=== PATIENT | female | born 1980 | race Caucasian/White ===

== ENCOUNTER 2020-04-24 09:14 | Emergency (ER) | payer BC, OTHER ==
[2020-04-24 11:13] LABS: Urine Blood 2+ (NEG); Urine Glucose NEGATIVE (NEG); Urine Protein NEGATIVE (NEG); Urine pH 5.5 (5.0-7.0)
[2020-04-24] MEDS ORDERED: METHYLPREDNISOLONE 125 MG INJ ONE (11:39)
[2020-04-24] MEDS ORDERED: MORPHINE 2 MG/ML SYR ONE (11:39)
[2020-04-24] MEDS ORDERED: ONDANSETRON 4 MG/2 ML VIAL ONE ×3 (11:40→14:52)
[2020-04-24] MEDS ORDERED: KETOROLAC 30 MG/ML INJ ONE (11:40)
[2020-04-24 11:56] LABS: C-Reactive Protein 5.59 mg/L (<3.00); Potassium 3.9 mmol/L (3.5-5.1)
[2020-04-24 12:07] LABS: Absolute Lymphocytes (CBC) 0.8 K/uL (0.7-4.9); Basophils % 0.6 % (0-1.3); Hematocrit 38.2 % (36.0-45.0); Lymphocytes % 20.3 % (15.3-44.8); MPV 9.8 fL (7.6-11.3); RBC Red Blood Cell Count 4.08 M/uL (3.86-4.86)
[2020-04-24] MEDS ORDERED: GABAPENTIN 300 MG CAP ONE (12:40)
[2020-04-24 13:14] LABS: Blood Morphology Comment NOT SEEN (NOT SEEN); Platelet Estimate ADEQ; Urine White Blood Cell Casts OK
[2020-04-24 13:44] LABS: Albumin 3.4 g/dL (3.4-5.0); Bilirubin Direct 0.1 mg/dL (0-0.2); Bilirubin Total 0.5 mg/dL (0.2-1.0); Protein, Total 8.3 g/dL (6.4-8.2)
[2020-04-24 15:11] VITALS: BP 118/77; TEMP 97.9; O2SAT 98
--- NOTE | 2020-04-26 17:58 | ER ---
Nurse's Notes [facility] Name: Ginette Guillermo Age: 39 yrs Sex: Female : 1980 Arrival Date: 04/24/2020 Time: 09:16 Bed 4 Private MD: Diagnosis: Neuralgia and neuritis, unspecified;Extremity swelling, athralgias Presentation: 04/24 09:33 Chief complaint: Patient states: swelling to arlen hands for the past week, pain to R ch side of neck when she turns head, pain in R shoulder when she lifts arm up for two days, then last night after standing on her feet all day, swelling to L foot. Coronavirus screen: Proceed with normal triage. Patient denies a cough. Patient denies shortness of breath or difficulty breathing. Patient denies measured and/or subjective temperature greater than 100.4F prior to today's visit. Patient denies travel on a cruise ship or to a country the [facility] currently lists as an affected area. Patient denies contact with known and/or suspected case of COVID-19. Ebola Screen: Patient negative for fever greater than or equal to 101.5 degrees Fahrenheit, and additional compatible Ebola Virus Disease symptoms Patient denies exposure to infectious person. Patient denies travel to an Ebola-affected area in the 21 days before illness onset. No symptoms or risks identified at this time. Initial Sepsis Screen: Does the patient meet any 2 criteria? No. Patient's initial sepsis screen is negative. Does the patient have a suspected source of infection? No. Patient's initial sepsis screen is negative. Risk Assessment: Do you want to hurt yourself or someone else? Patient reports no desire to harm self or others. Onset of symptoms was April 17, 2020. 09:33 Method Of Arrival: Ambulatory 09:33 Acuity: KAMLESH 3 Triage Assessment: 09:36 General: Appears in no apparent distress. comfortable, Behavior is calm, cooperative, appropriate for age. Pain: Complains of pain in anterior aspect of right shoulder, posterior aspect of right shoulder, back of neck, right hand, left hand and left foot Pain currently is 9 out of 10 on a pain scale. Pain began suddenly. Neuro: No deficits noted. Level of Consciousness is awake, alert, obeys commands, Oriented to person, place, time, situation, Supervisor Policy Change Clerks are equal bilaterally. Cardiovascular: Denies chest pain, palpitations, shortness of breath. Respiratory: No deficits noted. Airway is patent Respiratory effort is even, unlabored. GI: No signs and/or symptoms were reported involving the gastrointestinal system. : No signs and/or symptoms were reported regarding the genitourinary system. Derm: Skin is pink, warm \T\ dry. pt reports a numb spot on her ribs under her L breast. Musculoskeletal: Swelling present in right hand and left hand Tenderness present in right hand, left hand, right foot and left foot Reports pt states her arlen hands were super swollen yesterday, its better today. states the skin was stretched so tight the skin was white, and she still cannot move her toes very well. states her L foot was so swollen it wouldn't fit in a shoe. 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 - Social history:: Smoking status: Reported history of juuling and/or vaping. Patient uses alcohol, on a daily basis. Patient/guardian denies using street drugs. Screenin:40 Abuse screen: Denies threats or abuse. Denies injuries from another. Nutritional screening: No deficits noted. Tuberculosis screening: No symptoms or risk factors identified. Fall Risk None identified. Assessment: 09:40 Reassessment: Patient appears in no apparent distress at this time. Patient is alert, ch oriented x 3, equal unlabored respirations, skin warm/dry/pink. 10:37 Reassessment: Patient appears in no apparent distress at this time. Kat mcknight attempting IV now. 10:57 Reassessment: Patient appears in no apparent distress at this time. Kat mcknight unsucessful with IV start. Lien in room now to place US iv. 11:10 Reassessment: Patient appears in no apparent distress at this time. No changes from previously documented assessment. Lien unable to get IV access Via US. pt oob to restroom, gait steady, resps even and unlabored. pt still has swelling. 11:21 Reassessment: Kervin in room to attempt to IV patient. ch 11:47 Reassessment: Patient appears in no apparent distress at this time. Patient and/or ch family updated on plan of care and expected duration. Pain level reassessed. Patient is alert, oriented x 3, equal unlabored respirations, skin warm/dry/pink. 12:30 Reassessment: Patient appears in no apparent distress at this time. Patient and/or ch family updated on plan of care and expected duration. Pain level reassessed. Patient is alert, oriented x 3, equal unlabored respirations, skin warm/dry/pink. pt states the pain is a little better but not much. Patient states feeling better. 12:41 Reassessment: Patient appears in no apparent distress at this time. pt states her pain ch is somewhat relieved but she feels very nauseous after taking pill. pt offered crackers, states she thinks she might puke them. pt re medicated with Zofran. pt rates her pain at a 7. 14:04 Reassessment: Patient appears in no apparent distress at this time. pt reports her feet ch are numb, but her pain is improved. physician notified. 14:39 Reassessment: Patient appears in no apparent distress at this time. awaiting physician ch to speak with patient to review results. 14:57 Reassessment: Patient appears in no apparent distress at this time. Patient and/or ch family updated on plan of care and expected duration. Pain level reassessed. Patient is alert, oriented x 3, equal unlabored respirations, skin warm/dry/pink. Patient states feeling better. Patient states symptoms have improved. Vital Signs: 09:33 BP 113 / 82; Pulse 74; Resp 14; Temp 98.8; Pulse Ox 99% on R/A; Weight 78.93 kg; Height 5 ft. 5 in. (165.10 cm); Pain 9/10; 11:20 BP 128 / 82; Pulse 88; Resp 16; Temp 98.3; Pulse Ox 98% on R/A; Pain 8/10; ch 12:41 BP 138 / 84; Pulse 92; Resp 20; Pulse Ox 99% on R/A; Pain 7/10; ch 13:38 BP 138 / 90; Pulse 59; Resp 20; Pulse Ox 96% ; sv 14:57 BP 118 / 77; Pulse 73; Resp 16; Temp 97.9; Pulse Ox 98% on R/A; Pain 6/10; ch 09:33 Body Mass Index 28.95 (78.93 kg, 165.10 cm) ED Course: 09:16 Patient arrived in ED. ag5 09:31 Don Parsons MD is Attending Physician. kdr 09:33 Paris Fraser, ALISON is Primary Nurse. ch 09:35 Triage completed. ch 09:36 Arm band placed on left wrist. Patient placed in an exam room, on a stretcher. ch 09:40 No apparent distress. Resting quietly. ch 09:40 Patient has correct armband on for positive identification. Placed in gown. Bed in low ch position. Call light in reach. Side rails up X 1. 09:40 No provider procedures requiring assistance completed. ch 09:59 ED physician to see patient. sv 10:27 Missed attempt(s): 22 gauge in right forearm. antecubital area. Bleeding controlled, ch band aid applied, catheter tip intact. 10:35 Initial lab(s) drawn, by wy, sent to lab. Missed attempt(s): 20 gauge in left sv antecubital area. Bleeding controlled, band aid applied, catheter tip intact. 11:05 Missed attempt(s): 20 gauge in right antecubital area. done by Lien ROSAS using the bedside ultrasound. Bleeding controlled, band aid applied, catheter tip intact. 11:20 Pulse ox on. NIBP on. Warm blanket given. ch 11:28 Inserted saline lock: 18 gauge in left EJ, using aseptic technique. ,using aseptic ch technique. Started by Kervin Chambers 13:33 LAB Add On Sent. sv 14:57 IV discontinued, intact, bleeding controlled, No redness/swelling at site. Pressure ch dressing applied. Administered Medications: 11:30 Drug: SOLU-Medrol 125 mg Route: IVP; Site: left jugular; ch 12:29 Follow up: Response: No adverse reaction ch 11:30 Drug: morphine 1 mg Route: IVP; Site: left jugular; ch 12:29 Follow up: Response: No adverse reaction ch 11:30 Drug: Zofran (Ondansetron) 4 mg Route: IVP; Site: left jugular; ch 12:29 Follow up: Response: No adverse reaction; Pain is decreased ch 11:32 Drug: TORadol - Ketorolac 15 mg Route: IVP; Site: left jugular; ch 12:30 Follow up: Response: No adverse reaction ch 12:32 Drug: Neurontin 300 mg Route: PO; ch 12:59 Follow up: Response: No adverse reaction ch 12:40 Drug: Zofran (Ondansetron) 4 mg Route: IVP; Site: left jugular; ch 12:59 Follow up: Response: No adverse reaction ch 14:49 Drug: Zofran (Ondansetron) 4 mg Route: IVP; Site: left jugular; ss 14:58 Follow up: Response: No adverse reaction; Marked relief of symptoms ch Outcome: 14:38 Discharge ordered by . kdr 14:57 Discharged to home ambulatory, with family. 14:57 Condition: stable 14:57 Discharge instructions given to patient, Instructed on discharge instructions, follow up and referral plans. medication usage, Demonstrated understanding of instructions, follow-up care, medications, Prescriptions given X 4. 14:58 Patient left the ED. Signatures: Paris Fraser RN RN Kat Werner RN Don Galvan MD MD kdr Smirch, Shelby, RN RN Regan Holloway ag5 Corrections: (The following items were deleted from the chart) 11:12 11:05 Missed attempt(s): 20 gauge in right antecubital area. done by Lien ROSAS. sv Bleeding controlled, band aid applied, catheter tip intact. sv
--- NOTE | 2020-04-26 17:58 | EDPHYS ---
Physician Documentation [facility] Name: Ginette Guillermo Age: 39 yrs Sex: Female : 1980 Arrival Date: 04/24/2020 Time: 09:16 Bed 4 Private MD: ED Physician Don Parsons HPI: 04/24 10:10 This 39 yrs old Female presents to ER via Ambulatory with complaints of Feet kdr Swelling, Hand Pain, Arm Pain. 10:11 The patient has multiple c/o including bilateral hand pain/swelling - left worse than kdr right. She also c/o left foot pain and swelling. She has also c/o pain and swelling to the left foot for the last few days as well. She also c/o pain to the right lateral posterior neck that radiates/shoot down to her right arm. She also c/o a number area for the past 4+ months to her anterior thorax at the anterior left infrathoracic area. Severity of symptoms: At their worst the symptoms were mild moderate in the emergency department the symptoms are unchanged. The patient has not experienced similar symptoms in the past. The patient has not recently seen a physician. 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 - Social history:: Smoking status: Reported history of juuling and/or vaping. Patient uses alcohol, on a daily basis. Patient/guardian denies using street drugs. ROS: 10:11 Constitutional: Negative for fever, chills, and weight loss, Eyes: Negative for injury, kdr pain, redness, and discharge, Neck: Negative for injury, pain, and swelling, Cardiovascular: Negative for chest pain, palpitations, and edema, Respiratory: Negative for shortness of breath, cough, wheezing, and pleuritic chest pain, Abdomen/GI: Negative for abdominal pain, nausea, vomiting, diarrhea, and constipation, Back: Negative for injury and pain, : Negative for injury, bleeding, discharge, and swelling, MS/Extremity: Negative for injury and deformity, Skin: Negative for injury, rash, and discoloration, Psych: Negative for depression, anxiety, suicide ideation, homicidal ideation, and hallucinations, Allergy/Immunology: Negative for hives, rash, and allergies, Endocrine: Negative for neck swelling, polydipsia, polyuria, polyphagia, and marked weight changes, Hematologic/Lymphatic: Negative for swollen nodes, abnormal bleeding, and unusual bruising. 10:11 Neuro: Positive for Negative for dizziness, gait disturbance, loss of consciousness, seizure activity, speech changes, syncope, near syncope, tinnitus, tremor, visual changes. Exam: 10:11 Constitutional: This is a well developed, well nourished patient who is awake, alert, kdr and in no acute distress. Head/Face: Normocephalic, atraumatic. Eyes: Pupils equal round and reactive to light, extra-ocular motions intact. Lids and lashes normal. Conjunctiva and sclera are non-icteric and not injected. Cornea within normal limits. Periorbital areas with no swelling, redness, or edema. Neck: Trachea midline, no thyromegaly or masses palpated, and no cervical lymphadenopathy. Supple, full range of motion without nuchal rigidity, or vertebral point tenderness. No Meningismus. Chest/axilla: Normal chest wall appearance and motion. Nontender with no deformity. No lesions are appreciated. Cardiovascular: Regular rate and rhythm with a normal S1 and S2. No gallops, murmurs, or rubs. Normal PMI, no JVD. No pulse deficits. Respiratory: Lungs have equal breath sounds bilaterally, clear to auscultation and percussion. No rales, rhonchi or wheezes noted. No increased work of breathing, no retractions or nasal flaring. Abdomen/GI: Soft, non-tender, with normal bowel sounds. No distension or tympany. No guarding or rebound. No evidence of tenderness throughout. Back: No spinal tenderness. No costovertebral tenderness. Full range of motion. Skin: Warm, dry with normal turgor. Normal color with no rashes, no lesions, and no evidence of cellulitis. Neuro: Awake and alert, GCS 15, oriented to person, place, time, and situation. Cranial nerves II-XII grossly intact. Motor strength 5/5 in all extremities. Sensory grossly intact. Cerebellar exam normal. Normal gait. Psych: Awake, alert, with orientation to person, place and time. Behavior, mood, and affect are within normal limits. 10:11 Musculoskeletal/extremity: Extremities: grossly normal except: noted in the dorsal aspect of left forearm, left wrist, left hand and palmar aspect of left forearm: erythema, pain, swelling, tenderness, noted in the lateral aspect of left foot and dorsum of left foot: decreased ROM, pain, noted in the right arm: abrasion, pain, swelling. Vital Signs: 09:33 BP 113 / 82; Pulse 74; Resp 14; Temp 98.8; Pulse Ox 99% on R/A; Weight 78.93 kg; Height ch 5 ft. 5 in. (165.10 cm); Pain 9/10; 11:20 BP 128 / 82; Pulse 88; Resp 16; Temp 98.3; Pulse Ox 98% on R/A; Pain 8/10; ch 12:41 BP 138 / 84; Pulse 92; Resp 20; Pulse Ox 99% on R/A; Pain 7/10; ch 13:38 BP 138 / 90; Pulse 59; Resp 20; Pulse Ox 96% ; sv 14:57 BP 118 / 77; Pulse 73; Resp 16; Temp 97.9; Pulse Ox 98% on R/A; Pain 6/10; ch 09:33 Body Mass Index 28.95 (78.93 kg, 165.10 cm) ch MDM: 10:11 Data reviewed: vital signs, nurses notes, lab test result(s). Counseling: I had a kdr detailed discussion with the patient and/or guardian regarding: the historical points, exam findings, and any diagnostic results supporting the discharge/admit diagnosis. 14:38 Patient medically screened. [facility] 04/24 10:05 Order name: CBC with Diff; Complete Time: 13:29 kdr 04/24 10:05 Order name: Chem 7; Complete Time: 14:[address] [facility] 04/24 10:05 Order name: ESR; Complete Time: 13: kdr 04/24 10:05 Order name: CRP; Complete Time: 14:[address] [facility] 04/24 11:04 Order name: Urine Dipstick--Ancillary (enter results); Complete Time: 11: eb 04/24 11:04 Order name: Urine --Ancillary (enter results); Complete Time: 11: 04/24 12:56 Order name: LAB Add On eb 04/24 13:15 Order name: CBC Smear Scan; Complete Time: 13:29 EDNC 04/24 13:16 Order name: Liver (Hepatic) Function; Complete Time: 14:35 [facility] 04/24 10:05 Order name: Urine Dipstick-Ancillary (obtain specimen); Complete Time: 10:54 kdr Administered Medications: 11:30 Drug: SOLU-Medrol 125 mg Route: IVP; Site: left jugular; ch 12:29 Follow up: Response: No adverse reaction ch 11:30 Drug: morphine 1 mg Route: IVP; Site: left jugular; ch 12:29 Follow up: Response: No adverse reaction ch 11:30 Drug: Zofran (Ondansetron) 4 mg Route: IVP; Site: left jugular; ch 12:29 Follow up: Response: No adverse reaction; Pain is decreased ch 11:32 Drug: TORadol - Ketorolac 15 mg Route: IVP; Site: left jugular; ch 12:30 Follow up: Response: No adverse reaction ch 12:32 Drug: Neurontin 300 mg Route: PO; ch 12:59 Follow up: Response: No adverse reaction ch 12:40 Drug: Zofran (Ondansetron) 4 mg Route: IVP; Site: left jugular; ch 12:59 Follow up: Response: No adverse reaction ch 14:49 Drug: Zofran (Ondansetron) 4 mg Route: IVP; Site: left jugular; ss 14:58 Follow up: Response: No adverse reaction; Marked relief of symptoms ch Disposition: 04/24/20 14:38 Discharged to Home. Impression: Neuralgia and neuritis, unspecified, Extremity swelling, athralgias. - Condition is Stable. - Discharge Instructions: Pain Without a Known Cause, Neuropathic Pain. - Prescriptions for Ibuprofen 600 mg Oral Tablet - take 1 tablet by ORAL route every 6 hours As needed take with food; 30 tablet. Neurontin 300 mg Oral Capsule - take 1 capsule by ORAL route every 8 hours; 30 capsule. Tylenol- Codeine #3 300-30 mg Oral Tablet - take 2 tablets by ORAL route every 6 hours As needed; 16 tablet. Medrol (Flex) 4 mg Oral Tablets, Dose Pack - take 1 tablet by ORAL route as directed - follow package instructions; 1 packet. Zofran 4 mg Oral Tablet - take 1 tablet by ORAL route every 4-6 hours As needed; 12 tablet. - Medication Reconciliation Form, Thank You Letter, Prescription Opioid Use form. - Follow up: Private Physician; When: 2 - 3 days; Reason: If symptoms return, Further diagnostic work-up, Recheck today's complaints, Continuance of care, Re-evaluation by your physician. - Problem is new. - Symptoms have improved. Signatures: Dispatcher [employer] EDNC Paris Fraser RN RN Don Parsons MD MD [facility] Lien Church RN RN ss Corrections: (The following items were deleted from the chart) 14:58 14:38 04/24/2020 14:38 Discharged to Home. Impression: Neuralgia and neuritis, ch unspecified; Extremity swelling, athralgias. Condition is Stable. Forms are Medication Reconciliation Form, Thank You Letter, Antibiotic Education, Prescription Opioid Use. Follow up: Private Physician; When: 2 - 3 days; Reason: If symptoms return, Further diagnostic work-up, Recheck today's complaints, Continuance of care, Re-evaluation by your physician. Problem is new. Symptoms have improved. kdr
== END 2020-04-24 14:58 | disposition home or self-care (01) ==
LOC: ER 09:14
DX: M79.2 Neuralgia and neuritis, unspecified (principal)
CPT/HCPCS: 85025; 80048; 36415; 81025; 80076; 85652; 81003; 86140; 96375; 96374; 99284; J2270; J2930; J2405 ×3

== ENCOUNTER 2022-12-31 10:02 | Inpatient (IN) | payer BC ==
--- OUTSIDE RECORDS SUMMARY | 2022-12-31 10:10 | XMS REPORT | Continuity of Care Document ---
:1980 Author Organization [facility] t Address [address] [place] [address] Care Team Providers Name Role Phone Dannielle FARMER, Milla Primary Care Physician MICHAEL VANEGAS Attending Clinician Unavailable BOB MALAVE Attending Clinician Unavailable SARA CALVO Attending Clinician Unavailable Bob Malave DO Attending Clinician Tyrel Oconnor PT, Porsche Attending Clinician Unavailable Rey Foster MD Attending Clinician REY FOSTER Attending Clinician Unavailable Lab, Ang - Db Attending Clinician Unavailable [place] SYSTEM DESIGNERAaron Atreaga Attending Clinician AARON DUNCAN Attending Clinician Unavailable Doctor Unassigned, [place] Attending Clinician Unavailable MICHELLE SYLVESTER Attending Clinician Unavailable SWEETIE NEWSOME Attending Clinician Unavailable Pcp-Lab Attending Clinician Unavailable Ana Ariza RN Attending Clinician Unavailable LOULOU CEJA Attending Clinician Unavailable Loulou Ceja NP Attending Clinician JUNITO LYONS Attending Clinician Unavailable Junito Lyons DO Attending Clinician HECTOR JIMENEZ Attending Clinician Unavailable Therapy, Adc Covid Infusion Attending Clinician Unavailable Hector Jimenez MD Attending Clinician Curt Otoole MD Attending Clinician Only, Pcp Test Attending Clinician Unavailable Allen Strauss MD Attending Clinician Juan Luis FARMER, James Yip Attending Clinician Tristin FARMER, Ja Chopra Attending Clinician Sharron FARMER, Isa Torres A Attending Clinician Zeus FARMER, Kita Long Attending Clinician Dimitris FARMER, Pietro Attending Clinician MD ISA DUMAS A Attending Clinician Unavailable FINN BROOKS Attending Clinician Unavailable Po, Adc Lab Main Attending Clinician Unavailable Jeffrey Escobar MD Attending Clinician CURT OTOOLE Attending Clinician Unavailable Arnoldpaty MONTES DE OCA, Myra Attending Clinician YAS MYRA Attending Clinician Unavailable NOÉ BLANCHARD Attending Clinician Unavailable SHEA, [facility]END[facility]NY [facility] Attending Clinician Unavailable Umesh FARMER, Sara Attending Clinician Vtc-Lab Attending Clinician Unavailable Danna FARMER, [facility] Attending Clinician Elisa Drummond Attending Clinician Michael Vanegas MD Attending Clinician Only, Adc Test Attending Clinician Unavailable ELISA SEN Attending Clinician Unavailable Rose Owens PA-C Attending Clinician Jaylyn Nolasco DO Attending Clinician JAYLYN NOLASCO Attending Clinician Unavailable JAYLYN NOLASCO Attending Clinician Unavailable ROSE OWENS Attending Clinician Unavailable YELENA SARAH Attending Clinician Unavailable Amos ROSAS, Stephanie Bernabe Attending Clinician Unavailable Umm FARMER, Hilario Attending Clinician Dianne Dodd MD Attending Clinician , Adc Echo Room 1 - Attending Clinician Unavailable Shea FARMER, [facility] Attending Clinician Stella Mcmahan Attending Clinician Provider, [facility] Attending Clinician Unavailable Yelena Sarah MD Attending Clinician [facility] Attending Clinician Unavailable MICHAEL VANEGAS Admitting Clinician Unavailable JUNITO LYONS Admitting Clinician Unavailable ISA DUMAS Admitting Clinician Unavailable MD ISA DUMAS Admitting Clinician Unavailable Michael Vanegas MD Admitting Clinician Hilario Salomon MD Admitting Clinician Payers Payer Name Policy Type Policy Number Effective Date Expiration Date S diogo [facility] [id number] 2018 00:00:00 Problems Condition Condition Condition Status Onset Resolution Last Treating Co mments Source Name Details Category Date Date Treatment Clinician Date Intractabl Intractabl Disease Active M ethodi e pain e pain 07-29 00:00: Hosp[facility] 00 l Abdominal Abdominal Disease Active Overview: Univers pain, pain, 1-21 Form[place] ity of epigastric epigastric 00:00: g of this [place] 00 note Medical might be Branch different from the original. Added automatic ally from request for surgery [id number] Obesity Obesity Disease Active Univers (BMI (BMI 1-07 ity of 30-39.9) 30-39.9) 00:00: [address] Branch Pericardit Pericardit Disease Active 2019-11 U nivers is is 1-18 ity of 00:00: [place] [facility] Cigarette Cigarette Disease Active 2019-11 Uni vers smoker smoker 1-16 ity of 00:00: [address] Branch Chest pain Chest pain Disease Active 2020- U nivers 1-16 ity of 00:00: [place] [id number] Medical Branch SOB SOB Disease Active 2019-11 Univers (shortness (shortness 1-16 it y of of breath) of breath) 00:[place]: [place] [facility] [place] Fever Fever Disease Active 2019- Univers 1-16 ity of 00:00: [place] [address] Medical Branch Lymphadeno Lymphadeno Disease Active 2019- U nivers donnie donnie 1-16 ity of 00:00: [place] 00 Medical Branch Shortness Shortness Disease Active 2019-11 Uni vers of breath of breath 0-04 ity of 00:00: [place] [facility] Abnormal Abnormal Disease Active 2019-11 Unive rs EKG EKG 0-04 ity of 00:00: [place] 00 Medical Branch Raynaud's Raynaud's Disease Active Uni vers disease disease 05-04 ity of without without 00:00: [place] gangrene gangrene 00 Medica l Branch Arthralgia Arthralgia Disease Active U nivers of of 05-04 ity of multiple multiple 00:00: [place] joints joints 00 Medical Branch Neuropathy Neuropathy Disease Active U nivers 05-04 ity of 00:00: [place] 00 Medical Branch Renal Renal Disease Active Overview: Univer s lesion lesion 06-26 Formattin ity of 00:00: g of this [place] 00 note Medical might be Branch different from the original. 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 Microscopi Microscopi Disease Active U nivers c c 06-20 ity of hematuria hematuria 00:[place] B12 B12 Disease Active Univers deficiency deficiency 06-20 it y of 00:00: [place] 00 [facility] Branch Numbness Numbness Disease Active Unive rs and and 05-18 ity of tingling tingling 00:00: [place] of upper of upper 00 Medica l and lower and lower Bran ch extremitie extremitie s of both s of both sides sides Hot Hot Disease Active Univers flashes flashes 05-18 ity of 00:00: [place] 00 [facility] Branch Depression Depression Disease Active U nivers ity of [facility] Anxiety Anxiety Disease Active Univers ity of [facility] Migraines Migraines Disease Active Uni vers ity of [facility] Prediabete Prediabete Disease Active U nivers s s ity of [facility] Positive Positive Disease Active Unive rs SUSU SUSU ity of (antinucle [place]antinucle [place] Medical antibody) antibody) Bran ch Rheumatoid Rheumatoid Disease Active U nivers factor factor ity of positive positive [facility] Pain in Pain in Diagnosis Active 2021-11-23 Memoria left hand left hand 04:06:48 l Active [place] Diagnosis 11/23/2021 Milla Najam Rash Rash Diagnosis Active 2021-11-23 Mem oria Active 04:06:48 l Diagnosis [place] 11/23/2021 Milla Najam SUSU SUSU Diagnosis Active 2021-11-23 Mem oria positive positive 04:06:48 l Active [place] Diagnosis 11/23/2021 Milla Naleliam Vitamin D Vitamin D Problem Active 2021-11-23 Memoria deficiency deficiency 04:07:20 l Active [place] Problem 11/23/2021 Milla Najam 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 04:07:20 l tissue tissue [place] disease disease Active Problem 11/23/2021 Milla Najam Fibromyalg Fibromyal Problem Active 2021-11-23 Memoria ia duarte Active 04:07:20 l Problem [place] 11/23/2021 Milla Najam History of History Problem Active 2021-11-23 Memoria lupus of lupus 04:07:20 l Active [place] Problem 11/23/2021 Milla Najam Counseling Counselin Diagnosis Active 2021-11-23 Memoria NOS g NOS 04:06:48 l Active [place] Diagnosis 11/23/2021 Milla Najam Pain in Pain in Diagnosis Active 2021-11-23 Memoria right hand right hand 04:06:48 l Active [place] Diagnosis 11/23/2021 Milla Najam Pain, Pain, Diagnosis Active 2021-11-23 Me moria joint, joint, 04:06:48 l multiple multiple Rodrigo n sites sites Active Diagnosis 11/23/2021 Milla Najam Allergies, Adverse Reactions, Alerts Allergy Allergy Status Severity Reaction(s) Onset Inactive Treating Comm ents Source Name Type Date Date Clinician NO KNOWN Drug Active Univers ALLERGIE Class ity of S [facility] Social History Social Habit Start Date Stop Date Quantity Comments Source History of Cigarette Smoker Universi ty of tobacco use [facility] Exposure to 2022-12-02 2022-12-12 Not sure University of SARS-CoV-2 00:00:00 15:32:00 [facility] (event) Branch Cigarettes smoked 2022-11-14 2022-11-14 Univers ity of current (pack per 00:00:00 00:00:00 [place] ) - Reported Branch Cigarette 2022-11-14 2022-11-14 University of pack-years 00:00:00 00:00:00 [place] [facility] Tobacco use and 2022-11-14 2022-11-14 Smokeless tobacco Un iversity of exposure 00:00:00 00:00:00 non-user [facility] Alcohol intake 2021-07-29 2021-07-29 Current drinker of Me [facility] 00:00:00 00:00:00 alcohol (finding) Hospita l History [facility] 2020-12-02 2020-12-02 99 University o f Alcohol Frequency 00:00:00 00:00:00 [place] M edical Branch History [facility] 2020-12-02 2020-12-02 99 University o f Alcohol Binge 00:00:00 00:00:00 [place] [facility] Alcohol Comment 2020-12-02 2020-12-02 occassionally Univer sity of 00:00:00 00:00:00 [place] [facility] History [facility] 2019-05-13 2019-05-13 99 University o f Alcohol Std 00:00:00 00:00:00 [facility] Drinks Branch Sex [birth year] [facility] 00:00:00 00:00:00 Hospital Smoking Status Start Date Stop Date Source Occasional tobacco 2022-11-14 00:00:00 [facility] smoker Medical Branch Ex-smoker 2021-07-29 00:00:00 2021-07-29 [facility] Medications Ordered Filled Start Stop Current Ordering Indication Dosage Frequency Signature Comments Components Source Medication Medication Date Date Medication? Clinician (SIG) Name Name amLODIPine 2022- No 5mg Take 5 mg U nivers 5 mg tablet 12-12 by mouth ity of 16:41: 00:00 in the [place] 39 :00 morning. Medical Branch amLODIPine 2022- No 5mg Take 5 mg U nivers 5 mg tablet 12-12 by mouth ity of 16:41: 00:00 in the [place] 39 :00 morning. Medical Branch amLODIPine Yes [id number] 5mg Take 1 Univers 5 mg tablet 1-17 tablet by ity of 00:00: mouth in [place] 00 the Medical morning. Branch gabapentin Yes [id number] 600mg Take 2 Univers 300 mg 1-17 capsules ity of capsule 00:00: by mouth [place] 00 in the Medical morning Branch and 2 capsules at noon and 2 capsules in the evening. amLODIPine 2023-0 Yes [id number] 5mg Take 1 Univers 5 mg tablet 1-17 tablet by ity of 00:00: mouth in [place] the Medical morning. Branch gabapentin 2023-0 Yes [id number] 600mg Take 2 Univers 300 mg 1-17 capsules ity of capsule 00:00: by mouth [place] 00 in the Medical morning Branch and 2 capsules at noon and 2 capsules in the evening. amLODIPine 2023-0 Yes [id number] 5mg Take 1 Univers 5 mg tablet 1-17 tablet by ity of 00:00: mouth in [place] the Medical morning. Branch gabapentin 2023-0 Yes [id number] 600mg Take 2 Univers 300 mg 1-17 capsules ity of capsule 00:00: by mouth 00 in the Medical morning Branch and 2 capsules at noon and 2 capsules in the evening. amLODIPine 2023-0 Yes [id number] 5mg Take 1 Univers 5 mg tablet 1-17 tablet by ity of 00:00: mouth in [place] the Medical morning. Branch gabapentin 2023-0 Yes [id number] 600mg Take 2 Univers 300 mg 1-17 capsules ity of capsule 00:00: by mouth [place] 00 in the Medical morning Branch and 2 capsules at noon and 2 capsules in the evening. amLODIPine 2023-0 Yes [id number] 5mg Take 1 Univers 5 mg tablet 1-17 tablet by ity of 00:00: mouth in [place] the Medical morning. Branch gabapentin 2023-0 Yes [id number] 600mg Take 2 Univers 300 mg 1-17 capsules ity of capsule 00:00: by mouth [place] 00 in the Medical morning Branch and 2 capsules at noon and 2 capsules in the evening. amLODIPine 2023-0 Yes [id number] 5mg Take 1 Univers 5 mg tablet 1-17 tablet by ity of 00:00: mouth in [place] the Medical morning. Branch gabapentin 2023-0 Yes [id number] 600mg Take 2 Univers 300 mg 1-17 capsules ity of capsule 00:00: by mouth [place] 00 in the Medical morning Branch and 2 capsules at noon and 2 capsules in the evening. amLODIPine 2023-0 Yes [id number] 5mg Take 1 Univers 5 mg tablet 1-17 tablet by ity of 00:00: mouth in [place] 00 the Medical morning. Branch gabapentin 2022- Yes [id number] 600mg Take 2 Univers 300 mg 1-17 capsules ity of capsule 00:00: by mouth [place] 00 in the Medical morning Branch and 2 capsules at noon and 2 capsules in the evening. amLODIPine 2021-11 Yes 5mg Take 5 mg Un alecia 5 mg tablet 2-20 by mouth ity of 09:46: in the [place] [address] morning. Medical Branch amLODIPine 2021-11 Yes 5mg Take 5 mg Un alecia 5 mg tablet 2-20 by mouth ity of 09:46: in the [place] [address] morning. Medical Branch amLODIPine 2021-11 Yes 5mg Take 5 mg Un alecia 5 mg tablet 2-20 by mouth ity of 09:46: in the [place] [address] morning. Medical Branch amLODIPine 2021-11 Yes 5mg Take 5 mg Un alecia 5 mg tablet 2-20 by mouth ity of 09:46: in the [place] [address] morning. Medical Branch multivit-mi 2021-11- No Take by Un alecia n/ferrous 2-20 12-20 mouth. ity of fumarate 09:45: 00:00 [place] ([facility] 27 :00 Medical VITAMIN Branch ORAL) multivit-mi 2021-11- No Take by Un alecia n/ferrous 2-20 12-20 mouth. ity of fumarate 09:45: 00:00 [place] ([facility] 27 :00 Medical VITAMIN Branch ORAL) multivit-mi 2021-11- No Take by Un alecia n/ferrous 2-20 12-20 mouth. ity of fumarate 09:45: 00:00 [place] ([facility] 27 :00 Medical VITAMIN Branch ORAL) TAKE 1 2021-0 No 100 CAPSULE 9-07 ONCE A DAY 00:00: 00 TAKE 1 2-0 No CAPSULE 9-07 ONCE A DAY 00:00: 00 Dose 2-0 No 200 Unknown 7-24 00:00: 00 TAKE ONE 2021-0 No 500 (1) TABLET 7-24 (500 MG 00:00: TOTAL) BY 00 MOUTH 4 (FOUR) TIMES A DAY NEEDED FOR MUSCLE SPASMS. TAKE ONE 2021-0 No 100 (1) 7-24 CAPSULE(S) 00:00: BY MOUTH 00 TWICE A DAY. Dose 2022-0 No 200 Unknown 06-18 00:00: 00 TAKE ONE 2-0 No 500 (1) TABLET 06-18 (500 MG 00:00: TOTAL) BY 00 MOUTH 4 (FOUR) TIMES A DAY NEEDED FOR MUSCLE SPASMS. TAKE ONE 2-0 No 100 (1) 06-18 CAPSULE(S) 00:00: BY MOUTH 00 TWICE A DAY. TAKE 2 2022-0 No 300 CAPSULES 3 06-15 TIMES 00:00: DAILY. 00 Dose 2022-0 No 250 Unknown 06-15 00:00: 00 pregabalin 2022-0 No 1mg 100 mg - capsule 00:00: 00 TAKE ONE 2-0 No 100 (1) 06-15 CAPSULE(S) 00:00: BY MOUTH 00 TWICE A DAY. TAKE ONE 2-0 No 500 (1) TABLET 06-15 (500 MG 00:00: TOTAL) BY 00 MOUTH 4 (FOUR) TIMES A DAY NEEDED FOR MUSCLE SPASMS. TAKE 1 2-0 No CAPSULE 06-15 ONCE A DAY 00:00: 00 TAKE ONE 2-0 No 100 (1) 06-15 CAPSULE(S) 00:00: BY MOUTH 00 TWICE A DAY. TAKE ONE 2-0 No 500 (1) TABLET 06-15 (500 MG 00:00: TOTAL) BY 00 MOUTH 4 (FOUR) TIMES A DAY NEEDED FOR MUSCLE SPASMS. &lt 2022-0 No 250 06-15 00:00: 00 TAKE 1 2022-0 No 200 TABLET BY 7- MOUTH TWICE 00:00: DAILY AFTER 00 A MEAL TAKE 1 2022-0 No 50 TABLET BY 7- MOUTH DAILY 00:00: 00 TAKE 2 2022-0 No 300 CAPSULES 3 06-15 TIMES 00:00: DAILY. 00 &lt 2022-0 No 250 06-15 00:00: 00 TAKE 1 2022-0 No TABLET 3 - TIMES 00:00: DAILY. 00 Dose 2022-0 No 250 Unknown 06-15 00:00: 00 TAKE 1 2022-0 No 200 TABLET BY 7- MOUTH TWICE 00:00: DAILY AFTER 00 A MEAL TAKE 1 2022-0 No 50 TABLET BY 7-21 MOUTH DAILY 00:00: 00 TAKE 2 2022-0 No 300 CAPSULES 3 - TIMES 00:00: DAILY. 00 NaCl 0.9% 2021- No 1000mL at 999 Uni vers (NS) bolus 05-04 mL/hr, ity of infusion 21:15: 09:14 1,000 mL, [place] as 1,000 mL 00 :00 IV Medical Infusion, Branch ONCE, 1 dose, On [place] 05/04/22 at 1615, BOB magnesium 2021- No 1g 1 g, IV Univ ers sulfate in 05-04 Piggyback, it y of D5W 1 21:15: 09:14 ONCE, 1 [place] gram/100 mL 00 :00 dose, On [facility] RTU IV [place] 05/04/22 Branch Piggyback 1 at 1615, g Administer over 60 Minutes, 100 mL ketorolac 2021- No 30mg 30 mg, Unive rs (TORADOL) 05-04 Slow IV ity of injection 21:15: 09:14 Push, [place] 30 mg 00 :00 ONCE, 1 Medical dose, On Branch [facility] 05/04/22 at 1615, Routine butalbital- 2021- No 1{tbl} 1 tablet, Univers acetaminoph 05-04 Oral, ity of en-caff 21:15: 09:14 ONCE, 1 [place] (ESGIC) 00 :00 dose, On Medical 50-325-40 [facility] 05/04/22 Bran ch mg tablet 1 at 1615, tablet BOB dexamethaso 2021- No 10mg 10 mg, Uni vers ne sod phos 05-01 Slow IV ity of PF 21:15: 20:16 Push, [place] injection 00 :00 ONCE, 1 Medical 10 mg dose, On Branch [facility] 05/01/22 at 1615, 1 mL ketorolac 2021- No 15mg 15 mg, Unive rs (TORADOL) 05-01 Slow IV ity of injection 21:15: 20:16 Push, [place] 15 mg 00 :00 ONCE, 1 Medical dose, On Branch [facility] 05/01/22 at 1615, BOB diphenhydrA 2021- No 25mg 25 mg, Uni vers MINE 05-01 Slow IV ity of (BENADRYL) 20:45: 19:47 [place], [place] injection 00 :00 ONCE, 1 Medical 25 mg dose, On Branch 05/01/22 at 1545, STAT metoclopram 2021- No 10mg 10 mg, Uni vers vikki HCl 05-01 Slow IV ity of (REGLAN) 20:45: 19:41 [place], [place] injection 00 :00 ONCE, 1 Medical 10 mg dose, On Branch 05/01/22 at 1545, BOB iopamidol 2021- No [id number] 64mL 64 mL, U nivers (ISOVUE 05-01 Intravenou ity o f 370-500 mL) 19:56: 19:56 s, ONCE, 1 [place] injection 00 :00 dose, On Medica l 64 mL 05/01/22 Branch at 1500, Routine Ergocalcife 2020-11 Yes Milla 1 capsule Memoria rol 2-29 Najam l 04:06: [place] Pregabalin 2020-11 Yes Milla 1 capsule Memoria 2-29 Najam l 04:06: [place] Gabapentin 2020-11 Yes Milla 1 capsule Memoria 2-29 Najam l 04:06: [place] Hydroxychlo 2020-11 Yes Milla as Ritesh lilian roquine 2-29 Najam directed l Sulfate 04:06: [place] Ergocalcife 2020-11 Yes Milla 1 capsule Memoria rol 2-29 Najam l 04:06: [place] Pregabalin 2020-11 Yes Milla 1 capsule Memoria 2-29 Najam l 04:06: [place] Azathioprin 2020-11 Yes Milla as Ritesh lilian e 2-29 Najam directed l 04:06: [place] Duloxetine 2020-11 Yes Milla 1 capsule Memoria HCl 2-29 Najam l 04:06: [place] 48 Azathioprin 2020-11 Yes Milla as Ritesh lilian e 2-29 Najam directed l 04:06: [place] Duloxetine 2020-11 Yes Milla 1 capsule Memoria HCl 2-29 Najam l 04:06: [place] Gabapentin 2020-11 Yes Milla 1 capsule Memoria 2-29 Najam l 04:06: [place] 48 Hydroxychlo 2020-11 Yes Milla as Ritseh lilian roquine 2-29 Najam directed l Sulfate 04:06: [place] 48 Ergocalcife 2020-11 Yes Milla 1 capsule Memoria rol 2-29 Najam l 04:06: [place] 48 Pregabalin 2020-11 Yes Milla 1 capsule Memoria 2-29 Najam l 04:06: [place] 48 Azathioprin 2020-11 Yes Milla as Ritesh lilian e 2-29 Najam directed l 04:06: [place] 48 Duloxetine 2020-11 Yes Milla 1 capsule Memoria HCl 2-29 Najam l 04:06: [place] 48 Gabapentin 2020-11 Yes Milla 1 capsule Memoria 2-29 Najam l 04:06: [place] 48 Hydroxychlo 2020-11 Yes Milla as Ritesh lilian roquine 2-29 Najam directed l Sulfate 04:06: [place] 48 Ergocalcife 2020-11 Yes Milla 1 capsule Memoria rol 2-29 Najam l 04:06: [place] 48 Pregabalin 2020-11 Yes Mil[place] 1 capsule Memoria 2-29 Najam l 04:06: [place] 48 Azathioprin 2020-11 Yes Milla as Ritesh lilian e 2-29 Najam directed l 04:06: [place] 48 Duloxetine 2020-11 Yes Milla 1 capsule Memoria HCl 2-29 Najam l 04:06: [place] Gabapentin 2020-11 Yes Milla 1 capsule Memoria 2-29 Najam l 04:06: [place] 48 Hydroxychlo 2020-11 Yes Milla as Ritesh lilian roquine 2-29 Najam directed l Sulfate 04:06: [place] 48 Zithromax 2020-11 Yes Milla 2 tablet Me moria Z-Flex 0-11 Najam on the l 00:00: first day, [place] 00 then 1 tablet daily for 4 days Zithromax 2020-11 Yes Milla 2 tablet Me moria Z-Flex 0-11 Najam on the l 00:00: first day, [place] then 1 tablet daily for 4 days Zithromax 2020-11 Yes Milla 2 tablet Me moria Z-Flex 0-11 Najam on the l 00:00: first day, [place] 00 then 1 tablet daily for 4 days Zithromax 1 Yes Milla 2 tablet Me moria Z-Flex 0-11 Najam on the l 00:00: first day, [place] 00 then 1 tablet daily for 4 days DULOXETINE 2020-0 Yes [id number] 30mg TAKE 1 Univers 30 mg 9-28 CAPSULE BY ity of capsule 00:00: MOUTH [place] DAILY Medical Branch DULOXETINE 2020-0 Yes [id number] 30mg TAKE 1 Univers 30 mg 9-28 CAPSULE BY ity of capsule 00:00: MOUTH [place] DAILY Medical Branch DULOXETINE 2020-0 Yes [id number] 30mg TAKE 1 Univers 30 mg 9-28 CAPSULE BY ity of capsule 00:00: MOUTH [place] DAILY Medical Branch DULOXETINE 2020-0 Yes [id number] 30mg TAKE 1 Univers 30 mg 9-28 CAPSULE BY ity of capsule 00:00: MOUTH [place] DAILY Medical Branch DULOXETINE 2020-0 Yes [id number] 30mg TAKE 1 Univers 30 mg 9-28 CAPSULE BY ity of capsule 00:00: MOUTH DAILY Medical Branch DULOXETINE 2020-0 Yes [id number] 30mg TAKE 1 Univers 30 mg 9-28 CAPSULE BY ity of capsule 00:00: MOUTH [place] DAILY Medical Branch DULOXETINE 2020-0 Yes [id number] 30mg TAKE 1 Univers 30 mg 9-28 CAPSULE BY ity of capsule 00:00: MOUTH [place] 00 DAILY Medical Branch DULOXETINE 2020-0 2- No [id number] 30mg TAKE 1 Univers 30 mg 9-28 12-20 CAPSULE BY ity of capsule 00:00: 00:00 MOUTH [place] 00 :00 DAILY Medical Branch DULOXETINE 2020-0 2021- No [id number] 30mg TAKE 1 Univers 30 mg 9-28 12-20 CAPSULE BY ity of capsule 00:00: 00:00 MOUTH [place] 00 :00 DAILY Medical Branch DULOXETINE 2020-0 2021- No [id number] 30mg TAKE 1 Univers 30 mg 9-28 12-20 CAPSULE BY ity of capsule 00:00: 00:00 MOUTH [place] 00 :00 DAILY Medical Branch casirivimab 2020-0 1- No [id number] 1200mg 1,200 mg, Univers -imdevimab 08-18 Subcutaneo it y of (REGEN-COV 21:30: 20:15 us, ONCE, [place] (EUA[place] 00 :00 1 dose, On Medical injection [place] Branch 1,200 mg 08/18/21 at 1630, Routine hydrOXYchlo 2020-0 Yes [id number] One BID PC Univers roQUINE 200 9-21 ity of mg tablet 00:00: [place] 00 Medical Branch azaTHIOprin 2020-0 Yes [id number] 50mg Take 1 Univers e 50 mg 9-21 tablet by ity of tablet 00:00: mouth [place] 00 daily. Medical Branch hydrOXYchlo 2020-0 Yes [id number] One BID PC Univers roQUINE 200 9-21 ity of mg tablet 00:00: [place] 00 Medical Branch azaTHIOprin 2020-0 Yes [id number] 50mg Take 1 Univers e 50 mg 9-21 tablet by ity of tablet 00:00: mouth [place] 00 daily. Medical Branch hydrOXYchlo 2020-0 Yes [id number] One BID PC Univers roQUINE 200 9-21 ity of mg tablet 00:00: [place] 00 Medical Branch azaTHIOprin 2020-0 Yes [id number] 50mg Take 1 Univers e 50 mg 9-21 tablet by ity of tablet 00:00: mouth [place] 00 daily. Medical Branch hydrOXYchlo 2020-0 Yes [id number] One BID PC Univers roQUINE 200 9-21 ity of mg tablet 00:00: [place] 00 Medical Branch azaTHIOprin 1-0 Yes [id number] 50mg Take 1 Univers e 50 mg 9-21 tablet by ity of tablet 00:00: mouth [place] 00 daily. Medical Branch hydrOXYchlo 2020-0 Yes [id number] One BID PC Univers roQUINE 200 9-21 ity of mg tablet 00:00: [place] 00 Medical Branch azaTHIOprin 1-0 Yes [id number] 50mg Take 1 Univers e 50 mg 9-21 tablet by ity of tablet 00:00: mouth [place] 00 daily. Medical Branch hydrOXYchlo 2020-0 Yes [id number] One BID PC Univers roQUINE 200 9-21 ity of mg tablet 00:00: [place] 00 Medical Branch azaTHIOprin 1-0 Yes [id number] 50mg Take 1 Univers e 50 mg 9-21 tablet by ity of tablet 00:00: mouth [place] 00 daily. Medical Branch hydrOXYchlo 2020-0 Yes [id number] One BID PC Univers roQUINE 200 9-21 ity of mg tablet 00:00: [place] 00 Medical Branch azaTHIOprin 2020-0 Yes [id number] 50mg Take 1 Univers e 50 mg 9-21 tablet by ity of tablet 00:00: mouth [place] 00 daily. Medical Branch hydrOXYchlo 2020-0 Yes [id number] One BID PC Univers roQUINE 200 9-21 ity of mg tablet 00:00: [place] 00 Medical Branch azaTHIOprin 2020-0 Yes [id number] 50mg Take 1 Univers e 50 mg 9-21 tablet by ity of tablet 00:00: mouth [place] 00 daily. [facility] Branch hydrOXYchlo 2020-0 Yes [id number] One BID PC Univers roQUINE 200 9-21 ity of mg tablet 00:00: [place] 00 Medical Branch azaTHIOprin 2020-0 Yes [id number] 50mg Take 1 Univers e 50 mg 9-21 tablet by ity of tablet 00:00: mouth [place] 00 daily. [facility] Branch hydrOXYchlo 2020-0 2021- No [id number] One BID PC Univers roQUINE 200 9-21 12-20 ity of mg tablet 00:00: 00:00 [place] 00 :00 Medical Branch azaTHIOprin 1-0 2021- No [id number] 50mg Take 1 Univers e 50 mg 9-21 12-20 tablet by ity of tablet 00:00: 00:00 mouth [place] 00 :00 daily. [facility] Branch hydrOXYchlo 2020-0 2021- No [id number] One BID PC Univers roQUINE 200 9-21 12-20 ity of mg tablet 00:00: 00:00 [place] 00 :00 Medical Branch azaTHIOprin 1-0 2021- No [id number] 50mg Take 1 Univers e 50 mg 9-21 12-20 tablet by ity of tablet 00:00: 00:00 mouth [place] 00 :00 daily. [facility] Branch hydrOXYchlo 2020-0 2021- No [id number] One BID PC Univers roQUINE 200 9-21 12-20 ity of mg tablet 00:00: 00:00 [place] 00 :00 Medical Branch azaTHIOprin 1-0 2021- No [id number] 50mg Take 1 Univers e 50 mg 9-21 12-20 tablet by ity of tablet 00:00: 00:00 mouth [place] 00 :00 daily. Medical Branch Pregabalin 1-0 Yes Milla 1 capsule Memoria 9-08 Najam l 00:00: Ergocalcife 2021-0 Yes Milla 1 capsule Memoria rol 9-08 [place] l 00:00: Pregabalin 2021-0 Yes Milla 1 capsule Memoria 9-08 [place] 00:00: Ergocalcife 2021-0 Yes Milla 1 capsule Memoria rol 9-08 [place] l 00:00: Pregabalin 2021-0 Yes Milla 1 capsule Memoria 9-08 [place] 00:00: Ergocalcife 2021-0 Yes Milla 1 capsule Memoria rol 9-08 [place] l 00:00: Pregabalin 2021-0 Yes Milla 1 capsule Memoria 9-08 [place] l 00:00: Ergocalcife 2021-0 Yes Milla 1 capsule Memoria rol 9-08 Najam l 00:00: hydrOXYchlo 2020-0 Yes 200mg Q.5D Take 200 M ethodi roQUINE 9-[address] (PLAQUENIL) 19:22: mouth 2 Hos daren 200 mg 58 (two) l tablet times a day. azaTHIOprin 2020-0 Yes 50mg QD Take 50 mg Methodi e (IMURAN) 9-[address] 50 mg 19:22: daily. Hospita tablet 58 l DULoxetine 2020-0 Yes 60mg QD Take 60 mg M ethodi (CYMBALTA) 9-[address] 60 MG 19:22: daily. Hospita capsule 58 l gabapentin 2020-0 Yes 600mg Q.[id number] Take 600 Methodi (NEURONTIN) 9-05 [id number] mg by s t 300 mg 19:22: 3D mouth 3 Hospita capsule 58 (three) l times a day. gabapentin 2021-0 Yes 600mg Q.[id number] Take 600 Methodi (NEURONTIN) 9-05 [id number] mg by s t 300 mg 19:22: 3D mouth 3 Hospita capsule 58 (three) l times a day. hydrOXYchlo 2021-0 Yes 200mg Q.5D Take 200 M ethodi roQUINE 9-[address] (PLAQUENIL) 19:22: mouth 2 Hos daren 200 mg 58 (two) l tablet times a day. azaTHIOprin 2021-0 Yes 50mg QD Take 50 mg Methodi e (IMURAN) 9-[address] 50 mg 19:22: daily. Hospita tablet 58 l DULoxetine 202-0 Yes 60mg QD Take 60 mg M ethodi (CYMBALTA) 9-[address] 60 MG 19:22: daily. Hospita capsule 58 l gabapentin 2021-0 Yes 600mg Q.[id number] Take 600 Methodi (NEURONTIN) 9-05 [id number] mg by s t 300 mg 19:22: 3D mouth 3 Hospita capsule 58 (three) l times a day. hydrOXYchlo 2020-0 Yes 200mg Q.5D Take 200 M ethodi roQUINE 9-[address] (PLAQUENIL) 19:22: mouth 2 Hos daren 200 mg 58 (two) l tablet times a day. azaTHIOprin 2020-0 Yes 50mg QD Take 50 mg Methodi e (IMURAN) 9-[address] 50 mg 19:22: daily. Hospita tablet 58 l DULoxetine 2020-0 Yes 60mg QD Take 60 mg M ethodi (CYMBALTA) 9-[address] 60 MG 19:22: daily. Hospita capsule 58 l methocarbam 2021-0 Yes 500mg Q.25D Take 1 Me thodi oL 9-[address] (ROBAXIN) 00:00: (500 mg Hospi ta 500 MG 00 total) by l tablet mouth 4 (four) times a day as needed for muscle spasms. ramelteon 2021-0 Yes 8mg QD Take 1 Method i (ROZEREM) 8 9-05 tablet (8 st mg tablet 00:00: mg total) Hos daren 00 by mouth l nightly as needed for sleep. methocarbam 2021-0 Yes 500mg Q.25D Take 1 Me thodi oL 9-[address] (ROBAXIN) 00:00: (500 mg Hospi ta 500 MG 00 total) by l tablet mouth 4 (four) times a day as needed for muscle spasms. ramelteon 2021-0 Yes 8mg QD Take 1 Method i (ROZEREM) 8 9-05 tablet (8 st mg tablet 00:00: mg total) Hos daren 00 by mouth l nightly as needed for sleep. methocarbam 0 Yes 500mg Q.25D Take 1 Me thodi oL 9-[address] (ROBAXIN) 00:00: (500 mg Hospi ta 500 MG 00 total) by l tablet mouth 4 (four) times a day as needed for muscle spasms. ramelteon 0 Yes 8mg QD Take 1 Method i (ROZEREM) 8 9-05 tablet (8 st mg tablet 00:00: mg total) Hos daren 00 by mouth l nightly as needed for sleep. DULoxetine 0 Yes [id number] 30mg Take 1 Univers 30 mg 6-16 capsule by ity of capsule 00:00: mouth [place] 00 daily. Medical Branch DULoxetine 0 Yes [id number] 30mg Take 1 Univers 30 mg 6-16 capsule by ity of capsule 00:00: mouth [place] 00 daily. Medical Branch DULoxetine 0 2020- No [id number] 30mg Take 1 Univers 30 mg 6-16 09-28 capsule by ity of capsule 00:00: 00:00 mouth [place] 00 :00 daily. Medical Branch gabapentin 2020-0 Yes [id number] 600mg Take 2 Univers 300 mg 5-12 capsules ity [place] capsule 00:00: [place] (three[place] Medical times Branch daily. gabapentin 2020-0 Yes [id number] 600mg Take 2 Univers 300 mg 5-12 capsules ity of capsule 00:00: [place] 3 [place] (three[place] Medical times Branch daily. gabapentin 2020-0 Yes [id number] 600mg Take 2 Univers 300 mg 5-12 capsules ity of capsule 00:00: [place] (three[place] Medical times Branch daily. gabapentin 2020-0 Yes [id number] 600mg Take 2 Univers 300 mg 5-12 capsules ity of capsule 00:00: [place] (three[place] Medical times Branch daily. gabapentin 2020-0 Yes [id number] 600mg Take 2 Univers 300 mg 5-12 capsules ity of capsule 00:00: [place] 3 [place] (three[place] Medical times Branch daily. gabapentin 2021-0 Yes [id number] 600mg Take 2 Univers 300 mg 5-12 capsules ity of capsule 00:00: [place] (three[place] Medical times Branch daily. gabapentin 2021-0 Yes [id number] 600mg Take 2 Univers 300 mg 5-12 capsules ity of capsule 00:00: [place] mouth [place] (three[place] Medical times Branch daily. gabapentin 2021-0 Yes [id number] 600mg Take 2 Univers 300 mg 5-12 capsules ity of capsule 00:00: [place] (three[place] Medical times Branch daily. gabapentin 2021-0 Yes [id number] 600mg Take 2 Univers 300 mg 5-12 capsules ity of capsule 00:00: [place] (three[place] Medical times Branch daily. gabapentin 2021-0 Yes [id number] 600mg Take 2 Univers 300 mg 5-12 capsules ity of capsule 00:00: [place] mouth [place] (three[place] Medical times Branch daily. gabapentin 2021-0 Yes [id number] 600mg Take 2 Univers 300 mg 5-12 capsules ity of capsule 00:00: [place] mouth 3 [place] (three[place] Medical times Branch daily. gabapentin 2021-0 Yes [id number] 600mg Take 2 Univers 300 mg 5-12 capsules ity of capsule 00:00: [place] mouth 3 [place] (three[place] Medical times Branch daily. gabapentin 2021-0 Yes [id number] 600mg Take 2 Univers 300 mg 5-12 capsules ity of capsule 00:00: [place] mouth [place] (three[place] Medical times Branch daily. gabapentin 2021-0 3- No [id number] 600mg Take 2 Univers 300 mg 5-12 -17 capsules ity of capsule 00:00: 00:00 by mouth 3 [place] 00 :00 (three) Medical times Branch daily. gabapentin 2021-0 2023- No [id number] 600mg Take 2 Univers 300 mg 5-12 01-17 capsules ity of capsule 00:00: 00:00 by mouth 3 [place] 00 :00 (three) Medical times Branch daily. DULoxetine 2021-0 Yes [id number] 60mg Take 1 Univers 60 mg 4-26 capsule by ity of capsule 00:00: mouth [place] 00 daily. Medical Branch DULoxetine 2021-0 Yes [id number] 60mg Take 1 Univers 60 mg 4-26 capsule by ity of capsule 00:00: mouth [place] 00 daily. Medical Branch DULoxetine Yes [id number] 60mg Take 1 Univers 60 mg 4-26 capsule by ity of capsule 00:00: mouth [place] 00 daily. Medical Branch DULoxetine Yes [id number] 60mg Take 1 Univers 60 mg 4-26 capsule by ity of capsule 00:00: mouth [place] 00 daily. Medical Branch DULoxetine Yes [id number] 60mg Take 1 Univers 60 mg 4-26 capsule by ity of capsule 00:00: mouth [place] 00 daily. Medical Branch DULoxetine Yes [id number] 60mg Take 1 Univers 60 mg 4-26 capsule by ity of capsule 00:00: mouth [place] 00 daily. Medical Branch DULoxetine Yes [id number] 60mg Take 1 Univers 60 mg 4-26 capsule by ity of capsule 00:00: mouth [place] 00 daily. Medical Branch DULoxetine Yes [id number] 60mg Take 1 Univers 60 mg 4-26 capsule by ity of capsule 00:00: mouth [place] 00 daily. Medical Branch DULoxetine Yes [id number] 60mg Take 1 Univers 60 mg 4-26 capsule by ity of capsule 00:00: mouth [place] 00 daily. Medical Branch DULoxetine 2021- No [id number] 60mg Take 1 Univers 60 mg 4-26 12-20 capsule by ity of capsule 00:00: 00:00 mouth [place] 00 :00 daily. Medical Branch DULoxetine 2021- No [id number] 60mg Take 1 Univers 60 mg 4-26 12-20 capsule by ity of capsule 00:00: 00:00 mouth [place] 00 :00 daily. Medical Branch DULoxetine 2021- No [id number] 60mg Take 1 Univers 60 mg 4-26 12-20 capsule by ity of capsule 00:00: 00:00 mouth [place] 00 :00 daily. Medical Branch multivit-mi Yes Take by Uni vers n/ferrous 2-22 mouth. ity of fumarate 10:01: [place] (MULTI 19 Medical VITAMIN Branch ORAL) multivit-mi Yes Take by Uni vers n/ferrous 2-22 mouth. ity of fumarate 10:01: [place] ([facility] 19 Medical VITAMIN Branch ORAL) multivit-mi Yes Take by Uni vers n/ferrous 2-22 mouth. ity of fumarate 10:01: [place] ([facility] 19 Medical VITAMIN Branch ORAL) multivit-mi Yes Take by Uni vers n/ferrous 2-22 mouth. ity of fumarate 10:01: [place] ([place] [address] Medical VITAMIN Branch ORAL) multivit-mi Yes Take by Uni vers n/ferrous 2-22 mouth. ity of fumarate 10:01: [place] ([place] [address] Medical VITAMIN Branch ORAL) multivit-mi Yes Take by Uni vers n/ferrous 2-22 mouth. ity of fumarate 10:01: [place] ([facility] 19 Medical VITAMIN Branch ORAL) multivit-mi Yes Take by Uni vers n/ferrous 2-22 mouth. ity of fumarate 10:01: [place] ([place] [address] Medical VITAMIN Branch ORAL) multivit-mi Yes Take by Uni vers n/ferrous 2-22 mouth. ity of fumarate 10:01: [place] ([place] [address] Medical VITAMIN Branch ORAL) multivit-mi Yes Take by Uni vers n/ferrous 2-22 mouth. ity of fumarate 10:01: [place] ([facility] 19 Medical VITAMIN Branch ORAL) Immunizations Ordered Filled Immunization Date Status Comments [facility] Immunization Name Name TDAP (ADACEL) 2019-07-18 Completed University of VACCINE 00:00:00 [facility] Pneumococcal 2019-07-18 Completed [place] o f Polysaccharide, 00:00:00 [place] Med ical PPSV23 (PNEUMOVAX) Branch TDAP (ADACEL) 2019-07-18 Completed University of VACCINE 00:00:00 [facility] Pneumococcal 2019-07-18 Completed [place] o f Polysaccharide, 00:00:00 [place] Med ical PPSV23 (PNEUMOVAX) Branch TDAP (ADACEL) 2019-07-18 Completed University of VACCINE 00:00:00 [facility] Pneumococcal 2019-07-18 Completed University o f Polysaccharide, 00:00:00 [place] Med ical PPSV23 (PNEUMOVAX) Branch TDAP (ADACEL) 2019-07-18 Completed University of VACCINE 00:00:00 [facility] Pneumococcal 2019-07-18 Completed [place] o f Polysaccharide, 00:00:00 [place] Med ical PPSV23 (PNEUMOVAX) Branch TDAP (ADACEL) 2019-07-18 Completed University of VACCINE 00:00:00 [facility] Pneumococcal 2019-07-18 Completed University o f Polysaccharide, 00:00:00 [place] Med ical PPSV23 (PNEUMOVAX) Branch TDAP (ADACEL) 2019-07-18 Completed University of VACCINE 00:00:00 [facility] Pneumococcal 2019-07-18 Completed University o f Polysaccharide, 00:00:00 [place] Med ical PPSV23 (PNEUMOVAX) Branch TDAP (ADACEL) 2019-07-18 Completed University of VACCINE 00:00:00 [facility] Pneumococcal 2019-07-18 Completed University o f Polysaccharide, 00:00:00 [place] Med ical PPSV23 (PNEUMOVAX) Branch TDAP (ADACEL) 2019-07-18 Completed University of VACCINE 00:00:00 [facility] Pneumococcal 2019-07-18 Completed University o f Polysaccharide, 00:00:00 [place] Med ical PPSV23 (PNEUMOVAX) Branch TDAP (ADACEL) 2019-07-18 Completed University of VACCINE 00:00:00 [facility] Pneumococcal 2019-07-18 Completed University o f Polysaccharide, 00:00:00 [place] Med ical PPSV23 (PNEUMOVAX) Branch TDAP (ADACEL) 2019-07-18 Completed University of VACCINE 00:00:00 [facility] Pneumococcal 2019-07-18 Completed University o f Polysaccharide, 00:00:00 [place] Med ical PPSV23 (PNEUMOVAX) Branch TDAP (ADACEL) 2019-07-18 Completed University of VACCINE 00:00:00 [facility] Pneumococcal 2019-07-18 Completed University o f Polysaccharide, 00:00:00 [place] Med ical PPSV23 (PNEUMOVAX) Branch TDAP (ADACEL) 2019-07-18 Completed University of VACCINE 00:00:00 [facility] Pneumococcal 2019-07-18 Completed University o f Polysaccharide, 00:00:00 [place] Med ical PPSV23 (PNEUMOVAX) Branch TDAP (ADACEL) 2019-07-18 Completed University of VACCINE 00:00:00 [facility] Pneumococcal 2019-07-18 Completed University o f Polysaccharide, 00:00:00 [place] Med ical PPSV23 (PNEUMOVAX) Branch TDAP (ADACEL) 2019-07-18 Completed University of VACCINE 00:00:00 [facility] Pneumococcal 2019-07-18 Completed University o f Polysaccharide, 00:00:00 [place] Med ical PPSV23 (PNEUMOVAX) Branch TDAP (ADACEL) 2019-07-18 Completed University of VACCINE 00:00:00 [facility] Pneumococcal 2019-07-18 Completed University o f Polysaccharide, 00:00:00 [place] Med ical PPSV23 (PNEUMOVAX) Branch TDAP (ADACEL) 2019-07-18 Completed University of VACCINE 00:00:00 [facility] Pneumococcal 2019-07-18 Completed University o f Polysaccharide, 00:00:00 [place] Med ical PPSV23 (PNEUMOVAX) Branch TDAP (ADACEL) 2019-07-18 Completed University of VACCINE 00:00:00 [facility] Pneumococcal 2019-07-18 Completed University o f Polysaccharide, 00:00:00 [place] Med ical PPSV23 (PNEUMOVAX) Branch TDAP (ADACEL) 2019-07-18 Completed University of VACCINE 00:00:00 [facility] Pneumococcal 2019-07-18 Completed University o f Polysaccharide, 00:00:00 [place] Med ical PPSV23 (PNEUMOVAX) Branch TDAP (ADACEL) 2019-07-18 Completed University of VACCINE 00:00:00 [facility] Pneumococcal 2019-07-18 Completed University o f Polysaccharide, 00:00:00 [place] Med ical PPSV23 (PNEUMOVAX) Branch TDAP (ADACEL) 2019-07-18 Completed University of VACCINE 00:00:00 [facility] Pneumococcal 2019-07-18 Completed University o f Polysaccharide, 00:00:00 [place] [facility] ical PPSV23 (PNEUMOVAX) Branch TDAP (ADACEL) 2019-07-18 Completed University of VACCINE 00:00:00 [facility] Pneumococcal 2019-07-18 Completed University o f Polysaccharide, 00:00:00 [place] Med ical PPSV23 (PNEUMOVAX) Branch TDAP (ADACEL) 2019-07-18 Completed University of VACCINE 00:00:00 [facility] Pneumococcal 2019-07-18 Completed University o f Polysaccharide, 00:00:00 [place] [facility] ical PPSV23 (PNEUMOVAX) Branch TDAP (ADACEL) 2019-07-18 Completed University of VACCINE 00:00:00 [facility] Pneumococcal 2019-07-18 Completed University o f Polysaccharide, 00:00:00 [facility] ical PPSV23 (PNEUMOVAX) Branch TDAP (ADACEL) 2019-07-18 Completed University of VACCINE 00:00:00 [facility] Pneumococcal 2019-07-18 Completed [place] o f Polysaccharide, 00:00:00 [facility] ical PPSV23 (PNEUMOVAX) Branch Vital Signs Vital Name Observation Time Observation Value Comments Source Systolic blood 2022-12-12 22:08:00 123 mm[Hg] Univer sity of pressure [facility] Diastolic blood 2022-12-12 22:08:00 76 mm[Hg] Unive rsity of pressure [facility] Heart rate 2022-12-12 22:08:00 70 /min Universi ty of [facility] Body height 2022-12-12 22:08:00 165.1 cm Universi ty of [facility] Body weight 2022-12-12 22:08:00 88.451 kg Universi ty [facility] BMI 2022-12-12 22:08:00 32.45 kg/m2 Universi ty [facility] Oxygen saturation in 2022-12-12 22:08:00 100 /min University of Arterial blood by [place] W-21 Pulse oximetry Branch Systolic blood 2022-11-14 15:09:00 118 mm[Hg] Univer sity of pressure [facility] Diastolic blood 2022-11-14 15:09:00 79 mm[Hg] Unive rsity of pressure [facility] Heart rate 2022-11-14 15:09:00 78 /min Universi ty of [facility] Body temperature 2022-11-14 15:09:00 36.33 Lizeth [facility] ersity [facility] Respiratory rate 2022-11-14 15:09:00 16 /min Univ ersity [facility] Body height 2022-11-14 15:09:00 167.6 cm Universi ty of [place] [facility] Body weight 2022-11-14 15:09:00 86.909 kg Universi ty of [place] [facility] BMI 2022-11-14 15:09:00 30.93 kg/m2 Universi ty [facility] Oxygen saturation in 2022-11-14 15:09:00 99 /min room air University of Arterial blood by [employer] Pulse oximetry Branch Systolic blood 2022-05-04 20:00:00 136 mm[Hg] Univer sity of pressure [place] [facility] Diastolic blood 2022-05-04 20:00:00 100 mm[Hg] Unive rsity of pressure [place] [facility] Heart rate 2022-05-04 20:00:00 68 /min Universi ty of [place] [facility] Respiratory rate 2022-05-04 20:00:00 20 /min Univ ersity of [place] [facility] Oxygen saturation in 2022-05-04 20:00:00 99 /min University of Arterial blood by [facility] Pulse oximetry Branch Body temperature 2022-05-04 17:31:00 36.17 Lizeth Univ ersity of [place] [facility] Body height 2022-05-04 17:31:00 165.1 cm Universi ty of [place] [facility] Body weight 2022-05-04 17:31:00 83.915 kg Universi ty of [place] [facility] BMI 2022-05-04 17:31:00 30.79 kg/m2 Universi ty of [place] [facility] Systolic blood 2022-05-01 20:19:10 130 mm[Hg] Univer sity of pressure [place] [facility] Diastolic blood 2022-05-01 20:19:10 82 mm[Hg] Unive rsity of pressure [place] [facility] Heart rate 2022-05-01 20:19:10 54 /min Universi ty of [place] [facility] Respiratory rate 2022-05-01 20:19:10 18 /min Univ ersity of [place] [facility] Oxygen saturation in 2022-05-01 20:19:10 98 /min University of Arterial blood by [facility] Pulse oximetry Branch Body temperature 2022-05-01 18:22:00 37.17 Lizeth Univ ersity of [place] [facility] Body height 2022-05-01 18:22:00 165.1 cm Universi ty of [place] [facility] Body weight 2022-05-01 18:22:00 83.915 kg Universi ty of [place] [facility] BMI 2022-05-01 18:22:00 30.79 kg/m2 Universi ty of [place] [facility] Systolic blood 2021-08-18 20:09:00 114 mm[Hg] Univer sity of pressure [place] [facility] Diastolic blood 2021-08-18 20:09:00 78 mm[Hg] Unive rsity of pressure [place] [facility] Heart rate 2021-08-18 20:09:00 81 /min Universi ty of [facility] Body temperature 2021-08-18 20:09:00 36.44 Lizeth Univ ersity of [facility] Respiratory rate 2021-08-18 20:09:00 20 /min [facility] Body height 2021-08-18 20:09:00 165.1 cm Universi ty of [facility] Body weight 2021-08-18 20:09:00 87.544 kg Universi ty [facility] BMI 2021-08-18 20:09:00 32.12 kg/m2 Universi ty [facility] Oxygen saturation in 2021-08-18 20:09:00 95 /min [facility] blood by [facility] Pulse oximetry Branch BP Systolic 2022-10-30 09:50:00 111 mm[Hg] BP Diastolic 2022-10-30 09:50:00 73 mm[Hg] Weight Measured 2022-10-30 09:50:00 186.60 pounds Height Measured 2022-10-30 09:50:00 65.00 inches Body Temperature 2022-10-30 09:50:00 97.00 degrees Heart Rate 2022-10-30 09:50:00 76.00 /min Respiratory Rate 2022-10-30 09:50:00 BP Systolic 2022-08-02 14:23:00 124 mm[Hg] BP Diastolic 2022-08-02 14:23:00 88 mm[Hg] Weight Measured 2022-08-02 14:23:00 174.60 pounds Height Measured 2022-08-02 14:23:00 65.00 inches Body Temperature 2022-08-02 14:23:00 97.80 degrees Heart Rate 2022-08-02 14:23:00 76.00 /min Respiratory Rate 2022-08-02 14:23:00 BP Systolic 2022-06-15 10:11:00 108 mm[Hg] BP Diastolic 2022-06-15 10:11:00 73 mm[Hg] Weight Measured 2022-06-15 10:11:00 166.00 pounds Height Measured 2022-06-15 10:11:00 65.00 inches Body Temperature 2022-06-15 10:11:00 97.50 degrees Heart Rate 2022-06-15 10:11:00 84.00 /min Respiratory Rate 2022-06-15 10:11:00 21.00 /min Diastolic (mm Hg) 2021-09-29 20:30:00 [facility] [place] Systolic (mm Hg) 2021-09-29 20:30:00 Ritesh [facility] [place] Temperature Oral (F) 2021-09-29 20:30:00 97.2 F [facility] [place] Weight 2021-09-29 20:30:00 [facility] [place] Diastolic (mm Hg) 2021-09-01 20:45:00 [facility] [place] Systolic (mm Hg) 2021-09-01 20:45:00 Ritesh [facility] [place] Temperature Oral (F) 2021-09-01 20:45:00 95.7 F [facility] [place] Weight 2021-09-01 20:45:00 [facility] Systolic blood 2021-08-11 23:02:22 110 mm[Hg] [facility] pressure Diastolic blood 2021-08-11 23:02:22 62 mm[Hg] [facility] pressure Heart rate 2021-08-11 23:02:22 102 /min [facility] Body temperature 2021-08-11 23:02:22 39 Lizeth [facility] Respiratory rate 2021-08-11 23:02:22 20 /min [facility] Oxygen saturation in 2021-08-11 23:02:22 96 /min [facility] Arterial blood by Pulse oximetry Body height 2021-07-29 19:00:00 165.1 cm [facility] Body weight 2021-07-29 12:56:00 90.266 kg [facility] BMI 2021-07-29 12:56:00 33.12 kg/m2 [facility] Procedures Procedure Date / Time Performing Clinician Source Performed INSURANCE CORRESPONDENCE 2022-12-13 06:01:00 Doctor Unassigned, [facility] [place] [facility] URINALYSIS 2022-11-14 16:43:00 Bob Malave [facility] Medical Branch COMP. METABOLIC PANEL 2022-11-14 16:17:00 Bob Malave [facility] ([id number]) Medical Branch SEDIMENTATION RATE 2022-11-14 16:17:[address] [facility] CBC WITH DIFF 2022-11-14 16:17:00 Bob Malave [facility] URINALYSIS 2022-05-04 18:36:00 Loulou Ceja [facility] POCT TEST 2022-05-04 18:36:[address] [facility] COVID-19 (ID NOW RAPID 2022-05-04 18:36:00 Loulou Ceja [facility] TESTING) Medical Branch CONSENT/REFUSAL FOR 2022-05-04 17:21:59 Doctor Mark [facility] DIAGNOSIS AND TREATMENT [facility] [place] [facility] ANGIOGRAM HEAD 2022-05-01 19:58:00 Singer [facility] CT ANGIOGRAM NECK 2022-05-01 19:58:00 Singer [facility] CT HEAD WO CONTRAST 2022-05-01 19:55:00 [facility] COMP. METABOLIC PANEL 2022-05-01 19:00:00 Junito Lyons [facility] ([id number]) Medical Branch CBC WITH DIFF 2022-05-01 19:00:00 Singer Junito [facility] NOTICE OF PRIVACY 2022-05-01 18:02:43 Doctor Mark, [facility] PRACTICES [place] [facility] CONSENT/REFUSAL FOR 2022-05-01 18:01:06 Doctor Mark [facility] DIAGNOSIS AND TREATMENT [place] [facility] CONSENT/REFUSAL FOR 2021-08-18 05:01:00 Doctor Unasssherry, [facility] DIAGNOSIS AND TREATMENT [place] [facility] TROPONIN 2021-08-11 23:57:00 Brooke Lora [facility] COMPREHENSIVE METABOLIC 2021-08-11 21:36:00 Brooke Lora [facility] PANEL [facility] HC COMPLETE BLD COUNT 2021-08-11 21:36:00 Brooke Lora [facility] W/AUTO DIFF [facility] TROPONIN 2021-08-11 21:36:00 Brooke Lora [facility] [place] ESTIMATED GFR 2021-08-11 21:36:00 Brooke Lora [facility] [place] ECG 12-LEAD 2021-08-11 20:11:24 Brooke Lora [facility] [place] XR CHEST 2 VW 2021-08-11 19:59:02 Brooke Lora spital [place] RESPIRATORY PATHOGEN 2021-08-11 19:31:[address] [facility] PANEL WITH COVID-19 RT-PCR US DUPLEX VENOUS LOWER 2021-07-31 23:19:18 [facility] EXTREMITY BILATERAL THYROID STIMULATING 2021-07-30 16:28:00 [facility] HORMONE PHOSPHORUS LEVEL 2021-07-30 16:28:00 [facility] ospital BASIC METABOLIC PANEL 2021-07-30 10:19:[address] [facility] [place] HC COMPLETE BLD COUNT 2021-07-30 10:19:[address] [facility] W/AUTO DIFF [place] ESTIMATED GFR 2021-07-30 10:19:00 [facility] ospital [place] COVID-19 ANTI-SPIKE IGG 2021-07-29 23:30:00 [facility] ANTIBODY TITER [place] HEMOGLOBIN A1C 2021-07-29 23:30:00 [facility] ospital [place] LIPID PANEL 2021-07-29 23:30:00 [facility] SEROLOGY PATIENT 2021-07-29 23:30:00 [facility] SURVEILLANCE [place] TROPONIN 2021-07-29 20:22:00 Ja Crow ospital COVID-19 QUALITATIVE 2021-07-29 19:09:00 Ja Crow [facility] RT-PCR HC COMPLETE BLD COUNT 2021-07-29 15:35:00 Crow, Ja [facility] W/AUTO DIFF B NATRIURETIC PEPTIDE 2021-07-29 15:35:00 Ja Crow [facility] XR CHEST 1 VW PORTABLE 2021-07-29 14:26:49 Ja Crow [facility] ECG 12-LEAD 2021-07-29 14:02[facility] METABOLIC 2021-07-29 13:41:[address] [facility] PANEL CREATINE KINASE, TOTAL 2021-07-29 13:41:00 Ja Crow [facility] (CPK) TROPONIN 2021-07-29 13:41[facility]00 [facility]FR 2021-07-29 13:41:00 [facility] ED PRELIMINARY 2021-07-29 13:19:12 [facility] Plan of Care Planned Activity Planned Date Details Comments Source Future Scheduled 2022-12-19 COVID-[address] [facility] Test 13:26:53 (#1) [code = COVID-19 VACCINE (#1)] Future Scheduled 2022-12-19 [facility] 13:26:53 screening (procedure) [code = 761142424] Future Scheduled 2022-12-19 Screening for [facility] Test 13:26:53 malignant neoplasm of cervix (procedure) [code = 439816166] Future Scheduled 2022-12-19 BREAST CANCER [facility] Test 13:26:53 SCREENING [code = BREAST CANCER SCREENING] Future Scheduled 2022-12-19 INFLUENZA VACCINE [facility] Test 13:26:53 [code = INFLUENZA VACCINE] Future Scheduled 2022-07-29 [facility] Test 03:56:12 screening (procedure) [code = 992841875] Future Scheduled 2022-07-29 Screening for [facility] Test 03:56:12 malignant neoplasm of cervix (procedure) [code = 463332778] Future Scheduled 2022-07-29 BREAST CANCER [facility] Test 03:56:12 SCREENING [code = BREAST CANCER SCREENING] Future Scheduled 2022-07-29 [facility] 03:56:12 [code = INFLUENZA VACCINE] Future Scheduled 2022-07-29 [facility]IS B [facility] 03:56:12 VACCINES (1 of 3 - 3-dose series) [code = HEPATITIS B VACCINES (1 of 3 - 3-dose series)] Future Scheduled 2022-07-29 [facility] 03:56:12 (#1) [code = COVID-19 VACCINE (#1)] Future Scheduled 2021-12-28 [facility] 00:25:46 (1) [code = COVID-19 VACCINE (1)] Future Scheduled 2021-12-28 [facility] 00:25:46 screening (procedure) [code = 026459259] Future Scheduled 2021-12-28 [facility] Test 00:25:46 malignant neoplasm of cervix (procedure) [code = 709557849] Future Scheduled 2021-12-28 [facility]INE [facility] 00:25:46 [code = INFLUENZA VACCINE] Goal Plan of Care Note [code = 67811-0] Goal Plan of Care Note [code = 97788-0] Goal Plan of Care Note [code = 78559-0] Goal Plan of Care Note [code = 67944-2] Goal Plan of Care Note [code = 06006-4] Goal Plan of Care Note [code = 99373-3] Goal Plan of Care Note [code = 29614-6] Goal Plan of Care Note [code = 93433-5] Goal Plan of Care Note [code = 23765-4] Goal Plan of Care Note [code = 56162-3] Goal Plan of Care Note [code = 37933-4] Goal Plan of Care Note [code = 06484-0] Goal Plan of Care Note [code = 44711-6] Goal Plan of Care Note [code = 32030-7] Goal Plan of Care Note [code = 31749-0] Goal Plan of Care Note [code = 99126-9] Goal Plan of Care Note [code = 68339-1] Goal Plan of Care Note [code = 03429-7] Goal Plan of Care Note [code = 66659-2] Goal Plan of Care Note [code = 98335-1] Goal Plan of Care Note [code = 10574-8] Goal Plan of Care Note [code = 77148-1] Encounters Start End Encounter Admission Attending Care Care Encounter Source Date/Time Date/Time Type Type Clinicians Facility Department ID 2022-12-31 Outpatient [id number] Memoria 10:05:39 [id number] 31-4044-BE4 W22-4879- B l -EV73-46S [id number] [id number] T[place] [id number] 1B0 F541B0 2022-12-12 Outpatient [id number] A8EB F405-8 Memoria 15:39:31 86FA-4910 FA-4910-8FE 6FA-4910- 8 l -3II5-S73 [id number] FE4-P01893 Trem[place]ne [id number] [id number] 2022-11-14 Outpatient [id number] C763-A Memoria 09:07:55 Z624-201M 80-482A-87A 980-482A- 8 l -34O8-C86 2-S67D16QM9 4D0-G04H17 T[place]ne [id number] 74B YZ333M 2022-08-02 Outpatient [id number] D224-E Memoria 14:52:24 X2UF-2016 EC-4510-942 0EC-4510- 9 l -942B-891 B-3179O6K7X 42B-8916A6 [place] 4W3Y2M9H9 1D4 B7B1D4 2021-12-27 Outpatient [id number] E4CA 35D9-5 Memoria 22:08:10 33C5-88V8 F9-88N8-4Y0 1Q3-77R2- 9 l -6R1F-3GO B-5GW3DL3Q0 R8W-1NH1MY [place] 0AQ6F0BT3 FE8 3C4FE8 2021-09-25 Emergency [facility] [id number] Univers 16:53:51 [facility] 2021-09-24 Outpatient R GUILHERME [facility] CINDI [id number] Univers 18:42:24 [facility]-09-24 Emergency [facility] [id number] Univers 05:40:28 ity [facility] 2022-12-21 2022-12-21 Telephone RICKY Malave 1.2.840.114 [id number] Univers 00:00:00 00:00:00 Bob SHARMA 350.1.13.10 ity [facility] 4.2.7.2.686 [place] [phone] [address] 2022-12-20 2022-12-20 Ancillary Tyrel Oconnor Porsche [facility] 1 .2.840.114 [id number] Univers 08:00:00 08:45:00 Visit Rey Foster 350.1.13.10 ity [facility] [place].2.[place] [phone] Sc nicky CONRTERAS [address] [facility] 2022-12-20 2022-12-20 [facility] [id number] Univers 08:00:00 08:00:00 REY [facility] 2022-12-19 2022-12-19 [facility] [id number] Univers 13:45:00 13:45:00 REY [facility] 2022-12-13 2022-12-13 Veterinary Livestock Inspector Lab, Ang - [facility] 1.2.840.1 14 [id number] Univers 07:30:00 07:45:00 Visit Aaron Duncan 350.1.13.[address] [facility] 4.2.7.2.686 [place] KARAN?BLEA [phone] Sc dicdillon KNEY [address] MEDICAL OFFICE BUILDING 2022-12-13 2022-12-13 [facility] [id number] Univers 07:30:00 07:30:00 AARON ity [facility] 2022-12-13 2022-12-13 Orders Doctor GARCÍA 1.2.840.114 [id number] Univers 00:00:00 00:00:00 Only Unassigned, ZACHARY 350.1.13.10 ity of [place] [facility] 4.2.7.2.686 [place] [phone] [address] 2022-12-12 2022-12-12 Office [place] [facility] 1.2.840.114 [id number] Univers 16:00:00 16:30:00 Visit Aaron HOOPER 350.1.13.10 it y of [place] 4.2.7.2.686 [place] KARAN?BLEA [phone] Sc nicky [address] MEDICAL OFFICE BUILDING 2022-12-12 2022-12-12 Outpatient R DAKOTA [facility] [id number] Univers 16:00:00 16:00:00 AARON marcelino [facility] 2022-12-06 2022-12-06 Outpatient R HIGINIO [facility] [id number] Univers 15:45:00 15:45:00 , MICHELLE kayode mayo [facility] 2022-12-05 2022-12-05 Outpatient R JEROD [facility] [id number] Univers 09:15:00 09:15:00 SWEETIE chari [facility] 2022-12-04 2022-12-04 Outpatient R KRISTIN [facility] [id number] Univers 08:45:00 08:45:00 REY [facility] 2022-11-14 2022-11-14 Veterinary Livestock Inspector Pcp-Lab [facility] 1.2.840.114 [id number] Univers 10:00:00 10:15:00 Visit Bob Malave PRIMARY 350.1.13.10 ity of C[place].7.2.[place] [phone] Sc bharathdillon [address] [place] [address] 2022-11-14 2022-11-14 Outpatient R FRIEDA [facility] [id number] Univers 09:30:00 10:00:46 BOB marcelino [facility] 2022-11-14 2022-11-14 Office Frieda [facility] 1.2.840.114 [id number] Univers 09:30:00 10:00:46 Visit Bob Go PRIMARY 350.1.13.10 ity of [place] 4.2.7.2.[place] [phone] Sc dicdillon Cardona[address] 2022-10-30 2022-10-30 Outpatient [facility] [id number] Tutu 09:00:46 09:00:46 87799 F Dwight 2022-10-30 2022-10-30 Outpatient [id number] b2 w155x6-6 00:00:00 00:00:00 Visit 3b10-3172 f24-2018-o -x1p1-5y6 0p5-1m4253 3006314wk 7510bb 2022-08-17 2022-08-17 Telephone [facility] 1.2.840.114 [id number] Univers 00:00:00 00:00:00 Bob Go PRIMARY 350.1.13.10 ity [place]2.7.2.[place] [phone] Sc bharath[address] 2022-08-17 2022-08-17 Telephone [facility] 1.2.840.114 [id number] Univers 00:00:00 00:00:00 Ana PRIMARY 350.1.13.10 it y of C[place] 4[place]2.7.2.[place] [phone] Sc bharath[address] 2022-08-17 2022-08-17 Telephone [facility] 1.2.840.114 [id number] Univers 00:00:00 00:00:00 Bob Go PRIMARY 350.1.13.10 ity of [place]2.7.2.[place] [id number] Sc dicdillon [address] [place] [address] 2022-08-02 2022-08-02 Outpatient [id number] a291c2-2 00:00:00 00:00:00 Visit 235b-4ef7 35b-4ef7-b -ls49-288 e41-853021 [id number] gjo172 2022-05-04 2022-05-04 Emergency X [facility] ERT [id number] Univers 12:32:00 15:11:00 LOULOU marcelino [facility] 2022-05-04 2022-05-04 Emergency Drever, [facility] 1.2.154.978 [id number] Univers 12:32:00 15:11:00 Loulou Foreman ANTONIA 350.1.13.10 ity [facility] 4.2.7.2.686 [facility] [phone] [facility] [address] 2022-05-01 2022-05-01 Emergency X LYONS, [facility] ERT [id number] Univers 13:24:00 15:41:00 JUNITO itgael [facility] 2022-05-01 2022-05-01 Emergency [facility] 1.2.109.916 [id number] Univers 13:24:00 15:41:00 Junitoconor SOLISERIC 350.1.13.10 i ty of [facility] 4.2.7.2.686 [facility] [phone] [facility] [address] 2022-05-01 2022-05-01 Orders Doctor GARCÍA 1.2.840.114 [id number] Univers 00:00:00 00:00:00 Only Unassigned, ZACHARY 350.1.13.10 [facility] 4.2.7.2.686 [facility] [phone] [facility] [address] 2021-11-15 2021-11-15 Outpatient Amirah MALAVE, [facility] [id number] Univers 09:20:00 09:20:00 BOB chari [facility] 2021-09-30 2021-09-30 Outpatient [facility] [id number] Memoria 10:08:00 10:08:00 Rheumatol Rheumatolog l ogy y [facility] 2021-09-29 2021-09-29 Outpatient [facility] [id number] Memoria 14:30:00 14:30:00 Rheumatol Rheumatolog l ogy y [facility] 2021-09-14 2021-09-14 Outpatient [facility] [id number] Memoria 10:00:00 10:00:00 Rheumatol Rheumatolog l ogy y [facility] 2021-09-05 2021-09-05 Outpatient [facility] [id number] Memoria 10:27:00 10:27:00 Rheumatol Rheumatolog l ogy y [facility] 2021-09-05 2021-09-05 Outpatient [facility] PENFHMS CXK COH 00:00:00 00:00:00 BGDPW-2 0103 2021-09-01 2021-09-01 Outpatient [facility] [id number] Memoria 14:45:00 14:45:00 Rheumatol Rheumatolog l ogy y [facility] 2021-08-18 2021-08-18 [facility] [id number] Univers 16:00:00 16:00:00 HECTOR marcelino [facility] 2021-08-18 2021-08-18 Nurse Therapy, Adc Covid Infusion [facility] 1.2.840.114 [id number] Univers 13:26:02 14:26:02 Visit Hector Jimenez 350.1.13.10 ity of [place].2.[place] [phone] [facility] [address] 2021-08-18 2021-08-18 Orders Doctor RICKY 1.2.840.114 [id number] Univers 00:00:00 00:00:00 Only Unassigned, ZACHARY 350.1.13.10 ity of [place] [facility] 4.2.7.2.686 [place] [id number] [facility] [address] 2021-08-17 2021-08-17 [facility] 1.2.840.114 [id number] Univers 00:00:00 00:00:00 Bob PALACIO 350.1.13.10 ity of CARE 4.2.7.2.686 [place] 259.1253358 Sc dical [address] 2021-08-16 2021-08-16 Office [facility] 1.2.840.114 [id number] Univers 14:25:25 15:10:31 Visit Curt [facility] 350.1.13.10 ity of [place] 4.2.7.2.686 [place] Karan?Blea [phone] Sc dicdillon [address] Medical Office Building 2021-08-16 2021-08-16 Laboratory Only, Pcp Test [facility] 1.2.840. 114 [id number] Univers 10:01:15 10:16:15 Only Allen Strauss PRIMARY 350.1.13.10 ity of CARE 4.2.7.2.686 [place] [phone] Sc dical [address] 2021-08-16 2021-08-16 Laboratory Only, Pcp Test [facility] 1.2.840. 114 [id number] Univers 10:01:15 10:16:15 Only Allen Strauss PRIMARY 350.1.13.10 ity of CARE 4.2.7.2.686 [place] [phone] Sc dicdillon [address] [place] [address] 2021-08-16 2021-08-16 Veterinary Livestock Inspector Pcp-Lab [facility] 1.2.840.114 [id number] Univers 09:49:39 10:04:39 Visit Bob Malave PRIMARY 350.1.13.10 ity of CARE 4.2.7.2.686 [place] [phone] Sc dic[address] 2021-08-16 2021-08-16 Veterinary Livestock Inspector Pcp-Lab [facility] 1.2.840.114 [id number] Univers 09:49:39 10:04:39 Visit Bob Malave PRIMARY 350.1.13.10 ity of CARE 4.2.7.2.686 [place] [phone] Sc dicvt [address] 2021-08-16 2021-08-16 Office Frieda [facility] 1.2.840.114 [id number] Univers 09:12:20 09:49:47 Visit Bob Go PRIMARY 350.1.13.10 ity of CARE 4.2.7.2.686 [place] 272.0553527 Sc dic[address] 2021-08-16 2021-08-16 Outpatient R FRIEDA [facility] [id number] Univers 09:20:00 09:20:00 BOB marcelino [facility] 2021-08-11 2021-08-11 Emergency James Mcknight 1.2.840.1 [id number] Methodi 14:48:00 18:10:[address] 3.430.2.7 Hospit a .3.900434 l .8 2021-07-29 2021-07-31 Hospital Ja Crow 1.2.840.1 [id number] Methodi 07:58:00 19:05:00 Encounter Isa Dumas A 57845.1.[address] [facility], Alonsoa Amod 3.430.2.7 [facility] .3.010204 l .8 2021-07-13 2021-07-13 Outpatient R FINN BROOKS [facility] [id number] Univers 15:30:00 15:30:00 ity [facility] 2021-07-04 2021-07-04 Outpatient R FRIEDA [facility] [id number] Univers 13:30:00 13:30:00 BOB [facility] 2021-07-04 2021-07-04 Veterinary Livestock Inspector Maribel, 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 [facility] 1.2.8 40.114 [id number] Univers 13:13:33 13:28:33 Visit Bob Malave 350.1.13.1 0 it[place] of [place].2.[place] Profess[place] [phone] Sc dical nal 353 [facility] 2021-07-04 2021-07-04 Orders Doctor RICKY 1.2.840.114 [id number] Univers 00:00:00 00:00:00 Only Unassigned, ZACHARY 350.1.13.10 ity of [place] [facility] 4.2.7.2.686 [place] [phone] [address] 2021-07-04 2021-07-04 Patient Doctor [facility] 1.2.840.114 [id number] Univers 00:00:00 00:00:00 Secure Msg Unassigned, PRIMARY 350.1.13.10 ity of [place] CARE 4.2.7.2.686 [place] [id number] Me dical [address] 2021-06-22 2021-06-22 Patient IRCKY Malave 1.2.840.114 [id number] Univers 00:00:00 00:00:00 Secure Msg Bob AGUIARY 350.1.13.10 ity of HOSPITAL 4.2.7.2.686 [place] as [id number] [facility] [address] 2021-06-21 2021-06-21 Patient RICKY Malave 1.2.840.114 [id number] Univers 00:00:00 00:00:00 Secure Msg Bob AGUIARY 350.1.13.10 ity of HOSPITAL 4.2.7.2.686 [place] as [phone] [facility] [address] 2021-06-20 2021-06-20 Veterinary Livestock Inspector Maribel, Adc Lab Main [facility] 1.2.8 40.114 [id number] Univers 13:47:20 14:02:20 Visit Bob Malaveton 350.1.13.1 0 it[place] of [place].2.[place] [facility] [phone] Sc dical nal [address] Building 2021-06-20 2021-06-20 Outpatient R FRIEDA [facility] [id number] Univers 13:45:00 13:45:00 BOB ity of [facility] 2021-06-20 2021-06-20 Telephone [facility] 1.2.840.114 [id number] Univers 00:00:00 00:00:00 Bob Go PRIMARY 350.1.13.10 ity of CARE 4.2.7.2.686 [place] [phone] Sc dical [address] 2021-06-17 2021-06-17 Patient Frieda [facility] 1.2.840.114 [id number] Univers 00:00:00 00:00:00 Secure Msg Bob Go MULTISPEC 350.1.13.10 ity of [facility] 4.2.7.2.[place] CENTER [phone] [facility] AND ANGELO [address] [facility] 2021-06-16 2021-06-16 Outpatient R FINN [facility] [id number] Univers 09:45:00 09:45:00 ity of [facility] 2021-06-15 2021-06-15 Orders Doctor RICKY 1.2.840.114 [id number] Univers 00:00:00 00:00:00 Only Unassigned, ZACHARY 350.1.13.10 ity of [place] [facility]OS[facility]ITAL 4.2.7.2.686 [place] as [phone] [facility] [address] 2021-05-24 2021-05-24 Telephone Frieda [facility] 1.2.840.114 [id number] Univers 00:00:00 00:00:00 Bob Go MULTISPEC 350.1.13.10 ity of [place] 4.2.7.2.686 [place] C[place] [phone] [facility] AND ANGELO [address] [place] [address] [facility] 2021-05-24 2021-05-24 Patient Doctor [facility] 1.2.840.114 [id number] Univers 00:00:00 00:00:00 Secure Msg Unassigned, MULTISPEC 350.1.13.10 ity of [place]TY 4.2.7.2.686 [place] CENTER [id number] [facility] AND STEPHENS [address] [facility] 2021-05-11 2021-05-11 Veterinary Livestock Inspector Pcp-Lab [facility] 1.2.840.114 [id number] Univers 10:41:48 10:56:48 Visit Bob Malave PRIMARY 350.1.13.10 ity of CARE 4.2.7.2.686 [place] [phone] Sc dical [address] 2021-05-11 2021-05-11 Office Frieda [facility] 1.2.840.114 [id number] Univers 09:29:38 10:38:59 Visit Bob Go PRIMARY 350.1.13.10 ity of CARE 4.2.7.2.[place] 280.5213265 Sc dical [address] 2021-05-11 2021-05-11 Outpatient R FRIEDA [facility] [id number] Univers 09:40:00 09:40:00 BOB chari [facility] 2021-05-05 2021-05-05 Office [place] [facility] 1.2.840.114 [id number] Univers 14:39:52 15:52:13 Visit Aaron Health 350.1.13.10 it y of [place] 4.2.7.2.686 [place] Professio [phone] [address] Office [facility] 2021-05-05 2021-05-05 Outpatient R DAKOTA [facility] [id number] Univers 15:00:00 15:00:00 AARON marcelino [facility] 2021-04-18 2021-04-18 Outpatient R UMESH [facility] [id number] Univers 10:40:00 10:40:00 TRINICANDACE chari o f [facility] 2021-04-05 2021-04-05 Patient [facility] 1.2.840.114 [id number] Univers 00:00:00 00:00:00 Secure Msg Wondiful A Health 350.1.13.10 ity of [place] 4.2.7.2.686 [place] Professio [phone] [address] One 2021-03-30 2021-03-30 Case [facility] 1.2.840.114 [id number] Univers 00:00:00 00:00:00 Management Wondiful A Health 350.1.13.10 ity of [place] 4.2.7.2.686 [place] Professio [phone] [address] Office [facility] 2021-03-29 2021-03-29 Hospital [facility] 1.2.502.655 [id number] Univers 17:24:09 23:59:00 Encounter Wondiful A [place] 350.1.13.10 ity of [place].2.686 [place] [id number] [facility] [address] 2021-03-29 2021-03-29 Emergency [facility] 1.2.588.944 [id number] Univers 07:38:00 11:58:00 Jeffrey [place] 350.1.13.10 i ty of [place] 4[place]2.7.2.686 [place] [phone] [facility] [address] 2021-03-29 2021-03-29 Outpatient R XIANG [facility] [id number] Univers 00:00:00 00:00:00 WONDIFUL ity o f [facility] 2021-03-29 2021-03-29 Orders Doctor RICKY 1.2.840.114 [id number] Univers 00:00:00 00:00:00 Only Unassigned, ZACHARY 350.1.13.10 ity of [place] [facility] 4.2.7.2.686 [place] as [id number] [facility] [address] 2021-03-23 2021-03-23 Patient Xiang [facility] 1.2.840.114 [id number] Univers 00:00:00 00:00:00 Secure Msg Wondiful A Health 350.1.13.10 ity of [place] 4.2.7.2.686 [place] Professio [phone] [facility] [address] Office [facility] 2021-03-21 2021-03-21 Veterinary Livestock Inspector Maribel, Adc Lab Main [facility] 1.2.8 40.114 [id number] Univers 17:03:07 17:18:07 Visit XaingCurt [place] 350.1.13. 10 ity of [place].7.2.[place] 803.8193050 [facility] 353 [facility] 2021-03-21 2021-03-21 Office Xiang [facility] 1.2.840.114 [id number] Univers 16:09:05 17:07:10 Visit Wonmarthaful A Health 350.1.13.10 ity of [place] 4.2.7.2.686 [place] Professio [phone] [facility] [address] Office [facility] 2021-03-21 2021-03-21 Outpatient R XIANG [facility] [id number] Univers 16:15:00 16:15:00 WONDIFUL ity o f [facility] 2021-03-09 2021-03-09 Office LILI Arnold 1.2.060.528 [id number] Univers 10:10:25 11:31:17 Visit Myra Y 350.1.13.10 i ty of [place] 4.2.7.2.686 [place] as BANK [phone] [facility] BLDG. [address] 2021-03-09 2021-03-09 Outpatient R YAS [facility] [id number] Univers 10:15:00 10:15:00 MYRA ity o f [facility] 2021-03-09 2021-03-09 Veterinary Livestock Inspector Pcp-Lab [facility] 1.2.840.114 [id number] Univers 09:42:13 09:57:13 Visit FriedaBob PRIMARY 350.1.13.10 ity of C[place].2.[place] 529.8590291 Sc dical [address] 2021-03-09 2021-03-09 Office Friead [facility] 1.2.840.114 [id number] Univers 08:42:13 09:45:23 Visit Bob Abbi PRIMARY 350.1.13.10 it[place] [phone] Sc dical [address] 2021-03-09 2021-03-09 Letter Frieda [facility] 1.2.840.114 [id number] Univers 00:00:00 00:00:00 (Out) Bob Go PRIMARY 350.1.13.10 it[place] [phone] Sc dical [address] [place] 2021-03-09 2021-03-09 Orders Doctor RICKY 1.2.840.114 [id number] Univers 00:00:00 00:00:00 Only Unassigned, ZACHARY 350.1.13.10 ity of [facility] 4.2.7.2.686 [place] as [phone] [facility] [address] 2021-03-09 2021-03-09 Patient [place] [facility] 1.2.840.114 [id number] Univers 00:00:00 00:00:00 Secure Msg [facility] 350.1.13.10 ity of [place] 4.2.7.2.686 [place] as Professio [phone] [facility] nal [address] 2021-03-03 2021-03-03 Patient Frieda [facility] 1.2.840.114 [id number] Univers 00:00:00 00:00:00 Secure Msg Bob Go PRIMARY 350.1.13.10 [place] [phone] Sc dical [address] [place] 2021-03-03 2021-03-03 Patient Frieda [facility] 1.2.840.114 [id number] Univers 00:00:00 00:00:00 Secure Msg Bob Go PRIMARY 350.1.13.10 [place] [phone] Sc dical [address] [place] [address] 2021-02-23 2021-02-23 [facility].840.114 [id number] Univers 00:00:00 00:00:00 Bob Go MULTISPEC 350.1.13.10 [place] [phone] Alissa rios AND ANGELO [address] [place] [address] [facility] 2021-02-22 2021-02-22 Outpatient R LO [facility] [id number] Univers 10:40:00 10:40:00 [facility] 2021-02-10 Outpatient R [facility] [id number] Univers 09:00:00 09:00:00 ity [facility] 2021-02-10 2021-02-10 Outpatient R SHEA [facility] [id number] Univers 09:00:00 09:00:00 SENDIL [facility] 2021-02-10 2021-02-10 Bobby [facility] 1.2.840.114 [id number] Univers 00:00:00 00:00:00 (Out) Sara [place] 350.1.13.10 it[place] [phone] Me dical nal 059 [facility] 2021-02-04 2021-02-04 Veterinary Livestock Inspector Maribel, 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 [facility] 1.2.8 40.114 [id number] Univers 12:28:31 12:43:31 Visit Bob [place] 350.1.13.1 0 it[place] of [place] [phone] Sc dical nal 353 [facility] 2021-02-04 2021-02-04 Outpatient R FRIEDA, [facility] [id number] Univers 07:45:00 07:45:00 BOB ity of [facility] 2021-02-03 2021-02-03 Patient Frieda [facility] 1.2.840.114 [id number] Univers 00:00:00 00:00:00 Secure Msg Bob Go PRIMARY 350.1.13.10 ity of C[place].2.[place] [phone] Sc dical [address] [place] 2021-02-03 2021-02-03 Patient Frieda [facility] 1.2.840.114 [id number] Univers 00:00:00 00:00:00 Secure Msg Bob Go PRIMARY 350.1.13.10 ity of C[place] 4.2.[place].2.[place] [phone] Sc dical [address] [place] 2021-02-03 2021-02-03 Patient Frieda [facility] 1.2.840.114 [id number] Univers 00:00:00 00:00:00 Secure Msg Bob Go PRIMARY 350.1.13.10 ity of C[place].2.[place] [phone] Sc dical [address] [place] 2021-02-03 2021-02-03 Patient Xiang [facility] 1.2.840.114 [id number] Univers 00:00:00 00:00:00 Secure Msg Wondiful A Health 350.1.13.10 ity of [place] 4.2.7.2.686 [place] Professio [phone] Sc dical nal [address] [place] Office [address] One 2021-02-03 2021-02-03 Telephone Frieda [facility] 1.2.840.114 [id number] Univers 00:00:00 00:00:00 Bob Go MULTISPEC 350.1.13.10 it[place] of [place] [phone] [facility] AND ANGELO [address] [place] [facility] 2021-02-02 2021-02-02 Telephone [facility] 1.2.840.114 [id number] Univers 00:00:00 00:00:00 Bob Go PRIMARY 350.1.13.10 ity of C[place].2.[place] [phone] Sc dic[address] 2021-01-26 2021-01-26 Patient Frieda [facility] 1.2.840.114 [id number] Univers 00:00:00 00:00:00 Secure Msg oBb Go PRIMARY 350.1.13.10 ity of C[place].2.[place].2.[place] [phone] Sc dic[address] 2021-01-25 2021-01-25 Patient Frieda, [facility] 1.2.840.114 [id number] Univers 00:00:00 00:00:00 Secure Msg Bob Go PRIMARY 350.1.13.10 ity of C[place] 4.2.[place] [phone] [address] 2021-01-20 2021-01-20 Veterinary Livestock Inspector Vt-Lab [facility] 1.2.840.114 [id number] Univers 16:30:48 16:45:48 Visit Bob Malave MULTISPEC 350.1.13. 10 it[place] of [place] [phone] [facility] AND STEPHENS [address] [place] [facility] 2021-01-20 2021-01-20 Office Frieda [facility] 1.2.840.114 [id number] Univers 15:29:54 16:33:42 Visit Bob Go MULTISPEC 350.1.13.10 ity of [place] 4.2.7.2.[place] [phone] [facility] AND ANGELO [address] [place] [facility] 2021-01-20 2021-01-20 Outpatient R FRIEDA [facility] [id number] Univers 15:40:00 15:40:00 BOB marcelino of [facility] 2021-01-17 2021-01-17 Veterinary Livestock Inspector Maribel, 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 [facility] 1.2.8 40.114 [id number] Univers 10:30:27 10:45:27 Visit Sara Calvo 350.1.13.10 ity of [place] [phone] Sc dical nal 353 [facility] 2021-01-17 2021-01-17 Office [facility] 1.2.840.114 [id number] Univers 09:45:59 10:17:51 Visit Sara Menjivar 350.1.13.10 ity [facility] 4.2.7.2.[place] [phone] Sc dical nal 059 [facility] 2021-01-17 2021-01-17 Outpatient R UMESH [facility] [id number] Univers 09:40:00 09:40:00 SARA marcelino o f [facility] 2021-01-17 2021-01-17 Orders Doctor RICKY 1.2.840.114 [id number] Univers 00:00:00 00:00:00 Only Unassigned, ZACHARY 350.1.13.10 ity of [place] [facility] 4.2.7.2.686 [place] as [phone] [facility] [address] 2021-01-17 2021-01-17 Refill [facility] 1.2.840.114 [id number] Univers 00:00:00 00:00:00 Bob PALACIO 350.1.13.10 ity of CARE 4.2.[place].2.[place] [phone] Sc dicdillon [address] [place] 2021-01-15 2021-01-15 [facility] 1.2.840.114 [id number] Univers 00:00:00 00:00:00 Secure Msg Bob M PRIMARY 350.1.13.10 ity of CARE 4.2.7.2.[place] [phone] Sc dical [address] [place] 2020-12-31 2020-12-31 Patient Umesh, [facility] 1.2.840.114 [id number] Univers 00:00:00 00:00:00 Secure Msg Sara Menjivar 350.1.13.10 ity of [place].2.[place] [phone] Sc dical nal 059 [facility] 2020-12-27 2020-12-27 Telephone Xiang, [facility] 1.2.840.114 [id number] Univers 00:00:00 00:00:00 Wondiful A Health 350.1.13.10 ity of [place] 4.2.7.2.686 [place] Professio [phone] Sc dicvt nal [address] [place] Office [facility] One 2020-12-27 2020-12-27 Telephone [facility] 1.2.390.281 [id number] Univers 00:00:00 00:00:00 Hamzah-Mariza SPECIALTY 350.1.13.10 ity of Th[place] CARE 4.2.7.2.[place] C[place] AT [phone] Sc bharathdillon MANCINIY [address] [place] [address] 2020-12-27 2020-12-27 Patient Sen, [facility] 1.2.575.974 [id number] Univers 00:00:00 00:00:00 Secure Msg Elisa Y HEALTH 350.1.13.10 ity of CLINICS 4.2.7.2.[place] [phone] [facility] blanca [address] [place] 2020-12-26 2020-12-26 Case Danna, [facility] 1.2.840.114 [id number] Univers 00:00:00 00:00:00 Management Hamzah-Mariza SPECIALTY 350.1.13.10 ity of [place] CARE 4.2.7.2.[place] C[place] AT [phone] Sc dicdillon VICTORY 2 [facility] 2020-12-24 2020-12-24 Patient Frieda, [facility] 1.2.840.114 [id number] Univers 00:00:00 00:00:00 Secure Msg Bob Go MULTISPEC 350.1.13.10 ity of IALTY 4.2.7.2.[address] [facility] [phone] [address] [facility] 2020-12-24 2020-12-24 Patient Frieda [facility] 1.2.840.114 [id number] Univers 00:00:00 00:00:00 Secure Msg Bob Go MULTISPEC 350.1.13.10 ity of IALTY 4.2.7.2.[address] [facility] [phone] [address] [facility] 2020-12-23 2020-12-23 Hospital Guilherme [facility] 1.2.840.114 [id number] Univers 11:03:00 12:50:00 Encounter Michael YING 350.1.13.10 ity of SCIENCES 4.2.7.2.686 [place] BLDG [phone] [facility] [address] 2020-12-20 2020-12-20 Laboratory Only, Adc Test [facility] 1.2.840. 114 [id number] Univers 14:57:33 15:12:33 Only Michael Vanegas 350.1.13.10 ity of [place] 4.2.7.2.686 [facility] [phone] [facility] [address] 2020-12-20 2020-12-20 Outpatient R GUILHERME [facility] [id number] Univers 15:00:00 15:00:00 MICHAEL marcelino of [facility] 2020-12-19 2020-12-19 [facility] 1.2.840.114 [id number] Univers 00:00:00 00:00:00 Wondiful A Health 350.1.13.10 ity of [place] 4.2.7.2.686 [place] Professio [phone] [facility] [address] [place] [address] One 2020-12-17 2020-12-17 Patient Frieda [facility] 1.2.840.114 [id number] Univers 00:00:00 00:00:00 Secure Msg Bob Go PRIMARY 350.1.13.10 ity of CARE 4.2.[place].2.[place] [id number] [facility] [place] 2020-12-17 2020-12-17 Patient [facility] 1.2.840.114 [id number] Univers 00:00:00 00:00:00 Secure g Bob Go PRIMARY 350.1.13.10 ity of C[place]2.[place].2.[place] [phone] [address] 2020-12-17 2020-12-17 Patient [facility] 1.2.840.114 [id number] Univers 00:00:00 00:00:00 Secure Msg Bob Go PRIMARY 350.1.13.10 ity of CARE [place].2.7.2.[place] [phone] [address] 2020-12-17 2020-12-17 Telephone [facility] 1.2.840.114 [id number] Univers 00:00:00 00:00:00 Bob Go MULTISPEC 350.1.13.10 ity of [place] 4.2.7.2.[place] [phone] [facility] AND ANGELO [address] [place] [address] [facility] 2020-12-16 2020-12-16 Office LILI Sen 1.2.134.422 [id number] Univers 07:58:05 08:37:56 Visit [facility] 350.1.13.10 i ty of CLINICS 4.2.7.2.[place] [id number] [place] [id number] [place] 2020-12-16 2020-12-16 Outpatient R ELDON [facility] [id number] Univers 08:00:00 08:00:00 ELISA ity of [facility] 2020-12-16 2020-12-16 Refill [facility] 1.2.840.114 [id number] Univers 00:00:00 00:00:00 Bob Go PRIMARY 350.1.13.10 ity of CARE 4.2.7.2.[place] [phone] [address] 2020-12-06 2020-12-06 Case Roman, [facility] 1.2.185.984 [id number] Univers 00:00:00 00:00:00 Management Rose Antonia 350.1.13.10 it[place] of [place]2.7.2.[place] [phone] Sc dical nal 134 [facility] 2020-12-03 2020-12-03 Office Elif [facility] 1.2.840.114 [id number] Univers 11:12:04 11:49:39 Visit Jaylyn Menjivar 350.1.13.10 i ty of [place] 4.2.7.2.[place] [phone] [facility] 085 [facility] 2020-12-03 2020-12-03 Outpatient R JAYLYN NOLASCO [facility] [id number] Univers 11:20:00 11:20:00 JAYLYN NOLASCO i ty of [facility] 2020-12-03 2020-12-03 Patient [facility] 1.2.840.114 [id number] Univers 00:00:00 00:00:00 Secure Msg Bob MANEPEC 350.1.13.10 ity of [place].2.[place].2.[place] [phone] [facility] AND [address] [facility] 2020-12-03 2020-12-03 Patient [facility] 1.2.840.114 [id number] Univers 00:00:00 00:00:00 Secure Msg Bobtony MANEPEC 350.1.13.10 ity of [place] 4.2.7.2.[place] [phone] [facility] AND [address] [facility] 2020-12-02 2020-12-02 Hospital [facility] 1.2.783.053 [id number] Univers 14:03:55 23:59:00 Encounter Bob Menjivar 350.1.13.10 ity of [place].2.7.2.686 [place] [phone] [facility] [address] 2020-12-02 2020-12-02 Office Roman [facility] 1.2.364.288 [id number] Univers 14:37:27 15:52:34 Visit Rose Antonia 350.1.13.10 i ty of [place] 4.2.7.2.[place] [phone] Sc dical nal 134 [facility] 2020-12-02 2020-12-02 [facility] [id number] Univers 15:00:00 15:00:00 ROSE ity of [facility] 2020-12-02 2020-12-02 Veterinary Livestock Inspector Maribel, 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 [facility] 1.2.8 40.114 [id number] Univers 14:22:52 14:37:52 Visit Bob Malave 350.1.13.1 0 it[place] of [place].2.[place] [phone] Sc dical nal 353 [facility] 2020-12-01 2020-12-01 [facility] 1.2.840.114 [id number] Univers 00:00:00 00:00:00 Wondiful A Health 350.1.13.10 ity of [place] 4.2.7.2.686 [place] Professio [phone] Sc dical nal [address] [place] Office [facility] One 2020-11-30 2020-11-30 Patient Frieda [facility] 1.2.840.114 [id number] Univers 00:00:00 00:00:00 Secure Msg Bob Go PRIMARY 350.1.13.10 ity of CARE 4.2.7.2.[place] 539.1686484 Sc dical [address] [place] 2020-11-30 2020-11-30 Patient Frieda [facility] 1.2.840.114 [id number] Univers 00:00:00 00:00:00 Secure g Bob Go PRIMARY 350.1.13.10 ity of CARE 4.2.7.2.686 [place] 646.2970864 Sc dical [address] [place] 2020-11-30 2020-11-30 Patient Frieda [facility] 1.2.840.114 [id number] Univers 00:00:00 00:00:00 Secure Msg Bob Go PRIMARY 350.1.13.10 ity of CARE 4.2.7.2.686 [place] [phone] Sc dical [address] [place] 2020-11-30 2020-11-30 Patient Frieda [facility] 1.2.840.114 [id number] Univers 00:00:00 00:00:00 Secure Msg Bob Go PRIMARY 350.1.13.10 ity of CARE 4.2.7.2.686 [place] 716.9403945 Sc dic[address] 2020-11-25 2020-11-25 Telephone Frieda [facility] 1.2.840.114 [id number] Univers 00:00:00 00:00:00 Bob Go PRIMARY 350.1.13.10 ity of CARE 4.2.7.2.[place] [phone] [address] 2020-11-24 2020-11-24 Veterinary Livestock Inspector Pcp-Lab [facility] 1.2.840.114 [id number] Univers 09:42:50 09:49:23 Visit Bob Malave PRIMARY 350.1.13.10 ity of CARE 4.2.7.2.[place] [phone] [address] 2020-11-24 2020-11-24 Out[facility] [id number] Univers 09:40:00 09:40:00 BOB ity of [facility] 2020-11-24 2020-11-24 Office Frieda [facility] 1.2.840.114 [id number] Univers 08:32:07 09:36:52 Visit Bob Go PRIMARY 350.1.13.10 ity of CARE 4.2.7.2.[place] [id number] [address] 2020-11-23 2020-11-23 Outpatient R XIANG [facility] [id number] Univers 16:30:00 16:30:00 WONDIFUL ity o f [facility] 2020-11-23 2020-11-23 Telemedici Xiang [facility] 1.2.840.114 [id number] Univers 06:50:15 07:05:15 ne Visit Wondiful A Health 350.1.13.10 ity of [place] 4.2.7.2.686 [place] Professio [phone] [facility] [address] [facility] 2020-11-16 2020-11-16 Patient Xiang [facility] 1.2.840.114 [id number] Univers 00:00:00 00:00:00 Secure Msg Wondiful A [place] 350.1.13.10 ity of [place] 4.2.7.2.686 [place] [phone] Sc dicvt nal 059 [facility] 2020-11-16 2020-11-16 [facility] 1.2.840.114 [id number] Univers 00:00:00 00:00:00 Secure Msg Wondiful A Health 350.1.13.10 ity of [place] 4.2.7.2.686 [place] as Professio 268.8264151 [facility] nal [address] [place] [address] 2020-11-15 2020-11-15 Office [facility] 1..840.114 [id number] Univers 08:58:13 09:34:23 Visit Lyssajaylincandace [place] 350.1.13.10 ity of [place] 4.2.7.2.[place] [phone] [address] 2020-11-15 2020-11-15 Outpatient R UMESH [facility] [id number] Univers 09:20:00 09:20:00 SARA marcelino o f [facility] 2020-11-02 2020-11-02 Outpatient R TYREL [facility] [id number] Univers 10:00:00 10:00:00 YELENA marcelino [facility] 2020-10-19 2020-10-19 Office [facility] 1.2.840.114 [id number] Univers 12:51:34 13:49:32 Visit Wondiful A Health 350.1.13.10 ity of [place] 4.2.7.2.686 [place] as Professio 509.4012383 Me dical nal [address] Building One 2020-10-19 2020-10-19 Outpatient R XIANG, [facility] [id number] Univers 13:00:00 13:00:00 WONDIFUL ity o f [facility] 2020-10-15 2020-10-15 Outpatient R YAS, [facility] [id number] Univers 14:30:00 14:30:00 MYRA ity o f [facility] 2020-10-15 2020-10-15 Transition Gisela Trinidad 1.2.840.114 [id number] Univers 00:00:00 00:00:00 of Care Stephanie L Escobar 350.1.13.10 i ty of [place].7.2.[place] [phone] [facility] [address] [place] 2020-10-11 2020-10-14 Hospital Jeffrey Escobar 1.2.840.1 14 [id number] Univers 08:34:00 17:50:00 Encounter Hilario Salomon 350.1.13.10 ity of Dianne Dodd [facility] pital 4.2.7.2.686 [place] [phone] [facility] [address] [place] 2020-10-11 2020-10-11 Laboratory Pc, Adc Echo Room 1 - [facility] 1 .2.840.114 [id number] Univers 07:58:07 08:22:33 Only Param Rowland 350.1.13. 10 ity of [place].7.2.[place] 274.4624649 Sc dical nal 059 [facility] 2020-10-11 2020-10-11 Outpatient R [facility] [id number] Univers 08:00:00 08:00:00 ity of [facility] 2020-09-29 2020-09-29 Office [facility] 1.2.840.114 [id number] Univers 13:37:45 13:59:17 Visit Sara Menjivar 350.1.13.10 ity of [place] 4.2.7.2.[place] [phone] Sc dical nal 059 [facility] 2020-09-29 2020-09-29 Outpatient R UMESH [facility] [id number] Univers 13:40:00 13:40:00 SARA marcelino o f [facility] 2020-09-15 2020-09-15 Office PATRICK ArnoldKAYODE 1.2.708.951 [id number] Univers 14:31:56 15:46:35 Visit Myra Y 350.1.13.10 i ty of NATIONAL 4.2.7.2.686 [place] as BANK [phone] [facility] BLDG. [address] [place] 2020-09-15 2020-09-15 Outpatient R YAS [facility] [id number] Univers 14:45:00 14:45:00 MYRAABUNDIO marcelino o f [facility] 2020-09-15 2020-09-15 Orders Doctor RICKY 1.2.840.114 [id number] Univers 00:00:00 00:00:00 Only Unassigned, ZACHARY 350.1.13.10 ity of [place] [facility] 4.2.7.2.686 [place] as [phone] [facility] [address] [place] 2020-09-09 2020-09-09 Telephone [facility] 1.2.840.114 [id number] Univers 00:00:00 00:00:00 Bob Go PRIMARY 350.1.13.10 ity of CARE 4.2.7.2.686 [place] [phone] Sc dical [address] [place] 2020-09-08 2020-09-08 Veterinary Livestock Inspector Pcp-Lab [facility] 1.2.840.114 [id number] Univers 11:25:30 11:40:30 Visit Bob Malave PRIMARY 350.1.13.10 ity of CARE 4.2.7.2.686 [place] [phone] Sc dical [address] [place] 2020-09-08 2020-09-08 Office [facility] 1.2.840.114 [id number] Univers 10:04:37 11:31:11 Visit Bob Go PRIMARY 350.1.13.10 ity of CARE 4.2.7.2.686 [place] 186.7652330 Sc dical [address] [place] 2020-09-08 2020-09-08 Outpatient R SKYLARASAD [facility] [id number] Univers 10:20:00 10:20:00 BOB marcelino [facility] 2020-09-01 2020-09-01 Hospital [facility] 1.2.840.114 [id number] Univers 15:24:29 23:59:00 Encounter Stella Menjivar 350.1.13.10 ity of [place] [phone] [facility] [address] [place] 2020-09-01 2020-09-01 Urgent Provider, [facility] Urgent Care [facility] 1.2.840.114 [id number] Univers 14:11:29 15:14:07 Care Kailabritney Aaron [facility] 350.1.13.10 ity of [place] 4.2.7.2.686 [place] Professio [phone] [facility] [address] [place] [address] One 2020-09-01 2020-09-01 Outpatient R DAKOTA [facility] [id number] Univers 14:20:00 14:20:00 AARON [facility] 2020-08-24 2020-08-24 Office Tyrel, [facility] 1.2.267.096 [id number] Univers 11:52:24 23:39:11 Visit Yelena Mayo [facility] 350.1.13.10 ity of CLINICS 4.2.7.2.[place] [id number] [facility] [address] [place] 2020-08-24 2020-08-24 Veterinary Livestock Inspector [facility] UNIVERSIT 1.2.840.114 [id number] Univers 12:38:34 13:07:43 Visit Bob Malave Y HEALTH 350.1.13.1 0 ity of CLINICS 4.2.7.2.[place] [id number] [facility] [address] 2020-08-24 2020-08-24 Outpatient R SKYLARASAD [facility] [id number] Univers 09:40:00 09:40:00 BOB marcelino [facility] 2020-08-24 2020-08-24 Telemedici Skylarasad [facility] 1.2.840.114 [id number] Univers 07:47:14 08:07:14 ne Visit Bob Go PRIMARY 350.1.13.10 ity of CARE 4.2.7.2.686 [place] [phone] Sc dicvt [address] [place] 2020-08-24 2020-08-24 Telephone Frieda [facility] 1.2.840.114 [id number] Univers 00:00:00 00:00:00 Bob Go PRIMARY 350.1.13.10 ity of CARE 4.2.7.2.686 [place] [phone] Sc dicvt [address] [place] [address] 2020-08-19 2020-08-19 Telemedici [place] [facility] 1.2.840.114 [id number] Univers 08:12:29 17:57:05 ne Visit [facility] 350.1.13.10 ity of [place] 4.2.7.2.686 [place] Professio [phone] [facility] nal [address] [place] [address] Building One 2020-08-19 2020-08-19 Outpatient R XIANG [facility] [id number] Univers 16:45:00 16:45:00 WONDIFUL ity o f [facility] 2020-08-17 2020-08-17 Emergency [facility] 1.2.997.522 [id number] Univers 11:50:00 18:13:00 Junito Menjivar 350.1.13.10 i ty of [place].2.[place] [phone] [address] 2020-08-17 2020-08-17 Emergency X [facility] ERT [id number] Univers 11:41:00 11:41:00 ity [facility] 2020-08-16 2020-08-16 Outpatient R FRIEDA [facility] [id number] Univers 09:15:00 09:15:00 BOB marcelino [facility] 2020-08-16 2020-08-16 Outpatient R FRIEDA [facility] [id number] Univers 09:15:00 09:15:00 BOB marcelino [facility] 2020-07-14 2020-07-14 Outpatient R FRIEDA [facility] [id number] Univers 11:20:36 23:59:00 BOB marcelino [facility] 2020-07-14 2020-07-14 Outpatient R FRIEDA, [facility] [id number] Univers 09:20:00 09:20:00 BOB marcelino of [facility] 2020-06-02 2020-06-02 Outpatient Amirah OTOOLE [facility] [id number] Univers 09:00:00 09:00:00 WONDIFUL ity o f [facility] 2020-05-03 2020-05-03 Outpatient Amirah OTOOLE [facility] [id number] Univers 13:45:00 13:45:00 WONDIFUL ity o f [facility] 2020-03-16 2020-03-16 Outpatient Amirah [facility] [id number] [employer] 09:45:00 09:45:00 WONDIFUL ity o f [facility] Results Test Description Test Time Test Comments Results Result Comments Source CBC WITH DIFF 2022-11-14 20:20:06 Test Item Value Reference Range Interpretation Comme nts WBC (test code = 6690-2) See_Comment L [A utomated message] The system which ge nerated this result transmit fernando reference range: 4.30 - 1 1.10 10*3/?L. The reference r wade was not used to interpr et this result as normal/abnor mal. RBC (test code = 789-8) See_Comment [Au tomated message] The system which ge nerated this result transmit fernando reference range: 3.93 - 5 .25 10*6/?L. The reference r wade was not used to interpr et this result as normal/abnor mal. HGB (test code = 718-7) 12.6 g/dL 11.6-15.0 HCT (test code = 4544-3) 38.6 % 35.7-45.2 MCV (test code = 787-2) 96.0 fL 80.6-95.5 H MCH (test code = 785-6) 31.3 pg 25.9-32.8 MCHC (test code = 786-4) 32.6 g/dL 31.6-35.1 RDW-SD (test code = 66661-1) 43.4 fL 39.0-49.9 RDW-CV (test code = 788-0) 12.5 % 12.0-15.5 PLT (test code = 777-3) See_Comment [Au tomated message] The system which ge nerated this result transmit fernando reference range: 166 - 35 8 10*3/?L. The reference range was not used to interpret th is result as normal/abnormal . MPV (test code = 80071-9) 10.9 fL 9.5-12.9 NRBC/100 WBC (test code = See_Comment [ Automated message] The [id number]) system which ge nerated this result transmit fernando reference range: 0.0 - 10 .0 /100 WBCs. The reference r wade was not used to interpr et this result as normal/abnor mal. NRBC x10^3 (test code = See_Comment [Au tomated message] The [id number]) system which ge nerated this result transmit fernando reference range: 10*3/?L. The reference range was not u sed to interpret this result as normal/abnormal . GRAN MAT (NEUT) % (test code 65.5 % = 770-8) IMM GRAN % (test code = 0.30 % [id number]) LYMPH % (test code = 736-9) 19.7 % MONO % (test code = 5905-5) 12.8 % EOS % (test code = 713-8) 1.1 % BASO % (test code = 706-2) 0.6 % GRAN MAT x10^3(ANC) (test 2.36 10*3/uL 1.88-7.09 code = [id number]) IMM GRAN x10^3 (test code = 0.00-0.06 [id number]) LYMPH x10^3 (test code = 0.71 10*3/uL 1.32-3.29 L 731-0) MONO x10^3 (test code = 0.46 10*3/uL 0.33-0.92 742-7) EOS x10^3 (test code = 0.04 10*3/uL 0.03-0.39 711-2) BASO x10^3 (test code = 0.01-0.07 704-7) Lab Interpretation (test Abnormal code = 63267-9) [facility] ([id number])2022-11-14 20:17:03 Test Item Value Reference Range Interpretation Comments NA (test code = 143 mmol/L 135-145 [id number]) K (test code = 4.4 mmol/L 3.5-5.0 3631668921) CL (test code = 102 mmol/L 98-108 6426765760) CO2 TOTAL (test code = 30 mmol/L 23-31 5983613565) AGAP (test code = 2-16 2034780907) BUN (test code = 13 mg/dL 7-23 6566661939) GLUCOSE (test code = 82 mg/dL 70-110 2018501666) CREATININE (test code = 0.74 mg/dL 0.50-1.04 5522034872) TOTAL BILI (test code = 0.6 mg/dL 0.1-1.7 6906281054) CALCIUM (test code = 9.1 mg/dL 8.6-10.6 6349994019) T PROTEIN (test code = 8.3 g/dL 6.3-8.2 H 2478065286) ALBUMIN (test code = 4.6 g/dL 3.5-5.0 4301801336) ALK PHOS (test code = 114 U/L 34-122 7280036427) ALTv (test code = 53 U/L 5-35 H 1742-6) AST(SGOT) (test code = 45 U/L 13-40 H 4355152968) eGFR (test code = mL/min/1.73m2 0277907455) KAREN (test code = KAREN) Association of Glomerular Filtration Rate (GFR) and Staging of Kidney Disease* + --+ --+ ------+| GFR (mL/min/1.73 m2) ?| With Kidney Damage ?| ?Without Kidney Damage+ --------+ --------+ +| ?>90 ?| ?Stage one ?| ? Normal ?+ ---+ ---+ -------+| ?60-89 ?| ?Stage two ?| ? Decreased GFR ? + --+ --+ ------+| ?30-59 ?| ?Stage three ?| ? Stage three ? + --+ --+ ------+| ?15-29 ?| ?Stage four ? | ? Stage four ?+ ---+ ---+ -------+| ?<15 (or dialysis) ? ?| ?Stage five ? | ? Stage five ?+ ---+ ---+ -------+ *Each stage assumes the associated GFR level has been in effect for at least three months. ?Stages 1 to 5, with or without kidney disease, indicate chronic kidney disease. Notes: Determination of stages one and two (with eGFR >59mL/min/1.73 m2) requires estimation of kidney damage for at least three months as defined by structural or functional abnormalities of the kidney, manifested by either:Pathological abnormalities or Markers of kidney damage (including abnormalities in the composition of the blood or urine or abnormalities in imaging tests). Lab Interpretation Abnormal (test code = 31944-0) [facility] [id number] 19:51:38 Test Item Value Reference Range Interpretation Comments ESR (test code = 20440-1) See_Comment [ Automated message] The system [employer] generated this result transmitted ref erence range: 2 - 30 m m/HR. The reference r wade was not used to interpret this result as normal/abnor mal. Lab Interpretation (test Normal code = 19911-8) [facility] [id number] 05:28:48 Test Item Value Reference Range Interpretation Comments HEMOGLOBIN A1c (test 5.9 % 4.2-5.6 H UNLESS OTHERWISE code = 24112) INDICATED, ALL TESTING PERFORMED ATCLI NICAL PATHOLOGY [facility]ITALR[facility], [facility] [address] [place] [address] DIRECTOR: AVELINA LYON M.D. CLIA NUMBER [id number] CAP ACCREDITATION N O. [id number] CBC W/AUTO DIFF WITH [id number] 04:52:57 Test Item Value Reference Range Interpretation Comments WBC (test code = 3.1 K/UL 3.5-11.0 L 1001) RBC (test code = 4.21 M/UL 3.80-5.40 1002) HEMOGLOBIN (test code 13.0 G/DL 11.5-15.5 = 1003) HEMATOCRIT (test code 39.5 % 34.0-45.0 = 1004) MCV (test code = 93.8 fL 80.0-99.0 1005) MCH (test code = 30.9 PG 25.0-33.0 1006) MCHC (test code = 32.9 G/DL 31.0-36.0 1007) RDW (test code = 14.5 % 11.5-15.0 1038) NEUTROPHILS (test 64.7 % code = 1008) LYMPHOCYTES (test 19.9 % code = 1010) MONOCYTES (test code 14.1 % = 1011) EOSINOPHILS (test 0.7 % code = 1012) BASOPHILS (test code 0.3 % = 1013) IMMATURE GRANULOCYTES 0.3 % (test code = 1036) NUCLEATED RBCS (test 0.0 /100 WBC'S See_Comment [Aut omated code = 1065) message] The sy stem which generated this result transmitted reference range : 0.0. The refere nce range was not u sed to interpret th is result as normal/abnormal . PLATELET COUNT (test 291 K/UL 130-400 code = 1015) ABSOLUTE NEUTROPHILS 1.98 K/UL 1.50-7.50 (test code = 1066) ABSOLUTE LYMPHOCYTES 0.61 K/UL 1.00-4.00 L (test code = 1067) ABSOLUTE MONOCYTES 0.43 K/UL 0.20-1.00 (test code = 1068) ABSOLUTE EOSINOPHILS 0.02 K/UL 0.00-0.50 (test code = 1040) ABSOLUTE BASOPHILS 0.01 K/UL 0.00-0.20 (test code = 1069) ABS IMMATURE 0.01 K/UL 0.00-0.10 GRANULOCYTES (test code = 1020) ABS NUCLEATED RBCS 0.00 K/UL 0.00-0.11 (test code = 25728) COMPREHENSIVE METABOLIC [id number] 04:31:14 Test Item Value Reference Range Interpretation Comments GLUCOSE (test code = 99 MG/DL 70-99 2216) BUN (test code = 10 MG/DL 6-20 2207) CREATININE (test 0.66 MG/DL 0.60-1.30 code = 2214) eGFR (2020 CKD-EPI) 114 >60 (test code = 68602) ML/MIN/1.73 CALC BUN/CREAT (test 15 RATIO 6-28 code = 2235) SODIUM (test code = 143 MEQ/L 638-144 1873) POTASSIUM (test code 3.8 MEQ/L 3.5-5.4 = 2228) CHLORIDE (test code 105 MEQ/L 95-107 = 2215) CARBON DIOXIDE (test 24 MEQ/L 19-31 code = 2206) CALCIUM (test code = 9.8 MG/DL 8.5-10.5 2208) PROTEIN, TOTAL (test 7.7 G/DL 6.1-8.3 code = 2229) ALBUMIN (test code = 4.8 G/DL 3.5-5.2 2200) CALC GLOBULIN (test 2.9 G/DL 1.9-3.7 code = 2240) CALC A/G RATIO (test 1.7 RATIO 1.0-2.6 code = 2234) BILIRUBIN, TOTAL 0.7 MG/DL See_Comment [Automated message] (test code = 220) The syste m which generated this result transmit fernando reference range : <=1.2. The refe rence range was not u sed to interpret th is result as normal/abnormal . ALKALINE PHOSPHATASE 113 U/L 40-112 H (test code = 2203) AST (test code = 31 U/L 9-40 2217) ALT (test code = 34 U/L 5-40 2218) LIPID [id number] 04:31:14 Test Item Value Reference Range Interpretation Comments CHOLESTEROL (test 197 MG/DL <200 code = 2210) TRIGLYCERIDES (test 163 MG/DL <150 H code = 2232) HDL CHOLESTEROL (test 39 MG/DL >39 L code = 2220) CALC LDL CHOL (test 130 MG/DL <100 H NOTE: C ALCULATED LDL code = 2237) IS BASED ON ADY-CASILLAS METHOD WHICHINCLUDES ADJUSTABLE TRIGLYCERIDE:VL DL CHOLESTEROL RAT IO.THIS FACTOR VARIES B Y MEASURED TRIGLY CERIDE AND NON-HDLCHOL ESTEROL CONCENTRATIONS WITH INCREASED CALCU LATED LDL SEENIN HIGH ER TRIGLYCERIDE OR LOWER NON-HDL SPECIME NS. FOR MOREINFORMATION , SEE CLIENT ANNOUNCE MENT AT [email or web address] RISK RATIO LDL/HDL 3.33 RATIO <3.22 H (test code = 2238) COMPREHENSIVE METABOLIC [id number] 00:00:00 Test Item Value Reference Range Interpretation Comments GLUCOSE (test code = 2217) 99 MG/DL BUN (test code = 2208) 10 MG/DL CREATININE (test code = 2214) 0.66 MG/DL eGFR (2020 CKD-EPI) (test 114 ML/MIN/1.73 code = 36042) CALC BUN/CREAT (test code = 15 RATIO 2235) SODIUM (test code = 2231) 143 MEQ/L POTASSIUM (test code = 2228) 3.8 MEQ/L CHLORIDE (test code = 2215) 105 MEQ/L CARBON DIOXIDE (test code = 24 MEQ/L 2205) CALCIUM (test code = 2209) 9.8 MG/DL PROTEIN, TOTAL (test code = 7.7 G/DL 2228) ALBUMIN (test code = 2201) 4.8 G/DL CALC GLOBULIN (test code = 2.9 G/DL 2240) CALC A/G RATIO (test code = 1.7 RATIO 2234) BILIRUBIN, TOTAL (test code = 0.7 MG/DL 2206) ALKALINE PHOSPHATASE (test 113 U/L code = 2204) AST (test code = 2218) 31 U/L ALT (test code = 2219) 34 U/L COMPREHENSIVE METABOLIC [id number] 00:00:00 Test Item Value Reference Range Interpretation Comments GLUCOSE (test code = 2217) 99 MG/DL BUN (test code = 2208) 10 MG/DL CREATININE (test code = 2214) 0.66 MG/DL eGFR (2020 CKD-EPI) (test 114 ML/MIN/1.73 code = 33441) CALC BUN/CREAT (test code = 15 RATIO 2235) SODIUM (test code = 2231) 143 MEQ/L POTASSIUM (test code = 2228) 3.8 MEQ/L CHLORIDE (test code = 2215) 105 MEQ/L CARBON DIOXIDE (test code = 24 MEQ/L 2205) CALCIUM (test code = 2209) 9.8 MG/DL PROTEIN, TOTAL (test code = 7.7 G/DL 2228) ALBUMIN (test code = 2201) 4.8 G/DL CALC GLOBULIN (test code = 2.9 G/DL 2240) CALC A/G RATIO (test code = 1.7 RATIO 2234) BILIRUBIN, TOTAL (test code = 0.7 MG/DL 2206) ALKALINE PHOSPHATASE (test 113 U/L code = 2204) AST (test code = 2218) 31 U/L ALT (test code = 2219) 34 U/L LIPID [id number] 00:00:00 Test Item Value Reference Range Interpretation Comments CHOLESTEROL (test code = 2210) 197 MG/DL TRIGLYCERIDES (test code = 2232) 163 MG/DL HDL CHOLESTEROL (test code = 2220) 39 MG/DL CALC LDL CHOL (test code = 2237) 130 MG/DL RISK RATIO LDL/HDL (test code = 3.33 RATIO 2238) LIPID [id number] 00:00:00 Test Item Value Reference Range Interpretation Comments CHOLESTEROL (test code = 2210) 197 MG/DL TRIGLYCERIDES (test code = 2232) 163 MG/DL HDL CHOLESTEROL (test code = 2220) 39 MG/DL CALC LDL CHOL (test code = 2237) 130 MG/DL RISK RATIO LDL/HDL (test code = 3.33 RATIO 2238) CBC W/AUTO [id number] 00:00:00 Test Item Value Reference Range Interpretation Comments WBC (test code = 1001) 3.1 K/UL RBC (test code = 1002) 4.21 M/UL HEMOGLOBIN (test code = 1003) 13.0 G/DL HEMATOCRIT (test code = 1004) 39.5 % MCV (test code = 1005) 93.8 fL MCH (test code = 1006) 30.9 PG MCHC (test code = 1007) 32.9 G/DL RDW (test code = 1038) 14.5 % NEUTROPHILS (test code = 1008) 64.7 % LYMPHOCYTES (test code = 1010) 19.9 % MONOCYTES (test code = 1011) 14.1 % EOSINOPHILS (test code = 1012) 0.7 % BASOPHILS (test code = 1013) 0.3 % IMMATURE GRANULOCYTES (test 0.3 % code = 1036) NUCLEATED RBCS (test code = 0.0 /100WBC'S 1065) PLATELET COUNT (test code = 291 K/UL 1015) ABSOLUTE NEUTROPHILS (test code 1.98 K/UL = 1066) ABSOLUTE LYMPHOCYTES (test code 0.61 K/UL = 1067) ABSOLUTE MONOCYTES (test code = 0.43 K/UL 1068) ABSOLUTE EOSINOPHILS (test code 0.02 K/UL = 1040) ABSOLUTE BASOPHILS (test code = 0.01 K/UL 1069) ABS IMMATURE GRANULOCYTES (test 0.01 K/UL code = 1020) ABS NUCLEATED RBCS (test code = 0.00 K/UL 01210) CBC W/AUTO [id number] 00:00:00 Test Item Value Reference Range Interpretation Comments WBC (test code = 1001) 3.1 K/UL RBC (test code = 1002) 4.21 M/UL HEMOGLOBIN (test code = 1003) 13.0 G/DL HEMATOCRIT (test code = 1004) 39.5 % MCV (test code = 1005) 93.8 fL MCH (test code = 1006) 30.9 PG MCHC (test code = 1007) 32.9 G/DL RDW (test code = 1038) 14.5 % NEUTROPHILS (test code = 1008) 64.7 % LYMPHOCYTES (test code = 1010) 19.9 % MONOCYTES (test code = 1011) 14.1 % EOSINOPHILS (test code = 1012) 0.7 % BASOPHILS (test code = 1013) 0.3 % IMMATURE GRANULOCYTES (test 0.3 % code = 1036) NUCLEATED RBCS (test code = 0.0 /100WBC'S 1065) PLATELET COUNT (test code = 291 K/UL 1015) ABSOLUTE NEUTROPHILS (test code 1.98 K/UL = 1066) ABSOLUTE LYMPHOCYTES (test code 0.61 K/UL = 1067) ABSOLUTE MONOCYTES (test code = 0.43 K/UL 1068) ABSOLUTE EOSINOPHILS (test code 0.02 K/UL = 1040) ABSOLUTE BASOPHILS (test code = 0.01 K/UL 1069) ABS IMMATURE GRANULOCYTES (test 0.01 K/UL code = 1020) ABS NUCLEATED RBCS (test code = 0.00 K/UL 23482) CBC W/AUTO [id number] 00:00:00 Test Item Value Reference Range Interpretation Comments WBC (test code = 1001) 3.1 K/UL RBC (test code = 1002) 4.21 M/UL HEMOGLOBIN (test code = 1003) 13.0 G/DL HEMATOCRIT (test code = 1004) 39.5 % MCV (test code = 1005) 93.8 fL MCH (test code = 1006) 30.9 PG MCHC (test code = 1007) 32.9 G/DL RDW (test code = 1038) 14.5 % NEUTROPHILS (test code = 1008) 64.7 % LYMPHOCYTES (test code = 1010) 19.9 % MONOCYTES (test code = 1011) 14.1 % EOSINOPHILS (test code = 1012) 0.7 % BASOPHILS (test code = 1013) 0.3 % IMMATURE GRANULOCYTES (test 0.3 % code = 1036) NUCLEATED RBCS (test code = 0.0 /100WBC'S 1065) PLATELET COUNT (test code = 291 K/UL 1015) ABSOLUTE NEUTROPHILS (test code 1.98 K/UL = 1066) ABSOLUTE LYMPHOCYTES (test code 0.61 K/UL = 1067) ABSOLUTE MONOCYTES (test code = 0.43 K/UL 1068) ABSOLUTE EOSINOPHILS (test code 0.02 K/UL = 1040) ABSOLUTE BASOPHILS (test code = 0.01 K/UL 1069) ABS IMMATURE GRANULOCYTES (test 0.01 K/UL code = 1020) ABS NUCLEATED RBCS (test code = 0.00 K/UL 81565) HEMOGLOBIN [id number] 00:00:00 Test Item Value Reference Range Interpretation Comments HEMOGLOBIN A1c (test code = 40192) 5.9 % HEMOGLOBIN [id number] 00:00:00 Test Item Value Reference Range Interpretation Comments HEMOGLOBIN A1c (test code = 16301) 5.9 % HEMOGLOBIN [id number] 00:00:00 Test Item Value Reference Range Interpretation Comments HEMOGLOBIN A1c (test code = 37590) 5.9 % COMPREHENSIVE METABOLIC [id number] 00:00:00 Test Item Value Reference Range Interpretation Comments GLUCOSE (test code = 2217) 99 MG/DL BUN (test code = 2208) 10 MG/DL CREATININE (test code = 2214) 0.66 MG/DL eGFR (2020 CKD-EPI) (test 114 ML/MIN/1.73 code = 61853) CALC BUN/CREAT (test code = 15 RATIO 2235) SODIUM (test code = 2231) 143 MEQ/L POTASSIUM (test code = 2228) 3.8 MEQ/L CHLORIDE (test code = 2215) 105 MEQ/L CARBON DIOXIDE (test code = 24 MEQ/L 2205) CALCIUM (test code = 2209) 9.8 MG/DL PROTEIN, TOTAL (test code = 7.7 G/DL 2228) ALBUMIN (test code = 2201) 4.8 G/DL CALC GLOBULIN (test code = 2.9 G/DL 2239) CALC A/G RATIO (test code = 1.7 RATIO 2234) BILIRUBIN, TOTAL (test code = 0.7 MG/DL 2206) ALKALINE PHOSPHATASE (test 113 U/L code = 2204) AST (test code = 2218) 31 U/L ALT (test code = 2219) 34 U/L COMPREHENSIVE METABOLIC [id number] 00:00:00 Test Item Value Reference Range Interpretation Comments GLUCOSE (test code = 2217) 99 MG/DL BUN (test code = 2208) 10 MG/DL CREATININE (test code = 2214) 0.66 MG/DL eGFR (2020 CKD-EPI) (test 114 ML/MIN/1.73 code = 76809) CALC BUN/CREAT (test code = 15 RATIO 2235) SODIUM (test code = 2231) 143 MEQ/L POTASSIUM (test code = 2228) 3.8 MEQ/L CHLORIDE (test code = 2215) 105 MEQ/L CARBON DIOXIDE (test code = 24 MEQ/L 2205) CALCIUM (test code = 2209) 9.8 MG/DL PROTEIN, TOTAL (test code = 7.7 G/DL 2228) ALBUMIN (test code = 2201) 4.8 G/DL CALC GLOBULIN (test code = 2.9 G/DL 0) CALC A/G RATIO (test code = 1.7 RATIO 2234) BILIRUBIN, TOTAL (test code = 0.7 MG/DL 2206) ALKALINE PHOSPHATASE (test 113 U/L code = 2204) AST (test code = 2218) 31 U/L ALT (test code = 2219) 34 U/L LIPID [id number] 00:00:00 Test Item Value Reference Range Interpretation Comments CHOLESTEROL (test code = 2210) 197 MG/DL TRIGLYCERIDES (test code = 2232) 163 MG/DL HDL CHOLESTEROL (test code = 2220) 39 MG/DL CALC LDL CHOL (test code = 2237) 130 MG/DL RISK RATIO LDL/HDL (test code = 3.33 RATIO 2238) LIPID [id number] 00:00:00 Test Item Value Reference Range Interpretation Comments CHOLESTEROL (test code = 2210) 197 MG/DL TRIGLYCERIDES (test code = 2232) 163 MG/DL HDL CHOLESTEROL (test code = 2220) 39 MG/DL CALC LDL CHOL (test code = 2237) 130 MG/DL RISK RATIO LDL/HDL (test code = 3.33 RATIO 2238) CBC W/AUTO [id number] 00:00:00 Test Item Value Reference Range Interpretation Comments WBC (test code = 1001) 3.1 K/UL RBC (test code = 1002) 4.21 M/UL HEMOGLOBIN (test code = 1003) 13.0 G/DL HEMATOCRIT (test code = 1004) 39.5 % MCV (test code = 1005) 93.8 fL MCH (test code = 1006) 30.9 PG MCHC (test code = 1007) 32.9 G/DL RDW (test code = 1038) 14.5 % NEUTROPHILS (test code = 1008) 64.7 % LYMPHOCYTES (test code = 1010) 19.9 % MONOCYTES (test code = 1011) 14.1 % EOSINOPHILS (test code = 1012) 0.7 % BASOPHILS (test code = 1013) 0.3 % IMMATURE GRANULOCYTES (test 0.3 % code = 1036) NUCLEATED RBCS (test code = 0.0 /100WBC'S 1065) PLATELET COUNT (test code = 291 K/UL 1015) ABSOLUTE NEUTROPHILS (test code 1.98 K/UL = 1066) ABSOLUTE LYMPHOCYTES (test code 0.61 K/UL = 1067) ABSOLUTE MONOCYTES (test code = 0.43 K/UL 1068) ABSOLUTE EOSINOPHILS (test code 0.02 K/UL = 1040) ABSOLUTE BASOPHILS (test code = 0.01 K/UL 1069) ABS IMMATURE GRANULOCYTES (test 0.01 K/UL code = 1020) ABS NUCLEATED RBCS (test code = 0.00 K/UL 01821) CBC W/AUTO [id number] 00:00:00 Test Item Value Reference Range Interpretation Comments WBC (test code = 1001) 3.1 K/UL RBC (test code = 1002) 4.21 M/UL HEMOGLOBIN (test code = 1003) 13.0 G/DL HEMATOCRIT (test code = 1004) 39.5 % MCV (test code = 1005) 93.8 fL MCH (test code = 1006) 30.9 PG MCHC (test code = 1007) 32.9 G/DL RDW (test code = 1038) 14.5 % NEUTROPHILS (test code = 1008) 64.7 % LYMPHOCYTES (test code = 1010) 19.9 % MONOCYTES (test code = 1011) 14.1 % EOSINOPHILS (test code = 1012) 0.7 % BASOPHILS (test code = 1013) 0.3 % IMMATURE GRANULOCYTES (test 0.3 % code = 1036) NUCLEATED RBCS (test code = 0.0 /100WBC'S 1065) PLATELET COUNT (test code = 291 K/UL 1015) ABSOLUTE NEUTROPHILS (test code 1.98 K/UL = 1066) ABSOLUTE LYMPHOCYTES (test code 0.61 K/UL = 1067) ABSOLUTE MONOCYTES (test code = 0.43 K/UL 1068) ABSOLUTE EOSINOPHILS (test code 0.02 K/UL = 1040) ABSOLUTE BASOPHILS (test code = 0.01 K/UL 1069) ABS IMMATURE GRANULOCYTES (test 0.01 K/UL code = 1020) ABS NUCLEATED RBCS (test code = 0.00 K/UL 24571) CBC W/AUTO [id number] 00:00:00 Test Item Value Reference Range Interpretation Comments WBC (test code = 1001) 3.1 K/UL RBC (test code = 1002) 4.21 M/UL HEMOGLOBIN (test code = 1003) 13.0 G/DL HEMATOCRIT (test code = 1004) 39.5 % MCV (test code = 1005) 93.8 fL MCH (test code = 1006) 30.9 PG MCHC (test code = 1007) 32.9 G/DL RDW (test code = 1038) 14.5 % NEUTROPHILS (test code = 1008) 64.7 % LYMPHOCYTES (test code = 1010) 19.9 % MONOCYTES (test code = 1011) 14.1 % EOSINOPHILS (test code = 1012) 0.7 % BASOPHILS (test code = 1013) 0.3 % IMMATURE GRANULOCYTES (test 0.3 % code = 1036) NUCLEATED RBCS (test code = 0.0 /100WBC'S 1065) PLATELET COUNT (test code = 291 K/UL 1015) ABSOLUTE NEUTROPHILS (test code 1.98 K/UL = 1066) ABSOLUTE LYMPHOCYTES (test code 0.61 K/UL = 1067) ABSOLUTE MONOCYTES (test code = 0.43 K/UL 1068) ABSOLUTE EOSINOPHILS (test code 0.02 K/UL = 1040) ABSOLUTE BASOPHILS (test code = 0.01 K/UL 1069) ABS IMMATURE GRANULOCYTES (test 0.01 K/UL code = 1020) ABS NUCLEATED RBCS (test code = 0.00 K/UL 21925) HEMOGLOBIN [id number] 00:00:00 Test Item Value Reference Range Interpretation Comments HEMOGLOBIN A1c (test code = 49290) 5.9 % HEMOGLOBIN [id number] 00:00:00 Test Item Value Reference Range Interpretation Comments HEMOGLOBIN A1c (test code = 06988) 5.9 % HEMOGLOBIN [id number] 00:00:00 Test Item Value Reference Range Interpretation Comments HEMOGLOBIN A1c (test code = 82562) 5.9 % POCT [id number] 18:36:00 Test Item Value Reference Range Interpretation Comments POCT PREG (test code = 1605) Negative On board controls acceptable with Present C Line (test code = 3574) POCT PREG LOT # (test code = 3575) [id number] POCT PREG TEST DATE (test 09/25/2023 code = 3576) Lab Interpretation (test code = Normal 72874-6) [facility]. METABOLIC PANEL ([id number])[id number] 19:32:50 Test Item Value Reference Range Interpretation Comments NA (test code = 140 mmol/L 135-145 8054275322) K (test code = 3.4 mmol/L 3.5-5.0 L 6661640045) CL (test code = 104 mmol/L 98-108 3991099650) CO2 TOTAL (test code = 18 mmol/L 23-31 L 9286854014) AGAP (test code = 2-16 H 6342019925) BUN (test code = 10 mg/dL 7-23 8314241594) GLUCOSE (test code = 81 mg/dL 70-110 2905737589) CREATININE (test code = 0.57 mg/dL 0.50-1.04 4995111188) TOTAL BILI (test code = 1.0 mg/dL 0.1-1.9 5939924879) CALCIUM (test code = 9.3 mg/dL 8.6-10.6 8531382340) T PROTEIN (test code = 8.1 g/dL 6.3-8.2 5676429900) ALBUMIN (test code = 4.9 g/dL 3.5-5.0 1229646351) ALK PHOS (test code = 119 U/L 34-122 5806733838) ALTv (test code = 78 U/L 5-35 H 1742-6) AST(SGOT) (test code = 74 U/L 13-40 H 0084252530) eGFR (test code = mL/min/1.73m2 9502424200) KAREN (test code = KAREN) Association of Glomerular Filtration Rate (GFR) and Staging of Kidney Disease* + --+ --+ ------+| GFR (mL/min/1.73 m2) ?| With Kidney Damage ?| ?Without Kidney Damage+ --------+ --------+ +| ?>90 ?| ?Stage one ?| ? Normal ?+ ---+ ---+ -------+| ?60-89 ?| ?Stage two ?| ? Decreased GFR ? + --+ --+ ------+| ?30-59 ?| ?Stage three ?| ? Stage three ? + --+ --+ ------+| ?15-29 ?| ?Stage four ? | ? Stage four ?+ ---+ ---+ -------+| ?<15 (or dialysis) ? ?| ?Stage five ? | ? Stage five ?+ ---+ ---+ -------+ *Each stage assumes the associated GFR level has been in effect for at least three months. ?Stages 1 to 5, with or without kidney disease, indicate chronic kidney disease. Notes: Determination of stages one and two (with eGFR >59mL/min/1.73 m2) requires estimation of kidney damage for at least three months as defined by structural or functional abnormalities of the kidney, manifested by either:Pathological abnormalities or Markers of kidney damage (including abnormalities in the composition of the blood or urine or abnormalities in imaging tests). Lab Interpretation Abnormal (test code = 43469-6) [facility] WITH [id number] 19:23:45 Test Item Value Reference Range Interpretation Comments WBC (test code = See_Comment [Automated 1734-2) message] The sy stem which generated this result transmitted reference range : 4.30 - 11.10 10*3/?L. The reference range was not used to interpret this result as normal/abnormal . RBC (test code = See_Comment [Automated 476-) message] The sy stem which generated this result transmitted reference range : 3.93 - 5.25 10*6/?L. The reference range was not used to interpret this result as normal/abnormal . HGB (test code = 13.8 g/dL 11.6-15.0 718-7) HCT (test code = 42.4 % 35.7-45.2 4544-3) MCV (test code = 95.5 fL 80.6-95.5 787-2) MCH (test code = 31.1 pg 25.9-32.8 785-6) MCHC (test code = 32.5 g/dL 31.6-35.1 786-4) RDW-SD (test code = 44.3 fL 39.0-49.9 95919-1) RDW-CV (test code = 12.7 % 12.0-15.5 788-0) PLT (test code = See_Comment [Automated 777-3) message] The sy stem which generated this result transmitted reference range : 166 - 358 10*3/ ?L. The reference r wade was not used to interpret this result as normal/abnormal . MPV (test code = 11.6 fL 9.5-12.9 30643-3) NRBC/100 WBC (test See_Comment [Automat ed code = [id number]) message] The system which generated this result transmitted reference range : 0.0 - 10.0 /100 WBCs. The refer ence range was not u sed to interpret th is result as normal/abnormal . NRBC x10^3 (test code <0.01 See_Comment [Auto mated = [id number]) message] The s ystem which generated this result transmitted reference range : 10*3/?L. The reference range was not used to interpret this result as normal/abnormal . GRAN MAT (NEUT) % 68.3 % (test code = 770-8) IMM GRAN % (test code 0.20 % = [id number]) LYMPH % (test code = 18.0 % 736-9) MONO % (test code = 12.9 % 5905-5) EOS % (test code = 0.2 % 713-8) BASO % (test code = 0.4 % 706-2) GRAN MAT x10^3(ANC) 3.38 10*3/uL 1.88-7.09 (test code = [id number]) IMM GRAN x10^3 (test <0.03 0.00-0.06 code = [id number]) LYMPH x10^3 (test code 0.89 10*3/uL 1.32-3.29 L = 731-0) MONO x10^3 (test code 0.64 10*3/uL 0.33-0.92 = 742-7) EOS x10^3 (test code = <0.03 0.03-0.39 L 711-2) BASO x10^3 (test code <0.03 0.01-0.07 = 704-7) Lab Interpretation Abnormal (test code = 01698-6) [address]2021-09-18 21:36:22 Test Item Value Reference Range Interpretation Comments Ventricular rate (test code = 253) Atrial rate (test code = 255) AZ interval (test code = 266) QRSD interval (test code = 260) QT interval (test code = 264) QTC interval (test code = 265) P axis 1 (test code = 267) QRS axis 1 (test code = 268) T wave axis (test code = 270) EKG impression (test code Sinus = 273) tachycardia-Incomple te right bundle branch block-Nonspecific ST and T wave abnormality-Abnormal ECG- [address]2021-09-18 21:36:22 Test Item Value Reference Range Interpretation Comments Ventricular rate (test code = 253) Atrial rate (test code = 255) AZ interval (test code = 266) QRSD interval (test code = 260) QT interval (test code = 264) QTC interval (test code = 265) P axis 1 (test code = 267) QRS axis 1 (test code = 268) T wave axis (test code = 270) EKG impression (test code Sinus = 273) tachycardia-Incomple te right bundle branch block-Nonspecific ST and T wave abnormality-Abnormal ECG- [facility]-CoV-2 (COVID-19) RNA [Presence] in Respiratory specimen by [facility] with probe [id number] 01:58:52 Test Item Value Reference Range Interpretation Comments SARS-CoV-2 (COVID-19) RNA Not detected Not-Detected [Presence] in Respiratory specimen by [facility] with probe detection (test code = 53209-7) Whether patient is employed in a healthcare setting (test code = 86981-4) Whether the patient has symptoms related to condition of interest (test code = 39953-3) Patient was hospitalized because of this condition (test code = 00288-1) Whether the patient was admitted to intensive care unit (ICU) for condition of interest (test code = 54253-6) Whether patient resides in a congregate care setting (test code = 78501-9) [facility] Preliminary Interpretation - Not an [id number] 13:19:12 Test Item Value Reference Range Interpretation Comments KAREN (test code = KAREN) Ja Crow MD 07/29/2021 1:58 [facility] ED Preliminary Interpretation - Not an OrderPerformed by: Ja Crow MDAuthorized by: Ja Crow MD ECG reviewed by ED Physician in the absence of a national dedicated truck driver: yes Interpretation: Interpretation: abnormal Quality: Tracing quality: Limited by artifactRate: ECG rate: 66 ECG rate assessment: normal Rhythm: Rhythm: sinus rhythm Ectopy: Ectopy: none QRS: QRS axis: Normal QRS intervals: NormalConduction: Conduction: normal ST segments: ST segments: NormalT waves: T waves: inverted Inverted: V1, V2 and V3 Lab Interpretation Abnormal (test code = 78058-9) [facility]"
[2022-12-31] MEDS ORDERED: ASPIRIN 81 MG CHEWABLE TABLET ONE (10:30)
[2022-12-31 11:00] LABS: Absolute Lymphocytes (CBC) 0.8 K/uL (0.7-4.9); Hematocrit 36.6 % (36.0-45.0); Lymphocytes % 31.3 % (15.3-44.8); MCV 94.4 fL (80-100); MPV 8.6 fL (7.6-11.3); RBC Red Blood Cell Count 3.88 M/uL (3.86-4.86)
[2022-12-31 11:17] LABS: Albumin 3.8 g/dL (3.4-5.0); Bilirubin Direct 0.1 mg/dL (0-0.2); Bilirubin Total 0.4 mg/dL (0.2-1.0); Magnesium 2.1 mg/dL (1.6-2.4); Protein, Total 8.3 g/dL (6.4-8.2)
[2022-12-31 11:22] LABS: Troponin High Sensitivity 332.8 pg/mL (<58.9)
--- NOTE | 2022-12-31 11:22 | RAD REPORT ---
EXAM DESCRIPTION: RAD - Chest Single View - 12/31/2022 10:39 am CLINICAL HISTORY: CHEST PAIN COMPARISON: None TECHNIQUE: AP portable chest image was obtained 12/31/2022 10:39 am . FINDINGS: Low lung volumes, body habitus and under penetrated portable technique cause accentuation of the interstitial pattern. No peripheral mass or consolidation. No failure or volume overload seen. Heart and vasculature are normal. No measurable pleural effusion and no pneumothorax. No acute bony abnormality seen. No acute aortic findings suspected. IMPRESSION: No acute cardiopulmonary process.
[2022-12-31 11:26] LABS: Protime INR 0.95
--- NOTE | 2022-12-31 12:00 | EDPHYS ---
Physician Documentation [facility] Name: Ginette Guillermo Age: 42 yrs Sex: Female : 1980 Arrival Date: 12/31/2022 Time: 10:05 Bed 17 Private MD: ED Physician Don Parsons HPI: 12/31 10:20 This 42 yrs old Female presents to ER via Ambulatory with complaints of Feet Swelling, jh7 Shortness Of Breath, Headache. 10:20 The patient has shortness of breath with light activity, while laying flat. Onset: The jh7 symptoms/episode began/occurred yesterday. Associated signs and symptoms: Pertinent positives: chest pain, swelling of feet. 42-year-old female presents with swelling of the feet and shortness of breath since yesterday today. The patient has a history of lupus, Raynaud's, and fibromyalgia. Reports pain over her right shoulder with inspiration, orthopnea, and chest pain. Reports that she has an appointment with Dr. Khan for cardiology. Her PCP is at [facility].. Historical: - Allergies: 10:18 No Known Allergies; iw - PMHx: 10:18 hypotension; Lupus erythematosus; yasmeen's; RA/fibromyalgia; iw - PSHx: 10:18 Appendectomy; Cholecystectomy; hysterectomy; iw - Immunization history:: Adult Immunizations up to date, Client reports receiving the 2nd dose of the Covid vaccine. - Social history:: Smoking status: Patient denies any tobacco usage or history of. ROS: 10:20 Constitutional: Negative for fever, chills, and weight loss, Eyes: Negative for injury, jh7 pain, redness, and discharge, ENT: Negative for injury, pain, and discharge, Abdomen/GI: Negative for abdominal pain, nausea, vomiting, diarrhea, and constipation, Back: Negative for injury and pain, MS/Extremity: Negative for injury and deformity, Skin: Negative for injury, rash, and discoloration, Neuro: Negative for headache, weakness, numbness, tingling, and seizure. 10:20 Cardiovascular: Positive for chest pain, edema, orthopnea. 10:20 Respiratory: Positive for orthopnea, shortness of breath, Negative for cough, wheezing. 10:20 All other systems are negative. Exam: 10:20 Constitutional: This is a well developed, well nourished patient who is awake, alert, jh7 and in no acute distress. Head/Face: Normocephalic, atraumatic. Neck: Trachea midline, no thyromegaly or masses palpated, and no cervical lymphadenopathy. Supple, full range of motion without nuchal rigidity, or vertebral point tenderness. No Meningismus. Cardiovascular: Regular rate and rhythm with a normal S1 and S2. No gallops, murmurs, or rubs. Normal PMI, no JVD. No pulse deficits. Respiratory: Lungs have equal breath sounds bilaterally, clear to auscultation and percussion. No rales, rhonchi or wheezes noted. No increased work of breathing, no retractions or nasal flaring. Abdomen/GI: Soft, non-tender, with normal bowel sounds. No distension or tympany. No guarding or rebound. No evidence of tenderness throughout. Skin: Warm, dry with normal turgor. Normal color with no rashes, no lesions, and no evidence of cellulitis. Neuro: Awake and alert, GCS 15, oriented to person, place, time, and situation. Motor strength 5/5 in all extremities. Sensory grossly intact. Normal gait. 10:20 Musculoskeletal/extremity: ROM: intact in all extremities, Circulation is intact in all extremities. Pulses: are normal with no appreciated deficits, Sensation intact. Toes have a slight cyanotic appearance consistent with Raynaud's. Vital Signs: 10:19 BP 124 / 82; Pulse 70; Resp 21; Temp 98.0; Pulse Ox 100% ; Weight 86.18 kg; Height 5 iw ft. 6 in. (167.64 cm); Pain 8/10; 11:59 BP 136 / 85; Pulse 75; Resp 19; Pulse Ox 100% on R/A; ld1 10:19 Body Mass Index 30.67 (86.18 kg, 167.64 cm) iw MDM: 10:06 Patient medically screened. [facility] 11:55 Differential diagnosis: Bronchitis CHF exacerbation, Myocardial Infarction pneumonia, jh7 pulmonary edema, Pulmonary Embolism. Data interpreted: secured entrance monitor: Interpretation: normal rate, normal rhythm. The patient's pulmonary embolism risk score was calculated as follows: No Risks (0 Pts). Data reviewed: vital signs, nurses notes, lab test result(s), EKG, radiologic studies, CT scan, plain films. Consideration of Admission/Observation Patient was admitted/placed on observation. Management of patient was discussed with the following: Hospitalist: Dr. Taylor and Dr. Dietz. Airline Radio Operator: Dr. Moreno, application integration engineer. I considered the following discharge prescriptions or medication management in the emergency department Medications were administered in the Emergency Department. See MAR. Independent interpretation of the following test(s) in the Emergency Department EKG: See my EKG interpretation above. Historians other than the Patient: Parent: mom. Counseling: I had a detailed discussion with the patient and/or guardian regarding: the historical points, exam findings, and any diagnostic results supporting the discharge/admit diagnosis, the need for further work-up and treatment in the hospital. Response to treatment: the patient's symptoms have markedly improved after treatment. 12/31 10:24 Order name: Basic Metabolic Panel; Complete Time: 11: [facility] 12/31 10:24 Order name: CBC with Diff; Complete Time: : [facility] 12/31 10:24 Order name: D-Dimer; Complete Time: 11: [facility] 12/31 10:24 Order name: LFT's; Complete Time: 11: [facility] 12/31 10:24 Order name: Magnesium; Complete Time: 11: [facility] 12/31 10:24 Order name: NT PRO-BNP; Complete Time: 11: [facility] 12/31 10:24 Order name: PT-INR; Complete Time: 11:49 [facility] 12/31 10:24 Order name: Troponin HS; Complete Time: 11: [facility] 12/31 11:38 Order name: SARS RAPID; Complete Time: 12:27 [facility] 12/31 15:13 Order name: CBC with Automated Diff [facility] 12/31 15:13 Order name: CBC with Automated Diff [facility] 12/31 15:13 Order name: Comprehensive Metabolic Panel [facility] 12/31 15:13 Order name: Comprehensive Metabolic Panel [facility] 12/31 15:13 Order name: Lipid Profile [facility] 12/31 10:24 Order name: XRAY Chest (1 view); Complete Time: 11:27 [facility] 12/31 10:24 Order name: EKG; Complete Time: 10:25 [facility] 12/31 10:24 Order name: Cardiac monitoring; Complete Time: 10:50 [facility] 12/31 10:24 Order name: EKG - Nurse/Tech; Complete Time: 10:50 [facility] 12/31 10:24 Order name: IV Saline Lock; Complete Time: 10:50 [facility] 12/31 13:14 Order name: CT Chest For PE Angio [facility] 12/31 15:13 Order name: CONS Physician Consult [facility] 12/31 15:13 Order name: Heart Healthy [facility] 12/31 15:13 Order name: Echo with Doppler [facility] 12/31 15:13 Order name: Lipid Profile [facility] 12/31 15:13 Order name: Magnesium [facility] 12/31 15:13 Order name: Magnesium [facility] 12/31 15:13 Order name: Troponin High Sensitivity [facility] 12/31 15:13 Order name: Troponin High Sensitivity [facility] 12/31 15:13 Order name: Troponin High Sensitivity [facility] 12/31 10:24 Order name: Labs collected and sent; Complete Time: 10:50 [facility] 12/31 10:24 Order name: O2 Per Protocol; Complete Time: 10:25 [facility] 12/31 10:24 Order name: O2 Sat Monitoring; Complete Time: 10:25 [facility] EC:52 Rate is 65 beats/min. Rhythm is regular. QRS [place] is Normal. NH interval is normal at [facility] 138 msec. QRS interval is normal at 102 msec. QT interval is normal at 434 msec. No Q waves. T waves are Normal. Clinical impression: Normal sinus rhythm with possible right ventricular conduction delay. Administered Medications: 10:30 Drug: Aspirin Chewable Tablet 324 mg Route: PO; ld1 Disposition: 17:17 Co-signature as Attending Physician, Don Parsons MD I agree with the assessment and kdr plan of care. Disposition Summary: 12/31/22 11:59 Hospitalization Ordered Hospitalization Status: Inpatient Admission [facility] Provider: Amber Dietz Bull Location: Telemetry/MedSurg (Inpatient) [facility] Condition: Stable [facility] Problem: new [facility] Symptoms: are unchanged [facility] Bed/Room Type: Standard [facility] Room Assignment: 428(12/31/22 16:31) [facility] Diagnosis - NSTEMI [facility] - Dyspnea [facility] Discharge Instructions: - Discharge Summary Sheet iw Forms: - Work release form iw - Medication Reconciliation Form [facility] - SBAR form [facility] Signatures: Dispatcher [employer] Don Carreon MD MD kdr Williams, Irene, RN RN iw Driss Astorga, RN RN ja1 Teri Dunbar, RN RN ally1 Liliane Stout, DRESSING ROOM ATTENDANT DRESSING ROOM ATTENDANT 7 Corrections: (The following items were deleted from the chart) 10:19 10:18 PSHx: Appendectomy; [facility] 16:31 11:59 yovani sutton
--- NOTE | 2022-12-31 12:00 | ER ---
Nurse's Notes [facility] Name: Ginette Guillermo Age: 42 yrs Sex: Female : 1980 Arrival Date: 12/31/2022 Time: 10:05 Bed 17 Private MD: Diagnosis: NSTEMI;Dyspnea Presentation: 12/31 10:19 Chief complaint: Patient states: B leg swelling/feet pains getting worse for 2 weeks. + iw NIÑO and SOB. Coronavirus screen: Vaccine status: Patient reports receiving the 2nd dose of the covid vaccine. Client denies travel out of the [place] in the last 14 days. At this time, the client does not indicate any symptoms associated with coronavirus-19. Ebola Screen: Patient denies travel to an Ebola-affected area in the 21 days before illness onset. Initial Sepsis Screen: Does the patient meet any 2 criteria? No. Patient's initial sepsis screen is negative. Does the patient have a suspected source of infection? Yes: Skin breakdown/wound. Risk Assessment: Do you want to hurt yourself or someone else? Patient reports no desire to harm self or others. Onset of symptoms was December 16, 2022. 10:19 Method Of Arrival: Ambulatory iw 10:19 Acuity: KAMLESH 3 iw Historical: - Allergies: 10:18 No Known Allergies; iw - PMHx: 10:18 hypotension; Lupus erythematosus; yasmeen's; RA/fibromyalgia; iw - PSHx: 10:18 Appendectomy; Cholecystectomy; hysterectomy; iw - Immunization history:: Adult Immunizations up to date, Client reports receiving the 2nd dose of the Covid vaccine. - Social history:: Smoking status: Patient denies any tobacco usage or history of. Screenin:51 [facility] ED Fall Risk Assessment (Adult) History of falling in the last 3 months, ld1 including since admission No falls in past 3 months (0 pts). Abuse screen: Denies threats or abuse. Denies injuries from another. Nutritional screening: No deficits noted. Tuberculosis screening: No symptoms or risk factors identified. Assessment: 10:51 General: Appears in no apparent distress. comfortable, Behavior is cooperative, ld1 appropriate for age, anxious. Pain: Complains of pain in scalp Pain does not radiate. Pain currently is 8 out of 10 on a pain scale. Quality of pain is described as throbbing. Neuro: Level of Consciousness is awake, alert, obeys commands, Oriented to person, place, time, situation. Cardiovascular: Capillary refill < 3 seconds Patient's skin is warm and dry. Rhythm is sinus rhythm. Respiratory: Airway is patent Respiratory effort is even, unlabored, Breath sounds are clear bilaterally. GI: Abdomen is round non-distended. : No signs and/or symptoms were reported regarding the genitourinary system. EENT: No signs and/or symptoms were reported regarding the EENT system. Derm: No signs and/or symptoms reported regarding the dermatologic system. Musculoskeletal: No signs and/or symptoms reported regarding the musculoskeletal system. Vital Signs: 10:19 BP 124 / 82; Pulse 70; Resp 21; Temp 98.0; Pulse Ox 100% ; Weight 86.18 kg; Height 5 iw ft. 6 in. (167.64 cm); Pain 8/10; 11:59 BP 136 / 85; Pulse 75; Resp 19; Pulse Ox 100% on R/A; ld1 10:19 Body Mass Index 30.67 (86.18 kg, 167.64 cm) iw ED Course: 10:05 Patient arrived in ED. as 10:06 [facility] jh7 10:06 Don Parsons MD is Attending Physician. jh7 10:18 Arm band placed on Patient placed in an exam room, on a stretcher. iw 10:20 Triage completed. iw 10:23 Teri Dunbar, RN is Primary Nurse. ld1 10:41 XRAY Chest (1 view) In Process Unspecified. EDMS 10:50 No provider procedures requiring assistance completed. Inserted saline lock: 20 gauge ld1 in right forearm, using aseptic technique. Blood collected. 10:51 Patient has correct armband on for positive identification. Placed in gown. Bed in low ld1 position. Call light in reach. Side rails up X2. cafeteria monitor on. Pulse ox on. NIBP on. Door closed. Noise minimized. Warm blanket given. 11:55 SARS RAPID Sent. mm9 11:55 COVID swab sent to lab. mm9 11:58 Amber Dietz MD is Hospitalizing Provider. jh7 14:02 CT Chest For PE Angio In Process Unspecified. EDMS 17:01 Patient admitted, IV remains in place. ld1 Administered Medications: 10:30 Drug: Aspirin Chewable Tablet 324 mg Route: PO; ld1 Medication: 10:51 VIS not applicable for this client. ld1 Outcome: 11:59 Decision to Hospitalize by Provider. yovani 17:01 Admitted to Med/surg accompanied by tech, via wheelchair, room 428, with chart, Report ld1 called to ALISON Dailey 17:01 Condition: stable 17:01 Instructed on the need for admit. 17:01 Patient left the ED. ld1 Signatures: Dispatcher [employer] Tangela Oshea Irene, RN RN iw Teri Dunbar RN RN ld1 Liliane Stout FNP Lakesha Smith mm9 Corrections: (The following items were deleted from the chart) 10:19 10:18 PSHx: Appendectomy; [facility]
[2022-12-31 12:20] LABS: SARS-CoV-2 Antigen Rapid Res Negative (Negative)
--- NOTE | 2022-12-31 14:09 | RAD REPORT ---
EXAM DESCRIPTION: CT - Chest For Pe Angio - 12/31/2022 2:00 pm CLINICAL HISTORY: r/o PE, leg pain and swelling, shortness of breath, history of lupus, hypertensio n COMPARISON: No comparisons TECHNIQUE: Dynamically enhanced 3 mm thick images of the chest were obtained during administration o f approximately 150mL Isovue 370 IV contrast. Coronal and oblique MIP reconstruction images were gene rated and reviewed. Exam utilizes a protocol to evaluate the pulmonary arterial tree. All CT scans are performed using dose optimization technique as appropriate and may include automated exposure control or mA/KV adjustment according to patient size. FINDINGS: No pulmonary emboli are identified. The aorta as imaged shows no acute or suspicious finding. No pericardial thickening or effusion. No infiltrate or mass in the lung parenchyma. No pleural effusion or pleural thickening. No mediastinal or hilar suspicious masses. No chest wall mass. Small bilateral axillary lymph nodes a re present. These are more likely to be reactive than pathologic. IMPRESSION: No pulmonary emboli identified. Small nonspecific bilateral axillary lymph nodes.
[2022-12-31] MEDS ORDERED: ACETAMINOPHEN 500 MG TAB PO PRN (15:05)
[2022-12-31 17:21] VITALS: BMI 31.6
[2022-12-31] MEDS: MORPHINE 2 MG/ML SYR IV PRN ×2 (17:43→21:50)
--- NOTE | 2022-12-31 18:39 | P.HP ---
Certification for Inpatient Patient admitted to: Inpatient With expected LOS: >2 Midnights Patient will require the following post-hospital care: None Practitioner: I am a practitioner with admitting privileges, knowledge of patient current condition, hospital course, and medical plan of care. Services: Services provided to patient in accordance with Admission requirements found in Title 42 Section 412.3 of the Code of Federal Regulations Patient History Date of Service: 01/01/23 Reason for admission: CHEST PRESSURE History of Present Illness: patient is a 42-year-old female with history of systemic lupus erythematosus, rheumatoid arthritis, and prior admission for myocarditis who presents to the emergency room with chest pressure. Patient is feels very uncomfortable and she becomes tearful. She states that she uses pain medication but it does not help her. Her troponins were mildly elevated. She follows with Dr. Rico brown [place]. She will be admitted to the hospital for further evaluation. Allergies No Known Allergies Allergy (Unverified 12/31/22 14:09) Home Medications: Amlodipine [Norvasc*] 1 tab PO DAILY 12/31/22 Gabapentin 1 tab PO TID 12/31/22 Ibuprofen 600 mg PO TID 12/31/22 Pregabalin [Lyrica] 1 cap PO DAILY 12/31/22 - Past Medical/Surgical History Has patient received pneumonia vaccine in the past: No Diabetic: No -: Raynaulds -: Lupus -: Fibromyalgia -: rheumatoid Arthritis -: Hysterectomy -: Appy -: Chela - Family History Father Medical History: Diabetes Mother Medical History: Liver disease, Other (see notes) - Social History Smoking Status: Current every day smoker Alcohol use: Yes CD- Drugs: No Caffeine use: Yes Place of Residence: Home Review of Systems 10-point ROS is otherwise unremarkable Physical Examination - Vital Signs Temperature: 98.0 F Blood Pressure: 130/77 Pulse: 68 Respirations: 18 Pulse Ox (%): 100 - Physical Exam General: Alert, In no apparent distress, Oriented x3 HEENT: Atraumatic, PERRLA, Mucous membr. moist/pink, EOMI, Sclerae nonicteric Neck: Supple, 2+ carotid pulse no bruit, No LAD, Without JVD or thyroid abnormality Respiratory: Clear to auscultation bilaterally, Normal air movement Cardiovascular: Regular rate/rhythm, Normal S1 S2, No murmurs Gastrointestinal: Normal bowel sounds, Soft and benign, Non-distended, No tenderness Musculoskeletal: No clubbing, No swelling, No tenderness Integumentary: No rashes Neurological: Normal gait, Normal speech, Normal strength at 5/5 x4 extr, Normal tone, Normal affect Lymphatics: No axilla or inguinal lymphadenopathy - Studies Laboratory Data (last 24 hrs) 12/31/22 10:47: PT 10.4, INR 0.95 12/31/22 10:47: WBC 2.50 L, Hgb 12.1, Hct 36.6, Plt Count 360 12/31/22 10:47: Sodium 141, Potassium 4.0, BUN 14, Creatinine 0.73, Glucose 94, Magnesium 2.1, Total Bilirubin 0.4, AST 28, ALT 46, Alkaline Phosphatase 114 Assessment & Plan - Problems (Diagnosis) (1) NSTEMI (non-ST elevated myocardial infarction) Current Visit: Yes Status: Acute (2) SLE (systemic lupus erythematosus) Current Visit: Yes Status: Acute (3) Rheumatoid arthritis Current Visit: Yes Status: Acute - Plan 1. Serial troponins and EKG 2. Appreciate Cardiology consultation 3. Echocardiogram and possible cardiac intervention 4. Anti-platelet therapy, anti coagulation, beta-mando, statin, and O2 as needed 5. IV morphine for pain 6. Nitro p.r.n. Discharge Plan: Home Plan to discharge in: Greater than 2 days - Advance Directives Does patient have a Living Will: No Does patient have a Durable POA for Healthcare: No - Code Status/Comfort Care Code Status Assessed: Yes Code Status: Full Code Critical Care: No Time Spent Managing PTS Care (In Minutes): 45
[2022-12-31] MEDS ORDERED: METHYLPREDNISOLONE 125 MG INJ IV ONE (18:59)
[2022-12-31] MEDS: ALPRAZOLAM 0.25 MG TABLET PO PRN (21:51)
[2022-12-31] MEDS: ATORVASTATIN 40 MG TAB PO SCH (21:51)
[2022-12-31] MEDS: METOPROLOL TAR 50 MG TAB PO SCH (21:51)
[2022-12-31] MEDS: HEPARIN/D5W 25,000 UNIT/500 ML BAG IV SCH (21:52)
[2023-01-01] MEDS: GABAPENTIN 300 MG CAP PO PRN ×3 (02:13→19:44)
[2023-01-01] MEDS: MORPHINE 2 MG/ML SYR IV PRN ×3 (02:17→11:45)
[2023-01-01 02:42] LABS: Absolute Lymphocytes (CBC) 0.5 K/uL (0.7-4.9); Hematocrit 36.5 % (36.0-45.0); Lymphocytes % 16.2 % (15.3-44.8); MCV 94.2 fL (80-100); MPV 8.6 fL (7.6-11.3); RBC Red Blood Cell Count 3.88 M/uL (3.86-4.86)
[2023-01-01 02:53] LABS: Albumin 3.8 g/dL (3.4-5.0); Bilirubin Total 0.3 mg/dL (0.2-1.0); Magnesium 2.2 mg/dL (1.6-2.4); Potassium 3.7 mmol/L (3.5-5.1); Protein, Total 8.2 g/dL (6.4-8.2)
[2023-01-01] MEDS ORDERED: POTASSIUM CL SA 10 MEQ TAB PO ONE (06:00)
[2023-01-01] MEDS: ALPRAZOLAM 0.25 MG TABLET PO PRN ×3 (06:44→23:50)
[2023-01-01] MEDS: CLOPIDOGREL 75 MG TABLET PO SCH (09:12)
[2023-01-01] MEDS: METOPROLOL TAR 50 MG TAB PO SCH ×2 (09:12→20:48)
[2023-01-01] MEDS: ASPIRIN EC 81 MG TAB PO SCH (09:12)
[2023-01-01] MEDS ORDERED: METHYLPREDNISOLONE 125 MG INJ IV ONE (15:55)
[2023-01-01] MEDS: MORPHINE 4 MG/ML SYR IV PRN ×2 (19:45→23:51)
[2023-01-01] MEDS: ATORVASTATIN 40 MG TAB PO SCH (20:48)
[2023-01-01] MEDS: HEPARIN/D5W 25,000 UNIT/500 ML BAG IV SCH (22:07)
--- NOTE | 2023-01-02 03:10 | P.PN ---
Subjective Date of Service: 01/01/23 Subjective: No new changes, No C/O voiced, Improving Review of Systems 10-point ROS is otherwise unremarkable Physical Examination - Vital Signs Temperature: 98.0 F Blood Pressure: 130/77 Pulse: 68 Respirations: 18 Pulse Ox (%): 100 - Physical Exam General: Alert, In no apparent distress HEENT: Atraumatic, PERRLA, EOMI Neck: Supple, JVD not distended Respiratory: Clear to auscultation bilaterally, Normal air movement Cardiovascular: Regular rate/rhythm, Normal S1 S2 Gastrointestinal: Normal bowel sounds, No tenderness Musculoskeletal: No tenderness Integumentary: No rashes Neurological: Normal speech, Normal tone, Normal affect Lymphatics: No axilla or inguinal lymphadenopathy - Studies Medications List Reviewed: Yes Assessment & Plan - Problems (Diagnosis) (1) NSTEMI (non-ST elevated myocardial infarction) Current Visit: Yes Status: Acute (2) SLE (systemic lupus erythematosus) Current Visit: Yes Status: Acute (3) Rheumatoid arthritis Current Visit: Yes Status: Acute - Plan 1. Proceed with cardiac catheterization today 2. Appreciate Cardiology consultation 3. Echocardiogram pending 4. Anti-platelet therapy, anti coagulation, beta-mando, statin, and O2 as needed 5. IV morphine for pain 6. GI/DVT prophyalxis Discharge Plan: Home Plan to discharge in: Greater than 2 days - Advance Directives Does patient have a Living Will: No Does patient have a Durable POA for Healthcare: No - Code Status/Comfort Care Code Status: Full Code Critical Care: No Time Spent Managing PTS Care (In Minutes): 35
[2023-01-02] MEDS: MORPHINE 4 MG/ML SYR IV PRN ×2 (04:03→09:03)
[2023-01-02 04:47] LABS: Absolute Lymphocytes (CBC) 1.2 K/uL (0.7-4.9); Lymphocytes % 9.3 % (15.3-44.8); MPV 8.2 fL (7.6-11.3); RBC Red Blood Cell Count 3.82 M/uL (3.86-4.86)
[2023-01-02 05:05] LABS: Albumin 2.7 g/dL (3.4-5.0); Bilirubin Total 0.3 mg/dL (0.2-1.0); C-Reactive Protein 67.5 mg/L (<3.00); Protein, Total 6.2 g/dL (6.4-8.2)
[2023-01-02] MEDS: ASPIRIN EC 81 MG TAB PO SCH (05:05)
[2023-01-02] MEDS ORDERED: LIDOCAINE 1% 20 ML MDV ONE (06:36)
[2023-01-02] MEDS ORDERED: HEPA 1000U/500MLS 2,000 UNIT/1,000 ML BAG IV ONE (06:36)
[2023-01-02] MEDS ORDERED: NA CHLORIDE 0.9% 500 ML ONE (06:48)
--- NOTE | 2023-01-02 06:56 | ECHO ---
HEIGHT: 5 ft 5 in WEIGHT: 189 lb 15.91 oz DATE OF STUDY: 01/01/[address]: Amber Dietz MD 2-DIMENSIONAL: YES M.MODE: YES DOPPLER: YES COLOR FLOW: YES TDS: PORTABLE: YES DEFINITY: BUBBLE STUDY: DIAGNOSIS: NON ST ELEVATION MYOCARDIAL INFARCTION CARDIAC HISTORY: CATHERIZATION: NO SURGERY: NO PROSTHETIC VALVE: NO PACEMAKER: NO MEASUREMENTS (cm) DIASTOLIC (NORMALS) SYSTOLIC (NORMALS) IVSd 1.1 (0.6-1.2) LA Diam 2.9 (1.9-4.0) LVEF 56% LVIDd 3.7 (3.5-5.7) LVIDs 2.6 (2.0-3.5) %FS 28% LVPWd 1.0 (0.6-1.2) Ao Diam 2.6 (2.0-3.7) 2 DIMENSIONAL ASSESSMENT: RIGHT ATRIUM: NORMAL LEFT ATRIUM: NORMAL RIGHT VENTRICLE: NORMAL LEFT VENTRICLE: NORMAL TRICUSPID VALVE: MILD TRICUSPID REGURGITATION MITRAL VALVE: MILD MITRAL REGURGITATION PULMONIC VALVE: NORMAL AORTIC VALVE: NORMAL PERICARDIAL EFFUSION: NONE AORTIC ROOT: NORMAL LEFT VENTRICULAR WALL MOTION: NORMAL DOPPLER/COLOR FLOW: SEE BELOW COMMENTS: 1. NORMAL LEFT VENTRICULAR EJECTION FRACTION 55-60% 2. NORMAL WALL MOTION 3. MILD MITRAL REGURGITATION/ MILD TRICUSPID REGURGITATION 4. NORMAL DIASTOLIC FUNCTION TECHNOLOGIST: MARIPOSA AMBRIZ
[2023-01-02] MEDS ORDERED: HEPARIN 5000 UNIT/ML 1 ML VIAL ONE (07:00)
[2023-01-02] MEDS ORDERED: FENTANYL CITR 100 MCG/2 ML ONE (07:00)
[2023-01-02] MEDS ORDERED: VERAPAMIL HCL 10 MG/4 ML VIAL IV ONE (07:00)
[2023-01-02] MEDS ORDERED: ASPIRIN 325 MG TAB ONE (07:00)
[2023-01-02] MEDS ORDERED: CLOPIDOGREL 75 MG TABLET ONE (07:00)
[2023-01-02] MEDS ORDERED: MIDAZOLAM HCL 2 MG/2 ML INJ ONE (07:00)
[2023-01-02] MEDS ORDERED: ATROPINE SULF 1 MG/10 ML SYR IV ONE (07:01)
[2023-01-02] MEDS ORDERED: NITROGLYCERIN/D5W 25 MG/250 ML BTL IV ONE (07:01)
[2023-01-02] MEDS ORDERED: HEPARIN 10,000 UNIT/10 ML VIAL IV ONE (07:01)
[2023-01-02] MEDS ORDERED: TICAGRELOR 90 MG TABLET PO ONE (07:01)
[2023-01-02] MEDS ORDERED: NITROGLYCERIN 100 MCG/ML SYR (for cath lab use only) IV ONE (07:01)
[2023-01-02 07:36] LABS: Rheumatoid Factor NEG (NEG)
[2023-01-02] MEDS: METOPROLOL TAR 50 MG TAB PO SCH ×2 (09:00→21:00)
[2023-01-02] MEDS: CLOPIDOGREL 75 MG TABLET PO SCH (09:00)
[2023-01-02] MEDS ORDERED: MORPHINE 4 MG/ML SYR ONE (09:01)
[2023-01-02] MEDS ORDERED: HYDROMORPHONE HCL 1 MG/ML INJ IV PRN (10:09)
[2023-01-02] MEDS ORDERED: GABAPENTIN 300 MG CAP PO ONE (10:10)
[2023-01-02] MEDS: HYDROMORPHONE HCL 0.5 MG/0.5 ML INJ IV PRN ×2 (10:36→18:09)
--- NOTE | 2023-01-02 11:56 | PN ---
Date of Progress Note: 01/02/2023 Subjective: Seen by bedside. Doing clinically well. No further chest pain. She is having generali zed body aches, status post coronary angiogram with normal coronary arteries. Review of Systems: No chest pain, shortness of breath, orthopnea, cough. No nausea, vomiting, diarrhea. All other syst ems reviewed and they were negative. Physical Examination: Vital Signs: Reviewed. Head and Neck: Pupils are equal, reactive to light. Intact eye movements. No JVD. No cervical lym phadenopathy. Neck is supple. Thyroid is not enlarged. Lungs: Clear to auscultation bilaterally. No rhonchi, wheezing, or crackles. No accessory muscle u se. Heart: Regular rate and rhythm. No extra sounds. Abdomen: Soft, nontender. Bowel sounds positive. No organomegaly. No masses or hernia. No rigidi ty or rebound. Extremities: No edema, clubbing, or cyanosis. Intact pulses. Skin: No rash. Neurologic: Alert, awake, oriented x3. No acute focal deficits appreciated. Investigations: Labs were reviewed. Assessment And Recommendations: 1.Elevated troponin, status post coronary angiogram. She has normal coronary arteries. This is dem and ischemia. I will continue to monitor. 2.Fibromyalgia and rheumatoid arthritis, likely responsible for all her pain. From a Cardiology standpoint, the patient can be released and follow up as an outpatient. /DESTINEYL Voice ID: [id number] Report ID: [id number]
[2023-01-02] MEDS: ONDANSETRON 4 MG/2 ML VIAL IV PRN (13:59)
[2023-01-02] MEDS: HYDROCODONE/APAP 10/325 TAB PO PRN ×2 (14:31→20:16)
[2023-01-02 15:53] LABS: Troponin High Sensitivity 140.1 pg/mL (<58.9)
--- NOTE | 2023-01-02 16:17 | OP ---
Date of Procedure: 01/02/2023 Surgeon: ALF FERMIN Procedures Performed: 1.Selective coronary angiogram. 2.Left heart catheterization. Indication: Non-ST elevation myocardial infarction. Access: Right radial artery 6-Indonesian closed with TR band. Complications: None. Bleeding: Less than 10 mL. Anesthesia: Total sedation time is none. She was not given sedation. Description Of Procedure: After risks, benefits, alternatives were explained, the patient agreed to procedure and signed informed consent. The patient was brought into the cardiac catheterization labo [facility], prepped and draped in the usual sterile fashion. Then, I accessed right radial artery using pediatric micropuncture kit and placed a 6-Indonesian Slender sheath, took a 5-Indonesian Steele 4.0 catheter into the aortic root over a J-wire and engaged left main and then right coronary artery, took standar d views and the catheter was pushed over the wire into the LV, measured the LVEDP and pullback did no t record any gradient. Then, catheter was removed, sheath was removed and placed TR band with good h emostasis. Findings: 1.Left main; normal. 2.LAD; moderate-sized and normal and normal diagonal branches. 3.Left circumflex; moderate-sized and normal and it is nondominant. 4.RCA; very large and dominant and normal. 5.Elevated LVEDP around 50 mmHg. Conclusion: 1.Normal coronary arteries. 2.Mildly elevated LVEDP. Recommendation: Medical management. SR/MODL Voice ID: [id number] Report ID: [id number]
--- NOTE | 2023-01-02 18:20 | CON ---
Date of Consultation: 01/01/2023 Reason For Consultation: Chest pain. History Of Present Illness: A 42-year-old female with past medical history of rheumatoid arthritis, lupus, fibromyalgia, presented with chest pain, pressure-like, retrosternal, radiates to left upper e xtremity and left neck and it is worsening with activities. She is following up with a patch press operator in [place]. She denies having any shortness of breath or diaphoresis or vomiting. Past Medical History: As outlined above in the HPI. Medications: Refer to reconciliation sheet for detailed list. Allergies: NO KNOWN DRUG ALLERGIES. Family History: No premature coronary artery disease or cancer. Social History: She is an active smoker, about half to 1 pack per day. Does not drink, use any drug s. Review of Systems: All systems reviewed and they were negative except what mentioned in HPI. Physical Examination: Vital Signs: Reviewed. Head and Neck: Pupils are equal, reactive to light. Intact eye movements. No JVD. No cervical lym phadenopathy. Neck is supple. Thyroid is not enlarged. Lungs: Clear to auscultation bilaterally. No rhonchi, wheezing, or crackles. No accessory muscle u se. Heart: Regular rate and rhythm. No extra sounds. Abdomen: Soft, nontender. Bowel sounds positive. No organomegaly. No masses or hernia. No rigidi ty or rebound. Extremities: No edema, clubbing, or cyanosis. Intact pulses. Skin: No rash. Neurologic: Alert, awake, oriented x3. No acute focal deficits appreciated. Investigations: BUN 18, creatinine 0.84. Troponin peaked at 313 and trending down. Assessment And Recommendations: 1.Chest pain with positive troponin suggestive of possible non-ST elevation myocardial infarction. Continue aspirin. Agree with IV heparin. Keep n.p.o. past midnight. We will plan for coronary jason ogram tomorrow morning. 2.Dyslipidemia. Continue statin. SR/MODL Voice ID: [id number] Report ID: [id number]
[2023-01-02] MEDS: GABAPENTIN 300 MG CAP PO PRN (20:16)
[2023-01-02] MEDS: ATORVASTATIN 40 MG TAB PO SCH (20:16)
[2023-01-02] MEDS: ALPRAZOLAM 0.25 MG TABLET PO PRN (20:27)
[2023-01-03] MEDS: HYDROMORPHONE HCL 0.5 MG/0.5 ML INJ IV PRN ×2 (00:15→06:30)
[2023-01-03] MEDS: ONDANSETRON 4 MG/2 ML VIAL IV PRN ×2 (00:29→06:30)
[2023-01-03] MEDS: GABAPENTIN 300 MG CAP PO PRN (06:39)
[2023-01-03] MEDS: METOPROLOL TAR 50 MG TAB PO SCH (08:22)
[2023-01-03] MEDS: ASPIRIN EC 81 MG TAB PO SCH (08:22)
[2023-01-03] MEDS: ALPRAZOLAM 0.25 MG TABLET PO PRN (08:22)
[2023-01-03] MEDS: CLOPIDOGREL 75 MG TABLET PO SCH (08:22)
[2023-01-03] MEDS: HYDROCODONE/APAP 10/325 TAB PO PRN (08:26)
[2023-01-03 09:17] VITALS: O2SAT 94
--- NOTE | 2023-01-03 10:39 | P.PN ---
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; will see her next week after DC Review of Systems 10-point ROS is otherwise unremarkable Physical Examination - Vital Signs reviewed - Physical Exam General: Alert, In no apparent distress Respiratory: Clear to auscultation bilaterally, Normal air movement Cardiovascular: Regular rate/rhythm, Normal S1 S2 Gastrointestinal: Normal bowel sounds, No tenderness Neurological: Normal speech, Normal tone, Normal affect Assessment & Plan - Problems (Diagnosis) (1) NSTEMI (non-ST elevated myocardial infarction) Current Visit: Yes Status: Acute (2) SLE (systemic lupus erythematosus) Current Visit: Yes Status: Acute (3) Rheumatoid arthritis Current Visit: Yes Status: Acute - Plan Continue with POC as mentioned below: 1. proceed with cardiac catheterization in the morning 2. Appreciate Cardiology consultation 3. Echocardiogram and possible cardiac intervention 4. Anti-platelet therapy, anti coagulation, beta-mando, statin, and O2 as needed 5. IV morphine for pain 6. Nitro p.r.n.
[2023-01-03 10:43] VITALS: BP 130/77; TEMP 98
--- NOTE | 2023-01-03 10:44 | P.DS ---
Discharge Date: 01/03/23 Disposition: ROUTINE DISCHARGE Discharge Condition: GOOD Reason for Admission: CHEST PRESSURE - Problems (1) NSTEMI (non-ST elevated myocardial infarction) Current Visit: Yes Status: Acute (2) SLE (systemic lupus erythematosus) Current Visit: Yes Status: Acute (3) Rheumatoid arthritis Current Visit: Yes Status: Acute Brief History of Present Illness: Patient is a 42-year-old female with history of systemic lupus erythematosus, rheumatoid arthritis, and prior admission for myocarditis who presents to the emergency room with chest pressure. Patient is feels very uncomfortable and she becomes tearful. She states that she uses pain medication but it does not help her. Her troponins were mildly elevated. She follows with Dr. Rico brown [place]. She will be admitted to the hospital for further evaluation. Hospital Course: Pt doing well with no new complaints Vital Signs/Physical Exam: Temp Pulse Resp BP Pulse Ox 98.0 F 68 18 130/77 100 01/03/23 10:40 01/03/23 10:40 01/03/23 10:40 01/03/23 10:40 01/03/23 10:40 Laboratory Data at Discharge: WBC 12.50 K/uL (4.3-10.9) H 01/02/23 04:17 Hgb 11.4 g/dL (12.0-15.0) L 01/02/23 04:17 Hct 34.0 % (36.0-45.0) L 01/02/23 04:17 Plt Count 238 K/uL (152-406) D 01/02/23 04:17 PT 10.4 SECONDS (9.5-12.5) 12/31/22 10:47 INR 0.95 12/31/22 10:47 APTT 27.2 SECONDS (24.3-36.9) 01/02/23 04:17 Sodium Cancelled 01/02/23 05:00 Potassium Cancelled 01/02/23 05:00 BUN Cancelled 01/02/23 05:00 Creatinine Cancelled 01/02/23 05:00 Glucose Cancelled 01/02/23 05:00 Magnesium 2.2 mg/dL (1.6-2.4) 01/01/23 02:17 Total Bilirubin 0.3 mg/dL (0.2-1.0) 01/02/23 04:17 AST 5 U/L (15-37) L 01/02/23 04:17 ALT 11 U/L (13-56) L 01/02/23 04:17 Alkaline Phosphatase 62 U/L (45-117) D 01/02/23 04:17 Triglycerides 45 mg/dL (<150) 01/01/23 02:17 Cholesterol 209 mg/dL (<200) H 01/01/23 02:17 HDL Cholesterol 61 mg/dL (40-60) H 01/01/23 02:17 Cholesterol/HDL Ratio 3.43 01/01/23 02:17 Home Medications: Amlodipine [Norvasc*] 1 tab PO DAILY 12/31/22 Gabapentin 1 tab PO TID 12/31/22 Ibuprofen 600 mg PO TID 12/31/22 Pregabalin [Lyrica] 1 cap PO DAILY 12/31/22 Hydrocodone 10/APAP 325 [[place] 10/325*] 1 tab PO Q6H PRN #30 tab 01/03/23 New Medications: Hydrocodone 10/APAP 325 [[place] 10/325*] 1 tab PO Q6H PRN #30 tab PRN Reason: Pain Scale 5-7 (Moderate) Physician Discharge Instructions: OK TO DC IV AND DC HOME FOLLOW-UP WITH PRIMARY CARE PROVIDER IN 1-2 WEEKS FOLLOW-UP WITH RHEUMATOLOGY IN 1-2 WEEKS RETURN TO THE ER IF SYMPTOMS WORSEN CALL DR. BOURGEOIS AT [phone] IF ANY QUESTIONS REGARDING HOSPITAL STAY. PLEASE CALL THE FLOOR AT [phone] IF ANY MEDICATION OR NURSING QUESTIONS. Diet: AHA Activity: Fall precautions Followup: [facility] [Primary Care Provider] - Cyrus Moreno MD [ACTIVE - CAN ADMIT] -
--- NOTE | 2023-01-09 17:39 | EKG ---
Test Date: 2022-12-31 Test Time: 10:52:02 [employer] Building Supervisor: KEYSHA MEASUREMENT RESULTS: Intervals: Rate: 65 OH: 138 QRSD: 102 QT: 434 QTc: 451 [place]: P: -24 OH: 138 QRS: 30 T: 15 INTERPRETIVE STATEMENTS: Normal sinus rhythm RSR' or QR pattern in V1 suggests right ventricular conduction delay Borderline ECG No previous ECG available for comparison Electronically Signed On 01-09-23 17:24:13 GUARD RANGE by Cyrus Moreno
== END 2023-01-03 10:35 | disposition home or self-care (01) | DRG 282 ==
LOC: ER 10:02 → ERHOLD 15:06 → 4TH 16:45
PROVIDERS: ADMIT Hospitalist; ATTEND Hospitalist
PROC: 4A023N7 Measurement of Cardiac Sampling and Pressure, Left Heart, Percutaneous Approach (ICD-10-PCS; principal; 2023-01-02)
PROC: B2111ZZ Fluoroscopy of Multiple Coronary Arteries using Low Osmolar Contrast (ICD-10-PCS; 2023-01-02)
DX: I21.4 Non-ST elevation (NSTEMI) myocardial infarction (principal); M79.7 Fibromyalgia; M06.9 Rheumatoid arthritis, unspecified; E78.5 Hyperlipidemia, unspecified; M32.9 Systemic lupus erythematosus, unspecified; F17.200 Nicotine dependence, unspecified, uncomplicated; Z90.49 Acquired absence of other specified parts of digestive tract; Z90.710 Acquired absence of both cervix and uterus; Z79.899 Other long term (current) drug therapy; Z20.822 Contact with and (suspected) exposure to COVID-19
CPT/HCPCS: 36415; 71045; 71275; 76937; 80048; 80053; 80061; 80076; 82550; 83735; 83880; 84484; 85025; 85379; 85610; 85730; 86038; 86140; 86200; 86225; 86430; 87811; 93005; 93306; 93458; 99285; C1893; J0461; J1170; J1644; J2001; J2250; J2270; J2405; J2930; J3010; J7040; Q9966; Q9967

== ENCOUNTER 2023-05-05 10:42 | Emergency (ER) | payer BC ==
--- OUTSIDE RECORDS SUMMARY | 2023-05-05 11:30 | XMS REPORT | Continuity of Care Document ---
:1980 Author Organization [facility] t Address [address] [place] [address] Care Team Providers Name Role Phone Dannielle FARMER, Milla Primary Care Physician MICHAEL VANEGAS Attending Clinician Unavailable HARITHA SIEGEL Attending Clinician Unavailable JAYLYN NOLASCO Attending Clinician Unavailable JAYLYN NOLASCO Attending Clinician Unavailable SARA CALVO Attending Clinician Unavailable Aaron Nagy Attending Clinician Sara Calvo MD Attending Clinician Pob, Adc Lab Main Attending Clinician Unavailable BOB MALAVE Attending Clinician Unavailable LAURA AGUIRRE Attending Clinician Unavailable Laura Michelle Attending Clinician LOULOU CEJA Attending Clinician Unavailable Loulou Ceja NP Attending Clinician Bob Malave DO Attending Clinician 2, Adc Lab Attending Clinician Unavailable CATALINA SUAREZ Attending Clinician Unavailable Catalina Suarez MD Attending Clinician SWEETIE NEWSOME Attending Clinician Unavailable Porsche Asencio PT Attending Clinician Unavailable Rey Foster MD Attending Clinician REY FOSTER Attending Clinician Unavailable Lab, Ang - Db Attending Clinician Unavailable AARON DUNCAN Attending Clinician Unavailable Doctor Unassigned, [place] Attending Clinician Unavailable MICHELLE SYLVESTER Attending Clinician Unavailable Pcp-Lab Attending Clinician Unavailable Ana Ariza RN Attending Clinician Unavailable JUNITO LYONS Attending Clinician Unavailable Junito Lyons DO Attending Clinician HECTOR JIMENEZ Attending Clinician Unavailable Therapy, Adc Covid Infusion Attending Clinician Unavailable Hector Jimenez MD Attending Clinician Curt Otoole MD Attending Clinician Only, Pcp Test Attending Clinician Unavailable Allen Strauss MD Attending Clinician Juan Luis FARMER, James Yip Attending Clinician Tristin FARMER, Ja Chopra Attending Clinician Sharron FARMER, Isa Leyva Attending Clinician Zeus FARMER, Kita Long Attending Clinician Pietro Shanks MD Attending Clinician MD ISA DUMAS Attending Clinician Unavailable TODD, FINN VIOLETTA Attending Clinician Unavailable Jeffrey Escobar MD Attending Clinician CURT OTOOLE Attending Clinician Unavailable Myra Sorenson OD Attending Clinician MYRA SORENSON Attending Clinician Unavailable NOÉ BLANCHARD Attending Clinician Unavailable PARAM VALDIVIA [facility] Attending Clinician Unavailable Vtc-Lab Attending Clinician Unavailable Danna FARMER, [facility] Nieves Attending Clinician Elisa Drummond Attending Clinician Michael Vanegas MD Attending Clinician Only, Adc Test Attending Clinician Unavailable ELISA SEN Attending Clinician Unavailable Rose Owens PA-C Attending Clinician Jaylyn Nolasco DO Attending Clinician ROSE OWENS Attending Clinician Unavailable YELENA SARAH Attending Clinician Unavailable Amos ROSAS, Stephanie Bernabe Attending Clinician Unavailable Hilario Salomon MD Attending Clinician Dianne Dodd MD Attending Clinician Pc, Adc Echo Room 1 - Attending Clinician Unavailable Shea FARMER, Param Saucedo Attending Clinician Stella Mcmahan Attending Clinician Provider, [facility] Attending Clinician Unavailable Yelena Sarah MD Attending Clinician [facility] Attending Clinician Unavailable MICHAEL VANEGAS Admitting Clinician Unavailable CATALINA SUAREZ Admitting Clinician Unavailable JUNITO LYONS Admitting Clinician Unavailable ISA DUMAS Admitting Clinician Unavailable MD ISA DUMAS Admitting Clinician Unavailable Michael Vanegas MD Admitting Clinician Hilario Salomon MD Admitting Clinician Payers Payer Name Policy Type Policy Number Effective Date Expiration Date S [facility] [id number] 2018 00:00:00 Problems Condition Condition Condition Status Onset Resolution Last Treating Co mments Source Name Details Category Date Date Treatment Clinician Date Leg edema Leg edema Disease Active Uni vers 5-04 ity of 00:00: [place] [facility] Snores Snores Disease Active Univers 5-04 ity of 00:00: [place] 00 Medical Branch Lupus Lupus Disease Active Univers 3-06 ity of 00:00: [place] [facility] Constipati Constipati Disease Active U nivers on, on, 3-06 ity of unspecifie [place] constipati constipati Br anch on type on type Intractabl Intractabl Disease Active M ethodi e pain e pain 07-29 st 00:00: [facility]osp[facility] 00 l Abdominal Abdominal Disease Active Overview: Univers pain, pain, 1-21 Formattin ity of epigastric epigastric 00:00: g of this [place] 00 note Medical might be Branch different from the original. Added automatic ally from request for surgery [id number] Obesity Obesity Disease Active Univers (BMI (BMI 1-07 ity of 30-39.9) 30-39.9) 00:00: [place] 00 Medical Branch Pericardit Pericardit Disease Active 2020- U nivers is is 1-18 ity of 00:00: [place] [facility] Chest pain Chest pain Disease Active 2020- U nivers 1-16 ity of 00:00: [place] [address] Medical Branch SOB SOB Disease Active 2020- Univers (shortness (shortness 1-16 it y of of breath) of breath) [place] [facility] [place] Fever Fever Disease Active 2020- Univers 1-16 ity of 00:00: [place] [address] Medical Branch Lymphadeno Lymphadeno Disease Active 2020- U nivers donnie donnie 1-16 ity of 00:00: [place] [facility] Cigarette Cigarette Disease Active 2020- Uni vers smoker smoker 1-16 ity of 00:00: [place] [facility] Shortness Shortness Disease Active 2020- Uni vers of breath of breath 0-04 ity of 00:00: [place] [facility] Abnormal Abnormal Disease Active 2019-11 Unive rs EKG EKG 0-04 ity of 00:00: [place] [facility] Raynaud's Raynaud's Disease Active 2020- Uni vers disease disease 609 ity of without without 00:00: [place] gangrene gangrene 00 Medica l Branch Arthralgia Arthralgia Disease Active 2020- U nivers of of 6 ity of multiple multiple 00:00: [place] joints joints 00 Medical Branch Neuropathy Neuropathy Disease Active 2020-0 U nivers 6- ity of 00:00: [place] [facility] Renal Renal Disease Active 2019 Overview: Univgabriella s lesion lesion 06-26 Formattin ity of 00:00: g of this 00 note Medical might be Branch different from the original. 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 Microscopi Microscopi Disease Active 2019- U nivers c c 06-20 ity of hematuria hematuria 00:00: [facility] B12 B12 Disease Active 2019- Univers deficiency deficiency 06-20 it y of 00:00: [place] [address] Medical Branch Numbness Numbness Disease Active 2019- Unive rs and and 05-18 ity of tingling tingling 00:00: [place] of upper of upper 00 Medica l and lower and lower Bran ch extremitie extremitie s of both s of both sides sides Hot Hot Disease Active 2019-0 Univers flashes flashes 6-23 ity of 00:00: [place] 00 Medical Branch Pain in Pain in Diagnosis Active 2021-11-23 Memoria left hand left hand 04:06:48 l Active [place] Diagnosis 11/23/2021 Milla Naleliam Rash Rash Diagnosis Active 2021-11-23 Mem oria Active 04:06:48 l Diagnosis [place] 11/23/2021 Milla Najam SUSU SUSU Diagnosis Active 2021-11-23 Mem oria positive positive 04:06:48 l Active [place] Diagnosis 11/23/2021 Milla Naleliam Vitamin D Vitamin D Problem Active 2021-11-23 Memoria deficiency deficiency 04:07:20 l Active [place] Problem 11/23/2021 Milla Najam 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 04:07:20 l tissue tissue [place] disease disease Active Problem 11/23/2021 Milla Naleliam Fibromyalg Fibromyal Problem Active 2021-11-23 Memoria ia duarte 04:07:20 l Active [place] Problem 11/23/2021 Milla Naleliam Depression Depression Disease Active U nivers ity of [facility] Anxiety Anxiety Disease Active Univers ity of [facility] Migraines Migraines Disease Active Uni vers ity of [facility] History of History Problem Active 2021-11-23 Memoria lupus of lupus 04:07:20 l Active [place] Problem 11/23/2021 [place] Saenzm Prediabete Prediabete Disease Active U nivers s s ity of [facility] Positive Positive Disease Active Unive rs SUSU SUSU ity of (antinucle (antinucle [place] [facility] antibody) antibody) Bran ch Rheumatoid Rheumatoid Disease Active U [facility] factor factor ity of positive positive [facility] Counseling Counselin Diagnosis Active 2021-11-23 Memoria NOS g NOS 04:06:48 l Active [place] Diagnosis 11/23/2021 Milla Najam Pain in Pain in Diagnosis Active 2021-11-23 Memoria right hand right hand 04:06:48 l Active [place] Diagnosis 11/23/2021 Milla Najam Pain, Pain, Diagnosis Active 2021-11-23 Mem oria joint, joint, 04:06:48 l multiple multiple Rodrigo n sites sites Active Diagnosis 11/23/2021 Milla Spicer Allergies, Adverse Reactions, Alerts Allergy Allergy Status Severity Reaction(s) Onset Inactive Treating Comm ents Source Name Type Date Date Clinician Peg Ruvalcaba Active Info Not 2020-11 Ritesh lilian Available 0-20 l 00:00: [place] 00 NO KNOWN Drug Active Univers ALLERGIE Class ity of S [facility] Social History Social Habit Start Date Stop Date Quantity Comments Source History of tobacco Cigarette Smoker University of use [facility] Gender identity [facility] Sexual orientation [facility] Exposure to 2023-03-19 2023-03-29 Not sure [facility] SARS-CoV-2 (event) 00:00:00 15:35:00 [facility] Cigarettes smoked 2022-11-14 2022-11-14 Univers ity of current (pack per 00:00:00 00:00:00 [facility] ) - Reported Branch Cigarette 2022-11-14 2022-11-14 University of pack-years 00:00:00 00:00:00 [facility] Tobacco use and 2022-11-14 2022-11-14 Smokeless tobacco Un iversity of exposure 00:00:00 00:00:00 non-user [facility] History of Social 2021-08-11 2021-08-[address] function 00:00:00 00:00:00 Hospital Alcohol intake 2021-07-29 2021-07-29 Current drinker of De thodist 00:00:00 00:00:00 alcohol (finding) Hospita l History [facility] 2020-12-02 2020-12-02 99 University o f Alcohol Frequency 00:00:00 00:00:00 [facility] edical Branch History SDSC 2020-12-02 2020-12-02 99 University o f Alcohol Binge 00:00:00 00:00:00 [facility] al Branch Alcohol Comment 2020-12-02 2020-12-02 occassionally Univer sity of 00:00:00 00:00:00 [facility] History SDSC 2019-05-13 2019-05-13 99 University o f Alcohol Std Drinks 00:00:00 00:00:00 [facility] Sex [birth year] At [birth year] [facility] 00:00:[facility] 00:00:00 Hospital Smoking Status Start Date Stop Date Source Tobacco smoking [facility] xa consumption unknown Medical Bran Occasional tobacco smoker 2022-11-14 [facility]:00[facility] 2021-07-29 00:00:00 2021-07-29 [facility] 00[facility] Medications Ordered Filled Start Stop Current Ordering Indication Dosage Frequency Signature Comments Components Source Medication Medication Date Date Medication? Clinician (SIG) Name Name spironolact 2022-0 Yes [id number] 25mg Take 1 Univers one 25 mg 5-08 tablet by ity o f tablet 00:00: mouth in [place] the Medical morning. Branch spironolact 2022-0 Yes [id number] 25mg Take 1 Univers one 25 mg 5-08 tablet by ity o f tablet 00:00: mouth in [place] the Medical morning. Branch spironolact 2022-0 Yes [id number] 25mg Take 1 Univers one 25 mg 5-08 tablet by ity o f tablet 00:00: mouth in [place] the Medical morning. Branch spironolact 2022-0 Yes [id number] 25mg Take 1 Univers one 25 mg 5-04 tablet by ity o f tablet 00:00: mouth in [place] the Medical morning. Branch furosemide 2022-0 Yes [id number] 40mg Take 1 Univers 40 mg 5-04 tablet by ity of tablet 00:00: mouth in [place] the Medical morning. Branch spironolact 2022-0 Yes [id number] 25mg Take 1 Univers one 25 mg 5-04 tablet by ity o f tablet 00:00: mouth in [place] the Medical morning. Branch furosemide 2022-0 Yes [id number] 40mg Take 1 Univers 40 mg 5-04 tablet by ity of tablet 00:00: mouth in [place] the Medical morning. Branch spironolact 2022-0 Yes [id number] 25mg Take 1 Univers one 25 mg 5-04 tablet by ity o f tablet 00:00: mouth in [place] the Medical morning. Branch furosemide 3-0 Yes [id number] 40mg Take 1 Univers 40 mg 5-04 tablet by ity of tablet 00:00: mouth in [place] 00 the Medical morning. Branch spironolact 2023-0 Yes [id number] 25mg Take 1 Univers one 25 mg 5-04 tablet by ity o f tablet 00:00: mouth in [place] 00 the Medical morning. Branch furosemide 2023-0 Yes [id number] 40mg Take 1 Univers 40 mg 5-04 tablet by ity of tablet 00:00: mouth in [place] 00 the Medical morning. Branch furosemide 2023-0 Yes [id number] 40mg Take 1 Univers 40 mg 5-04 tablet by ity of tablet 00:00: mouth in [place] 00 the Medical morning. Branch furosemide 2023-0 Yes [id number] 40mg Take 1 Univers 40 mg 5-04 tablet by ity of tablet 00:00: mouth in [place] 00 the Medical morning. Branch furosemide 2023-0 Yes [id number] 40mg Take 1 Univers 40 mg 5-04 tablet by ity of tablet 00:00: mouth in [place] 00 the Medical morning. Branch spironolact 2023-0 2023- No [id number] 25mg Take 1 Univers one 25 mg 5-04 05-08 tablet by ity of tablet 00:00: 00:00 mouth in [place] 00 :00 the Medical morning. Branch aspirin 81 2023-0 2023- No 81mg Take 1 Univ ers mg EC 3-06 03-06 tablet by ity of tablet 10:01: 00:00 mouth in [place] 40 :00 the Medical morning. Branch aspirin 81 2023-0 2023- No 81mg Take 1 Univ ers mg EC 3-06 03-06 tablet by ity of tablet 10:01: 00:00 mouth in [place] 40 :00 the Medical morning. Branch aspirin 81 2023-0 2023- No 81mg Take 1 Univ ers mg EC 3-06 03-06 tablet by ity of tablet 10:01: 00:00 mouth in [place] 40 :00 the Medical morning. Branch gabapentin 2023-0 Yes 600mg Take 1 Univ ers 600 mg 3-06 tablet by ity of tablet 09:00: mouth in [place] [address] the Medical morning Branch and 1 tablet at noon and 1 tablet in the evening. gabapentin 2023-0 Yes 600mg Take 1 Univ ers 600 mg 3-06 tablet by ity of tablet 09:00: mouth in [place] [address] the Medical morning Branch and 1 tablet at noon and 1 tablet in the evening. gabapentin 2023-0 Yes 600mg Take 1 Univ ers 600 mg 3-06 tablet by ity of tablet 09:00: mouth in [address] and 1 tablet at noon and 1 tablet in the evening. gabapentin 2023-0 Yes 600mg Take 1 Univ ers 600 mg 3-06 tablet by ity of tablet 09:00: mouth in [address] and 1 tablet at noon and 1 tablet in the evening. gabapentin 2023-0 Yes 600mg Take 1 Univ ers 600 mg 3-06 tablet by ity of tablet 09:00: mouth in [address] and 1 tablet at noon and 1 tablet in the evening. gabapentin 2023-0 Yes 600mg Take 1 Univ ers 600 mg 3-06 tablet by ity of tablet 09:00: mouth in [address] and 1 tablet at noon and 1 tablet in the evening. gabapentin 2023-0 Yes 600mg Take 1 Univ ers 600 mg 3-06 tablet by ity of tablet 09:00: mouth in [address] and 1 tablet at noon and 1 tablet in the evening. gabapentin 2023-0 Yes 600mg Take 1 Univ ers 600 mg 3-06 tablet by ity of tablet 09:00: mouth in [address] and 1 tablet at noon and 1 tablet in the evening. gabapentin 2023-0 Yes 600mg Take 1 Univ ers 600 mg 3-06 tablet by ity of tablet 09:00: mouth in [address] and 1 tablet at noon and 1 tablet in the evening. gabapentin 2023-0 Yes 600mg Take 1 Univ ers 600 mg 3-06 tablet by ity of tablet 09:00: mouth in [address] and 1 tablet at noon and 1 tablet in the evening. gabapentin 2023-0 Yes 600mg Take 1 Univ ers 600 mg 3-06 tablet by ity of tablet 09:00: mouth in [address] and 1 tablet at noon and 1 tablet in the evening. gabapentin 2023-0 Yes 600mg Take 1 Univ ers 600 mg 3-06 tablet by ity of tablet 09:00: mouth in [address] and 1 tablet at noon and 1 tablet in the evening. ketorolac 2023-0 Yes [id number] 10mg Take 1 Un alecia 10 mg 3-06 tablet by ity of tablet 00:00: mouth [place] 00 every 6 Medical (six) Branch hours as needed for Pain (scale 4-6) or Pain (scale 7-10). escitalopra 2023-0 Yes [id number] 10mg Take 1 Univers m oxalate 3-06 tablet by ity o f (LEXAPRO) 00:00: [place] the Medical tablet morning. Branch ketorolac 2023-0 Yes [id number] 10mg Take 1 Un alecia 10 mg 3-06 tablet by ity of tablet 00:00: mouth [place] 00 every 6 Medical (six) Branch hours as needed for Pain (scale 4-6) or Pain (scale 7-10). escitalopra 2023-0 Yes [id number] 10mg Take 1 Univers m oxalate 3-06 tablet by ity o f (LEXAPRO) 00:00: [place] 00 the Medical tablet morning. Branch ketorolac 2023-0 Yes [id number] 10mg Take 1 Un alecia 10 mg 3-06 tablet by ity of tablet 00:00: mouth [place] 00 every 6 Medical (six) Branch hours as needed for Pain (scale 4-6) or Pain (scale 7-10). escitalopra 2023-0 Yes [id number] 10mg Take 1 Univers m oxalate 3-06 tablet by ity o f (LEXAPRO) 00:00: [place] 00 the Medical tablet morning. Branch ketorolac 2023-0 Yes [id number] 10mg Take 1 Un alecia 10 mg 3-06 tablet by ity of tablet 00:00: mouth [place] 00 every 6 Medical (six) Branch hours as needed for Pain (scale 4-6) or Pain (scale 7-10). escitalopra 2023-0 Yes [id number] 10mg Take 1 Univers m oxalate 3-06 tablet by ity o f (LEXAPRO) 00:00: [place] 00 the Medical tablet morning. Branch ketorolac 2023-0 Yes [id number] 10mg Take 1 Un alecia 10 mg 3-06 tablet by ity of tablet 00:00: mouth [place] 00 every 6 Medical (six) Branch hours as needed for Pain (scale 4-6) or Pain (scale 7-10). escitalopra 2023-0 Yes [id number] 10mg Take 1 Univers m oxalate 3-06 tablet by ity o f (LEXAPRO) 00:00: [place] 00 the Medical tablet morning. Branch ketorolac 2023-0 Yes [id number] 10mg Take 1 Un alecia 10 mg 3-06 tablet by ity of tablet 00:00: mouth [place] 00 every 6 Medical (six) Branch hours as needed for Pain (scale 4-6) or Pain (scale 7-10). escitalopra 2023-0 Yes [id number] 10mg Take 1 Univers m oxalate 3-06 tablet by ity o f (LEXAPRO) 00:00: [place] the Medical tablet morning. Branch ketorolac 2023-0 Yes [id number] 10mg Take 1 Un alecia 10 mg 3-06 tablet by ity of tablet 00:00: mouth [place] 00 every 6 Medical (six) Branch hours as needed for Pain (scale 4-6) or Pain (scale 7-10). escitalopra 2023-0 Yes [id number] 10mg Take 1 Univers m oxalate 3-06 tablet by ity o f (LEXAPRO) 00:00: [place] 00 the Medical tablet morning. Branch ketorolac 2023-0 Yes [id number] 10mg Take 1 Un alecia 10 mg 3-06 tablet by ity of tablet 00:00: mouth [place] 00 every 6 Medical (six) Branch hours as needed for Pain (scale 4-6) or Pain (scale 7-10). escitalopra 2023-0 Yes [id number] 10mg Take 1 Univers m oxalate 3-06 tablet by ity o f (LEXAPRO) 00:00: [place] 00 the Medical tablet morning. Branch ketorolac 2023-0 Yes [id number] 10mg Take 1 Un alecia 10 mg 3-06 tablet by ity of tablet 00:00: mouth [place] 00 every 6 Medical (six) Branch hours as needed for Pain (scale 4-6) or Pain (scale 7-10). escitalopra 2023-0 Yes [id number] 10mg Take 1 Univers m oxalate 3-06 tablet by ity o f (LEXAPRO) 00:00: [place] 00 the Medical tablet morning. Branch ketorolac 3-0 Yes [id number] 10mg Take 1 Un ale[place] 10 mg 3-06 tablet by ity of tablet 00:00: mouth [place] 00 every 6 Medical (six) Branch hours as needed for Pain (scale 4-6) or Pain (scale 7-10). escitalopra 2022-0 Yes [id number] 10mg Take 1 Univers m oxalate 3-06 tablet by ity o f (LEXAPRO) 00:00: [place] 00 the Medical tablet morning. Branch ketorolac 2022-0 Yes [id number] 10mg Take 1 Un alecia 10 mg 3-06 tablet by ity of tablet 00:00: mouth [place] 00 every 6 Medical (six) Branch hours as needed for Pain (scale 4-6) or Pain (scale 7-10). escitalopra 2022-0 Yes [id number] 10mg Take 1 Univers m oxalate 3-06 tablet by ity o f (LEXAPRO) 00:00: [place] 00 the Medical tablet morning. Branch ketorolac 2022-0 Yes [id number] 10mg Take 1 Un alecia 10 mg 3-06 tablet by ity of tablet 00:00: mouth [place] 00 every 6 Medical (six) Branch hours as needed for Pain (scale 4-6) or Pain (scale 7-10). escitalopra 3-0 Yes [id number] 10mg Take 1 Univers m oxalate 3-06 tablet by ity o f (LEXAPRO) 00:00: [place] 00 the Medical tablet morning. Branch busPIRone 3-0 3- No [id number] 10mg Take 1 Univers 10 mg 3-06 04-06 tablet by ity of tablet 00:00: 04:59 mouth 2 [place] 00 :00 (two) Medical times Branch daily as needed (anxiety) for up to 30 days. busPIRone 2023-0 2023- No [id number] 10mg Take 1 Univers 10 mg 3-06 04-06 tablet by ity of tablet 00:00: 04:59 mouth 2 [place] 00 :00 (two) Medical times Branch daily as needed (anxiety) for up to 30 days. busPIRone 2022-0 2022- No [id number] 10mg Take 1 Univers 10 mg 01-29-06 tablet by ity of tablet 00:00: 04:59 mouth 2 [place] 00 :00 (two) Medical times Branch daily as needed (anxiety) for up to 30 days. busPIRone 0 2022- No [id number] 10mg Take 1 Univers 10 mg 01-29-06 tablet by ity of tablet 00:00: 04:59 mouth 2 [place] 00 :00 (two) Medical times Branch daily as needed (anxiety) for up to 30 days. ketorolac 0 2022- No 30mg 30 mg, Unive rs (TORADOL) 01-27- Intramuscu ity of injection 18:30: 17:58 [place], [place]CE, [place] 30 mg 00 :00 1 dose, On Medical 01/27/23 Branch at 1230, Routine dexamethaso 2022- No 10mg 10 mg, Uni vers ne 01-27 Intramuscu ity of (DECADRON 18:30: 18:03 [place], ONCE, [place] PHOSPHATE) 00 :00 1 dose, On Med ical injection 01/27/23 Bran ch 10 mg at 1230, Routine gabapentin 0 Yes 600mg Take 1 Univ ers 600 mg 3-04 tablet by ity of tablet 12:55: mouth in [place] 04 the Medical morning Branch and 1 tablet at noon and 1 tablet in the evening. predniSONE 2022-0 2022- No 20mg Take 1 Univ ers 20 mg 01-27-04 tablet by ity of tablet 12:55: 00:00 mouth in [place] 04 :00 the Medical morning. Branch LORazepam 0 Yes [id number] 1mg Take 1 Un alecia (ATIVAN) 1 3-04 tablet by ity of mg tablet 00:00: mouth 2 [place] 00 (two) Medical times Branch daily as needed for Anxiety. ketorolac 2022-0 Yes [id number] 10mg Take 1 Un alecia 10 mg 3-04 tablet by ity of tablet 00:00: mouth [place] 00 every 6 Medical (six) Branch hours as needed for Pain (scale 4-6) or Pain (scale 7-10). LORazepam 2022-0 Yes [id number] 1mg Take 1 Un alecia (ATIVAN) 1 3-04 tablet by ity of mg tablet 00:00: mouth 2 (two) Medical times Branch daily as needed for Anxiety. LORazepam 2023-0 Yes [id number] 1mg Take 1 Un alecia (ATIVAN) 1 3-04 tablet by ity of mg tablet 00:00: mouth 2 (two) Medical times Branch daily as needed for Anxiety. LORazepam 2023-0 Yes [id number] 1mg Take 1 Un alecia (ATIVAN) 1 3-04 tablet by ity of mg tablet 00:00: mouth 2 (two) Medical times Branch daily as needed for Anxiety. LORazepam 2023-0 Yes [id number] 1mg Take 1 Un alecia (ATIVAN) 1 3-04 tablet by ity of mg tablet 00:00: mouth 2 (two) Medical times Branch daily as needed for Anxiety. LORazepam 2023-0 Yes [id number] 1mg Take 1 Un [place] (ATIVAN) 1 3-04 tablet by ity of mg tablet 00:00: mouth 2 (two) Medical times Branch daily as needed for Anxiety. LORazepam 2023-0 Yes [id number] 1mg Take 1 Un [place] (ATIVAN) 1 3-04 tablet by ity of mg tablet 00:00: mouth 2 (two) Medical times Branch daily as needed for Anxiety. LORazepam 2023-0 Yes [id number] 1mg Take 1 Un [place] (ATIVAN) 1 3-04 tablet by ity of mg tablet 00:00: mouth (two) Medical times Branch daily as needed for Anxiety. LORazepam 2023-0 Yes [id number] 1mg Take 1 Un [place] (ATIVAN) 1 3-04 tablet by ity of mg tablet 00:00: mouth 2 (two) Medical times Branch daily as needed for Anxiety. LORazepam 2023-0 Yes [id number] 1mg Take 1 Un [place] (ATIVAN) 1 3-04 tablet by ity of mg tablet 00:00: mouth 2 (two) Medical times Branch daily as needed for Anxiety. LORazepam 2023-0 Yes [id number] 1mg Take 1 Un [place] (ATIVAN) 1 3-04 tablet by ity of mg tablet 00:00: mouth 2 (two) Medical times Branch daily as needed for Anxiety. LORazepam 3-0 Yes [id number] 1mg Take 1 Un [place] (ATIVAN) 1 3-04 tablet by ity of mg tablet 00:00: mouth 2 00 (two) Medical times Branch daily as needed for Anxiety. LORazepam 2023-0 Yes [id number] 1mg Take 1 Un [place] (ATIVAN) 1 3-04 tablet by ity of mg tablet 00:00: mouth 2 (two) Medical times Branch daily as needed for Anxiety. methylPREDN 3-0 2023- No [id number] 6mg Take 3 [facility] ISolone 2 3-04 03-12 tablets by ity of mg tablet 00:00: 05:59 mouth in [place] 00 :00 the Medical morning Branch for 7 days. methylPREDN 3-0 2023- No [id number] 6mg Take 3 [facility] ISolone 2 3-04 03-12 tablets by ity of mg tablet 00:00: 05:59 mouth in [place] 00 :00 the Medical morning Branch for 7 days. methylPREDN 3-0 2023- No [id number] 6mg Take 3 [facility] ISolone 2 3-04 03-12 tablets by ity of mg tablet 00:00: 05:59 mouth in [place] 00 :00 the Medical morning Branch for 7 days. methylPREDN 3-0 3- No [id number] 6mg Take 3 [facility] ISolone 2 3-04 03-12 tablets by ity of mg tablet 00:00: 05:59 mouth in [place] 00 :00 the Medical morning Branch for 7 days. methylPREDN 2023-0 3- No [id number] 6mg Take 3 [facility] ISolone 2 3-04 03-12 tablets by ity of mg tablet 00:00: 05:59 mouth in [place] 00 :00 the Medical morning Branch for 7 days. ketorolac 3-0 3- No [id number] 10mg Take 1 [facility] 10 mg -02 26-06 tablet by ity of tablet 00:00: 00:00 mouth [place] 00 :00 every 6 Medical (six) Branch hours as needed for Pain (scale 4-6) or Pain (scale 7-10). ketorolac 2023-0 2023- No [id number] 10mg Take 1 [facility] 10 mg -02 26- tablet by ity of tablet 00:00: 00:00 mouth [place] 00 :00 every 6 Medical (six) Branch hours as needed for Pain (scale 4-6) or Pain (scale 7-10). aspirin 2022-0 Yes 81mg Take 81 mg [facility] ers (ASPIR-81) 2-16 by mouth ity o f 81 mg EC 14:58: in the [place] tablet 07 morning. Medical Branch aspirin 2022-0 Yes 81mg Take 81 mg [facility] ers (ASPIR-81) 2-16 by mouth ity o f 81 mg EC 14:58: in the [place] tablet 07 morning. Medical Branch aspirin 2022-0 Yes 81mg Take 81 mg [facility] ers (ASPIR-81) 2-16 by mouth ity o f 81 mg EC 14:58: in the [place] tablet 07 morning. Medical Branch aspirin 2022-0 Yes 81mg Take 81 mg [facility] ers (ASPIR-81) 2-16 by mouth ity o f 81 mg EC 14:58: in the [place] tablet 07 morning. Medical Branch aspirin 2022-0 Yes 81mg Take 81 mg [facility] ers (ASPIR-81) 2-16 by mouth ity o f 81 mg EC 14:58: in the [place] tablet 07 morning. Medical Branch aspirin 2022-0 Yes 81mg Take 81 mg [facility] ers (ASPIR-81) 2-16 by mouth ity o f 81 mg EC 14:58: in the [place] tablet 07 morning. Medical Branch aspirin 2022-0 Yes 81mg Take 81 mg [facility] ers (ASPIR-81) 2-16 by mouth ity o f 81 mg EC 14:58: in the [place] tablet 07 morning. Medical Branch aspirin 3-0 Yes 81mg Take 81 mg [facility] (ASPIR-81) 2-16 by mouth ity o f 81 mg EC 14:58: in the [place] tablet 07 morning. Medical Branch aspirin 2023-0 Yes 81mg Take 81 mg [facility] ers (ASPIR-81) 2-16 by mouth ity o f 81 mg EC 14:58: in the [place] tablet 07 morning. Medical Branch aspirin 2023-0 Yes 81mg Take 81 mg [facility] ers (ASPIR-81) 2-16 by mouth ity o f 81 mg EC 14:58: in the [place] tablet 07 morning. Medical Branch furosemide 2023-0 Yes [id number] 40mg Take 1 [facility] 40 mg 2-16 tablet by it[facility] of tablet 00:00: mouth in [place] 00 the Medical morning. Branch KCL 20 mEq 2023-0 Yes [id number] 20meq Take 1 [facility] tablet 2-16 tablet by ity of 00:00: mouth in [place] 00 the Medical morning. Branch furosemide 2023-0 Yes [id number] 40mg Take 1 [facility] 40 mg 2-16 tablet by ity of tablet 00:00: mouth in [place] 00 the Medical morning. Branch KCL 20 mEq 2023-0 Yes [id number] 20meq Take 1 [facility] tablet 2-16 tablet by ity of 00:00: mouth in [place] the Medical morning. Branch furosemide 2023-0 Yes [id number] 40mg Take 1 [facility] 40 mg 2-16 tablet by ity of tablet 00:00: mouth in [place] the Medical morning. Branch KCL 20 mEq 2023-0 Yes [id number] 20meq Take 1 [facility] tablet 2-16 tablet by ity of 00:00: mouth in [place] the Medical morning. Branch furosemide 2023-0 Yes [id number] 40mg Take 1 [facility] 40 mg 2-16 tablet by ity of tablet 00:00: mouth in [place] the Medical morning. Branch KCL 20 mEq 2023-0 Yes [id number] 20meq Take 1 [facility] tablet 2-16 tablet by ity of 00:00: mouth in [place] the Medical morning. Branch furosemide 2023-0 Yes [id number] 40mg Take 1 [facility] 40 mg 2-16 tablet by ity of tablet 00:00: mouth in [place] the Medical morning. Branch KCL 20 mEq 2023-0 Yes [id number] 20meq Take 1 [facility] tablet 2-16 tablet by ity of 00:00: mouth in [place] the Medical morning. Branch furosemide 2023-0 Yes [id number] 40mg Take 1 [facility] 40 mg 2-16 tablet by ity of tablet 00:00: mouth in [place] 00 the Medical morning. Branch KCL 20 mEq 2023-0 Yes [id number] 20meq Take 1 [facility] tablet 2-16 tablet by ity of 00:00: mouth in [place] 00 the Medical morning. Branch furosemide 2023-0 Yes [id number] 40mg Take 1 [facility] 40 mg 2-16 tablet by ity of tablet 00:00: mouth in [place] the Medical morning. Branch KCL 20 mEq 2023-0 Yes [id number] 20meq Take 1 [facility] tablet 2-16 tablet by ity of 00:00: mouth in [place] the Medical morning. Branch furosemide 2023-0 Yes [id number] 40mg Take 1 [facility] 40 mg 2-16 tablet by ity of tablet 00:00: mouth in [place] the Medical morning. Branch KCL 20 mEq 2023-0 Yes [id number] 20meq Take 1 [facility] tablet 2-16 tablet by ity of 00:00: mouth in [place] the Medical morning. Branch furosemide 2023-0 Yes [id number] 40mg Take 1 [facility] 40 mg 2-16 tablet by ity of tablet 00:00: mouth in [place] the Medical morning. Branch KCL 20 mEq 2023-0 Yes [id number] 20meq Take 1 [facility] tablet 2-16 tablet by ity of 00:00: mouth in [place] the Medical morning. Branch furosemide 2023-0 Yes [id number] 40mg Take 1 [facility] 40 mg 2-16 tablet by ity of tablet 00:00: mouth in [place] the Medical morning. Branch KCL 20 mEq 3-0 Yes [id number] 20meq Take 1 [facility] tablet 2-16 tablet by ity of 00:00: mouth in [place] the Medical morning. Branch furosemide 2023-0 Yes [id number] 40mg Take 1 [facility] 40 mg 2-16 tablet by ity of tablet 00:00: mouth in [place] the Medical morning. Branch KCL 20 mEq 2023-0 Yes [id number] 20meq Take 1 [facility] tablet 2-16 tablet by ity of 00:00: mouth in [place] the Medical morning. Branch furosemide 2023-0 Yes [id number] 40mg Take 1 [facility] 40 mg 2-16 tablet by ity of tablet 00:00: mouth in [place] the Medical morning. Branch KCL 20 mEq 2023-0 Yes [id number] 20meq Take 1 [facility] tablet 2-16 tablet by ity of 00:00: mouth in [place] the Medical morning. Branch furosemide 2023-0 Yes [id number] 40mg Take 1 [facility] 40 mg 2-16 tablet by ity of tablet 00:00: mouth in [place] the Medical morning. Branch KCL 20 mEq 2023-0 Yes [id number] 20meq Take 1 [facility] tablet 2-16 tablet by ity of 00:00: mouth in [place] 00 the Medical morning. Branch furosemide 3-0 Yes [id number] 40mg Take 1 [facility] 40 mg 2-16 tablet by ity of tablet 00:00: mouth in [place] 00 the Medical morning. Branch KCL 20 mEq 3-0 Yes [id number] 20meq Take 1 [facility] tablet 2-16 tablet by ity of 00:00: mouth in [place] 00 the Medical morning. Branch furosemide 2022-0 Yes [id number] 40mg Take 1 [facility] 40 mg 2-16 tablet by ity of tablet 00:00: mouth in [place] 00 the Medical morning. Branch KCL 20 mEq 3-0 Yes [id number] 20meq Take 1 [facility] tablet 2-16 tablet by ity of 00:00: mouth in [place] 00 the Medical morning. Branch furosemide 2022-0 Yes [id number] 40mg Take 1 [facility] 40 mg 2-16 tablet by ity of tablet 00:00: mouth in [place] 00 the Medical morning. Branch KCL 20 mEq 2022-0 Yes [id number] 20meq Take 1 [facility] tablet 2-16 tablet by ity of 00:00: mouth in [place] 00 the Medical morning. Branch furosemide 2022-0 3- No [id number] 40mg Take 1 [facility] 40 mg 2-16 05-04 tablet by ity of tablet 00:00: 00:00 mouth in [place] 00 :00 the Medical morning. Branch KCL 20 mEq 3-0 3- No [id number] 20meq Take 1 [facility] tablet 2-16 05-04 tablet by ity of 00:00: 00:00 mouth in [place] 00 :00 the Medical morning. Branch furosemide 2022-0 2022- No [id number] 40mg Take 1 [facility] 40 mg 2-16 05-04 tablet by ity of tablet 00:00: 00:00 mouth in [place] 00 :00 the Medical morning. Branch KCL 20 mEq 2022-0 2022- No [id number] 20meq Take 1 [facility] tablet 2-16 05-04 tablet by ity of 00:00: 00:00 mouth in [place] 00 :00 the Medical morning. Branch iopamidol 2022-0 2022- No [id number] 80mL 80 mL, U nivers (ISOVUE 2-15 02-15 Intravenou ity o f 370-500 mL) 18:00: 16:58 s, ONCE, 1 [place] injection 00 :00 dose, On Medica l 80 mL Wed Branch 01/10/23 at 1200, Routine HYDROcodone 2022-0 Yes TAKE 1 [facility] ers -acetaminop 2-08 TABLET BY ity of hen 10-325 00:00: MOUTH [place] mg tablet 00 EVERY 6 Medical HOURS Branch NEEDED FOR PAIN SCALE 5-7 HYDROcodone 3-0 Yes TAKE 1 [facility] ers -acetaminop 2-08 TABLET BY ity of hen 10-325 00:00: MOUTH [place] mg tablet 00 EVERY 6 Medical HOURS Branch NEEDED FOR PAIN SCALE 5-7 HYDROcodone 3-0 Yes TAKE 1 [facility] ers -acetaminop 2-08 TABLET BY ity of hen 10-325 00:00: MOUTH [place] mg tablet 00 EVERY 6 Medical HOURS Branch NEEDED FOR PAIN SCALE 5-7 HYDROcodone 3-0 Yes TAKE 1 [facility] ers -acetaminop 2-08 TABLET BY ity of hen 10-325 00:00: MOUTH [place] mg tablet 00 EVERY 6 Medical HOURS Branch NEEDED FOR PAIN SCALE 5-7 HYDROcodone 3-0 Yes TAKE 1 [facility] ers -acetaminop 2-08 TABLET BY ity of hen 10-325 00:00: MOUTH [place] mg tablet 00 EVERY 6 Medical HOURS Branch NEEDED FOR PAIN SCALE 5-7 HYDROcodone 3-0 Yes TAKE 1 [facility] ers -acetaminop 2-08 TABLET BY ity of hen 10-325 00:00: MOUTH [place] mg tablet 00 EVERY 6 Medical HOURS Branch NEEDED FOR PAIN SCALE 5-7 HYDROcodone 3-0 Yes TAKE 1 [facility] ers -acetaminop 2-08 TABLET BY ity of hen 10-325 00:00: MOUTH [place] mg tablet 00 EVERY 6 Medical HOURS Branch NEEDED FOR PAIN SCALE 5-7 HYDROcodone 3-0 Yes TAKE 1 [facility] ers -acetaminop 2-08 TABLET BY ity of hen 10-325 00:00: MOUTH [place] mg tablet 00 EVERY 6 Medical HOURS Branch NEEDED FOR PAIN SCALE 5-7 HYDROcodone 3-0 Yes TAKE 1 [facility] ers -acetaminop 2-08 TABLET BY ity of hen 10-325 00:00: MOUTH [place] mg tablet 00 EVERY 6 Medical HOURS Branch NEEDED FOR PAIN SCALE 5-7 HYDROcodone 3-0 Yes TAKE 1 [facility] ers -acetaminop 2-08 TABLET BY ity of hen 10-325 00:00: MOUTH [place] mg tablet 00 EVERY 6 Medical HOURS Branch NEEDED FOR PAIN SCALE 5-7 HYDROcodone 2022-0 Yes TAKE 1 [facility] ers -acetaminop 2-08 TABLET BY ity of hen 10-325 00:00: MOUTH [place] mg tablet 00 EVERY 6 Medical HOURS Branch NEEDED FOR PAIN SCALE 5-7 HYDROcodone 3-0 Yes TAKE 1 [facility] ers -acetaminop 2-08 TABLET BY ity of hen 10-325 00:00: MOUTH [place] mg tablet 00 EVERY 6 Medical HOURS Branch NEEDED FOR PAIN SCALE 5-7 HYDROcodone 3-0 Yes TAKE 1 [facility] ers -acetaminop 2-08 TABLET BY ity of hen 10-325 00:00: MOUTH [place] mg tablet 00 EVERY 6 Medical HOURS Branch NEEDED FOR PAIN SCALE 5-7 pregabalin 2022-0 3- No Univer s 100 mg 12-21- ity of capsule 00:00: 00:00 [place] 00 :00 Medical Branch amLODIPine 3-0 2023- No 5mg Take 5 mg [facility] nivers 5 mg tablet 12-12 by mouth ity of 16:41: 00:00 in the [place] 39 :00 morning. Medical Branch amLODIPine 3-0 2023- No 5mg Take 5 mg [facility] n[facility] 5 mg tablet 12-12 by mouth ity of 16:41: 00:00 in the [place] 39 :00 morning. Medical Branch amLODIPine 2023-0 Yes [id number] 5mg Take 1 [facility] 5 mg tablet 1-17 tablet by ity of 00:00: mouth in [place] 00 the Medical morning. Branch gabapentin 2023-0 Yes [id number] 600mg Take 2 [facility] 300 mg 1-17 capsules ity of capsule 00:00: by mouth [place] 00 in the Medical morning Branch and 2 capsules at noon and 2 capsules in the evening. amLODIPine 2023-0 Yes [id number] 5mg Take 1 [facility] 5 mg tablet 1-17 tablet by ity of 00:00: mouth in [place] 00 the Medical morning. Branch gabapentin 2023-0 Yes [id number] 600mg Take 2 [facility] 300 mg 1-17 capsules ity of capsule 00:00: by mouth [place] 00 in the Medical morning Branch and 2 capsules at noon and 2 capsules in the evening. amLODIPine 2023-0 Yes [id number] 5mg Take 1 [facility] 5 mg tablet 1-17 tablet by ity of 00:00: mouth in [place] the Medical morning. Branch gabapentin 2023-0 Yes [id number] 600mg Take 2 [facility] 300 mg 1-17 capsules ity of capsule 00:00: by mouth [place] 00 in the Medical morning Branch and 2 capsules at noon and 2 capsules in the evening. amLODIPine 2023-0 Yes [id number] 5mg Take 1 [facility] 5 mg tablet 1-17 tablet by ity of 00:00: mouth in [place] the Medical morning. Branch gabapentin 2023-0 Yes [id number] 600mg Take 2 [facility] 300 mg 1-17 capsules ity of capsule 00:00: by mouth [place] 00 in the Medical morning Branch and 2 capsules at noon and 2 capsules in the evening. amLODIPine 2023-0 Yes [id number] 5mg Take 1 [facility] 5 mg tablet 1-17 tablet by ity of 00:00: mouth in [place] the Medical morning. Branch gabapentin 2023-0 Yes [id number] 600mg Take 2 [facility] 300 mg 1-17 capsules ity of capsule 00:00: by mouth in the Medical morning Branch and 2 capsules at noon and 2 capsules in the evening. amLODIPine 2023-0 Yes [id number] 5mg Take 1 [facility] 5 mg tablet 1-17 tablet by ity of 00:00: mouth in [place] the morning. Branch gabapentin 2023-0 Yes [id number] 600mg Take 2 [facility] 300 mg 1-17 capsules ity of capsule 00:00: by mouth [place] 00 in the Medical morning Branch and 2 capsules at noon and 2 capsules in the evening. amLODIPine 2023-0 Yes [id number] 5mg Take 1 [facility] 5 mg tablet 1-17 tablet by ity of 00:00: mouth in [place] the Medical morning. Branch gabapentin 2023-0 Yes [id number] 600mg Take 2 [facility] 300 mg 1-17 capsules ity of capsule 00:00: by mouth [place] 00 in the Medical morning Branch and 2 capsules at noon and 2 capsules in the evening. amLODIPine 2023-0 Yes [id number] 5mg Take 1 [facility] 5 mg tablet 1-17 tablet by ity of 00:00: mouth in [place] the Medical morning. Branch gabapentin 2023-0 Yes [id number] 600mg Take 2 [facility] 300 mg 1-17 capsules ity of capsule 00:00: by mouth [place] 00 in the Medical morning Branch and 2 capsules at noon and 2 capsules in the evening. amLODIPine 2023-0 Yes [id number] 5mg Take 1 [facility] 5 mg tablet 1-17 tablet by ity of 00:00: mouth in [place] the Medical morning. Branch gabapentin 2023-0 Yes [id number] 600mg Take 2 [facility] 300 mg 1-17 capsules ity of capsule 00:00: by mouth [place] 00 in the Medical morning Branch and 2 capsules at noon and 2 capsules in the evening. amLODIPine 2023-0 Yes [id number] 5mg Take 1 [facility] 5 mg tablet 1-17 tablet by ity of 00:00: mouth in [place] the Medical morning. Branch gabapentin 2023-0 Yes [id number] 600mg Take 2 [facility] 300 mg 1-17 capsules ity of capsule 00:00: by mouth [place] 00 in the Medical morning Branch and 2 capsules at noon and 2 capsules in the evening. amLODIPine 2023-0 Yes [id number] 5mg Take 1 [facility] 5 mg tablet 1-17 tablet by ity of 00:00: mouth in [place] the Medical morning. Branch gabapentin 2023-0 Yes [id number] 600mg Take 2 [facility] 300 mg 1-17 capsules ity of capsule 00:00: by mouth [place] 00 in the Medical morning Branch and 2 capsules at noon and 2 capsules in the evening. amLODIPine 2023-0 Yes [id number] 5mg Take 1 [facility] 5 mg tablet 1-17 tablet by ity of 00:00: mouth in [place] the Medical morning. Branch gabapentin 2023-0 Yes [id number] 600mg Take 2 [facility] 300 mg 1-17 capsules ity of capsule 00:00: by mouth [place] 00 in the Medical morning Branch and 2 capsules at noon and 2 capsules in the evening. amLODIPine 2023-0 Yes [id number] 5mg Take 1 [facility] 5 mg tablet 1-17 tablet by ity of 00:00: mouth in [place] the Medical morning. Branch gabapentin 2023-0 Yes [id number] 600mg Take 2 [facility] 300 mg 1-17 capsules ity of capsule 00:00: by mouth [place] 00 in the Medical morning Branch and 2 capsules at noon and 2 capsules in the evening. amLODIPine 2023-0 Yes [id number] 5mg Take 1 [facility] 5 mg tablet 1-17 tablet by ity of 00:00: mouth in [place] the Medical morning. Branch gabapentin 2023-0 Yes [id number] 600mg Take 2 [facility] 300 mg 1-17 capsules ity of capsule 00:00: by mouth [place] 00 in the Medical morning Branch and 2 capsules at noon and 2 capsules in the evening. amLODIPine 2023-0 Yes [id number] 5mg Take 1 [facility] 5 mg tablet 1-17 tablet by ity of 00:00: mouth in [place] the Medical morning. Branch gabapentin 2023-0 Yes [id number] 600mg Take 2 [facility] 300 mg 1-17 capsules ity of capsule 00:00: by mouth [place] 00 in the Medical morning Branch and 2 capsules at noon and 2 capsules in the evening. amLODIPine 2023-0 Yes [id number] 5mg Take 1 [facility] 5 mg tablet 1-17 tablet by ity of 00:00: mouth in [place] the Medical morning. Branch gabapentin 2023-0 Yes [id number] 600mg Take 2 [facility] 300 mg 1-17 capsules ity of capsule 00:00: by mouth [place] in the Medical morning Branch and 2 capsules at noon and 2 capsules in the evening. amLODIPine 2023-0 Yes [id number] 5mg Take 1 [facility] 5 mg tablet 1-17 tablet by ity of 00:00: mouth in [place] the Medical morning. Branch gabapentin 2023-0 Yes [id number] 600mg Take 2 [facility] 300 mg 1-17 capsules ity of capsule 00:00: by mouth [place] in the Medical morning Branch and 2 capsules at noon and 2 capsules in the evening. amLODIPine 2023-0 Yes [id number] 5mg Take 1 [facility] 5 mg tablet 1-17 tablet by ity of 00:00: mouth in [place] the Medical morning. Branch gabapentin 2023-0 Yes [id number] 600mg Take 2 [facility] 300 mg 1-17 capsules ity of capsule 00:00: by mouth [place] 00 in the Medical morning Branch and 2 capsules at noon and 2 capsules in the evening. amLODIPine 2023-0 Yes [id number] 5mg Take 1 [facility] 5 mg tablet 1-17 tablet by ity of 00:00: mouth in [place] the Medical morning. Branch gabapentin 2023-0 Yes [id number] 600mg Take 2 [facility] 300 mg 1-17 capsules ity of capsule 00:00: by mouth [place] 00 in the Medical morning Branch and 2 capsules at noon and 2 capsules in the evening. amLODIPine 2023-0 Yes [id number] 5mg Take 1 [facility] 5 mg tablet 1-17 tablet by ity of 00:00: mouth in [place] the morning. Branch gabapentin 2023-0 Yes [id number] 600mg Take 2 [facility] 300 mg 1-17 capsules ity of capsule 00:00: by mouth [place] 00 in the Medical morning Branch and 2 capsules at noon and 2 capsules in the evening. amLODIPine 2023-0 Yes [id number] 5mg Take 1 [facility] 5 mg tablet 1-17 tablet by ity of 00:00: mouth in [place] the Medical morning. Branch gabapentin 2023-0 Yes [id number] 600mg Take 2 [facility] 300 mg 1-17 capsules ity of capsule 00:00: by mouth 00 in the Medical morning Branch and 2 capsules at noon and 2 capsules in the evening. amLODIPine 2023-0 Yes [id number] 5mg Take 1 [facility] 5 mg tablet 1-17 tablet by ity of 00:00: mouth in [place] the morning. Branch gabapentin 2023-0 Yes [id number] 600mg Take 2 [facility] 300 mg 1-17 capsules ity of capsule 00:00: by mouth in the Medical morning Branch and 2 capsules at noon and 2 capsules in the evening. amLODIPine 2023-0 Yes [id number] 5mg Take 1 [facility] 5 mg tablet 1-17 tablet by ity of 00:00: mouth in [place] the morning. Branch gabapentin 2023-0 Yes [id number] 600mg Take 2 [facility] 300 mg 1-17 capsules ity of capsule 00:00: by mouth in the Medical morning Branch and 2 capsules at noon and 2 capsules in the evening. amLODIPine 2023-0 Yes [id number] 5mg Take 1 [facility] 5 mg tablet 1-17 tablet by ity of 00:00: mouth in [place] the morning. Branch gabapentin 2023-0 Yes [id number] 600mg Take 2 [facility] 300 mg 1-17 capsules ity of capsule 00:00: by mouth in the Medical morning Branch and 2 capsules at noon and 2 capsules in the evening. amLODIPine 2023-0 Yes [id number] 5mg Take 1 [facility] 5 mg tablet 1-17 tablet by ity of 00:00: mouth in [place] 00 the Medical morning. Branch amLODIPine 2023-0 Yes [id number] 5mg Take 1 [facility] 5 mg tablet 1-17 tablet by ity of 00:00: mouth in [place] the Medical morning. Branch amLODIPine 2023-0 Yes [id number] 5mg Take 1 [facility] 5 mg tablet 1-17 tablet by ity of 00:00: mouth in [place] the Medical morning. Branch amLODIPine 2023-0 Yes [id number] 5mg Take 1 [facility] 5 mg tablet 1-17 tablet by ity of 00:00: mouth in [place] the Medical morning. Branch amLODIPine 2023-0 Yes [id number] 5mg Take 1 [facility] 5 mg tablet 1-17 tablet by ity of 00:00: mouth in [place] the Medical morning. Branch amLODIPine 2023-0 Yes [id number] 5mg Take 1 [facility] 5 mg tablet 1-17 tablet by ity of 00:00: mouth in [place] the Medical morning. Branch amLODIPine 2023-0 Yes [id number] 5mg Take 1 [facility] 5 mg tablet 1-17 tablet by ity of 00:00: mouth in [place] the Medical morning. Branch amLODIPine 2023-0 Yes [id number] 5mg Take 1 [facility] 5 mg tablet 1-17 tablet by ity of 00:00: mouth in [place] the Medical morning. Branch amLODIPine 2023-0 Yes [id number] 5mg Take 1 [facility] 5 mg tablet 1-17 tablet by ity of 00:00: mouth in [place] the Medical morning. Branch amLODIPine 2023-0 Yes [id number] 5mg Take 1 [facility] 5 mg tablet 1-17 tablet by ity of 00:00: mouth in [place] the Medical morning. Branch amLODIPine 2023-0 Yes [id number] 5mg Take 1 [facility] 5 mg tablet 1-17 tablet by ity of 00:00: mouth in [place] the Medical morning. Branch amLODIPine 2023-0 Yes [id number] 5mg Take 1 [facility] 5 mg tablet 1-17 tablet by ity of 00:00: mouth in [place] the Medical morning. Branch amLODIPine 2023-0 Yes [id number] 5mg Take 1 [facility] 5 mg tablet 1-17 tablet by ity of 00:00: mouth in [place] the Medical morning. Branch amLODIPine 2023-0 Yes [id number] 5mg Take 1 [facility] 5 mg tablet 1-17 tablet by ity of 00:00: mouth in [place] 00 the Medical morning. Branch gabapentin 2022-2022- No [id number] 600mg Take 2 [facility] 300 mg -17 03-04 capsules ity of capsule 00:00: 00:00 by mouth [place] 00 :00 in the Medical morning Branch and 2 capsules at noon and 2 capsules in the evening. gabapentin 2022- No [id number] 600mg Take 2 [facility] 300 mg 17 03-04 capsules ity of capsule 00:00: 00:00 by mouth [place] 00 :00 in the Medical morning Branch and 2 capsules at noon and 2 capsules in the evening. amLODIPine 2021-11 Yes 5mg Take 5 mg [facility] 5 mg tablet 2-20 by mouth ity of 09:46: in the [place] [address] morning. Medical Branch amLODIPine 2021-11 Yes 5mg Take 5 mg [facility] 5 mg tablet 2-20 by mouth ity of 09:46: in the [place] [address] morning. Medical Branch amLODIPine 2021-11 Yes 5mg Take 5 mg [facility] 5 mg tablet 2-20 by mouth ity of 09:46: in the [place] [address] morning. Medical Branch amLODIPine 2021-11 Yes 5mg Take 5 mg [facility] 5 mg tablet 2-20 by mouth ity of 09:46: in the [place] [address] morning. Medical Branch multivit-mi 2021-11- No Take by [facility] n/ferrous 2-20 12-20 mouth. ity of fumarate 09:45: 00:00 [place] ([facility] 27 :00 Medical VITAMIN Branch ORAL) multivit-mi 2021-11- No Take by Un [facility] n/ferrous 2-20 12-20 mouth. ity of fumarate 09:45: 00:00 [place] ([facility] 27 :00 Medical VITAMIN Branch ORAL) multivit-mi 2021-11- No Take by Un [facility] n/ferrous 2-20 12-20 mouth. ity of fumarate 09:45: 00:00 [place] ([facility] 27 :00 Medical VITAMIN Branch ORAL) TAKE 1 2021-0 No 100 CAPSULE 9-07 ONCE A DAY 00:00: 00 TAKE 1 2021-0 No CAPSULE 9-07 ONCE A DAY 00:00: 00 Dose 2022-0 No 200 Unknown 7-24 00:00: 00 TAKE ONE 2022-0 No 500 (1) TABLET -24 (500 MG 00:00: TOTAL) BY 00 MOUTH 4 (FOUR) TIMES A DAY NEEDED FOR MUSCLE SPASMS. TAKE ONE 2-0 No 100 (1) -24 CAPSULE(S) 00:00: BY MOUTH 00 TWICE A DAY. Dose 2022-0 No 200 Unknown 06-18 00:00: 00 TAKE ONE 2-0 No 500 (1) TABLET 06-18 (500 MG 00:00: TOTAL) BY 00 MOUTH 4 (FOUR) TIMES A DAY NEEDED FOR MUSCLE SPASMS. TAKE ONE 2022-0 No 100 (1) -24 CAPSULE(S) 00:00: BY MOUTH 00 TWICE A DAY. TAKE 2 2022-0 No 300 CAPSULES 3 7- TIMES 00:00: DAILY. 00 Dose 2022-0 No 250 Unknown 06-15 00:00: 00 pregabalin 2022-0 No 1mg 100 mg 7- capsule 00:00: 00 TAKE ONE 2-0 No 100 (1) - CAPSULE(S) 00:00: BY MOUTH 00 TWICE A DAY. TAKE ONE 2-0 No 500 (1) TABLET - (500 MG 00:00: TOTAL) BY 00 MOUTH 4 (FOUR) TIMES A DAY NEEDED FOR MUSCLE SPASMS. TAKE 1 2-0 No CAPSULE - ONCE A DAY 00:00: 00 TAKE ONE 2022-0 No 100 (1) 7-21 CAPSULE(S) 00:00: BY MOUTH 00 TWICE A DAY. TAKE ONE 2-0 No 500 (1) TABLET 06-15 (500 MG 00:00: TOTAL) BY 00 MOUTH 4 (FOUR) TIMES A DAY NEEDED FOR MUSCLE SPASMS. &lt 2022-0 No 250 7- 00:00: 00 TAKE 1 2022-0 No 200 TABLET BY 7- MOUTH TWICE 00:00: DAILY AFTER 00 A MEAL TAKE 1 2022-0 No 50 TABLET BY 7-21 MOUTH DAILY 00:00: 00 TAKE 2 2022-0 No 300 CAPSULES 3 7-21 TIMES 00:00: DAILY. 00 &lt 2022-0 No 250 7-21 00:00: 00 TAKE 1 2022-0 No TABLET 3 7-21 TIMES 00:00: DAILY. 00 Dose 2022-0 No 250 Unknown 06-15 00:00: 00 TAKE 1 2021-0 No 200 TABLET BY 7- MOUTH TWICE 00:00: DAILY AFTER 00 A MEAL TAKE 1 2021-0 No 50 TABLET BY 7- MOUTH DAILY 00:00: 00 TAKE 2 2021-0 No 300 CAPSULES 3 - TIMES 00:00: DAILY. 00 NaCl 0.9% 2021- No 1000mL at 999 Uni vers (NS) bolus 05-04 mL/hr, ity of infusion 21:15: 09:14 1,000 mL, [place] as 1,000 mL 00 :00 IV Medical Infusion, Branch ONCE, 1 dose, On [place] 05/04/22 at 1615, BOB magnesium No 1g 1 g, IV Univ ers sulfate in 05-04 Piggyback, it y of D5W 1 21:15: 09:14 ONCE, 1 [place] gram/100 mL 00 :00 dose, On [facility] RTU IV [place] 05/04/22 Branch Piggyback 1 at 1615, g Administer over 60 Minutes, 100 mL ketorolac 2021- No 30mg 30 mg, Unive rs (TORADOL) 05-04 Slow IV ity of injection 21:15: 09:14 Push, [place] 30 mg 00 :00 ONCE, 1 Medical dose, On Branch Greta 05/04/22 at 1615, Routine butalbital- 2021- No 1{tbl} 1 tablet, Univers acetaminoph 05-04 Oral, ity of en-caff 21:15: 09:14 ONCE, 1 [place] (ESGIC) 00 :00 dose, On Medical 50-325-40 Greta 05/04/22 Bran ch mg tablet 1 at 1615, tablet BOB dexamethaso 2021- No 10mg 10 mg, Uni vers ne sod phos 05-01 Slow IV ity of PF 21:15: 20:16 Push, [place] injection 00 :00 ONCE, 1 Medical 10 mg dose, On Branch [facility] 05/01/22 at 1615, 1 mL ketorolac 2021- No 15mg 15 mg, Unive rs (TORADOL) 05-01 Slow IV ity of injection 21:15: 20:16 Push, [place] 15 mg 00 :00 ONCE, 1 Medical dose, On Branch Sun05/01/22 at 1615, BOB diphenhydrA 2021- No 25mg 25 mg, Uni vers MINE 05-01 Slow IV ity of (BENADRYL) 20:45: 19:47 Push, [place] injection 00 :00 ONCE, 1 Medical 25 mg dose, On Branch Sun05/01/22 at 1545, STAT metoclopram 2021- No 10mg 10 mg, Uni vers vikki HCl 05-01 Slow IV ity of (REGLAN) 20:45: 19:41 Push, [place] injection 00 :00 ONCE, 1 Medical 10 mg dose, On Branch Sun05/01/22 at 1545, BOB iopamidol 2021- No [id number] 64mL 64 mL, U nivers (ISOVUE 05-01 Intravenou ity o f 370-500 mL) 19:56: 19:56 s, ONCE, 1 [place] injection 00 :00 dose, On Medica l 64 mL Sun05/01/22 Branch at 1500, Routine Gabapentin 2020-11 Yes Milla 1 capsule Memoria [...] HCl 2-29 Najam l 04:06: [place] 48 Duloxetine 2020-11 Yes [...] roquine 2-29 Najam directed l Sulfate 04:06: [place] 48 Ergocalcife 2020-11 Yes Milla 1 capsule [...] 1 capsule Memoria 2-29 Najam l 04:06: [place] 48 Hydroxychlo 2020-11 Yes Milla as Ritesh lilian roquine 2-29 Najam directed l Sulfate 04:06: [place] 48 Ergocalcife 2020-11 Yes Milla 1 capsule [...] lilian e 2-29 Najam directed l 04:06: [place] 48 Zithromax 2020-11 Yes [place]illa 2 tablet [...] Najam on the l 00:00: first day, [place] 00 then 1 tablet daily for 4 days Zithromax 2020-11 Yes [place] 2 tablet Me moria Z-Flex 0-11 Najam on the l 00:00: first day, [place] 00 then 1 tablet daily for 4 days Zithromax 2020-11 Yes [place] 2 tablet Me moria Z-Flex 0-11 Najam on the l 00:00: first day, [place] 00 then 1 tablet daily for 4 days Zithromax 2020-11 Yes [place] 2 tablet Me moria Z-Flex 0-11 Najam on the l 00:00: first day, [place] 00 then 1 tablet daily for 4 days Zithromax 2020-11 Yes [place] 2 tablet Me moria Z-Flex 0-11 Najam on the l 00:00: first day, [place] 00 then 1 tablet daily for 4 days Zithromax 2020-11 Yes [place] 2 tablet Me moria Z-Flex 0-11 Najam on the l 00:00: first day, [place] 00 then 1 tablet daily for 4 days Zithromax 2020-11 Yes [place] 2 tablet Me moria Z-Flex 0-11 Najam on the l 00:00: first day, [place] 00 then 1 tablet daily for 4 days DULOXETINE Yes [id number] 30mg TAKE 1 Univers 30 mg 9-28 CAPSULE BY ity of capsule 00:00: [address] DULOXETINE Yes [id number] 30mg TAKE 1 Univers 30 mg 9-28 CAPSULE BY ity of capsule 00:00: MOUTH [place] 00 DAILY Medical Branch DULOXETINE 2020-0 Yes [id number] 30mg TAKE 1 [facility] 30 mg 9-28 CAPSULE BY ity of capsule 00:00: MOUTH [place] DAILY Medical Branch DULOXETINE 2020-0 Yes [id number] 30mg TAKE 1 Univers 30 mg 9-28 CAPSULE BY ity of capsule 00:00: [facility] DAILY Medical Branch DULOXETINE 2020-0 Yes [id number] 30mg TAKE 1 Univers 30 mg 9-28 CAPSULE BY ity of capsule 00:00: MOUTH [place] DAILY Medical Branch DULOXETINE 2020-0 Yes [id number] 30mg TAKE 1 Univers 30 mg 9-28 CAPSULE BY ity of capsule 00:00: [facility] DAILY Medical Branch DULOXETINE 2020-0 Yes [id number] 30mg TAKE 1 Univers 30 mg 9-28 CAPSULE BY ity of capsule 00:00: [facility] DAILY Medical Branch DULOXETINE 2020-0 2021- No [id number] 30mg TAKE 1 Univers 30 mg 9-28 12-20 CAPSULE BY ity of capsule 00:00: 00:00 [facility] 00 :00 DAILY Medical Branch DULOXETINE 2020-0 2021- No [id number] 30mg TAKE 1 Univers 30 mg 9-28 12-20 CAPSULE BY ity of capsule 00:00: 00:00 [facility] 00 :00 DAILY Medical Branch DULOXETINE 2020-0 2021- No [id number] 30mg TAKE 1 Univers 30 mg 9-28 12-20 CAPSULE BY ity of capsule 00:00: 00:00 [facility] 00 :00 DAILY Medical Branch casirivimab 2020-0 1- No [id number] 1200mg 1,200 mg, Univers -imdevimab 08-18 Subcutaneo it y of (REGEN-COV 21:30: 20:15 [place], ONCE, [place] (EUA[place] 00 :00 1 dose, On Medical injection [place]ta Branch 1,200 mg 08/18/21 at 1630, Routine hydrOXYchlo 2020-0 Yes [id number] One BID PC Univers roQUINE 200 - ity of mg tablet 00:00: [place] 00 Medical Branch azaTHIOprin 2020-0 Yes [id number] 50mg Take 1 Univers e 50 mg 9-21 tablet by ity of tablet 00:00: mouth [place] 00 daily. Medical Branch hydrOXYchlo 1-0 Yes [id number] One BID PC Univers roQUINE 200 9-21 ity of mg tablet 00:00: [place] 00 Medical Branch azaTHIOprin 1-0 Yes [id number] 50mg Take 1 Univers e 50 mg 9-21 tablet by ity of tablet 00:00: mouth [place] 00 daily. Medical Branch hydrOXYchlo 1-0 Yes [id number] One BID PC Univers roQUINE 200 9-21 ity of mg tablet 00:00: [place] 00 Medical Branch azaTHIOprin 1-0 Yes [id number] 50mg Take 1 Univers e 50 mg 9-21 tablet by ity of tablet 00:00: mouth [place] 00 daily. Medical Branch hydrOXYchlo 2020-0 Yes [id number] One BID PC Univers roQUINE 200 9-21 ity of mg tablet 00:00: [place] 00 Medical Branch azaTHIOprin 1-0 Yes [id number] 50mg Take 1 Univers e 50 mg 9-21 tablet by ity of tablet 00:00: mouth [place] 00 daily. Medical Branch hydrOXYchlo 2020-0 Yes [id number] One BID PC Univers roQUINE 200 9-21 ity of mg tablet 00:00: [place] 00 Medical Branch azaTHIOprin 1-0 Yes [id number] 50mg Take 1 Univers e 50 mg 9-21 tablet by ity of tablet 00:00: mouth [place] 00 daily. Medical Branch hydrOXYchlo 1-0 Yes [id number] One BID PC Univers roQUINE 200 9-21 ity of mg tablet 00:00: [place] 00 Medical Branch azaTHIOprin 1-0 Yes [id number] 50mg Take 1 Univers e 50 mg 9-21 tablet by ity of tablet 00:00: mouth [place] 00 daily. Medical Branch hydrOXYchlo 1-0 Yes [id number] One BID PC Univers roQUINE 200 9-21 ity of mg tablet 00:00: [place] 00 Medical Branch azaTHIOprin 1-0 Yes [id number] 50mg Take 1 Univers e 50 mg 9-21 tablet by ity of tablet 00:00: mouth [place] 00 daily. Medical Branch hydrOXYchlo 1-0 Yes [id number] One BID PC Univers roQUINE 200 9-21 ity of mg tablet 00:00: [place] 00 Medical Branch azaTHIOprin 2021-0 Yes [id number] 50mg Take 1 Univers e 50 mg 9-21 tablet by ity of tablet 00:00: mouth [place] 00 daily. Medical Branch hydrOXYchlo 2020-0 Yes [id number] One BID PC Univers roQUINE 200 9-21 ity of mg tablet 00:00: [place] 00 Medical Branch azaTHIOprin 2020-0 Yes [id number] 50mg Take 1 Univers e 50 mg 9-21 tablet by ity of tablet 00:00: mouth [place] 00 daily. Medical Branch hydrOXYchlo 2020-0 2021- No [id number] One BID PC Univers roQUINE 200 9-21 12-20 ity of mg tablet 00:00: 00:00 [place] 00 :00 Medical Branch azaTHIOprin 2020-0 2021- No [id number] 50mg Take 1 Univers e 50 mg 9-21 12-20 tablet by ity of tablet 00:00: 00:00 mouth [place] 00 :00 daily. Medical Branch hydrOXYchlo 2020-0 2021- No [id number] One BID PC Univers roQUINE 200 9-21 12-20 ity of mg tablet 00:00: 00:00 [place] 00 :00 Medical Branch azaTHIOprin 2020-0 2- No [id number] 50mg Take 1 Univers e 50 mg 9-21 12-20 tablet by ity of tablet 00:00: 00:00 mouth [place] 00 :00 daily. Medical Branch hydrOXYchlo 2020-0 2021- No [id number] One BID PC Univers roQUINE 200 9-21 12-20 ity of mg tablet 00:00: 00:00 [place] 00 :00 Medical Branch azaTHIOprin 2020-0 2- No [id number] 50mg Take 1 Univers e 50 mg 9-21 12-20 tablet by ity of tablet 00:00: 00:00 mouth [place] 00 :00 daily. Medical Branch Pregabalin 2020-0 Yes Milla 1 capsule Memoria 08-03 Najam l 00:00: Ergocalcife 2020-0 Yes [place]illa 1 capsule Memoria rol 08-03 Najam l 00:00: Pregabalin 2020-0 Yes Milla 1 capsule Memoria 08-03 Najam l 00:00: Pregabalin 2020-0 Yes [place]illa 1 capsule Memoria 08-03 Najam l 00:00: Ergocalcife 2021-0 Yes [place]illa 1 capsule Memoria rol 9-08 Najam l 00:00: Ergocalcife 2021-0 Yes [...] capsule Memoria rol 9-08 Najam l 00:00: azaTHIOprin 1-0 Yes 50mg QD Take 50 mg [facility]i [facility] (IMURAN) 9-[address] 50 mg 19:22: [facility] tablet 58 l DULoxetine 2021-0 Yes 60mg QD Take 60 mg M ethodi (CYMBALTA) -[address] 60 MG 19:22: daily. [facility]osp[facility] capsule 58 l gabapentin 2021-0 Yes 600mg Q.[id number] Take 600 [facility] (NEURONTIN) 9-05 [id number] mg by s t 300 mg 19:22: [...] 19:22: daily. Hospita tablet 58 l DULoxetine 2021-0 Yes 60mg QD Take 60 mg M ethodi (CYMBALTA) -[address] 60 MG 19:22: daily. [facility]osp[facility] capsule 58 l gabapentin 2021-0 Yes 600mg Q.[id number] Take 600 [facility] (NEURONTIN) 9-05 [id number] mg by s t 300 mg 19:22: [...] 19:22: daily. Hospita tablet 58 l DULoxetine 2021-0 Yes 60mg QD Take 60 mg M ethodi (CYMBALTA) 9-[address] 60 MG 19:22: daily. [facility]ospita capsule 58 l gabapentin 2021-0 Yes 600mg Q.[id number] Take 600 [facility] (NEURONTIN) 9-05 [id number] mg by s t 300 mg 19:22: 3D mouth 3 Hospita capsule 58 (three) l times a day. hydrOXYchlo 2021-0 Yes 200mg Q.5D Take 200 M ethodi roQUINE 9-[address] (PLAQUENIL) 19:22: mouth 2 [facility] daren 200 mg 58 (two) l tablet times a day. gabapentin 2021-0 Yes 600mg Q.[id number] Take 600 [facility] (NEURONTIN) 9-05 [id number] mg by s t 300 mg 19:22: [...] MG 19:22: daily. Hospita capsule 58 l azaTHIOprin 2021-0 Yes 50mg QD Take 50 mg Methodi e (IMURAN) 9-[address] 50 mg 19:22: daily. Hospita tablet 58 l DULoxetine 2021-0 Yes 60mg QD Take 60 mg M ethodi (CYMBALTA) 9-[address] 60 MG 19:22: daily. Hospita capsule 58 l gabapentin 2021-0 Yes 600mg Q.[id number] Take 600 [facility] (NEURONTIN) 9-05 [id number] mg by s t 300 mg 19:22: 3D mouth 3 [facility]ospita capsule 58 (three) l times a day. hydrOXYchlo 2021-0 Yes 200mg Q.5D Take 200 M ethodi roQUINE 9-[address] (PLAQUENIL) 19:22: mouth 2 [facility] 200 mg 58 (two) l tablet times a day. methocarbam 2021-0 Yes 500mg Q.25D Take 1 [...] l nightly as needed for sleep. DULoxetine 202-0 Yes [id number] 30mg Take 1 [facility] 30 mg 6-16 capsule by ity of capsule 00:00: mouth [place] 00 daily. Medical Branch DULoxetine 2020-0 Yes [id number] 30mg Take 1 [facility] 30 mg 6-16 capsule by ity of capsule 00:00: mouth [place] 00 daily. Medical Branch DULoxetine 2020-0 2021- No [id number] 30mg Take 1 [facility] 30 mg 6-16 09-28 capsule by ity of capsule 00:00: 00:00 mouth [place] 00 :00 daily. Medical Branch gabapentin 1-0 Yes [id number] 600mg Take 2 [facility] 300 mg 5-12 capsules ity of capsule 00:00: [place] mouth 3 [place] (three) Medical times Branch daily. gabapentin 2021-0 Yes [id number] 600mg Take 2 [facility] 300 mg 5-12 capsules ity of capsule 00:00: by mouth 3 [place] (three) Medical times Branch daily. gabapentin 2020-0 Yes [id number] 600mg Take 2 [facility] 300 mg 5-12 capsules ity of capsule 00:00: by mouth 3 [place] (three) Medical times Branch daily. gabapentin 202-0 Yes [id number] 600mg Take 2 [facility] 300 mg 5-12 capsules ity of capsule 00:00: by mouth 3 [place] (three) Medical times Branch daily. gabapentin 2021-0 Yes [id number] 600mg Take 2 [facility] 300 mg 5-12 capsules ity of capsule 00:00: by mouth 3 [place] (three) Medical times Branch daily. gabapentin 2021-0 Yes [id number] 600mg Take 2 [facility] 300 mg 5-12 capsules ity of capsule 00:00: by mouth 3 [place] (three) Medical times Branch daily. gabapentin 2021-0 Yes [id number] 600mg Take 2 [facility] 300 mg 5-12 capsules ity of capsule 00:00: by mouth 3 [place] (three) Medical times Branch daily. gabapentin 2021-0 Yes [id number] 600mg Take 2 [facility] 300 mg 5-12 capsules ity of capsule 00:00: by mouth 3 [place] (three) Medical times Branch daily. gabapentin 2021-0 Yes [id number] 600mg Take 2 [facility] 300 mg 5-12 capsules ity of capsule 00:00: by mouth 3 [place] (three) Medical times Branch daily. gabapentin 2021-0 Yes [id number] 600mg Take 2 [facility] 300 mg 5-12 capsules ity of capsule 00:00: by mouth 3 [place] (three) Medical times Branch daily. gabapentin 2020-0 Yes [id number] 600mg Take 2 [facility] 300 mg 5-12 capsules ity of capsule 00:00: by mouth 3 [place] (three) Medical times Branch daily. gabapentin 2020-0 Yes [id number] 600mg Take 2 [facility] 300 mg 5-12 capsules ity of capsule 00:00: by mouth 3 [place] (three) Medical times Branch daily. gabapentin 2020-0 Yes [id number] 600mg Take 2 [facility] 300 mg 5-12 capsules ity of capsule 00:00: by mouth 3 [place] (three) Medical times Branch daily. gabapentin 2020-0 2023- No [id number] 600mg Take 2 [facility] 300 mg 5-12 01-17 capsules ity of capsule 00:00: 00:00 by mouth 3 [place] 00 :00 (three) Medical times Branch daily. gabapentin 2020-0 2023- No [id number] 600mg Take 2 [facility] 300 mg 5-12 01-17 capsules ity of capsule 00:00: 00:00 by mouth 3 [place] 00 :00 (three) Medical times Branch daily. DULoxetine 2020-0 Yes [id number] 60mg Take 1 [facility] 60 mg 4-26 capsule by ity of capsule 00:00: mouth [place] 00 daily. Medical Branch DULoxetine 2020-0 Yes [id number] 60mg Take 1 [facility] 60 mg 4-26 capsule by ity of capsule 00:00: mouth [place] 00 daily. Medical Branch DULoxetine 2020-0 Yes [id number] 60mg Take 1 [facility] 60 mg 4-26 capsule by ity of capsule 00:00: mouth [place] 00 daily. Medical Branch DULoxetine 2020-0 Yes [id number] 60mg Take 1 [facility] 60 mg 4-26 capsule by ity of capsule 00:00: mouth [place] 00 daily. Medical Branch DULoxetine 2020-0 Yes [id number] 60mg Take 1 [facility] 60 mg 4-26 capsule by ity of capsule 00:00: mouth [place] 00 daily. Medical Branch DULoxetine 2020-0 Yes [id number] 60mg Take 1 [facility] 60 mg 4-26 capsule by ity of capsule 00:00: mouth [place] 00 daily. Medical Branch DULoxetine 0 Yes [id number] 60mg Take 1 [facility] 60 mg 4-26 capsule by ity of capsule 00:00: mouth [place] 00 daily. Medical Branch DULoxetine 0 Yes [id number] 60mg Take 1 [facility] 60 mg 4-26 capsule by ity of capsule 00:00: mouth [place] 00 daily. Medical Branch DULoxetine 0 Yes [id number] 60mg Take 1 [facility] 60 mg 4-26 capsule by ity of capsule 00:00: mouth [place] 00 daily. Medical Branch DULoxetine 2021- No [id number] 60mg Take 1 [facility] 60 mg 4-26 12-20 capsule by ity of capsule 00:00: 00:00 mouth [place] 00 :00 daily. Medical Branch DULoxetine 2021- No [id number] 60mg Take 1 [facility] 60 mg 4-26 12-20 capsule by ity of capsule 00:00: 00:00 mouth [place] 00 :00 daily. Medical Branch DULoxetine 2021- No [id number] 60mg Take 1 [facility] 60 mg 4-26 12-20 capsule by ity of capsule 00:00: 00:00 mouth [place] 00 :00 daily. Medical Branch multivit-mi Yes Take by Uni vers n/ferrous 2-22 mouth. ity of fumarate 10:01: [place] ([place] [address] Medical VITAMIN Branch ORAL) multivit-mi Yes Take by Uni vers n/ferrous 2-22 mouth. ity of fumarate 10:01: [place] ([place] [address] Medical VITAMIN Branch ORAL) multivit-mi Yes Take by Uni vers n/ferrous 2-22 mouth. ity of fumarate 10:01: [place] ([place] [address] Medical VITAMIN Branch ORAL) multivit-mi Yes Take by Uni vers n/ferrous 2-22 mouth. ity of fumarate 10:01: [place] ([place] [address] Medical VITAMIN Branch ORAL) multivit-mi Yes Take by Uni vers n/ferrous 2-22 mouth. ity of fumarate 10:01: [place] ([place] [address] Medical VITAMIN Branch ORAL) multivit-mi Yes Take by Uni vers n/ferrous 2-22 mouth. ity of fumarate 10:01: [place] (MULTI 19 Medical VITAMIN Branch ORAL) multivit-mi Yes Take by Uni vers n/ferrous 2-22 mouth. ity of fumarate 10:01: [place] (MULTI 19 Medical VITAMIN Branch ORAL) multivit-mi Yes Take by Uni vers n/ferrous 2-22 mouth. ity of fumarate 10:01: [place] ([facility] 19 Medical VITAMIN Branch ORAL) multivit-mi Yes Take by Uni vers n/ferrous 2-22 mouth. ity of fumarate 10:01: [place] ([facility] 19 Medical VITAMIN Branch ORAL) Immunizations Ordered Filled Immunization Date Status Comments [facility] e Immunization Name Name TDAP (ADACEL) 2019-07-18 Completed University of VACCINE 00:00:00 [place] [facility] Pneumococcal 2019-07-18 Completed University o f Polysaccharide, 00:00:00 [place] Med ical PPSV23 (PNEUMOVAX) Branch TDAP (ADACEL) 2019-07-18 Completed University of VACCINE 00:00:00 [place] [facility] Pneumococcal 2019-07-18 Completed University o f Polysaccharide, 00:00:00 [place] Med ical PPSV23 (PNEUMOVAX) Branch TDAP (ADACEL) 2019-07-18 Completed University of VACCINE 00:00:00 [place] [facility] Pneumococcal 2019-07-18 Completed University o f Polysaccharide, 00:00:00 [place] Med ical PPSV23 (PNEUMOVAX) Branch TDAP (ADACEL) 2019-07-18 Completed University of VACCINE 00:00:00 [place] [facility] Pneumococcal 2019-07-18 Completed University o f Polysaccharide, 00:00:00 [place] Med ical PPSV23 (PNEUMOVAX) Branch TDAP (ADACEL) 2019-07-18 Completed University of VACCINE 00:00:00 [place] [facility] Pneumococcal 2019-07-18 Completed University o f Polysaccharide, 00:00:00 [place] Med ical PPSV23 (PNEUMOVAX) Branch TDAP (ADACEL) 2019-07-18 Completed University of VACCINE 00:00:00 [place] [facility] Pneumococcal 2019-07-18 Completed University o f Polysaccharide, 00:00:00 [place] Med ical PPSV23 (PNEUMOVAX) Branch TDAP (ADACEL) 2019-07-18 Completed University of VACCINE 00:00:00 [place] [facility] Pneumococcal 2019-07-18 Completed University o f Polysaccharide, 00:00:00 [place] Med ical PPSV23 (PNEUMOVAX) Branch TDAP (ADACEL) 2019-07-18 Completed University of VACCINE 00:00:00 [place] [facility] Pneumococcal 2019-07-18 Completed University o f Polysaccharide, 00:00:00 [place] Med ical PPSV23 (PNEUMOVAX) Branch TDAP (ADACEL) 2019-07-18 Completed University of VACCINE 00:00:00 [place] [facility] Pneumococcal 2019-07-18 Completed University o f Polysaccharide, 00:00:00 [place] Med ical PPSV23 (PNEUMOVAX) Branch TDAP (ADACEL) 2019-07-18 Completed University of VACCINE 00:00:00 [place] [facility] Pneumococcal 2019-07-18 Completed University o f Polysaccharide, 00:00:00 [place] Med ical PPSV23 (PNEUMOVAX) Branch TDAP (ADACEL) 2019-07-18 Completed University of VACCINE 00:00:00 [place] [facility] Pneumococcal 2019-07-18 Completed University o f Polysaccharide, 00:00:00 [place] Med ical PPSV23 (PNEUMOVAX) Branch TDAP (ADACEL) 2019-07-18 Completed University of VACCINE 00:00:00 [place] [facility] Pneumococcal 2019-07-18 Completed University o f Polysaccharide, 00:00:00 [place] Med ical PPSV23 (PNEUMOVAX) Branch TDAP (ADACEL) 2019-07-18 Completed University of VACCINE 00:00:00 [place] [facility] Pneumococcal 2019-07-18 Completed University o f Polysaccharide, 00:00:00 [place] Med ical PPSV23 (PNEUMOVAX) Branch TDAP (ADACEL) 2019-07-18 Completed University of VACCINE 00:00:00 [place] [facility] Pneumococcal 2019-07-18 Completed University o f Polysaccharide, 00:00:00 [place] Med ical PPSV23 (PNEUMOVAX) Branch TDAP (ADACEL) 2019-07-18 Completed University of VACCINE 00:00:00 [place] [facility] Pneumococcal 2019-07-18 Completed University o f Polysaccharide, 00:00:00 [place] Med ical PPSV23 (PNEUMOVAX) Branch TDAP (ADACEL) 2019-07-18 Completed University of VACCINE 00:00:00 [place] [facility] Pneumococcal 2019-07-18 Completed University o f Polysaccharide, 00:00:00 [place] Med ical PPSV23 (PNEUMOVAX) Branch TDAP (ADACEL) 2019-07-18 Completed University of VACCINE 00:00:00 [place] [facility] Pneumococcal 2019-07-18 Completed University o f Polysaccharide, 00:00:00 [place] Med ical PPSV23 (PNEUMOVAX) Branch TDAP (ADACEL) 2019-07-18 Completed University of VACCINE 00:00:00 [place] [facility] Pneumococcal 2019-07-18 Completed University o f Polysaccharide, 00:00:00 [place] Med ical PPSV23 (PNEUMOVAX) Branch TDAP (ADACEL) 2019-07-18 Completed University of VACCINE 00:00:00 [place] [facility] Pneumococcal 2019-07-18 Completed University o f Polysaccharide, 00:00:00 [place] Med ical PPSV23 (PNEUMOVAX) Branch TDAP (ADACEL) 2019-07-18 Completed University of VACCINE 00:00:00 [place] [facility] Pneumococcal 2019-07-18 Completed University o f Polysaccharide, 00:00:00 [place] Med ical PPSV23 (PNEUMOVAX) Branch TDAP (ADACEL) 2019-07-18 Completed University of VACCINE 00:00:00 [place] [facility] Pneumococcal 2019-07-18 Completed University o f Polysaccharide, 00:00:00 [place] Med ical PPSV23 (PNEUMOVAX) Branch TDAP (ADACEL) 2019-07-18 Completed University of VACCINE 00:00:00 [place] [facility] Pneumococcal 2019-07-18 Completed University o f Polysaccharide, 00:00:00 [place] Med ical PPSV23 (PNEUMOVAX) Branch TDAP (ADACEL) 2019-07-18 Completed University of VACCINE 00:00:00 [place] [facility] Pneumococcal 2019-07-18 Completed University o f Polysaccharide, 00:00:00 [place] Med ical PPSV23 (PNEUMOVAX) Branch TDAP (ADACEL) 2019-07-18 Completed University of VACCINE 00:00:00 [place] [facility] Pneumococcal 2019-07-18 Completed University o f Polysaccharide, 00:00:00 [place] Med ical PPSV23 (PNEUMOVAX) Branch TDAP (ADACEL) 2019-07-18 Completed University of VACCINE 00:00:00 [place] [facility] Pneumococcal 2019-07-18 Completed University o f Polysaccharide, 00:00:00 [place] Med ical PPSV23 (PNEUMOVAX) Branch TDAP (ADACEL) 2019-07-18 Completed University of VACCINE 00:00:00 [place] [facility] Pneumococcal 2019-07-18 Completed University o f Polysaccharide, 00:00:00 [place] Med ical PPSV23 (PNEUMOVAX) Branch TDAP (ADACEL) 2019-07-18 Completed University of VACCINE 00:00:00 [place] [facility] Pneumococcal 2019-07-18 Completed University o f Polysaccharide, 00:00:00 [place] Med ical PPSV23 (PNEUMOVAX) Branch TDAP (ADACEL) 2019-07-18 Completed University of VACCINE 00:00:00 [place] [facility] Pneumococcal 2019-07-18 Completed University o f Polysaccharide, 00:00:00 [place] Med ical PPSV23 (PNEUMOVAX) Branch TDAP (ADACEL) 2019-07-18 Completed University of VACCINE 00:00:00 [place] [facility] Pneumococcal 2019-07-18 Completed University o f Polysaccharide, 00:00:00 [place] Med ical PPSV23 (PNEUMOVAX) Branch TDAP (ADACEL) 2019-07-18 Completed University of VACCINE 00:00:00 [place] [facility] Pneumococcal 2019-07-18 Completed University o f Polysaccharide, 00:00:00 [place] Med ical PPSV23 (PNEUMOVAX) Branch TDAP (ADACEL) 2019-07-18 Completed University of VACCINE 00:00:00 [place] [facility] Pneumococcal 2019-07-18 Completed University o f Polysaccharide, 00:00:00 [place] Med ical PPSV23 (PNEUMOVAX) Branch TDAP (ADACEL) 2019-07-18 Completed University of VACCINE 00:00:00 [place] [facility] Pneumococcal 2019-07-18 Completed University o f Polysaccharide, 00:00:00 [place] Med ical PPSV23 (PNEUMOVAX) Branch TDAP (ADACEL) 2019-07-18 Completed University of VACCINE 00:00:00 [place] [facility] Pneumococcal 2019-07-18 Completed University o f Polysaccharide, 00:00:00 [place] Med ical PPSV23 (PNEUMOVAX) Branch TDAP (ADACEL) 2019-07-18 Completed University of VACCINE 00:00:00 [place] [facility] Pneumococcal 2019-07-18 Completed University o f Polysaccharide, 00:00:00 [place] Med ical PPSV23 (PNEUMOVAX) Branch TDAP (ADACEL) 2019-07-18 Completed University of VACCINE 00:00:00 [facility] Pneumococcal 2019-07-18 Completed University o f Polysaccharide, 00:00:00 [place] Med ical PPSV23 (PNEUMOVAX) Branch TDAP (ADACEL) 2019-07-18 Completed University of VACCINE 00:00:00 [facility] Pneumococcal 2019-07-18 Completed University o f Polysaccharide, 00:00:00 [place] Med ical PPSV23 (PNEUMOVAX) Branch TDAP (ADACEL) 2019-07-18 Completed University of VACCINE 00:00:00 [place] [facility] Pneumococcal 2019-07-18 Completed University o f Polysaccharide, 00:00:00 [place] [facility] PPSV23 (PNEUMOVAX) Branch TDAP (ADACEL) 2019-07-18 Completed University of VACCINE 00:00:00 [facility] Pneumococcal 2019-07-18 Completed University o f Polysaccharide, 00:00:00 [place] [facility] PPSV23 (PNEUMOVAX) Branch TDAP (ADACEL) 2019-07-18 Completed University of VACCINE 00:00:00 [facility] Pneumococcal 2019-07-18 Completed University o f Polysaccharide, 00:00:00 [place] [facility] PPSV23 (PNEUMOVAX) Branch TDAP (ADACEL) 2019-07-18 Completed University of VACCINE 00:00:00 [facility] Pneumococcal 2019-07-18 Completed University o f Polysaccharide, 00:00:00 [place] [facility] PPSV23 (PNEUMOVAX) Branch TDAP (ADACEL) 2019-07-18 Completed University of VACCINE 00:00:00 [facility] Pneumococcal 2019-07-18 Completed University o f Polysaccharide, 00:00:00 [place] [facility] PPSV23 (PNEUMOVAX) Branch TDAP (ADACEL) 2019-07-18 Completed University of VACCINE 00:00:00 [facility] Pneumococcal 2019-07-18 Completed University o f Polysaccharide, 00:00:00 [place] [facility] PPSV23 (PNEUMOVAX) Branch TDAP (ADACEL) 2019-07-18 Completed University of VACCINE 00:00:00 [facility] Pneumococcal 2019-07-18 Completed University o f Polysaccharide, 00:00:00 [place] [facility] PPSV23 (PNEUMOVAX) Branch TDAP (ADACEL) 2019-07-18 Completed University of VACCINE 00:00:00 [facility] Pneumococcal 2019-07-18 Completed University o f Polysaccharide, 00:00:00 [place] [facility] PPSV23 (PNEUMOVAX) Branch TDAP (ADACEL) 2019-07-18 Completed University of VACCINE 00:00:00 [facility] Pneumococcal 2019-07-18 Completed University o f Polysaccharide, 00:00:00 [place] [facility] PPSV23 (PNEUMOVAX) Branch TDAP (ADACEL) 2019-07-18 Completed University of VACCINE 00:00:00 [facility] Pneumococcal 2019-07-18 Completed University o f Polysaccharide, 00:00:00 [place] [facility] PPSV23 (PNEUMOVAX) Branch TDAP (ADACEL) 2019-07-18 Completed University of VACCINE 00:00:00 [facility] Pneumococcal 2019-07-18 Completed University o f Polysaccharide, 00:00:00 [place] [facility] PPSV23 (PNEUMOVAX) Branch TDAP (ADACEL) 2019-07-18 Completed University of VACCINE 00:00:00 [facility] Pneumococcal 2019-07-18 Completed University o f Polysaccharide, 00:00:00 [place] [facility] PPSV23 (PNEUMOVAX) Branch TDAP (ADACEL) 2019-07-18 Completed University of VACCINE 00:00:00 [facility] Pneumococcal 2019-07-18 Completed University o f Polysaccharide, 00:00:00 [place] [facility] PPSV23 (PNEUMOVAX) Branch TDAP (ADACEL) 2019-07-18 Completed University of VACCINE 00:00:00 [facility] Pneumococcal 2019-07-18 Completed University o f Polysaccharide, 00:00:00 [place] [facility] PPSV23 (PNEUMOVAX) Branch TDAP (ADACEL) 2019-07-18 Completed University of VACCINE 00:00:00 [facility] Pneumococcal 2019-07-18 Completed University o f Polysaccharide, 00:00:00 [place] [facility] PPSV23 (PNEUMOVAX) Branch TDAP (ADACEL) 2019-07-18 Completed University of VACCINE 00:00:00 [facility] Pneumococcal 2019-07-18 Completed University o f Polysaccharide, 00:00:00 [place] [facility] PPSV23 (PNEUMOVAX) Branch TDAP (ADACEL) 2019-07-18 Completed University of VACCINE 00:00:00 [facility] Pneumococcal 2019-07-18 Completed University o f Polysaccharide, 00:00:00 [place] [facility] PPSV23 (PNEUMOVAX) Branch TDAP (ADACEL) 2019-07-18 Completed University of VACCINE 00:00:00 [facility] Pneumococcal 2019-07-18 Completed University o f Polysaccharide, 00:00:00 [place] [facility] PPSV23 (PNEUMOVAX) Branch TDAP (ADACEL) 2019-07-18 Completed University of VACCINE 00:00:00 [facility] Pneumococcal 2019-07-18 Completed University o f Polysaccharide, 00:00:00 [facility] ical PPSV23 (PNEUMOVAX) [place] Vital Signs Vital Name Observation Time Observation Value Comments Source Systolic blood 2023-03-29 20:59:00 115 mm[Hg] Univer sity of pressure [facility] Diastolic blood 2023-03-29 20:59:00 74 mm[Hg] Unive rsity of [facility] Heart rate 2023-03-29 20:59:00 65 /min Universi ty of [facility] Body height 2023-03-29 20:59:00 167.6 cm Universi ty of [facility] Body weight 2023-03-29 20:59:00 95.981 kg Universi ty of [facility] BMI 2023-03-29 20:59:00 34.15 kg/m2 Universi ty of [facility] Oxygen saturation in 2023-03-29 20:59:00 100 /min University of Arterial blood by [place] [employer] [facility]xim[facility] Branch Systolic blood 2023-01-29 14:25:00 109 mm[Hg] Univer sity of [facility] Diastolic blood 2023-01-29 14:25:00 76 mm[Hg] Unive rsity of [facility] Heart rate 2023-01-29 14:25:00 80 /min Universi ty of [place] [facility] [place] Body temperature 2023-01-29 14:25:00 36.78 Lizeth Univ ersity of [facility] Body height 2023-01-29 14:25:00 165.1 cm Universi ty of [facility] Body weight 2023-01-29 14:25:00 90.583 kg Universi ty of [facility] BMI 2023-01-29 14:25:00 33.23 kg/m2 Universi ty of [facility] Oxygen saturation in 2023-01-29 14:25:00 99 /min University of Arterial blood by [place] [employer] [facility]xim[facility] Branch Systolic blood 2023-01-27 15:55:00 123 mm[Hg] Univer sity of pressure [facility] Diastolic blood 2023-01-27 15:55:00 81 mm[Hg] Unive rsity of pressure [facility] Heart rate 2023-01-27 15:55:00 71 /min [facility] Body temperature 2023-01-27 15:55:00 36.78 Lizeth Univ ersity of [place] [facility] Respiratory rate 2023-01-27 15:55:00 20 /min Univ ersity of [facility] Body weight 2023-01-27 15:55:00 86.183 kg Universi ty of [place] [facility] BMI 2023-01-27 15:55:00 31.62 kg/m2 Universi ty of [place] [facility] Oxygen saturation in 2023-01-27 15:55:00 100 /min University of Arterial blood by [place] [facility] Systolic blood 2023-01-11 20:59:00 131 mm[Hg] Univer sity of pressure [facility] Diastolic blood 2023-01-11 20:59:00 72 mm[Hg] Unive rsity of pressure [facility] Heart rate 2023-01-11 20:59:00 66 /min Universi ty of [place] [facility] Body temperature 2023-01-11 20:59:00 36.94 Lizeth Univ ersity of [place] [facility] Body height 2023-01-11 20:59:00 165.1 cm [facility] Body weight 2023-01-11 20:59:00 90.493 kg Universi ty of [place] [facility] BMI 2023-01-11 20:59:00 33.20 kg/m2 Universi ty [facility] [place] [facility] Oxygen saturation in 2023-01-11 20:59:00 100 /min University of Arterial blood by [place] [employer] [facility] Branch Systolic blood 2023-01-10 19:00:00 120 mm[Hg] Univer sity of pressure [facility] Diastolic blood 2023-01-10 19:00:00 76 mm[Hg] Unive rsity of pressure [facility] Heart rate 2023-01-10 19:00:00 66 /min Universi ty of [place] [facility] Respiratory rate 2023-01-10 19:00:00 20 /min Univ ersity of [place] [facility] Oxygen saturation in 2023-01-10 19:00:00 98 /min University of Arterial blood by [place] [employer] [facility] Branch Body temperature 2023-01-10 17:15:00 36 Lizeth Univ ersity of [place] [facility] Body weight 2023-01-10 15:08:00 89.359 kg Universi ty of [place] [facility] BMI 2023-01-10 15:08:00 31.80 kg/m2 Universi ty [facility] [place] [facility] Systolic blood 2023-01-10 14:01:00 110 mm[Hg] Univer sity of pressure [place] [facility] Diastolic blood 2023-01-10 14:01:00 74 mm[Hg] Unive rsity of pressure [facility] Heart rate 2023-01-10 14:01:00 66 /min Universi ty [facility] [place] [facility] Body temperature 2023-01-10 14:01:00 35.94 Lizeth Univ ersity of [place] [facility] Respiratory rate 2023-01-10 14:01:00 16 /min Univ ersity of [place] [facility] Body height 2023-01-10 14:01:00 167.6 cm Universi ty of [place] [facility] Body weight 2023-01-10 14:01:00 89.404 kg [facility]i ty [facility] [place] [facility] BMI 2023-01-10 14:01:00 31.81 kg/m2 [facility] Oxygen saturation in 2023-01-10 14:01:00 97 /min ra University of Arterial blood by [place] [employer] P[facility]xim[facility] Branch Systolic blood 2022-12-12 22:08:00 123 mm[Hg] Univer sity of pressure [facility] Diastolic blood 2022-12-12 22:08:00 76 mm[Hg] Unive rsity of pressure [facility] Heart rate 2022-12-12 22:08:00 70 /min Universi ty of [place] [facility] Body height 2022-12-12 22:08:00 165.1 cm Universi ty of [facility] Body weight 2022-12-12 22:08:00 88.451 kg Universi ty of [place] [facility] BMI 2022-12-12 22:08:00 32.45 kg/m2 Universi ty of [place] [facility] Oxygen saturation in 2022-12-12 22:08:00 100 /min University of Arterial blood by [employer] Pulse oximetry Branch Systolic blood 2022-11-14 15:09:00 118 mm[Hg] Univer sity of pressure [facility] Diastolic blood 2022-11-14 15:09:00 79 mm[Hg] Unive rsity of pressure [facility] Heart rate 2022-11-14 15:09:00 78 /min Universi ty of [place] [facility] Body temperature 2022-11-14 15:09:00 36.33 Lizeth Univ ersity of [place] [facility] Respiratory rate 2022-11-14 15:09:00 16 /min Univ ersity of [place] [facility] Body height 2022-11-14 15:09:00 167.6 cm Universi ty of [place] [facility] Body weight 2022-11-14 15:09:00 86.909 kg [facility] BMI 2022-11-14 15:09:00 30.93 kg/m2 Universi ty of [place] [facility] Oxygen saturation in 2022-11-14 15:09:00 99 /min room air University of Arterial blood by [place] [employer] Pulse oximetry Branch Systolic blood 2022-05-04 20:00:00 136 mm[Hg] Univer sity of pressure [facility] Diastolic blood 2022-05-04 20:00:00 100 mm[Hg] Unive rsity of pressure [facility] Heart rate 2022-05-04 20:00:00 68 /min Universi ty of [place] [facility] Respiratory rate 2022-05-04 20:00:00 20 /min Univ ersity of [place] [facility] Oxygen saturation in 2022-05-04 20:00:00 99 /min University of Arterial blood by [place] [employer] P[facility] oxim[facility] Branch Body temperature 2022-05-04 17:31:00 36.17 Lizeth Univ ersity of [place] [facility] Body height 2022-05-04 17:31:00 165.1 cm [facility]i ty [facility] [place] [facility] Body weight 2022-05-04 17:31:00 83.915 kg Universi ty [facility] [place] [facility] BMI 2022-05-04 17:31:00 30.79 kg/m2 [facility]i ty [facility] [place] [facility] Systolic blood 2022-05-01 20:19:10 130 mm[Hg] Univer sity of pressure [place] [facility] Diastolic blood 2022-05-01 20:19:10 82 mm[Hg] Unive rsity of pressure [facility] Heart rate 2022-05-01 20:19:10 54 /min Universi ty of [place] [facility] Respiratory rate 2022-05-01 20:19:10 18 /min Univ ersity of [place] [facility] Oxygen saturation in 2022-05-01 20:19:10 98 /min University of Arterial blood by [facility] Pulse oximetry Branch Body temperature 2022-05-01 18:22:00 37.17 Lizeth [facility] ersity of [place] [facility] Body height 2022-05-01 18:22:00 165.1 cm Universi ty of [place] [facility] Body weight 2022-05-01 18:22:00 83.915 kg Universi ty [facility] [place] [facility] BMI 2022-05-01 18:22:00 30.79 kg/m2 [facility]i ty [facility] [place] [facility] Systolic blood 2021-08-18 20:09:00 114 mm[Hg] Univer sity of pressure [facility] Diastolic blood 2021-08-18 20:09:00 78 mm[Hg] Unive rsity of pressure [facility] Heart rate 2021-08-18 20:09:00 81 /min Universi ty of [place] [facility] Body temperature 2021-08-18 20:09:00 36.44 Lizeth [facility] ersity of [place] [facility] Respiratory rate 2021-08-18 20:09:00 20 /min [facility] ersity of [place] [facility] Body height 2021-08-18 20:09:00 165.1 cm Universi ty of [place] [facility] Body weight 2021-08-18 20:09:00 87.544 kg Universi ty [facility] [place] [facility] BMI 2021-08-18 20:09:00 32.12 kg/m2 [facility]i ty [facility] [place] [facility] Oxygen saturation in 2021-08-18 20:09:00 95 /min University of Arterial blood by [facility] Pulse oximetry Branch BP Systolic 2022-10-30 09:50:00 [...] Diastolic (mm Hg) 2021-09-29 20:30:00 Mem orial [place] Systolic (mm Hg) 2021-09-29 20:30:00 Ritesh rial [place] Temperature Oral (F) 2021-09-29 20:30:00 97.2 F [facility] Weight 2021-09-29 20:30:00 [facility] Diastolic (mm Hg) 2021-09-01 20:45:00 [facility] [place] Systolic (mm Hg) 2021-09-01 20:45:00 [facility] [place] Temperature Oral (F) 2021-09-01 20:45:00 95.7 F [facility] Weight 2021-09-01 20:45:00 [facility] [place] Systolic blood 2021-08-11 23:02:22 110 mm[Hg] [facility] pressure Diastolic blood 2021-08-11 23:02:22 62 mm[facility]Hg[facility] Heart rate 2021-08-11 23:02:22 102 /min [facility] Body temperature 2021-08-11 23:02:22 39 Lizeth [facility] Respiratory rate 2021-08-11 23:02:22 20 /min [facility] Oxygen saturation in 2021-08-11 23:02:22 96 /min [facility] Arterial blood by Pulse oximetry Body height 2021-07-29 19:00:00 165.1 cm [facility] Body weight 2021-07-29 12:56:00 90.266 kg [facility] BMI 2021-07-29 12:56:00 33.12 kg/m2 [facility] Procedures Procedure Date / Time Performing Clinician Source Performed XR CHEST 2 VW 2023-03-29 22:28:00 [facility] POCT TEST 2023-01-27 16:46:00 Loulou Ceja [facility] URINALYSIS 2023-01-27 16:44:00 Loulou Ceja [facility] CONSENT/REFUSAL FOR 2023-01-27 15:47:33 Doctor Unassigned, [facility] DIAGNOSIS AND TREATMENT [facility] [facility] LACTATE DEHYDROGENASE 2023-01-11 21:42:00 Bob Malave [facility] URINALYSIS 2023-01-11 21:42:[address] [facility] PROTHROMBIN TIME / INR 2023-01-10 16:17:00 Catalina Suarez [facility] LIPASE 2023-01-10 15:31:00 Catalina Suarez [facility] TEST, SERUM 2023-01-10 15:31:00 Catalina Suarez [facility] C-REACTIVE PROTEIN 2023-01-10 15:31:00 Catalina Suarez [facility] TROPONIN I 2023-01-10 15:31:00 Catalina Suarez [facility] COMP. METABOLIC PANEL 2023-01-10 15:31:00 Catalina Suarez [facility] ([id number]) [facility] SEDIMENTATION RATE 2023-01-10 15:31:00 Catalina Suarez [facility] CBC WITH DIFF 2023-01-10 15:31:00 Catalina Suarez [facility] N-TERMINAL PRO-BNP 2023-01-10 15:31:00 Catalina Suarez [facility] CONSENT/REFUSAL FOR 2023-01-10 15:05:29 Doctor [facility] DIAGNOSIS AND TREATMENT [place] [facility] INSURANCE CORRESPONDENCE 2022-12-13 06:01:00 Doctor Flores [facility] [place] URINALYSIS 2022-11-14 16:43:[address] [facility] COMP. METABOLIC PANEL 2022-11-14 16:17:00 Bob Malave [facility] ([id number]) Medical Branch SEDIMENTATION RATE 2022-11-14 16:17:00 Bob Malave [facility] CBC WITH DIFF 2022-11-14 16:17:[address] [facility] URINALYSIS 2022-05-04 18:36:00 Loulou Ceja [facility] POCT TEST 2022-05-04 18:36:00 Loulou Ceja [facility] COVID-19 (ID NOW RAPID 2022-05-04 18:36:00 Loulou Ceja [facility] TESTING) Medical Branch CONSENT/REFUSAL FOR 2022-05-04 17:21:59 Doctor Flores [facility] DIAGNOSIS AND TREATMENT [facility] [place] CT ANGIOGRAM HEAD 2022-05-01 19:58:00 Junito Lyons [facility] CT ANGIOGRAM NECK 2022-05-01 19:58[facility]AST 2022-05-01 19:55:00 Junito Lyons [facility] COMP. METABOLIC PANEL 2022-05-01 19:00:00 Junito Lyons [facility] ([id number]) Medical [place] CBC WITH DIFF 2022-05-01 19:00:00 Junito Lyons [facility] NOTICE OF PRIVACY 2022-05-01 18:02:43 Doctor Flores [facility] PRACTICES [facility] [place] CONSENT/REFUSAL FOR 2022-05-01 18:01:06 Doctor Flores [facility] DIAGNOSIS AND TREATMENT [facility] [place] CONSENT/REFUSAL FOR 2021-08-18 05:01:00 Doctor Mark [facility] DIAGNOSIS AND TREATMENT [place] [facility] TROPONIN 2021-08-11 23:57:00 Brooke Lora [facility] COMPREHENSIVE METABOLIC 2021-08-11 21:36:00 Brooke Lora [facility] PANEL [facility] HC COMPLETE BLD COUNT 2021-08-11 21:36:00 Brooke Lora [facility] W/AUTO DIFF [facility] TROPONIN 2021-08-11 21:36:00 [facility] 2021-08-11 21:36:00 Brooke Lora [facility] ECG 12-LEAD 2021-08-11 20:11:24 Brooke Lora [facility] XR CHEST 2 VW 2021-08-11 19:59:02 Brooke Lora [facility] RESPIRATORY PATHOGEN 2021-08-11 19:31:00 Lilli Sena [facility] PANEL WITH COVID-19 RT-PCR US DUPLEX VENOUS LOWER 2021-07-31 23:19:18 [facility] EXTREMITY BILATERAL THYROID STIMULATING 2021-07-30 16:28:00 [facility] HORMONE PHOSPHORUS LEVEL 2021-07-30 16:28:00 [facility] ospital BASIC METABOLIC PANEL 2021-07-30 10:19:00 [facility] HC COMPLETE BLD COUNT 2021-07-30 10:19:00 [facility] W/AUTO DIFF [facility] ESTIMATED GFR 2021-07-30 10:19:00 Joie Cano ospital [facility] COVID-19 ANTI-SPIKE IGG 2021-07-29 23:30:00 Joie Cano [facility] ANTIBODY TITER [facility] HEMOGLOBIN A1C 2021-07-29 23:30:00 Joie Cano [facility]ital [facility] LIPID PANEL 2021-07-29 23:30:00 Joie Cano [facility]ital [facility] COVID-19 SEROLOGY PATIENT 2021-07-29 23:30:00 Joie Cano [facility] SURVEILLANCE [facility] TROPONIN 2021-07-29 20:22:00 [facility] COVID-19 QUALITATIVE 2021-07-29 19:09:[address] [facility] RT-PCR HC COMPLETE BLD COUNT 2021-07-29 15:35:00 Ja Crow Rosmery [facility] W/AUTO DIFF B NATRIURETIC PEPTIDE 2021-07-29 15:35:00 Ja Crow [facility] XR CHEST 1 VW PORTABLE 2021-07-29 14:26:49 Ja Crow [facility] ECG 12-LEAD 2021-07-29 14:02:10 [facility] COMPREHENSIVE METABOLIC 2021-07-29 13:41:00 Ja Crow [facility] PANEL CREATINE KINASE, TOTAL 2021-07-29 13:41:00 Ja Crow [facility] ([facility]) TROPONIN 2021-07-29 13:41:00 Ja Crow ospital ESTIMATED GFR 2021-07-29 13:41:00 [facility] ED PRELIMINARY 2021-07-29 13:19[facility]12 [facility] Plan of Care Planned Activity Planned Date Details Comments Source Future Scheduled 2023-02-26 COVID-19 VACCINE [facility] Test 20:55:06 (#1) [code = COVID-19 VACCINE (#1)] Future Scheduled 2023-02-26 Hepatitis C [facility] ospital Test 20:55:06 screening (procedure) [code = 219465624] Future Scheduled 2023-02-26 Screening for [facility] Test 20:55:06 malignant neoplasm of cervix (procedure) [code = 124134506] Future Scheduled 2023-02-26 BREAST CANCER [facility] Test 20:55:06 SCREENING [code = BREAST CANCER SCREENING] Future Scheduled 2023-02-26 INFLUENZA VACCINE [facility] Test 20:55:06 [code = INFLUENZA VACCINE] Future Scheduled 2023-02-26 [facility] Test 20:55:06 (#1) [code = COVID-19 VACCINE (#1)] Future Scheduled 2023-02-26 [facility] 20:55:06 screening (procedure) [code = 119764005] Future Scheduled 2023-02-26 [facility] Test 20:55:06 malignant neoplasm of cervix (procedure) [code = 932184496] Future Scheduled 2023-02-26 BREAST CANCER [facility] Test 20:55:06 SCREENING [code = BREAST CANCER SCREENING] Future Scheduled 2023-02-26 INFLUENZA VACCINE [facility] Test 20:55:06 [code = INFLUENZA VACCINE] Future Scheduled 2022-12-19 [facility] 13:26[facility]53 (#1) [code = COVID-19 VACCINE (#1)] Future Scheduled 2022-12-19 [facility] Test 13:26:53 screening (procedure) [code = 547247741] Future Scheduled 2022-12-19 [facility] Test 13:26:53 malignant neoplasm of cervix (procedure) [code = 472993473] Future Scheduled 2022-12-19 BREAST CANCER [facility] Test 13:26:53 SCREENING [code = BREAST CANCER SCREENING] Future Scheduled 2022-12-19 IN[facility]ZA VACCINE [facility] Test 13:26:53 [code = INFLUENZA VACCINE] Future Scheduled 2022-07-29 [facility] B [facility] Test 03:56:12 VACCINES (1 of 3 - 3-dose series) [code = HEPATITIS B VACCINES (1 of 3 - 3-dose series)] Future Scheduled 2022-07-29 COVID-19 VACCINE [facility] Test 03:56:12 (#1) [code = COVID-19 VACCINE (#1)] Future Scheduled 2022-07-29 [facility] Test 03:56:12 screening (procedure) [code = 202539148] Future Scheduled 2022-07-29 [facility] Test 03:56:12 malignant neoplasm of cervix (procedure) [code = 451643742] Future Scheduled 2022-07-29 BREAST CANCER [facility] Test 03:56:12 SCREENING [code = BREAST CANCER SCREENING] Future Scheduled 2022-07-29 [facility]ZA VACCINE [facility] Test 03:56:12 [code = INFLUENZA VACCINE] Future Scheduled 2021-12-28 COVID-[address] [facility] Test 00:25:46 (1) [code = COVID-19 VACCINE (1)] Future Scheduled 2021-12-28 [facility] Test 00:25:46 screening (procedure) [code = 626870498] Future Scheduled 2021-12-28 [facility] Test 00:25:46 malignant neoplasm of cervix (procedure) [code = 991594384] Future Scheduled 2021-12-28 [facility]ZA [facility]ACCINE [facility] Test 00:25:46 [code = INFLUENZA VACCINE] Goal Plan of Care Note [code = 83170-7] Goal Plan of Care Note [code = 81821-6] Goal Plan of Care Note [code = 35814-2] Goal Plan of Care Note [code = 80178-4] Goal Plan of Care Note [code = 47901-4] Goal Plan of Care Note [code = 92508-8] Goal Plan of Care Note [code = 57728-0] Goal Plan of Care Note [code = 79580-5] Goal Plan of Care Note [code = 54414-1] Goal Plan of Care Note [code = 34104-4] Goal Plan of Care Note [code = 25638-3] Goal Plan of Care Note [code = 42945-9] Goal Plan of Care Note [code = 00332-0] Goal Plan of Care Note [code = 48258-7] Goal Plan of Care Note [code = 93263-0] Goal Plan of Care Note [code = 74118-9] Goal Plan of Care Note [code = 65590-5] Goal Plan of Care Note [code = 36421-3] Goal Plan of Care Note [code = 09320-0] Goal Plan of Care Note [code = 10737-0] Goal Plan of Care Note [code = 93236-6] Goal Plan of Care Note [code = 20625-2] Encounters Start End Encounter Admission Attending Care Care Encounter Source Date/Time Date/Time Type Type Clinicians Facility Department ID 2023-05-05 Outpatient [id number] [facility] 11:14:32 L8L6-7335 A1-4890-B99 6X7-4204- B l -M57E-967 F-71446NJ7O 99F-98390R Tremayne 93MH6K3R5 1F0 F4B1F0 2023-03-29 Outpatient 473V39M7- 180F97R8-PK 739A 69D7-D Memoria 15:36:10 TQ30-4499 77-4353-A25 Q39-8212- A l -N954-61I 6-91D06CL94 256-62C45E Tremayne 41SB75OH0 AE0 F52AE0 2023-03-06 Outpatient [id number]- [id number] 85E3 2662-1 Memoria 08:08:39 1531-436A 31-436A-BF0 531-436A- B l -PU2I-2P4 A-5J247241S J6C-2L8964 Tremayne 66724SF8N C4C 38CC4C 2023-01-29 Outpatient [id number]- [id number]-E4 9B77 59CE-C Memoria 08:23:26 V626-1KM9 01-9OO8-5V8 901-4FC8- 8 l -1R91-401 6-9049A418Q L84-1502H9 Tremayne [id number] 341 48L817 2023-01-27 Outpatient 3000H9D2- 4800U9A4-9D 4428 A4F6-0 Memoria 09:47:29 1N6R-45I9 1E-07U6-319 D4R-93U5- 8 l -833B-038 B-551512L85 33B-545878 Tremayne [id number] 161 G48663 2023-01-15 Outpatient 621CLP2D- 293WEN3P-9Q 375A DE4E-0 Memoria 08:02:01 3P9U-20QK 6F-48BF-B53 V4U-94BW- B l -G36R-7R5 C-6J39985SW 53C-8B2414 Tremayne 1597SIRD1 EB4 9CCEB4 2022-12-31 Outpatient 33I2Q7S6- 83K1B8R4-QG 26A7 D2B5-F Memoria 10:05:38 WU92-9950 31-4044-BE4 O64-4905- B l -ON15-21X 5-89Z44WV01 O27-69C37G Tremayne 69IM782J0 1B0 F541B0 2022-12-12 Outpatient C2EJL706- R1VMF314-68 A8EB F405-8 Memoria 15:39:31 86FA-4910 FA-4910-8FE 6FA-4910- 8 l -6OS8-X83 4-[id number] FE4-C16893 Tremayne 01833Z188 860 10P199 2022-11-14 Outpatient QJ75U244- XO25N718-S3 EE01 C763-A Memoria 09:07:55 W840-399H 80-482A-87A 980-482A- 8 l -67S0-G99 2-S78S46FH8 3X9-Z04A92 Tremayne H80LE070K 74B LG085W 2022-08-02 Outpatient 7321J428- 7508R594-Y2 5924 D224-E Memoria 14:52:24 E7LZ-7993 EC-4510-942 0EC-4510- 9 l -942B-891 B-5354A5P9T 42B-8916A6 Trem[place]ne 8V8N6I7W3 1D4 B7B1D4 2021-12-27 Outpatient S2YG83G6- Y9GK98L9-00 E4CA 35D9-5 Memoria 22:08:10 83R0-08V7 F9-89F8-7Z5 7Z7-56Y9- 9 l -1M1Z-0UV B-7AT5ID7M3 A1Z-7LL7RE T[place]ne 9MP4E4NM0 FE8 3C4FE8 2021-09-25 Emergency [facility] [id number] Univers 16:53:51 [facility] 2021-09-24 Outpatient Amirah VANEGAS [facility] CINDI [id number] Univers 18:42:24 MICHAEL [facility] 2021-09-24 Emergency [facility] [id number] Univers 05:40:28 [facility] 2023-04-30 2023-04-30 Outpatient R ROBBIN [facility] [id number] Univers 10:00:00 10:00:00 HARITHA marcelino [facility] 2023-04-26 2023-04-26 Outpatient R JAYLYN NOLASCO [facility] [id number] Univers 09:00:00 09:00:00 JAYLYN NOLASCO i ty [facility] 2023-04-24 2023-04-24 [facility] [id number] Univers 08:00:00 08:00:00 SARA ulrich [facility] 2023-04-16 2023-04-16 Outpatient [facility] [id number] Univers 14:20:00 14:20:00 SARA ulrich [facility] 2023-04-16 2023-04-16 [facility]phone [facility] 1.2.465.360 [id number] Univers 00:00:00 00:00:00 [facility] 350.1.13.10 it [facility] 4.2.7.2.686 [place] KARAN?BLEA [id number] De dical KNEY [address] [place] MEDICAL OFFICE BUILDING 2023-03-29 2023-03-29 Hospital [facility] 1.2.840.114 [id number] Univers 16:34:53 23:59:00 Encounter Sara KNIGHT 350.1.13.10 ity of [facility] 4.2.7.2.[place] [id number] [facility] [address] [place] 2023-03-29 2023-03-29 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, 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 [facility] 1.2.8 40.114 [id number] Univers 17:00:00 17:15:00 Visit Sara Calvo 350.1.13.10 ity of [place].2.7.2.686 [place] [facility] [id number] De dical NAL [address] BUILDING 2023-03-29 2023-03-29 Outpatient [facility] [id number] Univers 17:00:00 17:00:00 SARA sánchezgael o torito [facility] 2023-03-29 2023-03-29 Office [facility] 1.2.840.114 [id number] Univers 15:40:00 16:22:21 Visit Sara KNIGHT 350.1.13.10 ity of [place] 4.2.7.2.[place] [id number] De dic[address] 2023-03-29 2023-03-29 Patient [facility] 1.2.840.114 [id number] Univers 00:00:00 00:00:00 Secure Msg Sara KNIGHT 350.1.13.10 ity of [place] 4.2.7.2.[place] [id number] [address] 2023-03-28 2023-03-28 Telephone [facility] 1.2.610.915 [id number] Univers 00:00:00 00:00:00 Qiajaylincandace IRMATON 350.1.13.10 ity of [place] 4.2.7.2.[place] [id number] [address] 2023-03-06 2023-03-06 Outpatient [facility] [id number]- 202 Tutu 08:08:32 08:08:32 97076 F Dwight 2023-02-02 2023-02-02 Telephone [facility] 1.2.595.131 [id number] Univers 00:00:00 00:00:00 Aaron HEALTH 350.1.13.10 it y of [place] 4.2.7.2.686 [place] as KARAN?BLEA [id number] [facility] JULIO [address] [place] [address] 2023-01-31 2023-01-31 Patient [facility] 1.2.840.114 [id number] Univers 00:00:00 00:00:00 Secure Msg Aaron HEALTH 350.1.13.10 ity of [place] 4.2.7.2.686 [place] KARAN?BLEA [id number] [facility] JAMEL[address] 2023-01-30 2023-01-30 Outpatient [facility] [id number] Univers 14:40:00 14:40:00 SARA ity o f [facility] 2023-01-29 2023-01-29 Outpatient R MANANAutumn [facility] [id number] Univers 08:30:00 09:32:49 LAURA itgael of [facility] 2023-01-29 2023-01-29 Office [facility] 1.2.840.114 [id number] Univers 08:30:00 09:32:49 Visit Laura [facility] 350.1.13.10 it y of [place] 4.2.7.2.686 [place] as KARAN?BLEA [id number] De dical JULIO [address] [place] [address] MEDICAL OFFICE BUILDING 2023-01-27 2023-01-27 Emergency X [facility] ERT [id number] Univers 09:56:00 12:55:00 LOULOU sánchezy [facility] 2023-01-27 2023-01-27 Emergency [facility] 1.2.525.448 [id number] Univers 09:56:00 12:55:00 Loulou KNIGHT 350.1.13.10 ity of [facility] 4.2.7.2.686 [place] C[place] [id number] [facility] blanca [address] [place] 2023-01-22 2023-01-22 Patient [facility] 1.2.840.114 [id number] Univers 00:00:00 00:00:00 Secure Msg Bob Go PRIMARY 350.1.13.10 ity of C[place] 4.2.7.2.686 [place] [id number] De dical [address] [place] 2023-01-22 2023-01-22 Patient Frieda, [facility] 1.2.840.114 [id number] Univers 00:00:00 00:00:00 Secure Msg Bob Go PRIMARY 350.1.13.10 ity of C[place] 4.2.7.2.686 [place] [phone] De dical [address] 2023-01-15 2023-01-15 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 2, Adc Lab [facility] 1.2.840.114 [id number] Univers 08:00:00 08:15:00 Visit Bob [facility] 350.1.13.1 0 ity of [place] 4.2.7.2.686 [place] [id number] De dical NAL 353 [facility] 2023-01-15 2023-01-15 Outpatient R FRIEDA [facility] [id number] Univers 08:00:00 08:00:00 BOB ity of [facility] 2023-01-15 2023-01-15 Telephone [facility] 1.2.840.114 [id number] Univers 00:00:00 00:00:00 Bob Go PRIMARY 350.1.13.10 ity of C[place] 4.2.7.2.[place] [id number] De dical [address] [place] [address] 2023-01-11 2023-01-11 Outpatient R UMESH [facility] [id number] Univers 15:30:00 15:47:20 SARA marcelino o f [facility] 2023-01-11 2023-01-11 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 2, Adc Lab [facility] 1.2.840.114 [id number] Univers 15:30:00 15:47:20 Visit Sara Calvo 350.1.13.10 ity of [place] 4.2.7.2.686 [place] [id number] De dical NAL 353 [facility] 2023-01-11 2023-01-11 Office [facility] 1.2.840.114 [id number] Univers 15:00:00 15:16:06 Visit Sara KNIGHT 350.1.13.10 ity of [place] 4.2.7.2.686 [place] [id number] De dical NAL 059 [facility] 2023-01-11 2023-01-11 Telephone [facility] 1.2.840.114 [id number] Univers 00:00:00 00:00:00 Bob Go MULTISPEC 350.1.13.10 ity of [place] 4.2.7.2.686 [place] CENTER [id number] Alissa rios AND ANGELO [address] [place] [address] [facility] 2023-01-11 2023-01-11 Patient [facility] 1.2.840.114 [id number] Univers 00:00:00 00:00:00 Secure Msg Bob Go PRIMARY 350.1.13.10 ity of C[place] 4.2.7.2.[place] [id number] De dical [address] [place] [address] 2023-01-10 2023-01-10 Emergency X SUAREZ, [facility] ERT [id number] Univers 09:08:00 13:29:00 CATALINA ity of [facility] 2023-01-10 2023-01-10 Emergency Suarez, TRAUMA 1.2.118.071 [id number] Univers 09:08:00 13:29:00 Catalina T CENTER 350.1.13.10 ity of 4.2.7.2.686 [place] [id number] [address] 2023-01-10 2023-01-10 Outpatient [facility] [id number] Univers 08:00:00 08:35:55 BOB ity of [facility] 2023-01-10 2023-01-10 Office [facility] 1.2.840.114 [id number] Univers 08:00:00 08:35:55 Visit Bob Go PRIMARY 350.1.13.10 ity of CARE 4.2.7.2.686 [place] [id number] De dic[address] 2023-01-09 2023-01-09 Outpatient R JEROD [facility] [id number] Univers 11:15:00 11:15:00 SWEETIE ity of [facility] 2023-01-04 2023-01-04 Patient [facility] 1.2.840.114 [id number] Univers 00:00:00 00:00:00 Secure Msg Aaron HEALTH 350.1.13.10 ity of [place] 4.2.7.2.686 [place] as KARAN?BLEA [id number] De dical [address] MEDICAL OFFICE BUILDING 2023-01-02 2023-01-02 Patient [facility] 1.2.840.114 [id number] Univers 00:00:00 00:00:00 Secure Msg Aaron HEALTH 350.1.13.10 ity of [place] 4.2.7.2.686 [place] as KARAN?BLEA [phone] Me dical KNEY [address] [place] MEDICAL OFFICE [facility] 2023-01-02 2023-01-02 Telephone Frieda [facility] 1.2.840.114 [id number] Univers 00:00:00 00:00:00 Bob Go PRIMARY 350.1.13.10 ity of [place] 4.2.7.2.686 [place] [id number] De dical [address] [place] 2022-12-21 2022-12-21 Telephone RICKY Malave 1.2.840.114 [id number] Univers 00:00:00 00:00:00 Bob Go ZACHARY 350.1.13.10 ity of HOSPITAL 4.2.7.2.686 [place] as [id number] [facility] [address] [place] 2022-12-20 2022-12-20 Ancillary Porsche Asencio [facility] 1 .2.840.114 [id number] Univers 08:00:00 08:45:00 Visit Rey Foster 350.1.13.10 ity of [place] 4.2.7.2.686 [place] [id number] De dical NAL 179 [facility] 2022-12-20 2022-12-20 Outpatient Amirah FOSTER [facility] [id number] Univers 08:00:00 08:00:00 REY marcelino [facility] 2022-12-19 2022-12-19 Outpatient Amirah FOSTER [facility] [id number] Univers 13:45:00 13:45:00 REY marcelino [facility] 2022-12-13 2022-12-13 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 Lab, Ang - Db [facility] 1.2.840.1 14 [id number] Univers 07:30:00 07:45:00 Visit Aaron Duncan 350.1.13.10 ity of [place] 4.2.7.2.686 [place] as KARAN?BLEA [id number] De dical KNEY 353 [facility] 2022-12-13 2022-12-13 Outpatient Amirah DUNCAN [facility] [id number] Univers 07:30:00 07:30:00 AARON marcelino [facility] 2022-12-13 2022-12-13 Orders Doctor RICKY 1.2.840.114 [id number] Univers 00:00:00 00:00:00 Only Unassigned, ZACHARY 350.1.13.10 ity of [place] [facility] 4.2.7.2.686 [place] as [id number] [address] 2022-12-12 2022-12-12 Office Dakota [facility] 1.2.840.114 [id number] Univers 16:00:00 16:30:00 Visit Aaron [facility] 350.1.13.10 it y of [place] 4.2.7.2.686 [place] as KARAN?BLEA [id number] De bharath[address] [facility]ICE [facility] 2022-12-12 2022-12-12 Outpatient R DAKOTA [facility] [id number] Univers 16:00:00 16:00:00 AARON marcelino [facility] 2022-12-06 2022-12-06 Outpatient R HIGINIO [facility] [id number] Univers 15:45:00 15:45:00 , MICHELLE kayode mayo [facility] 2022-12-05 2022-12-05 Outpatient R JEROD [facility] [id number] Univers 09:15:00 09:15:00 SWEETIE chari [facility] 2022-12-04 2022-12-04 Outpatient R KRISTIN [facility] [id number] Univers 08:45:00 08:45:00 REY chari [facility] 2022-11-14 2022-11-14 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 [facility] 1.2.840.114 [id number] Univers 10:00:00 10:15:00 Visit Bob Malave 350.1.13.10 ity of [facility] 4.2.7.2.686 [place] damaris IRVIN [phone] De nicky [address] [place] [address] 2022-11-14 2022-11-14 Outpatient R FRIEDA [facility] [id number] Univers 09:30:00 10:00:46 BOB marcelino [facility] 2022-11-14 2022-11-14 [facility] 1.2.840.114 [id number] Univers 09:30:00 10:00:46 Visit Bob Go PRIMARY 350.1.13.10 ity of C[place] 4.2.7.2.686 [place] [id number] De nicky Huggins [place] 2022-10-30 2022-10-30 Outpatient [facility] [id number] Tutu 09:00:46 09:00:46 27100 F Dwight 2022-10-30 2022-10-30 Outpatient c1h343r5- [id number] b2 g213b7-5 00:00:00 00:00:00 Visit 3u70-0427 q55-3563-g -d7a2-7e5 3t6-1v1687 5587257ch 7510bb 2022-08-17 2022-08-17 Telephone [facility] 1.2.840.114 [id number] Univers 00:00:00 00:00:00 Bob Go PRIMARY 350.1.13.10 ity of [place]2.[place].2.[place] [id number] [address] 2022-08-17 2022-08-17 Telephone [facility] 12.840.114 [id number] Univers 00:00:00 00:00:00 Ana PRIMARY 350.1.13.10 it y of [place] 4.2.7.2.686 [place] [id number] [address] 2022-08-17 2022-08-17 Telephone [facility] 12.840.114 [id number] Univers 00:00:00 00:00:00 Bob Go PRIMARY 350.1.13.10 ity of [place] 4[place]2.7.2.[place] [id number] De bharath[address] 2022-08-02 2022-08-02 Outpatient 24m794s8- [id number] z633d8-3 00:00:00 00:00:00 Visit 235b-4ef7 35b-4ef7-b -ql25-761 z09-407762 624uby618 uzu352 2022-05-04 2022-05-04 Emergency X [facility] ERT [id number] Univers 12:32:00 15:11:00 LOULOU marcelino [facility] 2022-05-04 2022-05-04 [facility] 1.2.085.930 [id number] Univers 12:32:00 15:11:00 Loulou SOLISERIC 350.1.13.10 ity [facility] 4.2.7.2.686 [facility] [id number] [facility] [address] 2022-05-01 2022-05-01 Emergency [facility] [id number] Univers 13:24:00 15:41:00 JUNITO [facility] 2022-05-01 2022-05-01 Emergency [facility] 1.2.686.035 [id number] Univers 13:24:00 15:41:00 Junito KNIGHT 350.1.13.10 i ty [facility] 4.2.7.2.686 [facility] [id number] [facility] [address] 2022-05-01 2022-05-01 Orders Doctor RICKY 1.2.840.114 [id number] Univers 00:00:00 00:00:00 Only Unassigned, ZACHARY 350.1.13.10 ity of [place] [facility] 4.2.7.2.686 [facility] [place] [id number] [facility] [address] 2021-11-15 2021-11-15 Outpatient [facility] [id number] Univers 09:20:00 09:20:00 BOB gael [facility] 2021-09-30 2021-09-30 Outpatient [facility] [id number] Memoria 10:08:00 10:08:00 Rheumatol Rheumatolog l ogy y [facility] 2021-09-29 2021-09-29 Outpatient [facility] [id number] Memoria 14:30:00 14:30:00 Rheumatol Rheumatolog l ogy y [facility] 2021-09-14 2021-09-14 Outpatient [facility] [id number] Memoria 10:00:00 10:00:00 Rheumatol Rheumatolog l ogy y [facility] 2021-09-05 2021-09-05 Outpatient [facility] [id number] Memoria 10:27:00 10:27:00 Rheumatol Rheumatolog l ogy y [facility] 2021-09-05 2021-09-05 Outpatient [facility] PENFHMS CXK [facility] 00:00:00 00:00:00 BGDPW-2021 0103 2021-09-01 2021-09-01 Outpatient [facility] [id number] Memoria 14:45:00 14:45:00 Rheumatol Rheumatolog l ogy y [facility] 2021-08-18 2021-08-18 Outpatient R TONY, [facility] [id number] Univers 16:00:00 16:00:00 HECTOR marcelino [facility] 2021-08-18 2021-08-18 Nurse Therapy, Adc Covid Infusion [facility] 1.2.840.114 [id number] Univers 13:26:02 14:26:02 Visit Hector Jimenez 350.1.13.10 ity of [place] 4.2.7.2.686 [place] [id number] [facility] [address] 2021-08-18 2021-08-18 Orders Doctor GARCÍA 1.2.840.114 [id number] Univers 00:00:00 00:00:00 Only Unassigned, ZACHARY 350.1.13.10 ity of [place] [facility] 4.2.7.2.686 [place] as [id number] [facility] [address] 2021-08-17 2021-08-17 [facility]ill [facility] 1.2.840.114 [id number] Univers 00:00:00 00:00:00 Bob PALACIO 350.1.13.10 ity of [place] 4[place]2.7.2.[place] [id number] De dical [address] 2021-08-16 2021-08-16 Office [place], [facility] 1.2.840.114 [id number] Univers 14:25:25 15:10:31 Visit GhassanPurplu Autumn Trendlr 350.1.13.10 ity of [place] 4.2.7.2.686 [place] as Karan?Blea [phone] De dical [facility] [address] [place] Medical Office [facility] 2021-08-16 2021-08-16 Laboratory Only, Pcp Test [facility] 1.2.840. 114 [id number] Univers 10:01:15 10:16:15 Only RicaAllen H PRIMARY 350.1.13.10 ity of C[place] 4[place]2.7.2.[place] 241.0076992 De dical [address] [place] 2021-08-16 2021-08-16 Laboratory Only, Pcp Test [facility] 1.2.840. 114 [id number] [facility] 10:01:15 10:16:15 Only Slippery RockAllen H PRIMARY 350.1.13.10 ity of C[place] 4.2.7.2.[place] [id number] De dical [address] [place] [address] 2021-08-16 2021-08-16 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 [facility] 1.2.840.114 [id number] Univers 09:49:39 10:04:39 Visit Bob Malave PRIMARY 350.1.13.10 ity of CARE 4.2.7.2.686 [place] [id number] De dical [address] [place] [address] 2021-08-16 2021-08-16 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 [facility] 1.2.840.114 [id number] Univers 09:49:39 10:04:39 Visit Bob Malave PRIMARY 350.1.13.10 ity of C[place] 4.2.7.2.686 [place] 103.0109438 De dical [address] [place] 2021-08-16 2021-08-16 Office Frieda [facility] 1.2.840.114 [id number] Univers 09:12:20 09:49:47 Visit Bob Go PRIMARY 350.1.13.10 ity of C[place] 4.2.7.2.686 [place] [id number] De dical [address] 2021-08-16 2021-08-16 Outpatient R FRIEDA, [facility] [id number] Univers 09:20:00 09:20:00 BOB [facility] 2021-08-11 2021-08-11 Emergency James Mcknight 1.2.840.1 [id number] Methodi 14:48:00 18:10:[address] 3.430.2.7 Hospit a .3.310576 l .8 2021-07-29 2021-07-31 Hospital Ja CrowRosmery 1.2.840.1 [id number] Methodi 07:58:00 19:05:00 Encounter Isa Dumas [address]60.1.[address] [facility], Christianusha Amod 3.430.2.7 [facility] .3.010382 l .8 2021-07-13 2021-07-13 Outpatient R FINN BROOKS [facility] 023 [id number] Univers 15:30:00 15:30:00 [facility] 2021-07-04 2021-07-04 [facility] [id number] Univers 13:30:00 13:30:00 BOB [facility] 2021-07-04 2021-07-04 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, 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 [facility] 1.2.8 40.114 [id number] Univers 13:13:33 13:28:33 Visit Bob Malave 350.1.13.1 0 ity of [place] 4.2.7.2.686 [place] Profess[place] [id number] De dical nal [address] [facility] 2021-07-04 2021-07-04 Orders Doctor RICKY 1.2.840.114 [id number] Univers 00:00:00 00:00:00 Only Unassigned, ZACHARY 350.1.13.10 ity of [place] [facility] 4.2.7.2.686 [place] as [id number] [place] [address] [address] 2021-07-04 2021-07-04 Patient Doctor [facility] 1.2.840.114 [id number] Univers 00:00:00 00:00:00 Secure Msg Unassigned, PRIMARY 350.1.13.10 ity of [place].2.[place] [phone] De dical [address] 2021-06-22 2021-06-22 Patient RICKY Malave 1.2.840.114 [id number] Univers 00:00:00 00:00:00 Secure Msg Bob SHARMA 350.1.13.10 ity of [facility] 4.2.7.2.686 [place] as [phone] [facility] [address] [place] 2021-06-21 2021-06-21 Patient RICKY Malave 1.2.840.114 [id number] Univers 00:00:00 00:00:00 Secure Msg Bob SHARMA 350.1.13.10 ity of [facility] 4.2.7.2.686 [place] [phone] [facility] [address] [place] 2021-06-20 2021-06-20 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, Adc Lab Main [facility] 1.2.8 40.114 [id number] Univers 13:47:20 14:02:20 Visit Bob Malave Otto 350.1.13.1 0 ity [facility] [place] [phone] De dical nal 353 [facility] 2021-06-20 2021-06-20 Outpatient R FRIEDA [facility] [id number] Univers 13:45:00 13:45:00 BOB ity of [facility] 2021-06-20 2021-06-20 [facility] 1.2.840.114 [id number] Univers 00:00:00 00:00:00 Bob Go PRIMARY 350.1.13.10 [place] [phone] De dical [address] 2021-06-17 2021-06-17 Patient Frieda [facility] 1.2.840.114 [id number] Univers 00:00:00 00:00:00 Secure Msg Bob Go MULTISPEC 350.1.13.10 [place] [id number] [address] [facility] 2021-06-16 2021-06-16 Outpatient R FINN BROOKS [facility] [id number] Univers 09:45:00 09:45:00 ity of [facility] 2021-06-15 2021-06-15 Orders Doctor RICKY 1.2.840.114 [id number] Univers 00:00:00 00:00:00 Only Unassigned, ZACHARY 350.1.13.10 ity of [facility] [facility] 4.2.7.2.686 [place] [phone] [address] 2021-05-24 2021-05-24 Telephone Frieda [facility] 1.2.840.114 [id number] Univers 00:00:00 00:00:00 Bob Go MULTISPEC 350.1.13.10 [place] [phone] [address] [facility] 2021-05-24 2021-05-24 Patient Doctor [facility] 1.2.840.114 [id number] Univers 00:00:00 00:00:00 Secure Msg Unassigned, MULTISPEC 350.1.13.10 [place]y of [place] [phone] [facility] [address] [place] [facility] 2021-05-11 2021-05-11 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 [facility] 1.2.840.114 [id number] Univers 10:41:48 10:56:48 Visit Bob Malave PRIMARY 350.1.13.10 [place]2.[place] [phone] [address] 2021-05-11 2021-05-11 Office Frieda [facility] 1.2.840.114 [id number] Univers 09:29:38 10:38:59 Visit Bob Go PRIMARY 350.1.13.10 [place] [phone] De dicdillon [address] [place] 2021-05-11 2021-05-11 Outpatient R FRIEDA [facility] [id number] Univers 09:40:00 09:40:00 BOB chari [facility] 2021-05-05 2021-05-05 [facility] 1.2.840.114 [id number] Univers 14:39:52 15:52:13 Visit [facility] 350.1.13.10 it y of [place] 4.2.7.2.686 [place] Professio [phone] [address] Office [facility] 2021-05-05 2021-05-05 Outpatient R DAKOTA [facility] [id number] Univers 15:00:00 15:00:00 AARON marcelino [facility] 2021-04-18 2021-04-18 Outpatient R UMESH [facility] [id number] Univers 10:40:00 10:40:00 SARA marcelino o f [facility] 2021-04-05 2021-04-05 [facility] 1.2.840.114 [id number] Univers 00:00:00 00:00:00 Secure Msg Wondiful A Health 350.1.13.10 ity of [place] 4.2.7.2.686 [place] as Professio [phone] [address] Office [facility] One 2021-03-30 2021-03-30 Case [facility] 1.2.840.114 [id number] Univers 00:00:00 00:00:00 Management Wondiful A Health 350.1.13.10 ity of [place] 4.2.7.2.686 Glibert as Professio [phone] [address] Office Building One 2021-03-29 2021-03-29 Hospital [facility] 1.2.883.430 [id number] Univers 17:24:09 23:59:00 Encounter Wondiful A [place] 350.1.13.10 ity of [place] [phone] [facility] [address] [place] 2021-03-29 2021-03-29 Emergency [facility] 1.2.060.622 [id number] Univers 07:38:00 11:58:00 Jeffrey [place] 350.1.13.10 i ty of [place] 4.2.7.2.[place] [phone] [facility] [address] [place] 2021-03-29 2021-03-29 Outpatient R XIANG [facility] [id number] Univers 00:00:00 00:00:00 WONDIFUL ity o f [facility] 2021-03-29 2021-03-29 Orders Doctor RICKY 1.2.840.114 [id number] Univers 00:00:00 00:00:00 Only Unassigned, ZACHARY 350.1.13.10 ity of [place] [facility] 4.2.7.2.686 [place] as [phone] [facility] [address] [place] 2021-03-23 2021-03-23 Patient Xiang [facility] 1.2.840.114 [id number] Univers 00:00:00 00:00:00 Secure Msg Wondiful A Health 350.1.13.10 ity of [place] 4.2.7.2.686 [place] as Professio [phone] De dical nal [address] [place] Office Building One 2021-03-21 2021-03-21 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, 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 [facility] 1.2.8 40.114 [id number] Univers 17:03:07 17:18:07 Visit Curt Otoole 350.1.13. 10 ity of [place].7.2.[place] [phone] De dical nal 353 [facility] 2021-03-21 2021-03-21 Office Xiang [facility] 1.2.840.114 [id number] Univers 16:09:05 17:07:10 Visit Ciriloarabella A Health 350.1.13.10 ity of [place] 4.2.7.2.686 [place] as Professio [phone] [facility] [address] [place] Office Building One 2021-03-21 2021-03-21 Outpatient R XIANG [facility] [id number] Univers 16:15:00 16:15:00 WONDIFUL ity o f [facility] 2021-03-09 2021-03-09 Office PATRICK SorensonKAYODE 1.2.580.073 [id number] Univers 10:10:25 11:31:17 Visit Myra Mayo 350.1.13.10 i ty of [place] 4.2.7.2.686 [place] as BANK [phone] [facility] BLDG. [address] 2021-03-09 2021-03-09 [facility] [id number] Univers 10:15:00 10:15:00 MYRA ity o f [facility] 2021-03-09 2021-03-09 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 [facility] 1.2.840.114 [id number] Univers 09:42:13 09:57:13 Visit Bob Malave PRIMARY 350.1.13.10 ity of [place] 4[place]2.7.2.[place] [phone] De dical [address] [place] 2021-03-09 2021-03-09 Office Frieda [facility] 1.2.840.114 [id number] [facility] 08:42:13 09:45:23 Visit Bob Go PRIMARY 350.1.13.10 ity of C[place] 4.2.7.2.[place] [phone] De dical [address] [place] 2021-03-09 2021-03-09 Letter [facility] 1.2.840.114 [id number] Univers 00:00:00 00:00:00 (Out) Bob Go PRIMARY 350.1.13.10 ity of [place] 4.2.7.2.[place] [phone] De dical [address] [place] 2021-03-09 2021-03-09 Orders Doctor RICKY 1.2.840.114 [id number] Univers 00:00:00 00:00:00 Only Unassigned, ZACHARY 350.1.13.10 ity of [place] [facility] 4.2.7.2.686 [place] as [phone] [facility] [address] 2021-03-09 2021-03-09 Patient Xiang [facility] 1.2.840.114 [id number] Univers 00:00:00 00:00:00 Secure Msg Ghassanful A Health 350.1.13.10 ity of [place] 4.2.7.2.686 [place] as Professio [phone] De dical nal [address] [place] Office Building One 2021-03-03 2021-03-03 Patient Frieda [facility] 1.2.840.114 [id number] Univers 00:00:00 00:00:00 Secure Msg Bob Go PRIMARY 350.1.13.10 ity of [place] 4.2.7.2.[place] [phone] De dical [address] [place] 2021-03-03 2021-03-03 Patient Frieda [facility] 1.2.840.114 [id number] Univers 00:00:00 00:00:00 Secure Msg oBb Go PRIMARY 350.1.13.10 ity of [place] 4.2.7.2.[place] [phone] De dical [address] [place] 2021-02-23 2021-02-23 Telephone Frieda [facility] 1.2.840.114 [id number] Univers 00:00:00 00:00:00 Bob Go MULTISPEC 350.1.13.10 ity of [place]2.7.2.[place] [phone] Alissa rios AND ANGELO [address] [place] [facility] 2021-02-22 2021-02-22 Outpatient R LO [facility] [id number] Univers 10:40:00 10:40:00 [facility] 2021-[facility]-10 2021-02-10 Outpatient R [facility] [id number] Univers 09:00:00 09:00:00 ity [facility] 2021-02-10 2021-02-10 Outpatient [facility] [id number] Univers 09:00:00 09:00:00 SENDIL [facility] 2021-02-10 2021-02-10 [facility] 1.2.840.114 [id number] Univers 00:00:00 00:00:00 (Out) Sara Knight 350.1.13.10 ity of [place] 4.2.7.2.[place] [phone] De dical nal 059 [facility] 2021-02-04 2021-02-04 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, 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 [facility] 1.2.8 40.114 [id number] Univers 12:28:31 12:43:31 Visit Bob Malave 350.1.13.1 0 ity of [place] 4.2.7.2.[place] [phone] De dical nal 353 [facility] 2021-02-04 2021-02-04 Outpatient R FRIEDA [facility] [id number] Univers 07:45:00 07:45:00 BOB itgael of [facility] 2021-02-03 2021-02-03 Patient Frieda, [facility] 1.2.840.114 [id number] Univers 00:00:00 00:00:00 Secure Msg Bob Go PRIMARY 350.1.13.10 ity of C[place] 4[place]2.7.2.[place] [phone] De dicmn [address] [place] [address] 2021-02-03 2021-02-03 Patient Frieda [facility] 1.2.840.114 [id number] Univers 00:00:00 00:00:00 Secure g Bob Go PRIMARY 350.1.13.10 ity of C[place] 4.2.7.2.[place] [phone] De dical [address] [place] [address] 2021-02-03 2021-02-03 Patient Frieda [facility] 1.2.840.114 [id number] Univers 00:00:00 00:00:00 Secure Msg Bob Go PRIMARY 350.1.13.10 ity of C[place] 4.2.7.2.[place] [phone] De dicmn [address] [place] [address] 2021-02-03 2021-02-03 Patient Xiang [facility] 1.2.840.114 [id number] Univers 00:00:00 00:00:00 Secure Msg Ghassanful A Health 350.1.13.10 ity of [place] 4.2.7.2.686 [place] as Professio [phone] De bharathmn nal [address] [place] Office [facility] One 2021-02-03 2021-02-03 Telephone [facility] 1.2.840.114 [id number] Univers 00:00:00 00:00:00 Bob Go MULTISPEC 350.1.13.10 ity of [place]2.[place] [phone] [facility] AND ANGELO [address] [place] [facility] 2021-02-02 2021-02-02 Telephone [facility] 1.2.840.114 [id number] Univers 00:00:00 00:00:00 Bob Go PRIMARY 350.1.13.10 ity of C[place] 4.2.7.2.[place] [phone] De dicdillon [address] [place] 2021-01-26 2021-01-26 Patient [facility] 1.2.840.114 [id number] Univers 00:00:00 00:00:00 Secure g Bob Go PRIMARY 350.1.13.10 ity of [place] 4.2.7.2.[place] [phone] De dicmn [address] [place] 2021-01-25 2021-01-25 Patient [facility] 1.2.840.114 [id number] Univers 00:00:00 00:00:00 Secure Msg Bob Go PRIMARY 350.1.13.10 ity of C[place] 4.2.7.2.[place] [phone] De dicmn [address] [place] 2021-01-20 2021-01-20 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, Adc Lab Main [facility] 1.2.8 40.114 [id number] Univers 10:30:27 10:45:27 Visit Sara Calvo 350.1.13.10 ity of [place] 4.2.7.2.[place] [phone] De dical nal 353 [facility] 2021-01-17 2021-01-17 Office [facility] 1.2.840.114 [id number] Univers 09:45:59 10:17:51 Visit Sara Knight 350.1.13.10 ity of [place] 4.2.7.2.[place] [phone] De dical nal 059 [facility] 2021-01-17 2021-01-17 Outpatient [facility] [id number] Univers 09:40:00 09:40:00 SARA marcelino o f [facility] 2021-01-17 2021-01-17 Orders Doctor GARCÍA 1.2.840.114 [id number] Univers 00:00:00 00:00:00 Only Unassigned, ZACHARY 350.1.13.10 ity of [place] [facility] 4.2.7.2.686 [place] as [phone] [facility] [address] 2021-01-17 2021-01-17 Refill [facility] 1.2.840.114 [id number] Univers 00:00:00 00:00:00 Bob Go PRIMARY 350.1.13.10 ity of C[place] 4.2.7.2.[place] [phone] De dical [address] [place] 2021-01-15 2021-01-15 Patient Frieda, [facility] 1.2.840.114 [id number] Univers 00:00:00 00:00:00 Secure Msg Bob PALACIO 350.1.13.10 ity of C[place] 4.2.7.2.[place] [phone] De dical [address] [place] 2020-12-31 2020-12-31 Patient Umesh, [facility] 1.2.840.114 [id number] Univers 00:00:00 00:00:00 Secure Msg Sara [place] 350.1.13.10 ity of [place] 4.2.7.2.686 [place] [phone] De dical nal 059 [facility] 2020-12-27 2020-12-27 Telephone [facility] 1.2.840.114 [id number] Univers 00:00:00 00:00:00 Wondiful A Health 350.1.13.10 ity of [place] 4.2.7.2.686 [place] as Professio [phone] De dicmn nal [address] [place] Office Building One 2020-12-27 2020-12-27 Telephone [facility] 1.2.253.260 [id number] Univers 00:00:00 00:00:00 Hamzah-Mariza SPECIALTY 350.1.13.10 ity of [place] C[place] 4.2.[place].2.[place] AT [phone] De dical MEI 2 [facility] 2020-12-27 2020-12-27 Patient Sen, [facility] 1.2.932.898 [id number] Univers 00:00:00 00:00:00 Secure Msg Elisa Y HEALTH 350.1.13.10 ity of CLINICS 4.2.7.2.[place] [phone] [facility] [address] [place] 2020-12-26 2020-12-26 Case Danna, [facility] 1.2.840.114 [id number] Univers 00:00:00 00:00:00 Management Hamzah-Mariza SPECIALTY 350.1.13.10 ity of [place] C[place] 4.2.7.2.[place] C[place] AT [phone] De dical MEI 072 [facility] 2020-12-24 2020-12-24 Patient Frieda, [facility] 1.2.840.114 [id number] Univers 00:00:00 00:00:00 Secure Msg Bob Go MULTISPEC 350.1.13.10 ity of [place] 4[place]2.7.2.686 [place] PALMS [phone] [facility] AND [address] [facility] 2020-12-24 2020-12-24 Patient Frieda, [facility] 1.2.840.114 [id number] Univers 00:00:00 00:00:00 Secure Msg Bob Abbi MULTISPEC 350.1.13.10 ity of [place] 4[place]2.7.2.686 [place] PALMS [phone] [facility] AND [address] [facility] 2020-12-23 2020-12-23 Hospital Guilherme [facility] 1.2.840.114 [id number] Univers 11:03:00 12:50:00 Encounter Michael YING 350.1.13.10 ity of SCIENCES 4.2.7.2.686 [place] as BLDG [phone] [facility] [address] 2020-12-20 2020-12-20 Laboratory Only, Adc Test [facility] 1.2.840. 114 [id number] Univers 14:57:33 15:12:33 Only Michael Vanegas 350.1.13.10 ity of [place].2.[place] [phone] [facility] [address] 2020-12-20 2020-12-20 Outpatient R GUILHERME [facility] [id number] Univers 15:00:00 15:00:00 MICHAEL marcelino of [facility] 2020-12-19 2020-12-19 Macey Otoole [facility] 1.2.840.114 [id number] Univers 00:00:00 00:00:00 Wondiful A Health 350.1.13.10 ity of [place] 4.2.7.2.686 [place] as Professio [phone] De dical nal [address] [place] Office Building One 2020-12-17 2020-12-17 Patient Frieda [facility] 1.2.840.114 [id number] Univers 00:00:00 00:00:00 Secure Msg Bob Go PRIMARY 350.1.13.10 ity of C[place] 4.2.7.2.[place] [phone] De dical [address] [place] 2020-12-17 2020-12-17 Patient Frieda, [facility] 1.2.840.114 [id number] Univers 00:00:00 00:00:00 Secure g Bob Go PRIMARY 350.1.13.10 ity of CARE 4.2.7.2.[place] [phone] De dical [address] [place] 2020-12-17 2020-12-17 Patient Frieda [facility] 1.2.840.114 [id number] Univers 00:00:00 00:00:00 Secure Msg Bob Go PRIMARY 350.1.13.10 ity of CARE 4.2.7.2.[place] [phone] De dicmn [address] [place] 2020-12-17 2020-12-17 Telephone Frieda [facility] 1.2.840.114 [id number] Univers 00:00:00 00:00:00 Bob Go MULTISPEC 350.1.13.10 ity of [place]2.[place].2.[place] [phone] [facility] AND ANGELO [address] [place] [address] DIABETES CLINIC 2020-12-16 2020-12-16 Office LILI Sen 1.2.556.482 [id number] Univers 07:58:05 08:37:56 Visit [facility] 350.1.13.10 i ty of CLINICS 4.2.7.2.[place] [phone] [address] 2020-12-16 2020-12-16 Outpatient R ELDON [facility] [id number] Univers 08:00:00 08:00:00 ELISA itgael of [facility] 2020-12-16 2020-12-16 Refill [facility] 1.2.840.114 [id number] Univers 00:00:00 00:00:00 Bob Go PRIMARY 350.1.13.10 ity of CARE 4.2.7.2.[place] [phone] De dical [address] [place] 2020-12-06 2020-12-06 Case Roman, [facility] 1.2.258.531 [id number] Univers 00:00:00 00:00:00 Management Rose Otto 350.1.13.10 ity of [place] 4.2.7.2.[place] [phone] De dical nal 134 [facility] 2020-12-03 2020-12-03 Office Elif [facility] 1.2.840.114 [id number] Univers 11:12:04 11:49:39 Visit Jaylyn Knight 350.1.13.10 i ty of [place] 4.2.7.2.686 [place] [phone] De dical nal 085 [facility] 2020-12-03 2020-12-03 Outpatient R JAYLYN NOLASCO [facility] 10 [id number] Univers 11:20:00 11:20:00 JAYLYN NOLASCO i ty of [facility] 2020-12-03 2020-12-03 Patient [facility] 1.2.840.114 [id number] Univers 00:00:00 00:00:00 Secure Msg Bob Go MULTISPEC 350.1.13.10 ity of [place] 4[place]2.7.2.[place] [id number] [facility] AND [address] [facility] 2020-12-03 2020-12-03 Patient [facility] 1.2.840.114 [id number] Univers 00:00:00 00:00:00 Secure Msg Bob Go MULTISPEC 350.1.13.10 ity of [place] 4[place]2.7.2.[place] [phone] [facility] AND [address] [facility] 2020-12-02 2020-12-02 Hospital [facility] 1.2.826.291 [id number] Univers 14:03:55 23:59:00 Encounter Bob Abbi Knight 350.1.13.10 ity of [place] 4.2.7.2.686 [place] [phone] [facility] [address] [place] 2020-12-02 2020-12-02 Office Roman [facility] 1.2.529.835 [id number] 0788 Univers 14:37:27 15:52:34 Visit Rose Knight 350.1.13.10 i ty of [place] 4.2.7.2.686 [place] [phone] De dical nal 134 [facility] 2020-12-02 2020-12-02 Outpatient [facility] [id number] Univers 15:00:00 15:00:00 ROSE ity [facility] 2020-12-02 2020-12-02 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, 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 [facility] 1.2.8 40.114 [id number] Univers 14:22:52 14:37:52 Visit FriedaBob Abbi Knight 350.1.13.1 0 ity of [place] 4.2.7.2.686 [place] [phone] De dical nal 353 [facility] 2020-12-01 2020-12-01 Refpriyanka [facility] 1.2.840.114 [id number] Univers 00:00:00 00:00:00 Wondiful A Health 350.1.13.10 ity of [place] 4.2.7.2.686 [place] as Professio [phone] De dical nal [address] [place] Office Building One 2020-11-30 2020-11-30 [facility] 1.2.840.114 [id number] Univers 00:00:00 00:00:00 Secure Msg Bob Go PRIMARY 350.1.13.10 ity of CARE 4.2.7.2.[place] [phone] De dical [address] [place] 2020-11-30 2020-11-30 Patient Frieda, [facility] 1.2.840.114 [id number] Univers 00:00:00 00:00:00 Secure Msg Bob Go PRIMARY 350.1.13.10 ity of CARE 4.2.7.2.[place] [id number] De dical [address] [place] 2020-11-30 2020-11-30 Patient Frieda [facility] 1.2.840.114 [id number] Univers 00:00:00 00:00:00 Secure Msg Bob Go PRIMARY 350.1.13.10 ity of CARE 4.2.7.2.[place] [phone] De dical [address] [place] 2020-11-30 2020-11-30 Patient Frieda, [facility] 1.2.840.114 [id number] Univers 00:00:00 00:00:00 Secure Msg Bob Go PRIMARY 350.1.13.10 ity of CARE 4.2.7.2.[place] [phone] De dical [address] [place] 2020-11-25 2020-11-25 Telephone [facility] 1.2.840.114 [id number] [id number] Univers 00:00:00 00:00:00 Bob Go PRIMARY 350.1.13.10 ity of C[place] 4.2.7.2.[place] [phone] De dical [address] [place] [address] 2020-11-24 2020-11-24 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 [facility] 1.2.840.114 [id number] [id number] Univers 09:42:50 09:49:23 Visit Bob Malave PRIMARY 350.1.13.10 ity of CARE 4.2.7.2.[place] [phone] [address] 2020-11-24 2020-11-24 Outpatient [facility] [id number] Univers 09:40:00 09:40:00 BOB ity of [facility] 2020-11-24 2020-11-24 Office [facility] 1.2.840.114 [id number] Univers 08:32:07 09:36:52 Visit Bob Go PRIMARY 350.1.13.10 ity of C[place]2.7.2.[place] [phone] De dic[address] 2020-11-23 2020-11-23 Outpatient R XIANG [facility] [id number] Univers 16:30:00 16:30:00 WONDIJACKELINE ity o f [facility] 2020-11-23 2020-11-23 Telemedici Xiang [facility] 1.2.840.114 [id number] Univers 06:50:15 07:05:15 ne Visit Wondiful A Health 350.1.13.10 ity of [place] 4.2.7.2.686 [place] Professio [phone] [facility] 044 [facility] 2020-11-16 2020-11-16 Patient Xiang [facility] 1.2.840.114 [id number] Univers 00:00:00 00:00:00 Secure Msg Wondiful A [place] 350.1.13.10 ity of [place] 4.2.7.2.[place] [phone] De dical nal 059 [facility] 2020-11-16 2020-11-16 Patient [facility] 1.2.840.114 [id number] Univers 00:00:00 00:00:00 Secure Msg Wondiful A Health 350.1.13.10 ity of [place] 4.2.7.2.686 [place] Professio [phone] [facility] 044 [facility] 2020-11-15 2020-11-15 Office Umesh [facility] 1..840.114 [id number] Univers 08:58:13 09:34:23 Visit Sara [place] 350.1.13.10 ity of [place] 4.2.7.2.[place] [phone] De dicmn nal 9 [facility] 2020-11-15 2020-11-15 Outpatient R UMESH [facility] [id number] Univers 09:20:00 09:20:00 SARA marcelino o f [facility] 2020-11-02 2020-11-02 Outpatient R TYREL [facility] [id number] Univers 10:00:00 10:00:00 YELENA marcelino [facility] 2020-10-19 2020-10-19 Office [facility] 1..840.114 [id number] Univers 12:51:34 13:49:32 Visit Wonmarthaful A Health 350.1.13.10 ity of [place] 4.2.7.2.686 [place] Professio [phone] De dical nal [address] One 2020-10-19 2020-10-19 Outpatient R XIANG, [facility] [id number] Univers 13:00:00 13:00:00 WONDIFUL ity o f [facility] 2020-10-15 2020-10-15 Outpatient R SORENSON, [facility] [id number] Univers 14:30:00 14:30:00 MYRA ity o f [facility] 2020-10-15 2020-10-15 Transition MaryTrini pelaezcassandra 1.2.840.114 [id number] Univers 00:00:00 00:00:00 of Care Stephanie Escobar [id number] i ty [id number] [phone] [facility] [address] [place] 2020-10-11 2020-10-14 [facility] Shawn Jeffrey Javiernie 1.2.840.1 [id number] Univers 08:34:00 17:50:00 Encounter Hilario Salomon [id number] ity of Dianne Dodd [facility] [id number] [place] [phone] [facility] [address] [place] 2020-10-11 2020-10-11 Laboratory Pc, Adc Echo Room 1 - [facility] 1 .2.840.114 [id number] Univers 07:58:07 08:22:33 Only Param Valdivia 350.1.13. 10 [id number] [phone] De dical nal [address] [facility] 2020-10-11 2020-10-11 Outpatient R [facility] [id number] Univers 08:00:00 08:00:00 ity of [facility] 2020-09-29 2020-09-29 Office [facility] 1.2.840.114 [id number] Univers 13:37:45 13:59:17 Visit Sara Knight [id number] [id number] [phone] De dical nal 059 [facility] 2020-09-29 2020-09-29 Outpatient R UMESH [facility] [id number] Univers 13:40:00 13:40:00 SARA marcelino o f [facility] 2020-09-15 2020-09-15 Office LILI Sorenson [id number] Univers 14:31:56 15:46:35 Visit Myra Mayo [id number] i ty of [facility] 4.2.7.2.686 [place] BANK [phone] [facility] BLDG. [address] [place] 2020-09-15 2020-09-15 [facility] [id number] Univers 14:45:00 14:45:00 MYRA marcelino o f [facility] 2020-09-15 2020-09-15 Orders Doctor RICKY 1.2.840.114 [id number] Univers 00:00:00 00:00:00 Only Unassigned, ZACHARY [id number] ity of [facility] 4.2.7.2.686 [place] [phone] [facility] [address] [place] 2020-09-09 2020-09-09 [facility] 1.2.840.114 [id number] Univers 00:00:00 00:00:00 Bob Go PRIMARY [id number] ity of [id number] [phone] De dical [address] [place] 2020-09-08 2020-09-08 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 [facility] 1.2.840.114 [id number] Univers 11:25:30 11:40:30 Visit Bob Malave PRIMARY 350.1.13.10 [place] [phone] De dical [address] [place] 2020-09-08 2020-09-08 [facility] 1.2.840.114 [id number] Univers 10:04:37 11:31:11 Visit Bob Go [facility] 350.1.13.10 [place] [phone] De dical [address] [place] 2020-09-08 2020-09-08 Outpatient R FRIEDA [facility] [id number] Univers 10:20:00 10:20:00 BOB marcelino [facility] 2020-09-01 2020-09-01 Hospital [facility] 1.2.840.114 [id number] Univers 15:24:29 23:59:00 Encounter Stella Knight 350.1.13.10 [place] of [place] [phone] [facility] [address] [place] 2020-09-01 2020-09-01 Urgent Provider, [facility] 1.2.840.114 [id number] Univers 14:11:29 15:14:07 Care Aaron Duncan 350.1.13.10 ity of [place] 4.2.7.2.686 [place] Prosperio [phone] De dicmn nal [address] [place] Office [address] 2020-09-01 2020-09-01 [facility] [id number] Univers 14:20:00 14:20:00 AARON [facility] 2020-08-24 2020-08-24 Office PATRICK SarahIT [id number] Univers 11:52:24 23:39:11 Visit Yelena Mayo [facility] 350.1.13.10 it[place] of CL[place] [phone] [facility] [address] [place] 2020-08-24 2020-08-24 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 [facility]ERSIT 1.2.840.114 [id number] Univers 12:38:34 13:07:43 Visit Bob Malave HEALTH 350.1.13.1 0 it[place] of CL[place] [phone] [facility] [address] [place] 2020-08-24 2020-08-24 Outpatient R SHEFALIASAD [facility] [id number] Univers 09:40:00 09:40:00 BOB chari [facility] 2020-08-24 2020-08-24 Telemedici [facility] 1.2.840.114 [id number] Univers 07:47:14 08:07:14 ne Visit Bob Go PRIMARY 350.1.13.10 [place] [phone] De dicmn [address] [place] 2020-08-24 2020-08-24 Telephone [facility] 1.2.840.114 [id number] Univers 00:00:00 00:00:00 Bob Go PRIMARY 350.1.13.10 [place] [id number] De dic[address] 2020-08-19 2020-08-19 Telemedici [facility] 1.2.840.114 [id number] Univers 08:12:29 17:57:05 [facility] 350.1.13.10 ity of [place] 4.2.7.2.686 [place] Profess[place] [phone] [address] Office Building One 2020-08-19 2020-08-19 Outpatient R XIANG [facility] [id number] Univers 16:45:00 16:45:00 WONDIFUL ity o f [facility] 2020-08-17 2020-08-17 Emergency [facility] [id number] Univers 11:50:00 18:13:00 Junitoconor Knight 350.1.13.10 i ty of [place].2.[place] [phone] [place] 505494 [place] 2020-08-17 2020-08-17 Emergency X [facility] ERT [id number] Univers 11:41:00 11:41:00 itgael [facility] 2020-08-16 2020-08-16 Outpatient R FRIEDA [facility] [id number] Univers 09:15:00 09:15:00 BOB marcelino [facility] 2020-08-16 2020-08-16 Outpatient R FRIEDA [facility] [id number] Univers 09:15:00 09:15:00 BOB [facility] 2020-07-14 2020-07-14 Outpatient R FRIEDA [facility] [id number] Univers 11:20:36 23:59:00 BOB [facility] 2020-07-14 2020-07-14 Outpatient R FRIEDA [facility] [id number] Univers 09:20:00 09:20:00 BOB [facility] 2020-06-02 2020-06-02 Outpatient Amirah OTOOLE [facility] [id number] Univers 09:00:00 09:00:00 WONDIFUL ity o f [facility] 2020-05-03 2020-05-03 Outpatient Amirah OTOOLE [facility] [id number] Univers 13:45:00 13:45:00 WONDIFUL ity o f [facility] 2020-03-16 2020-03-16 Outpatient Amirah OTOOLE [facility] [id number] Univers 09:45:00 09:45:00 WONDIFUL ity o [facility] Results Test Description Test Time Test Comments Results Result Comments Source POCT TEST 2023-01-27 16:46:00 Test Item Value Reference Range Interpretation Comme nts POCT PREG (test code = 1605) NEGATIVE On board controls acceptable with C Line (test code = 3574) present POCT PREG LOT # (test code = 3575) [id number] POCT PREG TEST DATE (test code = 3576) 04/25/2024 Lab Interpretation (test code = 50332-1) Normal [facility] [id number] 18:31:53 Test Item Value Reference Range Interpretation Comments CRP (test code = 5898025248) 1.2 mg/dL <=0.8 H Lab Interpretation (test code = Abnormal 21148-2) [facility] [id number] 17:03:33 Test Item Value Reference Range Interpretation Comments TROPONIN I (test code = 0.000 ng/mL <=0.034 4470241597) KAREN (test code = KAREN) Reference (Normal) Range (defined by the 99th percentile reference limit): <= 0.034 ng/mL Note: Cardiac troponin begins to rise 3-4 hours after the onset of ischemia. Repeat in 4-6 hours if the sample was drawn within 3-4 hours of the onset of the symptom and found normal. Diagnosis of myocardial injury is made with acute changes in cTn concentrations with at least one serial sample above the 99th percentile upper reference limit (URL), taken together with the patient's clinical presentation. Biotin has been reported to cause a negative bias, interpret results relative to patient's use of biotin. Lab Interpretation Normal (test code = 75376-7) [facility]th[facility] Time / [id number] 16:28:46 Test Item Value Reference Range Interpretation Comments PROTIME PATIENT (test 12.3 See_Comment [Auto mated message] code = 5964-2) The system [employer] generated this result transmitted ref erence range: 10.1 - 1 2.6 Seconds. The re ference range was not u sed to interpret this result as normal/abnor mal. INR (test code = 6301-6) 1.1 Nor mal INR <1.1; Warfarin Therap eutic range 2.0 to 3. 0 or 2.5 to 3.5, dep ending upon the indica tions. Lab Interpretation (test Normal code = 45701-4) [facility] [id number] 16:11:26 Test Item Value Reference Range Interpretation Comments NT-proBNP (test code = 21 pg/mL <=125 9132352921) KAREN (test code = KAREN) Biotin has been reported to cause a negative bias, interpret results relative to patient's use of biotin. Lab Interpretation (test Normal code = 63176-7) [facility] MET[facility]OLIC PANEL (89573)2023-01-10 16:02:43 Test Item Value Reference Range Interpretation Comments NA (test code = 139 mmol/L 135-145 3227075005) K (test code = 3.8 mmol/L 3.5-5.0 1611056019) CL (test code = 102 mmol/L 98-108 9988911386) CO2 TOTAL (test code = 29 mmol/L 23-31 3171192676) AGAP (test code = 8 2-16 9636882984) BUN (test code = 13 mg/dL 7-23 9219075002) GLUCOSE (test code = 100 mg/dL 70-110 8825391913) CREATININE (test code = 0.80 mg/dL 0.50-1.04 5357469613) TOTAL BILI (test code = 0.6 mg/dL 0.1-1.7 3018346409) CALCIUM (test code = 8.9 mg/dL 8.6-10.6 1665923812) T PROTEIN (test code = 8.1 g/dL 6.3-8.2 6575212400) ALBUMIN (test code = 4.6 g/dL 3.5-5.0 2313731293) ALK PHOS (test code = 107 U/L 34-122 2086168910) ALTv (test code = 38 U/L 5-35 H 1742-6) AST(SGOT) (test code = 31 U/L 13-40 6297495939) eGFR (test code = 79.0 mL/min/1.73m2 5346867245) KAREN (test code = KAREN) Association of [...] tests). Lab Interpretation Abnormal (test code = 77374-8) [facility] HospitalLIPASE2023-02-15 16:02:43 Test Item Value Reference Range Interpretation Comments LIPASE (test code = 5416730849) 87 U/L 0-220 Lab Interpretation (test code = Normal 40290-5) [facility] HospitalPREG[facility]NCY TEST, [id number] 15:59:07 Test Item Value Reference Range Interpretation Comments PREG SERUM (test code Negative = 9086580647) KAREN (test code = KAREN) Less than 10 IU/L. ?If low titer or ectopic is suspected, resubmit specimen in 48-72 hours. [facility] WITH [id number] 15:57:41 Test Item Value Reference Range Interpretation Comments WBC (test code = 3.61 See_Comment L [Automated 0690-2) message] The sy stem which generated this result transmitted reference range : 4.30 - 11.10 10*3/?L. The reference range was not used to interpret this result as normal/abnormal . RBC (test code = 3.76 See_Comment L [Automated 879-8) message] The sy stem which generated this result transmitted reference range : 3.93 - 5.25 10*6/?L. The reference range was not used to interpret this result as normal/abnormal . HGB (test code = 11.9 g/dL 11.6-15.0 718-7) HCT (test code = 35.6 % 35.7-45.2 L 4544-3) MCV (test code = 94.7 fL 80.6-95.5 787-2) MCH (test code = 31.6 pg 25.9-32.8 785-6) MCHC (test code = 33.4 g/dL 31.6-35.1 786-4) RDW-SD (test code = 43.9 fL 39.0-49.9 05822-7) RDW-CV (test code = 12.6 % 12.0-15.5 788-0) PLT (test code = 314 See_Comment [Automated 777-3) message] The sy stem which generated this result transmitted reference range : 166 - 358 10*3/ ?L. The reference r wade was not used to interpret this result as normal/abnormal . MPV (test code = 10.3 fL 9.5-12.9 52314-2) NRBC/100 WBC (test 0.0 See_Comment [Automat ed code = 1508733026) message] The system which generated this result transmitted reference range : 0.0 - 10.0 /100 WBCs. The refer ence range was not u sed to interpret th is result as normal/abnormal . NRBC x10^3 (test code See_Comment [Auto mated = 9527969061) message] The s ystem which generated this result transmitted reference range : 10*3/?L. The reference range was not used to interpret this result as normal/abnormal . GRAN MAT (NEUT) % 68.7 % (test code = 770-8) IMM GRAN % (test code 0.30 % = 8369229081) LYMPH % (test code = 16.6 % 736-9) MONO % (test code = 13.0 % 5905-5) EOS % (test code = 0.8 % 713-8) BASO % (test code = 0.6 % 706-2) GRAN MAT x10^3(ANC) 2.48 10*3/uL 1.88-7.09 (test code = 5562566346) IMM GRAN x10^3 (test 0.00-0.06 code = 6211563534) LYMPH x10^3 (test code 0.60 10*3/uL 1.32-3.29 L = 731-0) MONO x10^3 (test code 0.47 10*3/uL 0.33-0.92 = 742-7) EOS x10^3 (test code = 0.03 10*3/uL 0.03-0.39 711-2) BASO x10^3 (test code 0.01-0.07 = 704-7) Lab Interpretation Abnormal (test code = 07641-0) [facility] HospitalSED[facility]ATION [id number] 15:51:22 Test Item Value Reference Range Interpretation Comments ESR (test code = 85 See_Comment H [Automated message] 28663-9) The system [employer] h generated this result transmitted ref erence range: 2 - 30 m m/HR. The reference r wade was not used to interpret this result as normal/abnor mal. Lab Interpretation (test Abnormal code = 30108-2) [facility] WITH [id number] 20:20:06 Test Item Value Reference Range Interpretation Comments WBC (test code = See_Comment L [Automated 6690-2) message] The sy stem which generated this result transmitted reference range : 4.30 - 11.10 10*3/?L. The reference range was not used to interpret this result as normal/abnormal . RBC (test code = See_Comment [Automated 789-8) message] The sy stem which generated this result transmitted reference range : 3.93 - 5.25 10*6/?L. The reference range was not used to interpret this result as normal/abnormal . HGB (test code = 12.6 g/dL 11.6-15.0 718-7) HCT (test code = 38.6 % 35.7-45.2 4544-3) MCV (test code = 96.0 fL 80.6-95.5 H 787-2) MCH (test code = 31.3 pg 25.9-32.8 785-6) MCHC (test code = 32.6 g/dL 31.6-35.1 786-4) RDW-SD (test code = 43.4 fL 39.0-49.9 75057-0) RDW-CV (test code = 12.5 % 12.0-15.5 788-0) PLT (test code = See_Comment [Automated 777-3) message] The sy stem which generated this result transmitted reference range : 166 - 358 10*3/ ?L. The reference r wade was not used to interpret this result as normal/abnormal . MPV (test code = 10.9 fL 9.5-12.9 04807-5) NRBC/100 WBC (test See_Comment [Automat ed code = 7069051165) message] The system which generated this result transmitted reference range : 0.0 - 10.0 /100 WBCs. The refer ence range was not u sed to interpret th is result as normal/abnormal . NRBC x10^3 (test code See_Comment [Auto mated = 3037608810) message] The s ystem which generated this result transmitted reference range : 10*3/?L. The reference range was not used to interpret this result as normal/abnormal . GRAN MAT (NEUT) % 65.5 % (test code = 770-8) IMM GRAN % (test code 0.30 % = 8153124488) LYMPH % (test code = 19.7 % 736-9) MONO % (test code = 12.8 % 5905-5) EOS % (test code = 1.1 % 713-8) BASO % (test code = 0.6 % 706-2) GRAN MAT x10^3(ANC) 2.36 10*3/uL 1.88-7.09 (test code = 9685786566) IMM GRAN x10^3 (test 0.00-0.06 code = 9343178616) LYMPH x10^3 (test code 0.71 10*3/uL 1.32-3.29 L = 731-0) MONO x10^3 (test code 0.46 10*3/uL 0.33-0.92 = 742-7) EOS x10^3 (test code = 0.04 10*3/uL 0.03-0.39 711-2) BASO x10^3 (test code 0.01-0.07 = 704-7) Lab Interpretation Abnormal (test code = 10357-4) [facility]OLIC PANEL (08300)2022-11-14 20:17:03 Test Item Value Reference Range Interpretation Comments NA (test code = 143 mmol/L 135-145 4615659230) K (test code = 4.4 mmol/L 3.5-5.0 0555141378) CL (test code = 102 mmol/L 98-108 9704948105) CO2 TOTAL (test code = 30 mmol/L 23-31 0522334082) AGAP (test code = 2-16 6423548027) BUN (test code = 13 mg/dL 7-23 4885778993) GLUCOSE (test code = 82 mg/dL 70-110 1070188040) CREATININE (test code = 0.74 mg/dL 0.50-1.04 1765207727) TOTAL BILI (test code = 0.6 mg/dL 0.1-1.9 6134500752) CALCIUM (test code = 9.1 mg/dL 8.6-10.6 8065555251) T PROTEIN (test code = 8.3 g/dL 6.3-8.2 H 2855891697) ALBUMIN (test code = 4.6 g/dL 3.5-5.0 6598043169) ALK PHOS (test code = 114 U/L 34-122 9172731921) ALTv (test code = 53 U/L 5-35 H 1742-6) AST(SGOT) (test code = 45 U/L 13-40 H 2083090232) eGFR (test code = mL/min/1.73m2 1396571615) KAREN (test code = KAREN) Association of [...] tests). Lab Interpretation Abnormal (test code = 85092-8) [facility] [id number] 19:51:38 Test Item Value Reference Range Interpretation Comments ESR (test code = 63414-1) See_Comment [ Automated message] The system [employer] h generated this result transmitted ref erence range: 2 - 30 m m/HR. The reference r wade was not used to interpret this result as normal/abnor mal. Lab Interpretation (test Normal code = 19427-3) [facility] Hospital[facility]MO[facility] [id number] 05:28:48 Test Item Value Reference Range Interpretation Comments HEMOGLOBIN A1c (test 5.9 % 4.2-5.6 H UNLESS OTHERWISE code = 13337) INDICATED, ALL TESTING PERFORMED [facility] [employer] [address] [place], [place] [address] [place] [address] DIRECTOR: AVELINA LYON M.D. CLIA NUMBER [id number] CAP ACCREDITATION N O. [id number] CBC W/AUTO DIFF WITH [id number] 04:52:57 Test Item Value Reference Range Interpretation [...] RBCS 0.00 K/UL 0.00-0.11 (test code = 22002) COMPREHENSIVE METABOLIC [id number] 04:31:14 Test Item Value Reference Range Interpretation Comments GLUCOSE (test code = 99 MG/DL 70-99 2216) BUN (test code = 10 MG/DL 6-20 2207) CREATININE (test 0.66 MG/DL 0.60-1.30 code = 2214) eGFR (2020 CKD-EPI) 114 >60 (test code = 31967) ML/MIN/1.73 CALC BUN/CREAT (test 15 RATIO 6-28 code = 2235) SODIUM (test code = 143 MEQ/L 728-243 0058) POTASSIUM (test code 3.8 MEQ/L 3.5-5.4 = 2227) CHLORIDE (test code 105 MEQ/L 95-107 = 2214) CARBON DIOXIDE (test 24 MEQ/L 19-31 code = 2206) CALCIUM (test code = 9.8 MG/DL 8.5-10.5 2208) PROTEIN, TOTAL (test 7.7 G/DL 6.1-8.3 code = 222) ALBUMIN (test code = 4.8 G/DL 3.5-5.2 2200) CALC GLOBULIN (test 2.9 G/DL 1.9-3.7 code = 2240) CALC A/G RATIO (test 1.7 RATIO 1.0-2.6 code = 2234) BILIRUBIN, TOTAL 0.7 MG/DL See_Comment [Automated message] (test code = 2207) The [employer] which generated this result transmit fernando reference range : <=1.2. The refe rence range was not u sed to interpret th is result as normal/abnormal . ALKALINE PHOSPHATASE 113 U/L 40-112 H (test code = 2203) AST (test code = 31 U/L 9-40 2217) ALT (test code = 34 U/L 5-40 2218) LIPID [id number] 04:31:14 Test Item Value Reference Range Interpretation [...] MOREINFORMATION , SEE CLIENT ANNOUNCE MENT AT [email or web address] RISK RATIO LDL/HDL 3.33 RATIO <3.22 H (test code = 2238) COMPREHENSIVE METABOLIC [id number] 00:00:00 Test Item Value Reference Range Interpretation Comments GLUCOSE (test code = 7) 99 MG/DL BUN (test code = 8) 10 MG/DL CREATININE (test code = 2214) 0.66 MG/DL eGFR (2020 CKD-EPI) (test 114 ML/MIN/1.73 code = 20487) CALC BUN/CREAT (test code = 15 RATIO 2234) SODIUM (test code = 223) 143 MEQ/L POTASSIUM (test code = 2228) 3.8 MEQ/L CHLORIDE (test code = 2215) 105 MEQ/L CARBON DIOXIDE (test code = 24 MEQ/L 2205) CALCIUM (test code = 220) 9.8 MG/DL PROTEIN, TOTAL (test code = 7.7 G/DL 2228) ALBUMIN (test code = 220) 4.8 G/DL CALC GLOBULIN (test code = 2.9 G/DL 2239) CALC A/G RATIO (test code = 1.7 RATIO 2233) BILIRUBIN, TOTAL (test code = 0.7 MG/DL 2206) ALKALINE PHOSPHATASE (test 113 U/L code = 2204) AST (test code = 2218) 31 U/L ALT (test code = 2219) 34 U/L COMPREHENSIVE METABOLIC [id number] 00:00:00 Test Item Value Reference Range Interpretation Comments GLUCOSE (test code = 2217) 99 MG/DL BUN (test code = 2208) 10 MG/DL CREATININE (test code = 2214) 0.66 MG/DL eGFR (2020 CKD-EPI) (test 114 ML/MIN/1.73 code = 44762) CALC BUN/CREAT (test code = 15 RATIO [...] (test code = 2219) 34 U/L LIPID [id number] 00:00:00 Test Item Value Reference Range Interpretation Comments CHOLESTEROL (test code = 2210) 197 MG/DL TRIGLYCERIDES (test code = 2232) 163 MG/DL HDL CHOLESTEROL (test code = 2220) 39 MG/DL CALC LDL CHOL (test code = 2237) 130 MG/DL RISK RATIO LDL/HDL (test code = 3.33 RATIO 2238) LIPID [id number] 00:00:00 Test Item Value Reference Range Interpretation Comments CHOLESTEROL (test code = 2210) 197 MG/DL TRIGLYCERIDES (test code = 2232) 163 MG/DL HDL CHOLESTEROL (test code = 2220) 39 MG/DL CALC LDL CHOL (test code = 2237) 130 MG/DL RISK RATIO LDL/HDL (test code = 3.33 RATIO 2238) CBC W/AUTO [id number] 00:00:00 Test Item Value Reference Range Interpretation [...] NUCLEATED RBCS (test code = 0.00 K/UL 83161) CBC W/AUTO [id number] 00:00:00 Test Item Value Reference Range Interpretation [...] NUCLEATED RBCS (test code = 0.00 K/UL 01037) CBC W/AUTO [id number] 00:00:00 Test Item Value Reference Range Interpretation [...] NUCLEATED RBCS (test code = 0.00 K/UL 23253) HEMOGLOBIN [id number] 00:00:00 Test Item Value Reference Range Interpretation Comments HEMOGLOBIN A1c (test code = 36180) 5.9 % HEMOGLOBIN [id number] 00:00:00 Test Item Value Reference Range Interpretation Comments HEMOGLOBIN A1c (test code = 61058) 5.9 % HEMOGLOBIN [id number] 00:00:00 Test Item Value Reference Range Interpretation Comments HEMOGLOBIN A1c (test code = 22650) 5.9 % COMPREHENSIVE METABOLIC [id number] 00:00:00 Test Item Value Reference Range Interpretation Comments GLUCOSE (test code = 2217) 99 MG/DL BUN (test code = 2208) 10 MG/DL CREATININE (test code = 2214) 0.66 MG/DL eGFR (2020 CKD-EPI) (test 114 ML/MIN/1.73 code = 99802) CALC BUN/CREAT (test code = 15 RATIO [...] code = 2219) 34 U/L COMPREHENSIVE METABOLIC [id number] 00:00:00 Test Item Value Reference Range Interpretation Comments GLUCOSE (test code = 2217) 99 MG/DL BUN (test code = 2208) 10 MG/DL CREATININE (test code = 2214) 0.66 MG/DL eGFR (2020 CKD-EPI) (test 114 ML/MIN/1.73 code = 38333) CALC BUN/CREAT (test code = 15 RATIO [...] (test code = 2219) 34 U/L LIPID [id number] 00:00:00 Test Item Value Reference Range Interpretation Comments CHOLESTEROL (test code = 2210) 197 MG/DL TRIGLYCERIDES (test code = 2232) 163 MG/DL HDL CHOLESTEROL (test code = 2220) 39 MG/DL CALC LDL CHOL (test code = 2237) 130 MG/DL RISK RATIO LDL/HDL (test code = 3.33 RATIO 2238) LIPID [id number] 00:00:00 Test Item Value Reference Range Interpretation Comments CHOLESTEROL (test code = 2210) 197 MG/DL TRIGLYCERIDES (test code = 2232) 163 MG/DL HDL CHOLESTEROL (test code = 2220) 39 MG/DL CALC LDL CHOL (test code = 2237) 130 MG/DL RISK RATIO LDL/HDL (test code = 3.33 RATIO 2238) CBC W/AUTO [id number] 00:00:00 Test Item Value Reference Range Interpretation [...] NUCLEATED RBCS (test code = 0.00 K/UL 87990) CBC W/AUTO [id number] 00:00:00 Test Item Value Reference Range Interpretation [...] NUCLEATED RBCS (test code = 0.00 K/UL 62588) CBC W/AUTO [id number] 00:00:00 Test Item Value Reference Range Interpretation [...] NUCLEATED RBCS (test code = 0.00 K/UL 33582) HEMOGLOBIN [id number] 00:00:00 Test Item Value Reference Range Interpretation Comments HEMOGLOBIN A1c (test code = 11005) 5.9 % HEMOGLOBIN [id number] 00:00:00 Test Item Value Reference Range Interpretation Comments HEMOGLOBIN A1c (test code = 25870) 5.9 % HEMOGLOBIN [id number] 00:00:00 Test Item Value Reference Range Interpretation Comments HEMOGLOBIN A1c (test code = 27308) 5.9 % POCT [id number] 18:36:00 Test Item Value Reference Range Interpretation Comments POCT PREG (test code = 1605) Negative On board controls acceptable with Present C Line (test code = 3574) POCT PREG LOT # (test code = 3575) [id number] POCT PREG TEST DATE (test 09/25/2023 code = 3576) Lab Interpretation (test code = Normal 58787-1) [facility]. METABOLIC PANEL (44275)2022-05-01 19:32:50 Test Item Value Reference Range Interpretation Comments NA (test code = 140 mmol/L 135-145 6620853682) K (test code = 3.4 mmol/L 3.5-5.0 L 3099280151) CL (test code = 104 mmol/L 98-108 0451806185) CO2 TOTAL (test code = 18 mmol/L 23-31 L 4296464104) AGAP (test code = 2-16 H 2967501587) BUN (test code = 10 mg/dL 7-23 4702916079) GLUCOSE (test code = 81 mg/dL 70-110 1610561190) CREATININE (test code = 0.57 mg/dL 0.50-1.04 1016047828) TOTAL BILI (test code = 1.0 mg/dL 0.1-1.1 6886190826) CALCIUM (test code = 9.3 mg/dL 8.6-10.6 8940071363) T PROTEIN (test code = 8.1 g/dL 6.3-8.2 1301064530) ALBUMIN (test code = 4.9 g/dL 3.5-5.0 8364129158) ALK PHOS (test code = 119 U/L 34-122 5142808595) ALTv (test code = 78 U/L 5-35 H 1742-6) AST(SGOT) (test code = 74 U/L 13-40 H 6752371607) eGFR (test code = mL/min/1.73m2 7694268964) KAREN (test code = KAREN) Association of [...] tests). Lab Interpretation Abnormal (test code = 89793-2) [facility] WITH [id number] 19:23:45 Test Item Value Reference Range Interpretation Comments WBC (test code = See_Comment [Automated 8780-2) message] The sy stem which generated this result transmitted reference range : 4.30 - 11.10 10*3/?L. The reference range was not used to interpret this result as normal/abnormal . RBC (test code = See_Comment [Automated 396-8) message] The sy stem which generated this [...] RDW-SD (test code = 44.3 fL 39.0-49.9 19280-9) RDW-CV (test code = 12.7 % 12.0-15.5 788-0) PLT (test code = See_Comment [Automated 777-3) message] The sy stem which generated this result transmitted reference range : 166 - 358 10*3/ ?L. The reference r wade was not used to interpret this result as normal/abnormal . MPV (test code = 11.6 fL 9.5-12.9 86932-0) NRBC/100 WBC (test See_Comment [Automat ed code = [id number]) message] The system which generated this result transmitted reference range : 0.0 - 10.0 /100 WBCs. The refer ence range was not u sed to interpret th is result as normal/abnormal . NRBC x10^3 (test code <0.01 See_Comment [Auto mated = [id number]) message] The s ystem which generated this result transmitted reference range : 10*3/?L. The reference range was not used to interpret this result as normal/abnormal . GRAN MAT (NEUT) % 68.3 % (test code = 770-8) IMM GRAN % (test code 0.20 % = [id number]) LYMPH % (test code = 18.0 % 736-9) MONO % (test code = 12.9 % 5905-5) EOS % (test code = 0.2 % 713-8) BASO % (test code = 0.4 % 706-2) GRAN MAT x10^3(ANC) 3.38 10*3/uL 1.88-7.09 (test code = [id number]) IMM GRAN x10^3 (test <0.03 0.00-0.06 code = 8503846223) LYMPH x10^3 (test code 0.89 10*3/uL 1.32-3.29 L = 731-0) MONO x10^3 (test code 0.64 10*3/uL 0.33-0.92 = 742-7) EOS x10^3 (test code = <0.03 0.03-0.39 L 711-2) BASO x10^3 (test code <0.03 0.01-0.07 = 704-7) Lab Interpretation Abnormal (test code = 82894-2) [facility] 12 [id number] 21:36:22 Test Item Value Reference Range Interpretation Comments Ventricular rate (test code = 253) Atrial rate (test code = 255) MD interval (test code = 266) QRSD interval (test code = 260) QT interval (test code = 264) QTC interval (test code = 265) P axis 1 (test code = 267) QRS axis 1 (test code = 268) T wave axis (test code = 270) EKG impression (test code Sinus = 273) tachycardia-Incomple te right bundle branch block-Nonspecific ST and T wave abnormality-Abnormal ECG- [facility] 12 [id number] 21:36:22 Test Item Value Reference Range Interpretation Comments Ventricular rate (test code = 253) Atrial rate (test code = 255) MD interval (test code = 266) QRSD interval (test code = 260) QT interval (test code = 264) QTC interval (test code = 265) P axis 1 (test code = 267) QRS axis 1 (test code = 268) T wave axis (test code = 270) EKG impression (test code Sinus = 273) tachycardia-Incomple te right bundle branch block-Nonspecific ST and T wave abnormality-Abnormal [facility] [Presence] in Respiratory specimen by ISS[facility] with probe [id number] 01:58:52 Test Item Value Reference Range Interpretation Comments SARS-CoV-2 (COVID-19) RNA Not detected Not-Detected [Presence] in Respiratory specimen by ISSAC with probe detection (test code = 82234-8) Whether 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 is employed in a healthcare setting (test code = 26724-8) Whether the patient has symptoms related to condition of interest (test code = 04418-2) Patient was hospitalized because of this condition (test code = 18206-5) Whether the patient was admitted to intensive care unit (ICU) for condition of interest (test code = 46322-0) Whether patient resides in a congregate care setting (test code = 47822-8) [facility] ED Preliminary Interpretation - Not an [id number] 13:19:12 Test Item Value Reference Range Interpretation Comments KAREN (test code = KAREN) Ja Crow MD 07/29/2021 1:58 [facility] Preliminary Interpretation - Not an OrderPerformed by: Ja Crow MDAuthorized by: Ja Crow MD ECG reviewed by ED Physician in the absence of a pinion staker: yes Interpretation: Interpretation: abnormal Quality: Tracing quality: Limited by artifactRate: ECG rate: 66 ECG rate assessment: normal Rhythm: Rhythm: sinus rhythm Ectopy: Ectopy: none QRS: QRS axis: Normal QRS intervals: NormalConduction: Conduction: normal ST segments: ST segments: NormalT waves: T waves: inverted Inverted: V1, V2 and V3 Lab Interpretation Abnormal (test code = 31092-7) [facility]"
--- NOTE | 2023-05-05 11:55 | RAD REPORT ---
EXAM DESCRIPTION: RAD - Chest Pa And Lat (2 Views) - 05/05/2023 11:47 am CLINICAL HISTORY: SOB COMPARISON: Chest Single View dated 12/31/2022 FINDINGS: Lines: None. Lungs: No evidence of edema or pneumonia. Pleural: No significant pleural effusions or pneumothorax. Cardiac: The heart size is within normal limits. Mediastinum: Within normal limits. Bones: No acute fractures. Other: None IMPRESSION: No acute cardiopulmonary disease.
--- NOTE | 2023-05-05 12:40 | ER ---
Nurse's Notes [facility] Name: Gintete Guillermo Age: 42 yrs Sex: Female : 1980 Arrival Date: 05/05/2023 Time: 10:42 Bed DIS2 Private MD: Diagnosis: Anxiety disorder, unspecified;Pain, unspecified Presentation: 05/05 11:03 Chief complaint: Patient states: ITCHY AND SOB SINCE STEROID INFUSION AT RHEUMATOLOGY bp ON . Coronavirus screen: At this time, the client does not indicate any symptoms associated with coronavirus-19. Ebola Screen: No symptoms or risks identified at this time. Initial Sepsis Screen: Does the patient meet any 2 criteria? No. Patient's initial sepsis screen is negative. Initial Sepsis Screen: Does the patient have a suspected source of infection? No. Patient's initial sepsis screen is negative. Risk Assessment: Do you want to hurt yourself or someone else? Patient reports no desire to harm self or others. Onset of symptoms is unknown. 11:03 Method Of Arrival: Ambulatory bp 11:03 Acuity: KAMLESH 3 bp Triage Assessment: 11:03 General: Appears uncomfortable, Behavior is cooperative, appropriate for age, anxious. bp Pain: Complains of pain in GENERALIZED. EENT: No deficits noted. Neuro: No deficits noted. Cardiovascular: No deficits noted. Respiratory: Reports shortness of breath Onset: The symptoms/episode began/occurred yesterday, the patient has mild shortness of breath. GI: No signs and/or symptoms were reported involving the gastrointestinal system. : No signs and/or symptoms were reported regarding the genitourinary system. Derm: No deficits noted. Musculoskeletal: No deficits noted. Historical: - Allergies: 11:01 No Known Allergies; bp - PMHx: 11: RA/fibromyalgia; Lupus erythematosus; hypotension; yasmeen's; bp - PSHx: 11: Appendectomy; Cholecystectomy; hysterectomy; bp - Immunization history:: Adult Immunizations up to date. - Social history:: Smoking status: Patient denies any tobacco usage or history of. Screenin:46 [facility] ED Fall Risk Assessment (Adult) History of falling in the last 3 months, mb9 including since admission No falls in past 3 months (0 pts) Confusion or Disorientation No (0 pts) Intoxicated or Sedated No (0 pts) Impaired Gait No (0 pts) Mobility Assist Device Used No (0 pt) Altered Elimination No (0 pt) Score/Fall Risk Level 0 - 2 = Low Risk Oriented to surroundings, Maintained a safe environment, Educated pt \T\ family on fall prevention, incl call for assistance when getting out of bed. Abuse screen: Denies threats or abuse. Nutritional screening: No deficits noted. Tuberculosis screening: No symptoms or risk factors identified. Assessment: 12:46 Reassessment: No changes from previously documented assessment. Patient and/or family mb9 updated on plan of care and expected duration. Pain level reassessed. Patient is alert, oriented x 3, equal unlabored respirations, skin warm/dry/pink. Vital Signs: 11:03 BP 108 / 79; Pulse 91; Resp 16; Temp 97.5; Pulse Ox 100% ; Weight 97.07 kg; Height 5 bp ft. 5 in. ; 11:03 Body Mass Index 35.61 (97.07 kg, 165.1 cm) bp ED Course: 10:45 Patient arrived in ED. ts1 10:53 [facility]C [facility] snw 10:53 Farooq James MD is Attending Physician. snw 11:03 Arm band placed on. bp 11:04 Triage completed. bp 11:49 Chest Pa And Lat (2 Views) XRAY In Process Unspecified. EDMS 12:46 No provider procedures requiring assistance completed. Patient did not have IV access mb9 during this emergency room visit. Administered Medications: 12:45 Drug: Hydrocodone-Acetaminophen PO (7.5 mg-325 mg) 1 tabs Route: PO; mb9 Medication: 12:46 VIS not applicable for this client. mb9 Outcome: 12:40 Discharge ordered by . snw 12:46 Discharged to home ambulatory. mb9 12:46 Condition: stable 12:46 Discharge instructions given to patient, Instructed on discharge instructions, follow up and referral plans. Demonstrated understanding of instructions, follow-up care, medications, Prescriptions given X 1. 12:50 Patient left the ED. mb9 Signatures: Dispatcher [employer] EDMS Monet Reyes FNP-C FNP-Csnw Zay Thao RN RN Ann Alexander RN RN mb9 Gi Gilliam PAS PAS ts1
--- NOTE | 2023-05-05 12:40 | EDPHYS ---
Physician Documentation [facility] Name: Ginette Guillermo Age: 42 yrs Sex: Female : 1980 Arrival Date: 05/05/2023 Time: 10:42 Bed DIS2 Private MD: ED Physician Faoroq James HPI: 05/05 12:37 This 42 yrs old Female presents to ER via Ambulatory with complaints of Shortness Of snw Breath. 12:37 The patient has shortness of breath pt states her anxiety is high second to increased snw pain post last IV steroid infusion. Onset: The symptoms/episode began/occurred acutely. Duration: The symptoms are continuous. Associated signs and symptoms: Pertinent positives: increased pain . Severity of symptoms: At their worst the symptoms were moderate. It is unknown whether or not the patient has had similar symptoms in the past. The patient has been recently seen by a physician:. Historical: - Allergies: 11:01 No Known Allergies; bp - PMHx: 11:01 RA/fibromyalgia; Lupus erythematosus; hypotension; yasmeen's; bp - PSHx: 11:01 Appendectomy; Cholecystectomy; hysterectomy; bp - Immunization history:: Adult Immunizations up to date. - Social history:: Smoking status: Patient denies any tobacco usage or history of. ROS: 12:35 Eyes: Negative for injury, pain, redness, and discharge, ENT: Negative for injury, snw pain, and discharge, Neck: Negative for injury, pain, and swelling, Cardiovascular: Negative for chest pain, palpitations, and edema. 12:35 Abdomen/GI: Negative for abdominal pain, nausea, vomiting, diarrhea, and constipation, Back: Negative for injury and pain, : Negative for injury, bleeding, discharge, and swelling, MS/Extremity: Negative for injury and deformity, Neuro: Negative for headache, weakness, numbness, tingling, and seizure. 12:35 Constitutional: Positive for body aches, malaise, poor PO intake. 12:35 Respiratory: Positive for shortness of breath. 12:35 Skin: Positive for redness post steroid infusion. Exam: 11:56 Head/Face: Normocephalic, atraumatic. Eyes: Pupils equal round and reactive to light, snw extra-ocular motions intact. Lids and lashes normal. Conjunctiva and sclera are non-icteric and not injected. Cornea within normal limits. Periorbital areas with no swelling, redness, or edema. ENT: Nares patent. No nasal discharge, no septal abnormalities noted. Tympanic membranes are normal and external auditory canals are clear. Oropharynx with no redness, swelling, or masses, exudates, or evidence of obstruction, uvula midline. Mucous membranes moist. Neck: Trachea midline, no thyromegaly or masses palpated, and no cervical lymphadenopathy. Supple, full range of motion without nuchal rigidity, or vertebral point tenderness. No Meningismus. Chest/axilla: Normal chest wall appearance and motion. Nontender with no deformity. No lesions are appreciated. Cardiovascular: Regular rate and rhythm with a normal S1 and S2. No gallops, murmurs, or rubs. Normal PMI, no JVD. No pulse deficits. mild lower ext digit dependant cyanosis Respiratory: Lungs have equal breath sounds bilaterally, clear to auscultation and percussion. No rales, rhonchi or wheezes noted. No increased work of breathing, no retractions or nasal flaring. Abdomen/GI: Soft, non-tender, with normal bowel sounds. No distension or tympany. No guarding or rebound. No evidence of tenderness throughout. Back: No spinal tenderness. No costovertebral tenderness. Full range of motion. Skin: Warm, dry with normal turgor. Normal color with no rashes, no lesions, and no evidence of cellulitis. MS/ Extremity: Pulses equal, no cyanosis. Neurovascular intact. Full, normal range of motion. Neuro: Awake and alert, GCS 15, oriented to person, place, time, and situation. Cranial nerves II-XII grossly intact. Motor strength 5/5 in all extremities. Sensory grossly intact. Cerebellar exam normal. Normal gait. 11:56 Constitutional: The patient appears alert, awake, uncomfortable. Vital Signs: 11:03 BP 108 / 79; Pulse 91; Resp 16; Temp 97.5; Pulse Ox 100% ; Weight 97.07 kg; Height 5 bp ft. 5 in. ; 11:03 Body Mass Index 35.61 (97.07 kg, 165.1 cm) bp MDM: 11:06 Patient medically screened. snw 12:38 Differential diagnosis: Anxiety Reaction Bronchitis Psychogenic pulmonary edema. Data snw reviewed: vital signs, nurses notes. I considered the following discharge prescriptions or medication management in the emergency department Medications were administered in the Emergency Department. See MAR. Counseling: I had a detailed discussion with the patient and/or guardian regarding: the historical points, exam findings, and any diagnostic results supporting the discharge/admit diagnosis, to return to the emergency department if symptoms worsen or persist or if there are any questions or concerns that arise at home. Response to treatment: There is no appreciated change of the patient's symptoms at this time. Special discussion: Based on the history and exam findings, there is no indication for further emergent testing or inpatient evaluation. I discussed with the patient/guardian the need to see the primary care provider for further evaluation of the symptoms. 05/05 11:11 Order name: Chest Pa And Lat (2 Views) XRAY; Complete Time: 11:59 snw 05/05 11:11 Order name: FSBS; Complete Time: 12:45 snw Administered Medications: 12:45 Drug: Hydrocodone-Acetaminophen PO (7.5 mg-325 mg) 1 tabs Route: PO; mb9 Disposition: 13:05 Co-signature as Attending Physician, Farooq James MD I reviewed the patient's care rn provided by the Advanced Practice Provider and agree with the diagnosis and treatment plan. Disposition Summary: 05/05/23 12:40 Discharge Ordered Location: Home snw Condition: Stable snw Diagnosis - Anxiety disorder, unspecified snw - Pain, unspecified snw Followup: snw - With: Emergency Department - When: As needed - Reason: Worsening of condition Followup: snw - With: Private Physician - When: 1 - 2 days - Reason: Recheck today's complaints, Continuance of care, Re-evaluation by your physician Discharge Instructions: - Discharge Summary Sheet snw - Musculoskeletal Pain snw - How to Use Cold Therapy, [id number] snw - Heat Therapy snw Forms: - Medication Reconciliation Form snw - Thank You Letter snw - Antibiotic Education snw - Prescription Opioid Use snw Prescriptions: - orphenadrine citrate 100 mg Oral Tablet Sustained Release - take 1 tablet by ORAL route 2 times per day As needed; 20 tablet; Refills: 0, snw Product Selection Permitted Signatures: Dispatcher [employer] EDNV Monet Reyes, GRADUATE TEACHING ASSISTANT-C GRADUATE TEACHING ASSISTANT-Csnw Farooq James MD MD rn Peltier, Brian, RN RN bp Gabriel, Alana, RN RN mb9
[2023-05-05] MEDS ORDERED: HYDROCODONE/APAP 7.5/325 MG TAB ONE (12:51)
[2023-05-05 13:26] VITALS: BP 108/79; TEMP 97.5; O2SAT 100
== END 2023-05-05 12:50 | disposition home or self-care (01) ==
LOC: ER 10:42
DX: F41.9 Anxiety disorder, unspecified (principal); R52 Pain, unspecified
CPT/HCPCS: 71046; 82947; 99283

== ENCOUNTER → 2024-02-18 | Emergency (ER) | payer OTHER ==
[~2024-02-18] MED LIST: CIPROFLOXACIN 400mg IV 400 MG/200 ML BAG IV ONE; DICYCLOMINE HCL 10 MG CAP ONE; IBUPROFEN 200 MG TAB PO ONE; METRONIDAZOLE 500mg IVPB 500 MG/100 ML BAG IV ONE; NA CHLORIDE 0.9% 1,000 ML ONE; NA CHLORIDE 0.9% 500 ML ONE
[2024-02-18 01:43] LABS: Absolute Eosinophils 0.1 K/uL (0-0.5); Absolute Lymphocytes (CBC) 0.9 K/uL (0.7-4.9); Absolute Monocytes 0.5 K/uL (0.1-1.3); Basophils % 0.9 % (0-1.3); Eosinophils % 1.8 % (0-4.4); Hematocrit 32.9 % (36.0-45.0); Hemoglobin 11.1 g/dL (12.0-15.0); Lymphocytes % 19.5 % (15.3-44.8); MCH 32.5 pg (27.0-35.0); MCHC 33.9 g/dL (32.0-36.0); MCV 95.9 fL (80-100); MPV 9.4 fL (7.6-11.3); Monocytes % 10.8 % (3.3-12.3); Nucleated Red Blood Cells % 0.5 % (0-0); Platelets 291 thou/uL (152-406); RBC Red Blood Cell Count 3.43 M/uL (3.86-4.86); Red Cell Distribution Width 15.8 % (12.1-15.2)
[2024-02-18 01:55] LABS: Specific Gravity > 1.030 (1.005-1.030)
[2024-02-18 01:55] LABS: Albumin 3.3 g/dL (3.4-5.0); Albumin/Globulin Ratio 0.8 (1.1-1.8); Anion Gap 9.3 mEq/L (5.0-15.0); Bilirubin Total 0.3 mg/dL (0.2-1.0); Potassium 3.3 mEq/L (3.5-5.1); Protein, Total 7.3 g/dL (6.4-8.2)
[2024-02-18 02:00] LABS: Specific Gravity > 1.030 (1.005-1.030); Sqamous Epithelial <5 /HPF (None Seen); Urine Bacteria None Seen /HPF (<20); Urine Bilirubin NEGATIVE (Negative); Urine Blood 2+ (Negative); Urine Clarity Clear (Clear); Urine Color Light-Yellow (Yellow); Urine Culture Reflex Order NOT NEEDED; Urine Glucose NEGATIVE (Negative); Urine Ketones NEGATIVE (Negative); Urine Microscopic Reflex YN ORDER UMIC; Urine Nitrite NEGATIVE (Negative); Urine Protein TRACE (Negative); Urine Urobilinogen Normal (Normal); Urine WBC <5 /HPF (<5)
--- NOTE | 2024-02-18 04:57 | EDPHYS ---
Physician Documentation [facility] Name: Ginette Guillermo Age: 43 yrs Sex: Female : 1980 Arrival Date: 02/18/2024 Time: 00:32 Bed 7 Private MD: ED Physician Farooq James HPI: 02/17 01:12 This 43 yrs old Female presents to ER via Ambulatory with complaints of Weakness, Pain rn With Urination, Bloody Stools. 01:12 The patient presents with abdominal pain in the lower abdomen. rn 01:12 Onset: The symptoms/episode began/occurred today. The symptoms do not radiate. rn Associated signs and symptoms: Pertinent negatives: fever. Modifying factors: The symptoms are alleviated by nothing, the symptoms are aggravated by touching the area. Severity of pain: At its worst the pain was mild in the emergency department the pain is unchanged. The patient has experienced similar episodes in the past. Patient reports combination of lower abdominal pain, pain with urination, possible hemorrhoidal bleeding. Patient reports chronic constipation that is worse over the last 3 weeks and once a week has blood when wiping after bowel movement. Denies trauma. Patient also with history of lupus and rheumatoid arthritis and fibromyalgia. No fever or chills.. 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 Flu vaccine is not up to date. - Social history:: Smoking status: Reported history of juuling and/or vaping. Patient uses alcohol, occasionally. Patient/guardian denies using street drugs. - Family history:: not pertinent. - Hospitalizations: : No recent hospitalization is reported. 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 ENT: Dry mucous membranes Cardiovascular: Regular rate and rhythm. No pulse deficits. Respiratory: No increased work of breathing, no retractions or nasal flaring. Abdomen/GI: Soft mild tenderness in all 4 quadrants, worse in the suprapubic region, no rebound or guarding MS/ Extremity: Pulses equal, no cyanosis. Neuro: Awake and alert, GCS 15. Motor strength 5/5 in all extremities. Sensory grossly intact. Cerebellar exam normal. Normal gait. Vital Signs: 00:45 BP 111 / 66; Pulse 65; Resp 17 S; Temp 97.1(TE); Pulse Ox 99% on R/A; Weight 102.06 kg lg3 (R); Height 5 ft. 6 in. (R); 01:00 BP 94 / 72; Pulse 63; Resp 18; Pulse Ox 97% on R/A; km8 02:00 BP 105 / 75; Pulse 54; Resp 16; Pulse Ox 94% on R/A; km8 03:11 BP 123 / 81; Pulse 56; Resp 18; Pulse Ox 100% on R/A; Pain 8/10; bm8 04:12 BP 126 / 81; Pulse 58; Resp 15; Temp 97.3; Pulse Ox 100% on R/A; Pain 8/10; bm8 05:13 BP 131 / 86; Pulse 60; Resp 16; Temp 97.8; Pulse Ox 100% ; Pain 6/10; bm8 00:45 Body Mass Index 36.32 (102.06 kg, 167.64 cm) lg3 03:11 Pain Scale: Adult bm8 04:12 Pain Scale: Adult bm8 05:13 Pain Scale: Adult bm8 Carter Coma Score: 01:08 Eye Response: spontaneous(4). Motor Response: obeys commands(6). Verbal Response: bm8 oriented(5). Total: 15. 05:13 Eye Response: spontaneous(4). Motor Response: obeys commands(6). Verbal Response: bm8 oriented(5). Total: 15. MDM: 00:40 Patient medically screened. rn 04:49 Differential diagnosis: bowel obstruction, diverticulitis, non-specific abd pain, rn pancreatitis, Peptic Ulcer Disease, Perf. Duodenal Ulcer, Perf. Gastric Ulcer, Peritonitis, Pyelonephritis, Ureterolithiasis, urinary tract infection. Data reviewed: vital signs, nurses notes, lab test result(s), radiologic studies, CT scan, and as a result, I will discharge patient. Counseling: I had a detailed discussion with the patient and/or guardian regarding the historical points, exam findings, and any diagnostic results supporting the discharge/admit diagnosis, lab results, radiology results, the need for outpatient follow up, to return to the emergency department if symptoms worsen or persist or if there are any questions or concerns that arise at home. Special discussion: Based on the patient's Hx, exam, and Dx evaluation, there is no indication for emergent surgery or inpatient Tx. It is understood by the patient/guardian that if the Sx's persist or worsen they need to return immediately for re-evaluation. I discussed with the patient/guardian in detail that at this point there is no indication for admission to the hospital. It is understood, however, that if the symptoms persist or worsen the patient needs to return immediately for re-evaluation. ED course: Ct shows colitis, does not have history of inflammatory bowel disease. Will dc home with abx. If does not improve, needs to f/u with GI for IBD w/u. . 02/17 00:47 Order name: CBC with Diff; Complete Time: 02:04 rn 02/17 00:47 Order name: CMP; Complete Time: 02:04 rn 02/17 00:47 Order name: Lipase; Complete Time: 02:04 rn 02/17 00:47 Order name: Test, Urine; Complete Time: 02:04 rn 02/17 00:47 Order name: Urinalysis w/ reflexes; Complete Time: 02:04 rn 02/17 00:47 Order name: CT Abd/Pelvis - IV Contrast Only rn 02/17 00:47 Order name: IV Saline Lock; Complete Time: 01:51 rn 02/17 00:47 Order name: Labs collected and sent; Complete Time: 01:20 rn Administered Medications: 01:51 Drug: NS 0.9% IV 1000 ml IV at 1 bolus Per protocol; 1000 mL bolus Route: IV; Rate: 1 bm8 bolus; Site: right forearm; 03:31 Follow up: IV Status: Completed infusion; IV Intake: 1000ml bm8 04:09 Follow up: IV Status: Completed infusion; IV Intake: 1000ml bm8 03:10 Drug: metroNIDAZOLE IVPB 500 mg 100 ml IVPB at 200 ml/hr once over 30 mins Volume: 100 bm8 ml; Route: IVPB; Rate: 200 ml/hr; Infused Over: 30 mins; Site: right forearm; 04:09 Follow up: IV Status: Completed infusion; IV Intake: 100ml bm8 03:10 Drug: NS 0.9% IV 500 ml IV at bolus once Route: IV; Rate: bolus; Site: right forearm; bm8 04:09 Follow up: IV Status: Completed infusion; IV Intake: 500ml bm8 03:15 Drug: Ibuprofen PO 600 mg PO once Route: PO; bm8 05:17 Follow up: Response: No adverse reaction bm8 03:15 Drug: Dicyclomine PO 20 mg PO once Route: PO; bm8 05:17 Follow up: Response: No adverse reaction bm8 04:09 Drug: Ciprofloxacin IVPB 400 mg 200 ml IVPB once over 60 mins Volume: 200 ml; Route: bm8 IVPB; Infused Over: 60 mins; Site: right forearm; 05:17 Follow up: IV Status: Completed infusion; IV Intake: 200ml bm8 Disposition Summary: 02/18/24 04:56 Discharge Ordered Notes: Location: Home rn Problem: new rn Symptoms: have improved rn Condition: Stable rn Diagnosis - Infectious gastroenteritis and colitis, unspecified rn - Abdominal pain, unspecified rn Followup: rn - With: Private Physician - When: As needed - Reason: Recheck today's complaints, Re-evaluation by your physician Discharge Instructions: - Discharge Summary Sheet rn - Abdominal Pain, Adult rn - Colitis rn Forms: - Medication Reconciliation Form rn - Thank You Letter rn - 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 - Prescription Opioid Use rn - Patient Portal Instructions rn - Leadership Thank You Letter rn Prescriptions: - ondansetron 4 mg Oral Tablet,disintegrating - take 1 tablet ORAL route every 8 hours As needed; 10 tablet; Refills: 0, rn Product Selection Permitted - Flagyl 500 mg Oral Tablet - take 1 tablet ORAL route every 8 hours for 10 days; 30 tablet; Refills: 0, rn Product Selection Permitted - Cipro 500 mg Oral tablet - take 1 tablet ORAL route every 12 hours for 10 days; 20 tablet; Refills: 0, rn Product Selection Permitted - Tramadol 50 mg Oral Tablet - take 1 tablet ORAL route every 8 hours as needed; 12 tablet; Refills: 0, rn Product Selection Permitted Signatures: Dispatcher [employer] Farooq Hayes MD MD rn Able, Lacie, RN RN lg3 Yaw Clemente RN RN bm8
--- NOTE | 2024-02-18 04:57 | ER ---
Nurse's Notes [facility] Name: Ginette Guillermo Age: 43 yrs Sex: Female : 1980 Arrival Date: 02/18/2024 Time: 00:32 Bed 7 Private MD: Diagnosis: Infectious gastroenteritis and colitis, unspecified;Abdominal pain, unspecified Presentation: 02/17 00:45 Chief complaint: Patient states: lower abdominal pain, blood in rectum post BM and lg3 weakness. previous similar episodes over the last 3 weeks. Coronavirus screen: Client denies travel out of the [place] in the last 14 days. At this time, the client does not indicate any symptoms associated with coronavirus-19. Ebola Screen: No symptoms or risks identified at this time. Initial Sepsis Screen: Does the patient meet any 2 criteria? No. Patient's initial sepsis screen is negative. Does the patient have a suspected source of infection? No. Patient's initial sepsis screen is negative. Risk Assessment: Do you want to hurt yourself or someone else? Patient reports no desire to harm self or others. Onset of symptoms was February 17, 2024. 00:45 Method Of Arrival: Ambulatory lg3 00:45 Acuity: KAMLESH 3 lg3 Triage Assessment: 00:48 General: Appears in no apparent distress. uncomfortable, Behavior is calm, cooperative. lg3 Pain: Complains of pain in suprapubic area, right lower quadrant and left lower quadrant. EENT: No deficits noted. No signs and/or symptoms were reported regarding the EENT system. Neuro: No deficits noted. Moore Agitation-Sedation Scale (RASS): 0 - Alert and Calm Level of Consciousness is awake, alert, obeys commands, Oriented to person, place, time, situation. Cardiovascular: No deficits noted. Denies chest pain, shortness of breath, Capillary refill < 3 seconds Clubbing of nail beds is absent JVD is absent Patient's skin is warm and dry. Respiratory: No deficits noted. Airway is patent Respiratory effort is even, unlabored, Respiratory pattern is regular, symmetrical. GI: Abdomen is round non-distended, obese, Abd is soft X 4 quads Abdomen is tender to palpation in right lower quadrant and left lower quadrant Reports lower abdominal pain, rectal bleeding. : No deficits noted. No signs and/or symptoms were reported regarding the genitourinary system. Denies burning with urination, urinary frequency, urgency. Derm: No deficits noted. No signs and/or symptoms reported regarding the dermatologic system. Skin is intact, is healthy with good turgor, Skin is dry, Skin is normal, Skin temperature is warm. Musculoskeletal: No deficits noted. No signs and/or symptoms reported regarding the musculoskeletal system. Circulation, motion, and sensation intact. Range of motion: intact in all extremities. 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 Flu vaccine is not up to date. - Social history:: Smoking status: Reported history of juuling and/or vaping. Patient uses alcohol, occasionally. Patient/guardian denies using street drugs. - Family history:: not pertinent. - Hospitalizations: : No recent hospitalization is reported. Screenin:08 [facility] ED Fall Risk Assessment (Adult) History of falling in the last 3 months, bm8 including since admission No falls in past 3 months (0 pts). Abuse screen: Denies threats or abuse. Nutritional screening: No deficits noted. Tuberculosis screening: No symptoms or risk factors identified. Assessment: 01:08 General: Appears comfortable, well groomed, well developed, well nourished, Behavior is bm8 calm, cooperative. Pain: Complains of pain in left low back, left mid back, right mid back and right low back Pain does not radiate. Pain currently is 8 out of 10 on a pain scale. 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 generalized body aches everywhere else. Neuro: No deficits noted. Level of Consciousness is awake, alert, obeys commands, Oriented to person, place, time, situation, Cotton Opener are equal bilaterally Moves all extremities. Gait is steady, Speech is normal, Facial symmetry appears normal, Pupils are PERRLA, Intact. Cardiovascular: Capillary refill < 3 seconds in bilateral fingers toes Patient's skin is warm and dry. Chest pain is denied. Respiratory: Airway is patent Respiratory effort is even, unlabored, Respiratory pattern is regular. GI: Bowel sounds present X 4 quads. Reports lower abdominal pain, constipation, cramping, hemorrhoids. : Urine is clear, Reports pain in suprapubic area. EENT: No signs and/or symptoms were reported regarding the EENT system. Derm: No signs and/or symptoms reported regarding the dermatologic system. Musculoskeletal: No signs and/or symptoms reported regarding the musculoskeletal system. 02:25 Reassessment: Patient appears in no apparent distress at this time. No changes from km8 previously documented assessment. Patient and/or family updated on plan of care and expected duration. Pain level reassessed. Patient is alert, oriented x 3, equal unlabored respirations, skin warm/dry/pink. 03:11 Reassessment: pt reporting 8/10 pain requesting tylenol or motrin for pain. informed md armando and awaiting new orders. 04:10 Reassessment: Patient appears in no apparent distress at this time. Patient and/or bm8 family updated on plan of care and expected duration. Pain level reassessed. Patient is alert, oriented x 3, equal unlabored respirations, skin warm/dry/pink. pt reports no change in pain since taking the motrin and bentyl. . 05:13 Reassessment: Patient appears in no apparent distress at this time. Patient and/or bm8 family updated on plan of care and expected duration. Pain level reassessed. Patient is alert, oriented x 3, equal unlabored respirations, skin warm/dry/pink. Patient states feeling better. Patient states symptoms have improved. pt reports an improvement in pain . now a 05/05. Vital Signs: 00:45 BP 111 / 66; Pulse 65; Resp 17 S; Temp 97.1(TE); Pulse Ox 99% on R/A; Weight 102.06 kg lg3 (R); Height 5 ft. 6 in. (R); 01:00 BP 94 / 72; Pulse 63; Resp 18; Pulse Ox 97% on R/A; km8 02:00 BP 105 / 75; Pulse 54; Resp 16; Pulse Ox 94% on R/A; km8 03:11 BP 123 / 81; Pulse 56; Resp 18; Pulse Ox 100% on R/A; Pain 8/10; bm8 04:12 BP 126 / 81; Pulse 58; Resp 15; Temp 97.3; Pulse Ox 100% on R/A; Pain 8/10; bm8 05:13 BP 131 / 86; Pulse 60; Resp 16; Temp 97.8; Pulse Ox 100% ; Pain 6/10; bm8 00:45 Body Mass Index 36.32 (102.06 kg, 167.64 cm) lg3 03:11 Pain Scale: Adult bm8 04:12 Pain Scale: Adult bm8 05:13 Pain Scale: Adult bm8 Nichelle Coma Score: 01:08 Eye Response: spontaneous(4). Motor Response: obeys commands(6). Verbal Response: bm8 oriented(5). Total: 15. 05:13 Eye Response: spontaneous(4). Motor Response: obeys commands(6). Verbal Response: bm8 oriented(5). Total: 15. ED Course: 00:40 Patient arrived in ED. gm2 00:40 Farooq James MD is Attending Physician. rn 00:48 Triage completed. lg3 00:48 Arm band placed on right wrist. lg3 01:08 Yaw Clemente, ALISON is Primary Nurse. bm8 01:08 Patient has correct armband on for positive identification. Call light in reach. Side bm8 rails up X 1. Adult w/ patient. Pulse ox on. NIBP on. 01:19 Initial lab(s) drawn, by me, sent to lab. Urine collected: clean catch specimen, clear. km8 Missed attempt(s): 22 gauge in right antecubital area. Bleeding controlled, band aid applied, catheter tip intact. 01:20 CBC with Diff Sent. km8 01:20 CMP Sent. km8 01:20 Lipase Sent. km8 01:20 Test, Urine Sent. km8 01:20 Urinalysis w/ reflexes Sent. km8 01:51 CMP Sent. bm8 01:51 Lipase Sent. bm8 01:51 Test, Urine Sent. bm8 01:51 Urinalysis w/ reflexes Sent. bm8 01:52 Inserted saline lock: 20 gauge in right forearm, using aseptic technique. ,using bm8 aseptic technique. ultrasound guided Blood collected. 02:19 CT Abd/Pelvis - IV Contrast Only In Process Unspecified. EDMS 02:26 Patient moved back from [place]. km8 05:13 Provided Education on: use of home medication, use of perscribed medications. dc bm8 instructions. 05:13 No provider procedures requiring assistance completed. IV discontinued, intact, bm8 bleeding controlled, No redness/swelling at site. Pressure dressing applied. Administered Medications: 01:51 Drug: NS 0.9% IV 1000 ml IV at 1 bolus Per protocol; 1000 mL bolus Route: IV; Rate: 1 bm8 bolus; Site: right forearm; 03:31 Follow up: IV Status: Completed infusion; IV Intake: 1000ml bm8 04:09 Follow up: IV Status: Completed infusion; IV Intake: 1000ml bm8 03:10 Drug: metroNIDAZOLE IVPB 500 mg 100 ml IVPB at 200 ml/hr once over 30 mins Volume: 100 bm8 ml; Route: IVPB; Rate: 200 ml/hr; Infused Over: 30 mins; Site: right forearm; 04:09 Follow up: IV Status: Completed infusion; IV Intake: 100ml bm8 03:10 Drug: NS 0.9% IV 500 ml IV at bolus once Route: IV; Rate: bolus; Site: right forearm; bm8 04:09 Follow up: IV Status: Completed infusion; IV Intake: 500ml bm8 03:15 Drug: Ibuprofen PO 600 mg PO once Route: PO; bm8 05:17 Follow up: Response: No adverse reaction bm8 03:15 Drug: Dicyclomine PO 20 mg PO once Route: PO; bm8 05:17 Follow up: Response: No adverse reaction bm8 04:09 Drug: Ciprofloxacin IVPB 400 mg 200 ml IVPB once over 60 mins Volume: 200 ml; Route: bm8 IVPB; Infused Over: 60 mins; Site: right forearm; 05:17 Follow up: IV Status: Completed infusion; IV Intake: 200ml bm8 Medication: 01:08 VIS not applicable for this client. bm8 Intake: 03:31 IV: 1000ml; Total: 1000ml. bm8 04:09 IV: 500ml; Total: 1500ml. bm8 04:09 IV: 100ml; Total: 1600ml. bm8 04:09 IV: 1000ml; Total: 2600ml. bm8 05:17 IV: 200ml; Total: 2800ml. bm8 Outcome: 04:56 Discharge ordered by . rn 05:13 Discharged to home ambulatory, bm8 05:13 Condition: stable 05:13 Discharge instructions given to patient, family, Instructed on discharge instructions, follow up and referral plans. no drinking with medication, medication usage, safety practices, Demonstrated understanding of instructions, follow-up care, medications, Prescriptions given X 4, 05:17 Patient left the ED. bm8 Signatures: Dispatcher [employer] EDMS Farooq James MD MD rn Able, Lacie, RN RN lg3 Flor Blake 2 Theresa Carrasco RN RN 8 Yaw Clemente RN RN bm8
[2024-02-18 05:47] VITALS: BP 131/86; TEMP 97.8; O2SAT 100
--- NOTE | 2024-02-18 22:30 | RAD REPORT ---
EXAM DESCRIPTION: CT ABDOMEN AND PELVIS WITH CONTRAST CLINICAL HISTORY: ABD PAIN COMPARISON: None Available. TECHNIQUE: CT of the abdomen and pelvis performed following IV administration of iodinated contras t. This exam was performed according to our departmental dose-optimization program, which includes au tomated exposure control, adjustment of the mA and/or kV according to patient size and/or use of iter ative reconstruction technique. FINDINGS: Lung Bases: Minimal dependent atelectasis. Bones: No destructive bone lesions identified. Abdomen: Liver: Hepatomegaly with diffusely decreased density. Gallbladder: Prior cholecystectomy. Spleen, Pancreas, and Adrenal Glands: The spleen, pancreas, and adrenal glands are unremarkable. Kidneys: No hydronephrosis or obstructing calculus. Vasculature: Aortoiliac atherosclerosis. IVC is unremarkable. The portal vein is patent. The proxim al visceral and renal arteries are patent. Stomach: The stomach and duodenum have normal course. Other: No free intraperitoneal air. No free fluid or lymphadenopathy. Pelvis: Bladder: Urinary bladder is unremarkable. Bowel: No dilated loops of large or small bowel. Wall thickening with submucosal fatty infiltration of the colon. Appendix: Normal appendix. Pelvis: Prior hysterectomy. IMPRESSION: 1. Wall thickening with submucosal fatty infiltration of the colon. These findings cou ld be seen with chronic inflammatory colitis. 2. Hepatomegaly and hepatic steatosis. Electronically signed by: Moises Burciaga DO 02/18/2024 02:46 AM CDT M Due to temporary technical issues with the PACS/Fluency reporting system, reports are being signed by the in house radiologists without review as a courtesy to insure prompt reporting. The interpreting radiologist is fully responsible for the content of the report.
== END ==
LOC: ER 00:32
DX: A09 Infectious gastroenteritis and colitis, unspecified (principal)
CPT/HCPCS: 85025; 81001; 36415; 81025; 83690; 80053; 74177; Q9967; J0744; J7040; J7030; 96361; 96365; 96367; 99285

== ENCOUNTER 2024-07-02 15:53 | Emergency (ER) | payer OTHER ==
[2024-07-02 17:44] LABS: Absolute Eosinophils 0.1 K/uL (0-0.5); Absolute Lymphocytes (CBC) 0.6 K/uL (0.7-4.9); Absolute Monocytes 0.8 K/uL (0.1-1.3); Absolute Neutrophil 4.1 K/uL (1.8-8.0); Basophils % 0.8 % (0-1.3); Eosinophils % 1.6 % (0-4.4); Hematocrit 35.3 % (36.0-45.0); Hemoglobin 11.8 g/dL (12.0-15.0); Lymphocytes % 10.2 % (15.3-44.8); MCH 31.4 pg (27.0-35.0); MCHC 33.4 g/dL (32.0-36.0); MCV 94.2 fL (80-100); MPV 9.5 fL (7.6-11.3); Monocytes % 14.4 % (3.3-12.3); Nucleated Red Blood Cells % 0.2 % (0-0); Platelets 266 thou/uL (152-406); RBC Red Blood Cell Count 3.75 M/uL (3.86-4.86); Red Cell Distribution Width 15.7 % (12.1-15.2)
[2024-07-02 18:17] LABS: Albumin 3.6 g/dL (3.4-5.0); Albumin/Globulin Ratio 0.8 (1.1-1.8); Anion Gap 9.1 mEq/L (5.0-15.0); Bilirubin Total 0.4 mg/dL (0.2-1.0); Globulin 4.5 g/dL (2.3-3.5); Potassium 3.1 mEq/L (3.5-5.1); Protein, Total 8.1 g/dL (6.4-8.2)
--- NOTE | 2024-07-02 19:26 | RAD REPORT ---
EXAM DESCRIPTION: CTAbdomen Pelvis W Contrast - 07/02/2024 7:14 pm CLINICAL HISTORY: ABD PAIN COMPARISON: Abdomen Pelvis W Contrast dated 02/18/2024; CT ABD PELVIS W CONTRAST dated 11/23/2009; CT ABD PELVIS W CONTRAST dated 10/05/2009 TECHNIQUE: CT of the abdomen and pelvis was performed. All CT scans are performed using dose optimization technique as appropriate and may include automated exposure control or mA/KV adjustment according to patient size. FINDINGS: Lower chest: No acute abnormality. Liver: No acute abnormality or suspicious lesions. Biliary: No biliary ductal dilatation. Cholecystectomy Stomach: No significant focal abnormality. Duodenum: No significant focal abnormality. Pancreas: No significant abnormality. Spleen: No significant abnormality. Adrenal: No suspicious lesions. Kidney/ureter: No hydronephrosis. No renal calculi. Retroperitoneum: No retroperitoneal adenopathy. Vascular: No aneurysm. Bowel: Mild rectal wall thickening. No bowel obstruction. No appendicitis identified.. Peritoneum: No ascites or free air. Bladder: Grossly unremarkable. Reproductive: No adnexal masses. Bones: No acute fracture. Other: n/a IMPRESSION: Increased rectal wall thickening concerning for proctitis. No complicating features.
[2024-07-02] MEDS ORDERED: ONDANSETRON 4 MG/2 ML VIAL ONE (19:31)
[2024-07-02] MEDS ORDERED: NA CHLORIDE 0.9% 1,000 ML ONE (19:31)
--- NOTE | 2024-07-02 19:49 | EDPHYS ---
Physician Documentation [facility] Name: Ginette Guillermo Age: 43 yrs Sex: Female : 1980 Arrival Date: 07/02/2024 Time: 15:53 Bed 10 Private MD: DENIS Physician René Aguillon HPI: 07/02 16:47 This 43 yrs old Female presents to ER via Ambulatory with complaints of Abdominal Pain, rn Pain All Over. 16:47 The patient presents with abdominal pain. Onset: The symptoms/episode began/occurred 2 rn day(s) ago. The symptoms do not radiate. Associated signs and symptoms: Pertinent positives: constipation, Pertinent negatives: blood in stools, fever, vomiting blood. Modifying factors: The symptoms are alleviated by nothing, the symptoms are aggravated by nothing. Severity of pain: At its worst the pain was moderate in the emergency department the pain is unchanged. The patient has experienced similar episodes in the past. The patient has not recently seen a physician. Pt reports has chronic abdominal probmes, fibromyalgia, was having constipation, took laxatives, now having loose stool. Still feels like might be backed up. Tried enemas and got hard pieces of stool out. Also put on a glove and dug out some stool on her own. Still reports lower abdominal pain. No fever or blood in stools.. Historical: - Allergies: 16:33 Steroids- IV; cm10 - PMHx: 16:33 hypotension; Lupus erythematosus; RA/fibromyalgia; Raynaud's; cm10 - PSHx: 16:33 Appendectomy; Cholecystectomy; hysterectomy; cm10 - Immunization history:: Adult Immunizations up to date. - Infectious Disease History:: Denies. - Social history:: Smoking status: Patient denies any tobacco usage or history of. - Family history:: not pertinent. - Hospitalizations: : No recent hospitalization is reported. ROS: 16:47 Constitutional: Negative for fever, chills, and weight loss, Cardiovascular: Negative rn for chest pain, palpitations, and edema, Respiratory: Negative for shortness of breath, cough, wheezing, and pleuritic chest pain, Abdomen/GI: + abd pain with loose stool Back: Negative for injury and pain, MS/Extremity: Negative for injury and deformity, Skin: Negative for injury, rash, and discoloration, Neuro: Negative for headache, weakness, numbness, tingling, and seizure, Exam: 16:47 Constitutional: This is a well developed, well nourished patient who is awake, alert, rn and in no acute distress. Cardiovascular: Regular rate and rhythm. No pulse deficits. Respiratory: No increased work of breathing, no retractions or nasal flaring. Abdomen/GI: soft, + suparpubic abd tenderness 21:42 ECG was reviewed by the Attending Physician. [facility] Vital Signs: 16:32 BP 106 / 67; Pulse 73; Resp 18; Temp 97.1(TE); Pulse Ox 100% on R/A; Weight 90.72 kg; cm10 Height 5 ft. 5 in. ; Pain 9/10; 19:36 BP 140 / 92; Pulse 75; Resp 18; Pulse Ox 100% on R/A; Pain 10/10; nj1 20:00 BP 147 / 97; Pulse 76; Resp 20; Pulse Ox 100% on R/A; kj2 16:32 Body Mass Index 33.28 (90.72 kg, 165.1 cm) cm10 16:32 Pain Scale: Adult cm10 19:36 Pain Scale: Adult nj1 MDM: 16:10 Patient medically screened. rn 19:49 Differential diagnosis: bowel obstruction, diverticulitis, gastritis, GI Bleed, jesus Mesenteric ischemia or infarction, non-specific abd pain, pancreatitis, Peptic Ulcer Disease, Perf. Duodenal Ulcer, Peritonitis, Pyelonephritis, Ureterolithiasis, urinary tract infection. Data reviewed: vital signs, nurses notes, lab test result(s), radiologic studies, CT scan. Consideration of Admission/Observation Escalation of care including admission/observation considered. I considered the following discharge prescriptions or medication management in the emergency department Medications were administered in the Emergency Department. See MAR. Independent interpretation of the following test(s) in the Emergency Department CT Scan: My interpretation is CT ABD PELVIS. Test considered but Not performed: EKG: NO EKG. Care significantly affected by the following chronic conditions: HYPOTENSION, SLE, RA , FIBROMYALGIA. 07/02 16:19 Order name: CBC with Diff; Complete Time: 17:47 rn 07/02 16:19 Order name: CMP; Complete Time: 18:27 rn 07/02 16:19 Order name: Lipase; Complete Time: 18:27 rn 07/02 16:19 Order name: CT Abd/Pelvis - IV Contrast Only; Complete Time: 19:45 rn 07/02 21:36 Order name: EKG; Complete Time: 21:36 [facility] 07/02 16:19 Order name: IV Saline Lock; Complete Time: 17:37 rn 07/02 16:19 Order name: Labs collected and sent; Complete Time: 17:37 rn 07/02 21:36 Order name: EKG - Nurse/Tech; Complete Time: 21:45 [facility] EC:42 Rate is 86 beats/min. Rhythm is regular. QRS Mobile is Normal. MN interval is normal. QRS jesus interval is normal. QT interval is normal. No Q waves. T waves are Normal. No ST changes noted. Clinical impression: Normal ECG and No evidence of ischemia. Interpreted by me. Reviewed by me. Administered Medications: 19:34 Drug: NS 0.9% IV 1000 ml IV at 1000 ml once Route: IV; Rate: 1000 ml; Site: right wa1 antecubital; 19:34 Drug: Ondansetron IVP 4 mg IVP once; over 2 minutes Route: IVP; Site: right antecubital;nj1 20:27 Drug: metroNIDAZOLE IVPB 500 mg 100 ml IVPB at 200 ml/hr once over 30 mins Volume: 100 kj2 ml; Route: IVPB; Rate: 200 ml/hr; Infused Over: 30 mins; Site: right antecubital; 20:28 Drug: morphine IVP or IV 4 mg IVP once over 4 mins Route: IVP; Infused Over: 4 mins; kj2 Site: right antecubital; 20:28 Drug: Potassium PO Effervescent Tablet 50 mEq PO once; dissolve in 4 ounces of water or kj2 juice Route: PO; 20:33 Drug: Ciprofloxacin IVPB 400 mg 200 ml IVPB once over 60 mins Volume: 200 ml; Route: kj2 IVPB; Infused Over: 60 mins; Site: right antecubital; 20:40 Not Given (Duplicate Order): ondansetron 4 mg IVP once; over 2 minutes kj2 21:37 CANCELLED (Duplicate Order): droperidol1.25 mg IVP once [facility] 22:39 Drug: Droperidol IVP 1.25 mg IVP once; after cipro Route: IVP; Site: right antecubital; jb4 22:39 Follow up: Response: Medication administered at discharge. jb4 Disposition Summary: 07/02/24 19:48 Discharge Ordered Notes: Location: Home [facility] Problem: new [facility] Symptoms: have improved jesus Condition: Stable jesus Diagnosis - Abdominal pain, unspecified jesus - Left sided colitis - PROCTITIS jesus - Hypokalemia jesus - Fibromyalgia jesus - Systemic lupus erythematosus, unspecified jesus Followup: jesus - With: Private Physician - When: 2 - 3 days - Reason: Recheck today's complaints, Continuance of care, Re-evaluation by your physician Followup: jesus - With: Jose Rafael Bellamy MD - When: 2 - 3 days - Reason: Recheck today's complaints, Re-evaluation by your physician Followup: jesus - With: Mateo Patel MD - When: 2 - 3 days - Reason: Recheck today's complaints, Re-evaluation by your physician Discharge Instructions: - Discharge Summary Sheet [facility] - Abdominal Pain, Adult [facility] - Potassium Content of Foods [facility] - How to Take a Sitz Bath [facility] - Abdominal Pain, Adult, [id number] [facility] - Colitis [facility] Forms: - Medication Reconciliation Form [facility] - Antibiotic Education [facility] - Prescription Opioid Use [facility] - Patient Portal Instructions [facility] - Leadership Thank You Letter [facility] Prescriptions: - ondansetron 4 mg Oral Tablet,disintegrating - take 1 tablet ORAL route every 6-8 hours for 5 days; 20 tablet; Refills: 0, [facility] Product Selection Permitted - Colace 100 mg Oral Tablet - take 1 tablet ORAL route every 12 hours; 14 tablet; Refills: 0, Product [facility] Selection Permitted - Flagyl 500 mg Oral Tablet - take 1 tablet ORAL route every 6 hours for 10 days; 40 tablet; Refills: 0, [facility] Product Selection Permitted - Potassium Chloride 20 meq Oral Packet - take 1 packet ORAL route every 12 hours 1 packet in 6 (six) ounces of water or jesus juice; Take after meal; 14 packet; Refills: 0, Product Selection Permitted - Cipro 500 mg Oral tablet - take 1 tablet ORAL route every 12 hours for 10 days; 20 tablet; Refills: 0, [facility] Product Selection Permitted - dicyclomine 20 mg Oral tablet - take 1 tablet ORAL route 4 times per day; 28 tablet; Refills: 0, Product [facility] Selection Permitted Signatures: Dispatcher [employer] René Rayo MD MD cha Nieto, Roman, MD MD rn Bryson, James, RN RN jb4 Annemarie Angeles RN RN nj1 Christal Bellamy RN RN cm10 Cyndi Dean RN RN kj2 Corrections: (The following items were deleted from the chart) 16:20 16:20 CBC+H.LAB.BRZ ordered. EDMS EDMS 16:20 16:20 COMPREHENSIVE METABOLIC PANEL+C.LAB.BRZ ordered. EDMS EDMS 16:20 16:20 LIPASE+C.LAB.BRZ ordered. EDMS EDMS 16:20 16:20 Urinalysis+U.LAB.BRZ ordered. EDMS EDMS 16:20 16:20 Abdomen Pelvis W Con+CT.RAD.BRZ ordered. EDMS EDMS 16:34 16:33 PMHx: yasmeen's; cm10 cm10 21:37 21:36 Droperidol IVP 1.25 mg IVP once ordered. jesus jesus
--- NOTE | 2024-07-02 19:49 | ER ---
Nurse's Notes [facility] Name: Ginette Guillermo Age: 43 yrs Sex: Female : 1980 Arrival Date: 07/02/2024 Time: 15:53 Bed 10 Private MD: Diagnosis: Abdominal pain, unspecified;Left sided colitis-PROCTITIS;Hypokalemia;Fibromyalgia;Systemic lupus erythematosus, unspecified Presentation: 07/02 16:32 Chief complaint: Patient states: Lower abdominal cramping onset Sunday. Pt also reports cm10 some constipation. Coronavirus screen: Client denies travel out of the [place] in the last 14 days. At this time, the client does not indicate any symptoms associated with coronavirus-19. Ebola Screen: Patient denies travel to an Ebola-affected area in the 21 days before illness onset. No symptoms or risks identified at this time. Initial Sepsis Screen: Does the patient meet any 2 criteria? No. Patient's initial sepsis screen is negative. Does the patient have a suspected source of infection? No. Patient's initial sepsis screen is negative. Risk Assessment: Do you want to hurt yourself or someone else? Patient reports no desire to harm self or others. Onset of symptoms was July 02, 2024. 16:32 Method Of Arrival: Ambulatory cm10 16:32 Acuity: KAMLESH 3 cm10 Triage Assessment: 16:34 General: Appears in no apparent distress. uncomfortable, Behavior is calm, cooperative. cm10 Pain: Complains of pain in suprapubic area, right lower quadrant and left lower quadrant Pain currently is 9 out of 10 on a pain scale. Quality of pain is described as crampy. Neuro: No deficits noted. Level of Consciousness is awake, alert, obeys commands, Oriented to person, place, time, situation, Appropriate for age. Respiratory: No deficits noted. Airway is patent Respiratory effort is even, unlabored, Respiratory pattern is regular, symmetrical. Historical: - Allergies: 16:33 Steroids- IV; cm10 - PMHx: 16:33 hypotension; Lupus erythematosus; RA/fibromyalgia; Raynaud's; cm10 - PSHx: 16:33 Appendectomy; Cholecystectomy; hysterectomy; cm10 - Immunization history:: Adult Immunizations up to date. - Infectious Disease History:: Denies. - Social history:: Smoking status: Patient denies any tobacco usage or history of. - Family history:: not pertinent. - Hospitalizations: : No recent hospitalization is reported. Screenin:17 [facility] ED Fall Risk Assessment (Adult) History of falling in the last 3 months, kj2 including since admission No falls in past 3 months (0 pts) Confusion or Disorientation No (0 pts) Intoxicated or Sedated No (0 pts) Impaired Gait No (0 pts) Mobility Assist Device Used No (0 pt) Altered Elimination No (0 pt) Score/Fall Risk Level 0 - 2 = Low Risk Maintained a safe environment, Assessed \T\ reinforced patient's understanding of fall precautions, Hourly rounding (assess needs \T\ fall precautionary measures) done. Abuse screen: Denies threats or abuse. Denies injuries from another. Nutritional screening: No deficits noted. Tuberculosis screening: No symptoms or risk factors identified. Assessment: 19:30 General: Appears uncomfortable, Behavior is cooperative. Pain: Complains of pain in kj2 generalized Pain currently is 10 out of 10 on a pain scale. Neuro: Level of Consciousness is awake, alert, Oriented to person, place, time. Cardiovascular: Patient's skin is warm and dry. Respiratory: Airway is patent Respiratory effort is unlabored. GI: Reports nausea. 20:32 Reassessment: discharge on hold due to medicines needing to be administered. kj2 21:14 Reassessment: report given to ALISON Asrhaf. Patient meds are infusing at this time and she kj2 requests to see physician again before leaving/discharge. 22:39 Reassessment: Patient appears in no apparent distress at this time. Patient and/or jb4 family updated on plan of care and expected duration. Pain level reassessed. Patient is alert, oriented x 3, equal unlabored respirations, skin warm/dry/pink. Vital Signs: 16:32 BP 106 / 67; Pulse 73; Resp 18; Temp 97.1(TE); Pulse Ox 100% on R/A; Weight 90.72 kg; cm10 Height 5 ft. 5 in. ; Pain 9/10; 19:36 BP 140 / 92; Pulse 75; Resp 18; Pulse Ox 100% on R/A; Pain 10/10; nj1 20:00 BP 147 / 97; Pulse 76; Resp 20; Pulse Ox 100% on R/A; kj2 16:32 Body Mass Index 33.28 (90.72 kg, 165.1 cm) cm10 16:32 Pain Scale: Adult cm10 19:36 Pain Scale: Adult nj1 ED Course: 15:55 Patient arrived in ED. im 16:10 Farooq James MD is Attending Physician. rn 16:33 Triage completed. cm10 16:35 Arm band placed on Patient placed in an exam room, on a stretcher. cm10 16:49 Radiology exam delayed due to IV insertion attempt and/or patient not having nj appropriate IV at this time. 16:49 Radiology exam delayed due to lab results not completed at this time. (BUN/Creatinine). nj 17:37 Initial lab(s) drawn, by me, sent to lab. Inserted saline lock: 24 gauge in right ap3 antecubital area, using aseptic technique. Blood collected. 17:55 Radiology exam delayed due to lab results not completed at this time. (BUN/Creatinine). nj 19:16 CT Abd/Pelvis - IV Contrast Only In Process Unspecified. EDMS 19:30 Provided Education on: call light, fall precautions. kj2 19:45 Attending Physician role handed off by Farooq James MD jesus 19:45 René Aguillon MD is Attending Physician. jesus 19:46 Jose Rafael Bellamy MD is Referral Physician. jesus 19:53 Mateo Patel MD is Referral Physician. jesus 20:03 Cyndi Dean, ALISON is Primary Nurse. kj2 21:18 Patient has correct armband on for positive identification. Bed in low position. Call kj2 light in reach. 21:45 EKG done, by ED staff. vk 22:39 No provider procedures requiring assistance completed. IV discontinued, intact, jb4 bleeding controlled, No redness/swelling at site. Pressure dressing applied. Administered Medications: 19:34 Drug: NS 0.9% IV 1000 ml IV at 1000 ml once Route: IV; Rate: 1000 ml; Site: right nj1 antecubital; 19:34 Drug: Ondansetron IVP 4 mg IVP once; over 2 minutes Route: IVP; Site: right antecubital;nj1 20:27 Drug: metroNIDAZOLE IVPB 500 mg 100 ml IVPB at 200 ml/hr once over 30 mins Volume: 100 kj2 ml; Route: IVPB; Rate: 200 ml/hr; Infused Over: 30 mins; Site: right antecubital; 20:28 Drug: morphine IVP or IV 4 mg IVP once over 4 mins Route: IVP; Infused Over: 4 mins; kj2 Site: right antecubital; 20:28 Drug: Potassium PO Effervescent Tablet 50 mEq PO once; dissolve in 4 ounces of water or kj2 juice Route: PO; 20:33 Drug: Ciprofloxacin IVPB 400 mg 200 ml IVPB once over 60 mins Volume: 200 ml; Route: kj2 IVPB; Infused Over: 60 mins; Site: right antecubital; 20:40 Not Given (Duplicate Order): ondansetron 4 mg IVP once; over 2 minutes kj2 21:37 CANCELLED (Duplicate Order): droperidol1.25 mg IVP once jesus 22:39 Drug: Droperidol IVP 1.25 mg IVP once; after cipro Route: IVP; Site: right antecubital; jb4 22:39 Follow up: Response: Medication administered at discharge. jb4 Medication: 21:18 VIS not applicable for this client. kj2 Outcome: 19:48 Discharge ordered by . [facility] 22:39 Discharged to home ambulatory, jb4 22:39 Condition: stable 22:39 Discharge instructions given to patient, Instructed on discharge instructions, follow up and referral plans. medication usage, Demonstrated understanding of instructions, follow-up care, medications, Prescriptions given X 6 22:40 Patient left the ED. jb4 Signatures: Dispatcher [employer] EDMS René Aguillon MD MD cha Nieto, Roman, MD MD rn Bryson, James RN RN jb4 [place] Dean Amanda, RN RN ap3 Annemarie Angeles RN RN nj1 Maya Montenegro Clarissa RN RN cm10 Danya Horta Krystal RN RN kj2 Corrections: (The following items were deleted from the chart) 16:34 16:33 PMHx: yasmeen's; cm10 cm10
[2024-07-02] MEDS ORDERED: MORPHINE 4 MG/ML SYR ONE (20:09)
[2024-07-02] MEDS ORDERED: POTASSIUM 25 MEQ EFFERV TAB ONE (20:09)
[2024-07-02] MEDS ORDERED: METRONIDAZOLE 500mg IVPB 500 MG/100 ML BAG IV ONE (20:10)
[2024-07-02] MEDS ORDERED: CIPROFLOXACIN 400mg IV 400 MG/200 ML BAG IV ONE (20:10)
[2024-07-02 23:59] VITALS: TEMP 97.1; O2SAT 100
[2024-07-03 00:25] VITALS: BP 147/97
--- NOTE | 2024-07-03 13:05 | EKG ---
Test Date: 2024-07-02 Test Time: 21:41:05 Veneer Sander: ANIA MEASUREMENT RESULTS: Intervals: Rate: 86 UT: 160 QRSD: 100 QT: 378 QTc: 452 Kingsley: P: 51 UT: 160 QRS: 54 T: 46 INTERPRETIVE STATEMENTS: Normal sinus rhythm Normal ECG Compared to ECG 01/18/2024 09:59:50 No significant changes Electronically Signed On 07-03-24 13:04:56 CDT by Cyrus Moreno
== END 2024-07-02 22:40 | disposition home or self-care (01) ==
LOC: ER 15:53
DX: K51.50 Left sided colitis without complications (principal); E87.6 Hypokalemia; M79.7 Fibromyalgia; M32.9 Systemic lupus erythematosus, unspecified
CPT/HCPCS: 85025; 36415; 83690; 80053; 74177; Q9967; J2405; J7030; 93005; J0744

== ENCOUNTER 2025-01-05 10:25 | Emergency (ER) | payer OTHER ==
[2025-01-05] MEDS ORDERED: ONDANSETRON 4 MG/2 ML VIAL ONE (11:06)
[2025-01-05] MEDS ORDERED: NA CHLORIDE 0.9% 1,000 ML ONE (11:06)
[2025-01-05 11:16] LABS: Absolute Basophils 0.1 K/uL (0-0.5); Absolute Lymphocytes (CBC) 0.8 K/uL (0.7-4.9); Absolute Monocytes 0.6 K/uL (0.1-1.3); Absolute Neutrophil 2.9 K/uL (1.8-8.0); Basophils % 1.2 % (0-1.3); Hematocrit 37.2 % (36.0-45.0); Hemoglobin 12.6 g/dL (12.0-15.0); MCH 32.5 pg (27.0-35.0); MCHC 33.9 g/dL (32.0-36.0); MCV 95.6 fL (80-100); MPV 9.1 fL (7.6-11.3); Monocytes % 13.4 % (3.3-12.3); Neutrophils % 65.4 % (41.7-73.7); Nucleated Red Blood Cells % 0.1 % (0-0); Platelets 419 thou/uL (152-406); RBC Red Blood Cell Count 3.89 M/uL (3.86-4.86); Red Cell Distribution Width 15.9 % (12.1-15.2)
[2025-01-05 11:35] LABS: Albumin 3.6 g/dL (3.4-5.0); Albumin/Globulin Ratio 0.8 (1.1-1.8); Anion Gap 9.1 mEq/L (5.0-15.0); Bilirubin Total 0.5 mg/dL (0.2-1.0); Globulin 4.4 g/dL (2.3-3.5); Potassium 3.1 mEq/L (3.5-5.1)
[2025-01-05 12:22] LABS: Specific Gravity 1.022 (1.005-1.030); Sqamous Epithelial <5 /HPF (None Seen); Urine Bacteria None Seen /HPF (<20); Urine Bilirubin NEGATIVE (Negative); Urine Blood Negative (Negative); Urine Clarity Clear (Clear); Urine Color Light-Yellow (Yellow); Urine Culture Reflex Order NOT NEEDED; Urine Glucose NEGATIVE (Negative); Urine Ketones NEGATIVE (Negative); Urine Microscopic Reflex YN ORDER UMIC; Urine Mucus Slight /HPF (None Seen); Urine Nitrite NEGATIVE (Negative); Urine Protein NEGATIVE (Negative); Urine RBC <5 /HPF (None Seen); Urine Urobilinogen Normal (Normal); Urine WBC <5 /HPF (<5)
[2025-01-05 13:00] LABS: Atypical Lymphocytes 3 %; Differential Total Cells Count 100; Lymphocytes 17 % (15-42); Monocytes 8 % (0-10); Segmented Neutrophils 72 % (40-80)
[2025-01-05 13:01] LABS: Blood Morphology Comment NOT SEEN (NOT SEEN); Platelet Estimate INCR
--- NOTE | 2025-01-05 13:25 | RAD REPORT ---
EXAMINATION: CT ABDOMEN AND PELVIS WITH CONTRAST CLINICAL INDICATION: PAIN TECHNIQUE: CT abdomen and pelvis was performed, after the administration of IV contrast, as per [facility] protocol. Axial, sagittal and coronal reconstructions were obtained. One or more of the following dose reduction techniques were used: Automated exposure control, adjustment of the mA and k V according to patient size, and iterative reconstruction. Unless otherwise specified, incidental findings do not require dedicated imaging follow-up. COMPARISON: No prior exam. FINDINGS: LOWER CHEST: The visualized lung bases are clear. LIVER: Normal in size and contour. No focal lesion. Cholecystectomy clips. SPLEEN: Normal size. No focal lesion. PANCREAS: No mass, ductal dilation, or nishant-pancreatic fluid. ADRENALS: Normal; no mass. KIDNEYS: Normal size and contour. No hydronephrosis. GASTROINTESTINAL TRACT: No evidence of free air, significant intra-abdominal free fluid, bowel obstru ction or abscess. APPENDIX: Appendix surgically absent. LYMPH NODES: No lymphadenopathy. MUSCULOSKELETAL: No acute or suspicious osseous abnormality. ADDITIONAL FINDINGS: None. IMPRESSION: No acute or concerning abnormalities seen in the abdomen or pelvis.
[2025-01-05] MEDS ORDERED: POTASSIUM 25 MEQ EFFERV TAB ONE (13:35)
--- NOTE | 2025-01-05 14:03 | EDPHYS ---
Physician Documentation [facility] Name: Ginette Guillermo Age: 44 yrs Sex: Female : 1980 Arrival Date: 01/05/2025 Time: 10:25 Bed 14 Private MD: ED Physician Farooq James HPI: 01/05 10:53 This 44 yrs old Female presents to ER via Ambulatory with complaints of Nausea, sb4 Diarrhea, Abdominal Pain. 10:53 Patient states that she had a stomach bug last week but she cannot seem to get over it sb4 has her nausea, abdominal cramping, and diarrhea have persisted. She states that she did have her Benlysta infusion 3 days ago for her SLE which "wiped out her immune system" states that she has not eaten in several days. Historical: - Allergies: 10:50 Steroids- IV; iw - PMHx: 10:50 hypotension; Lupus erythematosus; RA/fibromyalgia; raynaud's; iw - PSHx: 10:50 Appendectomy; Cholecystectomy; hysterectomy; iw - Immunization history:: Adult Immunizations not up to date. - Infectious Disease History:: Denies. - Social history:: Smoking status: Reported history of juuling and/or vaping. ROS: 10:53 Constitutional: Negative for fever, chills, and weight loss, sb4 10:53 Abdomen/GI: Positive for abdominal pain, nausea, vomiting, and diarrhea, 10:53 Neuro: Positive for weakness, 10:53 All other systems are negative, Exam: 10:53 Head/Face: Normocephalic, atraumatic. Eyes: Extra-ocular motions intact. Periorbital sb4 areas with no swelling, redness, or edema. Cardiovascular: Regular rate and rhythm with a normal S1 and S2. Respiratory: No increased work of breathing, no retractions or nasal flaring. Abdomen/GI: Soft, non-tender, no distension. Skin: Warm, dry with normal turgor. Normal color with no rashes, no lesions, and no evidence of cellulitis. 10:53 Constitutional: The patient appears alert, awake, uncomfortable, 10:53 ENT: Mouth: Oral mucosa: dry, Vital Signs: 10:50 BP 90 / 62; Pulse 67; Resp 16; Pulse Ox 100% on R/A; Weight 84.82 kg; Height 5 ft. 6 iw in. ; Pain 6/10; 11:57 BP 104 / 72; Pulse 58; Resp 16; Pulse Ox 99% on R/A; ko1 12:27 BP 117 / 81; Pulse 52; Resp 16; Pulse Ox 99% ; ko1 12:54 BP 121 / 78; Pulse 50; Resp 16; Pulse Ox 100% ; ko1 10:50 Body Mass Index 30.18 (84.82 kg, 167.64 cm) iw 10:50 Pain Scale: Adult iw MDM: 10:52 Medical Screening Exam initiated sb4 14:08 Data reviewed: vital signs, nurses notes, lab test result(s), radiologic studies, and sb4 as a result, I will discharge patient. Counseling: I had a detailed discussion with the patient and/or guardian regarding the historical points, exam findings, and any diagnostic results supporting the discharge/admit diagnosis, lab results, radiology results, the need for outpatient follow up, for definitive care, to return to the emergency department if symptoms worsen or persist or if there are any questions or concerns that arise at home. 01/05 10:53 Order name: CBC with Diff; Complete Time: 13:02 sb4 01/05 10:53 Order name: CMP; Complete Time: 11:35 sb4 01/05 10:53 Order name: Lipase; Complete Time: 11:35 sb4 01/05 10:53 Order name: Urinalysis w/ reflexes; Complete Time: 12:32 sb4 01/05 13:01 Order name: Manual Differential; Complete Time: 13:02 EDMS 01/05 11:40 Order name: Abdomen ; Complete Time: 13:26 EDMS 01/05 10:53 Order name: IV Saline Lock; Complete Time: 11:10 sb4 01/05 10:53 Order name: Labs collected and sent; Complete Time: 11:10 sb4 Administered Medications: 11:20 Drug: Ondansetron IVP 4 mg IVP once; over 2 minutes Route: IVP; Site: right antecubital;ko1 11:35 Follow up: Response: No adverse reaction ko1 11:20 Drug: NS 0.9% IV 1000 ml IV at 1 bolus Per protocol; to be given as a bolus over 60 ko1 minutes Route: IV; Rate: 1 bolus; Site: right antecubital; 14:11 Follow up: Response: No adverse reaction; IV Status: Completed infusion; IV Intake: ko1 1000ml 13:38 Drug: Potassium PO Effervescent Tablet 50 mEq PO once; dissolve in 4 ounces of water or ko1 juice Route: PO; 14:11 Follow up: Response: No adverse reaction ko1 Disposition: 18:10 Co-signature as Attending Physician, Farooq James MD I reviewed the patient's care rn provided by the Advanced Practice Provider and agree with the diagnosis and treatment plan. Disposition Summary: 01/05/25 14:03 Discharge Ordered Notes: Location: Home sb4 Problem: new sb4 Symptoms: have improved sb4 Condition: Stable sb4 Diagnosis - Viral gastroenteritis sb4 Followup: sb4 - With: Emergency Department - When: As needed - Reason: Trouble breathing, Worsening of condition Discharge Instructions: - Discharge Summary Sheet sb4 - Viral Gastroenteritis, Adult, [id number] sb4 - Hypokalemia sb4 Forms: - Patient Portal Instructions sb4 - Leadership Thank You Letter sb4 Signatures: Dispatcher [employer] Subha Robin RN RN iw Nieto, Roman, MD MD rn Oliver, Kathy, RN RN ko1 Brown, Sophia, PA-C PA-C sb4 Corrections: (The following items were deleted from the chart) 10:57 10:53 Patient states that she had a stomach bug last week but she cannot seem to get sb4 over it has her nausea, abdominal cramping, and diarrhea have persisted. She states that she did have her Benlysta infusion 3 days ago which "wiped out her immune system" states that she has not eaten in several days. sb4 10:57 10:53 Patient states that she had a stomach bug last week but she cannot seem to get sb4 over it has her nausea, abdominal cramping, and diarrhea have persisted. She states that she did have her RA Benlysta infusion 3 days ago which "wiped out her immune system" states that she has not eaten in several days. sb4 11:37 10:53 Abdomen Pelvis W Con+CT.RAD.BRZ ordered. EDMS EDMS
--- NOTE | 2025-01-05 14:03 | ER ---
Nurse's Notes [facility] Name: Ginette Guillermo Age: 44 yrs Sex: Female : 1980 Arrival Date: 01/05/2025 Time: 10:25 Bed 14 Private MD: Diagnosis: Viral gastroenteritis Presentation: 01/05 10:49 Chief complaint: Patient states: last week had a stomach bug and has not been able to iw get rid of it, is extremely nauseous and not eating. Coronavirus screen: At this time, the client does not indicate any symptoms associated with coronavirus-19. Ebola Screen: No symptoms or risks identified at this time. Initial Sepsis Screen: Does the patient meet any 2 criteria? No. Patient's initial sepsis screen is negative. Does the patient have a suspected source of infection? No. Patient's initial sepsis screen is negative. Risk Assessment: Do you want to hurt yourself or someone else? Patient reports no desire to harm self or others. Onset of symptoms was December 29, 2024. 10:49 Method Of Arrival: Ambulatory iw 10:49 Acuity: KAMLESH 3 iw Historical: - Allergies: 10:50 Steroids- IV; iw - PMHx: 10:50 hypotension; Lupus erythematosus; RA/fibromyalgia; raynaud's; iw - PSHx: 10:50 Appendectomy; Cholecystectomy; hysterectomy; iw - Immunization history:: Adult Immunizations not up to date. - Infectious Disease History:: Denies. - Social history:: Smoking status: Reported history of juuling and/or vaping. Screenin:57 [facility] ED Fall Risk Assessment (Adult) History of falling in the last 3 months, ko1 including since admission No falls in past 3 months (0 pts) Confusion or Disorientation No (0 pts) Intoxicated or Sedated No (0 pts) Impaired Gait No (0 pts) Mobility Assist Device Used No (0 pt) Altered Elimination No (0 pt) Score/Fall Risk Level 0 - 2 = Low Risk Oriented to surroundings, Maintained a safe environment, Educated pt \T\ family on fall prevention, incl call for assistance when getting out of bed, Assessed \T\ reinforced patient's understanding of fall precautions, Hourly rounding (assess needs \T\ fall precautionary measures) done. Abuse screen: Denies threats or abuse. Denies injuries from another. Nutritional screening: No deficits noted. Tuberculosis screening: No symptoms or risk factors identified. Assessment: 11:57 General: Appears in no apparent distress. Behavior is calm, cooperative, appropriate ko1 for age. Pain: Complains of pain in abdomen. Neuro: No deficits noted. Cardiovascular: No deficits noted. Respiratory: No deficits noted. GI: Abdomen is non-distended. : No deficits noted. No signs and/or symptoms were reported regarding the genitourinary system. EENT: No deficits noted. No signs and/or symptoms were reported regarding the EENT system. Derm: No deficits noted. No signs and/or symptoms reported regarding the dermatologic system. Musculoskeletal: No deficits noted. No signs and/or symptoms reported regarding the musculoskeletal system. Vital Signs: 10:50 BP 90 / 62; Pulse 67; Resp 16; Pulse Ox 100% on R/A; Weight 84.82 kg; Height 5 ft. 6 iw in. ; Pain 6/10; 11:57 BP 104 / 72; Pulse 58; Resp 16; Pulse Ox 99% on R/A; ko1 12:27 BP 117 / 81; Pulse 52; Resp 16; Pulse Ox 99% ; ko1 12:54 BP 121 / 78; Pulse 50; Resp 16; Pulse Ox 100% ; ko1 10:50 Body Mass Index 30.18 (84.82 kg, 167.64 cm) iw 10:50 Pain Scale: Adult iw ED Course: 10:45 Patient arrived in ED. al6 10:46 Mony Dallas PA-C is PHCP. sb4 10:46 Farooq James MD is Attending Physician. sb4 10:50 Triage completed. iw 10:50 Arm band placed on. iw 10:58 Leonarda Edward, ALISON is Primary Nurse. ko1 11:05 Missed attempt(s): 20 gauge in right antecubital area. Bleeding controlled, band aid bc6 applied, catheter tip intact. 11:10 CBC with Diff Sent. ko1 11:10 CMP Sent. ko1 11:10 Lipase Sent. ko1 11:12 Initial lab(s) drawn, by nc, sent to lab. Inserted saline lock: 24 gauge in right bc6 antecubital area, using aseptic technique. Blood collected. Flushed with 10 mL NS. 11:57 Abdomen In Process Unspecified. EDMS 11:57 Patient has correct armband on for positive identification. Allergy band placed. Bed in ko1 low position. Call light in reach. Side rails up X 1. Provided Education on: meds. Pulse ox on. NIBP on. Door closed. Noise minimized. Lights dimmed. Warm blanket given. Pillow given. 11:57 No provider procedures requiring assistance completed. ko1 12:06 Urinalysis w/ reflexes Sent. ko1 12:06 Urine collected: clean catch specimen, clear. ko1 12:26 Warm blanket given. ko1 14:10 IV discontinued, intact, bleeding controlled, No redness/swelling at site. Pressure ko1 dressing applied. Administered Medications: 11:20 Drug: Ondansetron IVP 4 mg IVP once; over 2 minutes Route: IVP; Site: right antecubital;ko1 11:35 Follow up: Response: No adverse reaction ko1 11:20 Drug: NS 0.9% IV 1000 ml IV at 1 bolus Per protocol; to be given as a bolus over 60 ko1 minutes Route: IV; Rate: 1 bolus; Site: right antecubital; 14:11 Follow up: Response: No adverse reaction; IV Status: Completed infusion; IV Intake: ko1 1000ml 13:38 Drug: Potassium PO Effervescent Tablet 50 mEq PO once; dissolve in 4 ounces of water or ko1 juice Route: PO; 14:11 Follow up: Response: No adverse reaction ko1 Medication: 11:57 VIS not applicable for this client. ko1 Intake: 14:11 IV: 1000ml; Total: 1000ml. ko1 Outcome: 14:03 Discharge ordered by . [email or web address] 14:10 Discharged to home ambulatory, ko1 14:10 Condition: stable 14:10 Discharge instructions given to patient, Instructed on discharge instructions, follow up and referral plans. Demonstrated understanding of instructions, follow-up care, 14:10 Patient left the ED. ko1 Signatures: Dispatcher [employer] Subha Robin RN RN iw Leonarda Edward RN RN ko1 Mony Dallas, PA-C PA-C [email or web address] Vernell Vidal6 Saranya Costa6 Corrections: (The following items were deleted from the chart) 10:51 10:50 Resp 16bpm; Pulse Ox 100% RA; iw iw 10:53 10:50 BP 90 / 62; Pulse 67bpm; Resp 16bpm; Pulse Ox 100% RA; iw iw
[2025-01-05 14:53] VITALS: BP 121/78; O2SAT 100
== END 2025-01-05 14:10 | disposition home or self-care (01) ==
LOC: ER 10:25
DX: A08.4 Viral intestinal infection, unspecified (principal)
CPT/HCPCS: 85025; 81001; 36415; 83690; 80053; 74177; Q9967; J2405; J7030; 96361; 96374; 99284